=== PATIENT | female | born 1940 | race Caucasian/White ===

== ENCOUNTER → 2016-08-17 | Outpatient (CLI) | payer MEDICARE ==
--- NOTE | 2016-08-18 12:06 | MM ---
Reason for exam: screening (asymptomatic). Last mammogram was performed 1 year ago. History: Patient is postmenopausal and has history of colon cancer at age 64. Family history of breast cancer in maternal aunt. Physical Findings: A clinical breast exam by your physician is recommended on an annual basis and results should be correlated with mammographic findings. MG Screening Mammo w CAD Bilateral CC and MLO view(s) were taken. Prior study comparison: August 15, 2015, bilateral MG screening mammo w CAD. August 02, 2014, bilateral MG screening mammo w CAD. July 31, 2013, bilateral digital screening mammo w/CAD. The breast tissue is almost entirely fat. No significant changes when compared with prior studies. ASSESSMENT: Negative, BI-RAD 1 RECOMMENDATION: Routine screening mammogram of both breasts in 1 year.
== END | disposition home or self-care (01) ==
LOC: RADMAMWWP 11:24
PROVIDERS: ATTEND Family Medicine
DX: Z12.31 Encounter for screening mammogram for malignant neoplasm of breast (principal)

== ENCOUNTER → 2016-11-16 | Outpatient (CLI) | payer MEDICARE ==
--- NOTE | 2016-11-16 09:49 | CT ---
EXAMINATION TYPE: CT sinus wo con DATE OF EXAM: 11/16/2016 9:06 AM COMPARISON: NONE HISTORY: Lt facial pain and burning CT DLP: 590.1 mGycm Automated exposure control for dose reduction was used. FINDINGS: Visualized intracranial structures are unremarkable. The soft tissues are unremarkable. There is minimal mucoperiosteal thickening involving the anterior ethmoid air cells. The remainder th e paranasal sinuses and mastoids are clear. Both infundibula are patent. IMPRESSION: MINIMAL MUCOPERIOSTEAL THICKENING INVOLVING THE ANTERIOR ETHMOID AIR CELLS.
== END | disposition home or self-care (01) ==
LOC: RADCTMAIN 08:38
PROVIDERS: ATTEND Otolaryngology
DX: J34.89 Other specified disorders of nose and nasal sinuses (principal); R22.0 Localized swelling, mass and lump, head
CPT/HCPCS: 70486

== ENCOUNTER 2017-04-06 15:52 | Emergency (ER) | payer MEDICARE ==
[2017-04-06 16:02] VITALS: BP 192/74; PULSE 84; RESP 18; TEMP 97.6
[2017-04-06] MEDS ORDERED: ACETAMINOPHEN TAB 500 MG TAB PO STA (16:22)
--- NOTE | 2017-04-06 16:50 | XR ---
EXAMINATION TYPE: XR ribs LT w pa chest xray DATE OF EXAM: 04/06/2017 COMPARISON: NONE HISTORY: Rib pain TECHNIQUE: 5 views FINDINGS: There is slight coarsening of interstitial markings. Heart size is normal. There is no sign of pleural effusion or pneumothorax. I see no displaced rib fracture. IMPRESSION: Minimal pulmonary fibrotic changes. No active cardiopulmonary disease. No fracture. Chest x-ray is stable compared to 07/16/2015.
--- NOTE | 2017-04-06 17:02 | ED ---
Fall HPI - General Chief Complaint: Fall Stated Complaint: Fall Time Seen by Provider: 04/06/17 16:06 Source: patient Mode of arrival: ambulatory - History of Present Illness Initial Comments: 76-year-old female patient presents to emergency department today for evaluation after experiencing a fall just prior to arrival. Patient states that she was coming down the sidewalk where there was a small ledge. States that she fell forward striking her chin and face on the ground. Patient states that she did have some epistaxis after this. Patient states she does have a mild headache. Patient states she does have some tenderness in the anterior neck where she has abrasions. Patient states she is also having some left anterior rib pain. Patient states she is tender over the left anterior ribs #7 and 8 near the mid axillary line. She states that it does hurt when she takes a deep breath however denies any shortness of breath. Denies any cough or congestion. Denies any painful swallowing or throat swelling. Patient states she wears dentures, denies any abdominal injury. She states she has some mild knee tenderness however reports no difficulty ambulating, or difficulty with range of motion. She denies any lower extremity numbness or tingling. Patient denies any neck pain, back pain, chest pain, dizziness, weakness, abdominal pain , nausea, vomiting, or difficulties with bowel movements or urination. She reports taking 81mg Aspirin daily. Denies any other anticoagulant use. - Related Data Home Medications Medication Instructions Recorded Confirmed ALPRAZolam [Xanax] 0.25 mg PO BID 07/16/15 10/07/15 Candesartan Cilexetil 32 mg PO QAM 07/16/15 10/07/15 Citalopram Hydrobromide [CeleXA] 20 mg PO HS 07/16/15 10/07/15 Omeprazole [PriLOSEC] 20 mg PO AC-BRKFST 07/16/15 10/07/15 Simvastatin [Zocor] 40 mg PO HS 07/16/15 10/07/15 Aspirin [Adult Low Dose Aspirin EC] 81 mg PO DAILY 10/02/15 10/07/15 Cholecalciferol [Vitamin D3] 1,000 unit PO DAILY 10/02/15 10/07/15 Multivitamins, Thera [Multivitamin] 1 tab PO DAILY 10/02/15 10/07/15 Previous Rx's Medication Instructions Recorded Acetaminophen-Codeine 300-30mg 1 tab PO Q6H PRN #15 tablet 04/06/17 [Tylenol #3] Allergies Allergy/AdvReac Type Severity Reaction Status Date / Time adhesive Allergy Itching. Verified 04/06/17 16:02 RASH/REDNESS Review of Systems ROS Statement: Those systems with pertinent positive or pertinent negative responses have been documented in the HPI. ROS Other: All systems not noted in ROS Statement are negative. Past Medical History Past Medical History: Coronary Artery Disease (CAD), Cancer, Hypertension Additional Past Medical History / Comment(s): colon cancer History of Any Multi-Drug Resistant Organisms: None Reported Past Surgical History: Appendectomy, Bowel Resection, Hysterectomy, Orthopedic Surgery Additional Past Surgical History / Comment(s): RIGHT HAND TRIGGER FINGER Past Anesthesia/Blood Transfusion Reactions: Motion Sickness Past Psychological History: Depression Smoking Status: Former smoker Past Alcohol Use History: Rare Past Drug Use History: None Reported - Past Family History Mother Family Medical History: No Reported History General Exam Limitations: no limitations General appearance: alert, in no apparent distress, other (This is a well- developed, well-nourished, acutely responsive adult female patient in no acute distress. Vital signs upon presentation were temperature 97.6F, pulse 84, respirations 18, blood pressure 192/74, pulse ox 97% on room air.) Head exam: Present: normocephalic, other (Patient has a chin abrasion, minor soft tissue swelling, mild ecchymosis.) Eye exam: Present: normal appearance, PERRL, EOMI. Absent: scleral icterus, conjunctival injection, periorbital swelling, periorbital tenderness ENT exam: Present: normal exam, normal oropharynx, mucous membranes moist, TM's normal bilaterally, other (Patient did have some dried blood to the right naris. No septal deviation or hematoma noted. Bleeding is controlled. Patient denies any nasal bridge tenderness. No evidence of cobb sign. Patient does have lower lip swelling, there is ecchymosis noted to the oral mucosal surface of the lower lip. No evidence of laceration or bleeding.) Neck exam: Present: tenderness (Left anterior neck tenderness), full ROM, other (Nontender, no step-off, no deformity to firm midline palpation of the posterior cervical spine. Full range of motion without pain or limitation.). Absent: normal inspection, meningismus, lymphadenopathy Respiratory exam: Present: normal lung sounds bilaterally, chest wall tenderness (Left anterior rib tenderness, near the midaxillary line.), other ( No evidence of superficial trauma, ecchymosis, or abrasion.). Absent: respiratory distress, wheezes, rales, rhonchi, stridor Cardiovascular Exam: Present: regular rate, normal rhythm, normal heart sounds. Absent: systolic murmur, diastolic murmur, rubs, gallop, clicks GI/Abdominal exam: Present: soft, normal bowel sounds. Absent: distended, tenderness, guarding, rebound, rigid Extremities exam: Present: full ROM, normal capillary refill, other (Ecchymosis noted to the right anterior knee above the patella. Full range of motion without pain or limitation. No laxity with valgus or varus maneuvers. Patient ambulatory without difficulty. Bilateral upper construction secretary pink, warm, and dry. Strength is 5/5 in bilateral arms. Radial pulses are intact and 2+. Patient denies any numbness or tingling.). Absent: tenderness, pedal edema, joint swelling, calf tenderness Back exam: Present: normal inspection, other (Nontender, no step-off, no deformity to firm midline palpation of the thoracic and lumbar vertebrae. Full range of motion without pain or limitation.). Absent: tenderness, CVA tenderness (R), CVA tenderness (L), vertebral tenderness Neurological exam: Present: alert, oriented X3, CN II-XII intact Psychiatric exam: Present: normal affect, normal mood Skin exam: Present: warm, dry, intact, normal color. Absent: rash Course Vital Signs 04/06/17 15:58 Temperature 97.6 F Pulse Rate 84 Respiratory 18 Rate Blood Pressure 192/74 O2 Sat by Pulse 97 Oximetry Medical Decision Making - Medical Decision Making 76-year-old female patient presented for evaluation after sustaining a fall today. CT of the brain, C-spine, and facial bones is negative for any acute process. X-ray of the chest with left rib exam is negative for any acute fracture, or intra-thoracic process. Patient has good neurovascular status all extremities. She is neurologically intact. She was given acetaminophen here in the department, patient is controlled. She will be discharged home to follow up with her primary care physician for recheck in 1-2 days. Did give her a prescription of Tylenol with codeine to take in case her pain worsens. She was instructed regarding good pulmonary hygiene in relation to having the rib pain. She is instructed to do coughing and deep breathing exercises. She is instructed to return immediately for any new, worsening, or concerning symptoms. She verbalizes understanding and agrees with this plan. - Radiology Data Radiology results: report reviewed, image reviewed 5 views of the chest show slight coarsening of the interstitial markings. Heart size is normal. There is no sign of pleural effusion or pneumothorax. I see no displaced rib fracture. Impression by Dr. Peterson shows minimal pulmonary fibrotic changes. No active cardiopulmonary disease. No fracture. Chest x-ray stable compared to 07/16/2015. Computed tomography scan of the head and cervical spine are performed without contrast, ventricles have fairly normal size. There is no mass effect or midline shift. There is no sign of intracranial hemorrhage. The calvarium is intact. Cervical vertebra have normal alignment. There is narrowing and spurring at C5 to 6 and C6 to 7. The posterior elements are intact. There is mild facet arthropathy. Skull base is intact. There is no sign of a fracture. Impression by Dr. Peterson shows negative computed tomography scan the brain. Mild spondylitic changes in the cervical spine. Otherwise negative computed tomography scan of the cervical spine. No fracture. No change compared to old exam. Computed tomography scan of the sinuses is performed without contrast, elza images are obtained, coronal reformatted images are also reviewed. Findings show the mandibular ring is intact. Zygomatic arches appear normal. There is fairly normal aeration of the paranasal sinuses. Orbital margins are intact. There is no evidence of a blowout fracture. There is bilateral patency of the ostiomeatal complex. The maxilla is intact. Nasal bone appears intact. Impression by Dr. Peterson shows negative computed tomography scan of the facial bones. No fracture seen. Disposition Clinical Impression: Fall with injury, Facial abrasion, Facial contusion, Knee contusion Disposition: HOME SELF-CARE Condition: Good Instructions: Fall Prevention for Older Adults (ED), Contusion in Adults (ED), Abrasion (ED), Rib Contusion (ED) Additional Instructions: Perform coughing and deep breathing exercises 10 times normal awake. Apply ice to the painful areas 20 minutes at a time at least 4 times daily. Keep wounds clean and dry. Monitor for signs or symptoms of infection including but not limited to redness, swelling, drainage, increased pain, fever, or chills. Follow-up with your primary care physician for recheck in 1-2 days. Return here immediately for any new, worsening, or concerning symptoms. Prescriptions: Acetaminophen-Codeine 300-30mg [Tylenol #3] 1 tab PO Q6H PRN #15 tablet PRN Reason: Pain Referrals: Sunny Sun DO [Primary Care Provider] - 1-2 days Time of Disposition: 17:57
[2017-04-06] MEDS ORDERED: DIPH,PERTUS(ACELL)TETVAC-LF 0.5 ML VIAL IM ONE (17:24)
--- NOTE | 2017-04-06 17:31 | CT ---
EXAMINATION TYPE: CT brain mario wo con DATE OF EXAM: 04/06/2017 COMPARISON: 07/16/2015 HISTORY: Fall, abrasion to nose and chin. CT DLP: 1560.60 mGycm Automated exposure control for dose reduction was used. TECHNIQUE: CT scan of the head and cervical spine are performed without contrast. FINDINGS: Ventricles have fairly normal size. There is no mass effect nor midline shift. There is n o sign of intracranial hemorrhage. The calvarium is intact. Cervical vertebra have normal alignment. There is narrowing and spurring at C5-6 C6-7. The posterior elements are intact. There is mild facet arthropathy. Skull base is intact. There is no sign of a fra cture. IMPRESSION: Negative CT scan of the brain. Mild spondylotic changes in the cervical spine. Otherwise negative CT scan of cervical spine. No fracture. No change compared to old exam.
--- NOTE | 2017-04-06 17:34 | CT ---
EXAMINATION TYPE: CT facial bones wo con DATE OF EXAM: 04/06/2017 COMPARISON: NONE HISTORY: Fall, abrasion to nose and chin. CT DLP: 587.50 mGycm Automated exposure control for dose reduction was used. TECHNIQUE: CT scan of the sinuses is performed without contrast, axial images are obtained, coronal r eformatted images are also reviewed. FINDINGS: The mandibular ring is intact. Zygomatic arches appear normal. There is fairly normal aerat ion of the paranasal sinuses. Orbital margins are intact. There is no evidence of a blowout fracture. There is bilateral patency of the ostiomeatal complex. The maxilla is intact. Nasal bone appears int act. IMPRESSION: Negative CT scan of the facial bones. No fracture seen.
== END 2017-04-06 18:07 | disposition home or self-care (01) ==
LOC: EC 15:52
DX: S00.83XA Contusion of other part of head, initial encounter (principal); S00.531A Contusion of lip, initial encounter; S80.01XA Contusion of right knee, initial encounter; J84.10 Pulmonary fibrosis, unspecified; M47.812 Spondylosis without myelopathy or radiculopathy, cervical region; M46.92 Unspecified inflammatory spondylopathy, cervical region; R07.81 Pleurodynia; I10 Essential (primary) hypertension; I25.10 Atherosclerotic heart disease of native coronary artery without angina pectoris; F32.9 Major depressive disorder, single episode, unspecified; Z87.891 Personal history of nicotine dependence; Z79.82 Long term (current) use of aspirin; Z79.899 Other long term (current) drug therapy; Z91.09 Other allergy status, other than to drugs and biological substances; Z23 Encounter for immunization; W18.09XA Striking against other object with subsequent fall, initial encounter; Y93.01 Activity, walking, marching and hiking; Y92.480 Sidewalk as the place of occurrence of the external cause
CPT/HCPCS: 70450; 70486; 72125; 90471; 90715; 99284

== ENCOUNTER → 2017-07-02 | Outpatient (CLI) | payer MEDICARE ==
--- NOTE | 2017-07-02 13:53 | XR ---
EXAMINATION TYPE: XR lumbar spine 2 or 3V DATE OF EXAM: 07/02/2017 CLINICAL HISTORY: pain TECHNIQUE: Three views of the lumbar spine are submitted. COMPARISON: None. FINDINGS: Other scoliotic curvature convex to the left. Severe degenerative disc space narrowing is identified at L2-3 through L5-S1. There is endplate sclerosis noted as well as ventral and dorsal spondylosis. S evere facet joint arthropathy noted. No acute compression fracture identified. No evidence for sublux ation. Nonaneurysmal atheromatous change of the abdominal aorta. IMPRESSION: Degenerative changes as discussed. ICD 10 NO FRACTURE, INITIAL EVALUATION
== END | disposition home or self-care (01) ==
LOC: RADXRMAIN 13:31
PROVIDERS: ATTEND Family Medicine
DX: M47.816 Spondylosis without myelopathy or radiculopathy, lumbar region (principal)
CPT/HCPCS: 72100

== ENCOUNTER → 2017-07-20 | Outpatient (CLI) | payer MEDICARE ==
--- NOTE | 2017-07-20 11:54 | XR ---
EXAMINATION TYPE: XR chest 2V DATE OF EXAM: 07/20/2017 COMPARISON: 04/06/2017 TECHNIQUE: PA and lateral views submitted. HISTORY: Cough FINDINGS: The lungs are clear and there is no pneumothorax, pleural effusion, or focal pneumonia. Atheroscler otic change aorta. Arthropathy of the shoulders. Diffuse osteopenia noted. Degenerative and hypertrop hic change of the spine. No overt failure. IMPRESSION: 1. No acute process.
== END | disposition home or self-care (01) ==
LOC: RADXRMAIN 11:22
PROVIDERS: ATTEND Family Medicine
DX: J20.9 Acute bronchitis, unspecified (principal)
CPT/HCPCS: 71046

== ENCOUNTER → 2017-08-05 | Outpatient (CLI) | payer MEDICARE ==
[2017-08-05 12:05] LABS: HCT 35.9 % (34.0-46.0); HGB 11.6 gm/dL (11.4-16.0); MCH 30.3 pg (25.0-35.0); MCHC 32.4 g/dL (31.0-37.0); MCV 93.6 fL (80.0-100.0); Mean Platelet Volume 7.6; Platelet Count 332 k/uL (150-450); RBC 3.83 m/uL (3.80-5.40); RDW 12.8 % (11.5-15.5); WBC 9.7 k/uL (3.8-10.6)
[2017-08-05 12:24] LABS: Anion Gap 9 mmol/L; Blood Urea Nitrogen 14 mg/dL (7-17); Carbon Dioxide 27 mmol/L (22-30); Chloride 105 mmol/L (98-107); Potassium 4.2 mmol/L (3.5-5.1); Sodium 141 mmol/L (137-145)
== END | disposition home or self-care (01) ==
LOC: LABPAT 11:24
PROVIDERS: ATTEND Internal Medicine Cardiovascular Disease
DX: Z01.812 Encounter for preprocedural laboratory examination (principal); R07.9 Chest pain, unspecified
CPT/HCPCS: 36415; 80051; 82565; 84520; 85027

== ENCOUNTER 2017-08-10 10:32 | Day surgery (SDC) | payer MEDICARE ==
[~2017-08-10 10:32] MED LIST: ALPRAZolam 0.25 MG TAB PO PRN; ALPRAZolam 0.5 MG TAB PO PRN; ASPIRIN 325 MG TAB PO STA; ATORVASTATIN 80 MG TAB PO STA; NITROGLYCERIN SL TABS 0.4 MG TAB SUBLINGUAL PRN; SODIUM CHLORIDE 0.9% 1,000 ML in EMPTY BAG 1 BAG IV ONE
[2017-08-10] MEDS ORDERED: IV FLUID CONTINUATION 950 ML IV ONE (13:20)
[2017-08-10] MEDS ORDERED: fentaNYL (PF) 50 MCG/ML 2 ML AMP IV ONE (13:35)
[2017-08-10] MEDS ORDERED: MIDAZOLAM 2 MG/2 ML VIAL IV ONE (13:36)
[2017-08-10] MEDS ORDERED: LIDOCAINE 2% INJ 20 MG/ML SQ ONE (13:39)
[2017-08-10] MEDS ORDERED: BIVALIRUDIN BOLUS 250 MG/50 ML IV ONE (14:36)
[2017-08-10] MEDS ORDERED: BIVALIRUDIN 250 MG in SODIUM CHLORIDE 0.9% 40 ML IV ONE (14:37)
[2017-08-10] MEDS ORDERED: CLOPIDOGREL 75 MG TAB PO ONE (14:51)
[2017-08-10] MEDS ORDERED: RX INFO: IV CONTRAST WAS GIVEN 1 EACH MISC MISCELLANE PRN (15:00)
[2017-08-10] MEDS ORDERED: MAG HYDROX/AL HYDROX/SIMETH 30 ML CUP PO PRN (15:00)
[2017-08-10] MEDS ORDERED: IOHEXOL 350 MG/ML 125ML BOTTLE INJ ONE (15:00)
[2017-08-10] MEDS ORDERED: ATROPINE SULFATE 0.1 MG/ML 10ML SYRINGE IV PRN (15:00)
--- NOTE | 2017-08-10 15:52 | CC ---
CARDIAC CATHETERIZATION REPORT Mrs. Cowart is a 77-year-old female who has been having intermittent chest discomfort. She underwent a stress test. Stress test showed evidence of ST-segment changes suggestive of ischemia. The nuclear test did not show any significant abnormality. In view of the continued chest pain and abnormal EKG, patient was recommended to have a cardiac catheterization for definitive diagnosis. PROCEDURE: The right groin was prepped and draped in the usual manner and the skin was infiltrated with 2% Xylocaine. The right femoral artery was entered using Seldinger technique. A #6 Cuban sheath was placed in. Selective coronary angiography was then performed in multiple projections and the left ventricular pressures were obtained. Patient tolerated the procedure well. Subsequently, Dr. Alva Ramirez proceeded with a stent to the obtuse marginal branch. Moderate sedation was used. The total sedation time was 19 minutes. HEMODYNAMICS: Left ventricular end-diastolic pressure was 16 to 18 mmHg prior to angiography. No significant gradient is noted across the aortic valve. SELECTIVE CORONARY ANGIOGRAPHY: Left main coronary artery is normal and patent. LAD is a good-caliber blood vessel and gives rise to a good-sized diagonal branch. LAD and its branches are normal. The circumflex coronary artery is codominant in distribution and it gives rise to a good- sized high obtuse marginal branch. Subsequently the circumflex coronary artery continues as a good-sized PLV branch which has got a focal stenosis of about 90%. The right coronary artery gives rise to a small-sized PDA branch and it is normal. 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 Left anterior descending and the right coronary arteries are normal. RECOMMENDATIONS: We will review the films with Dr. Alva Ramirez and consider stent to the obtuse marginal branch. MMODL / IJN: [id number] /
[2017-08-10 15:57] VITALS: RESP 18
[2017-08-10] MEDS ORDERED: ACETAMINOPHEN TAB 325 MG TAB PO PRN (18:08)
[2017-08-10] MEDS: SODIUM CHLORIDE 0.9% 1,000 ML IV SCH (18:14)
[2017-08-10] MEDS: METOPROLOL TARTRATE 12.5 MG TAB PO SCH (20:37)
[2017-08-10] MEDS ORDERED: ATORVASTATIN 80 MG TAB PO SCH (21:00)
[2017-08-10] MEDS ORDERED: FLUoxetine HCL 20 MG CAP PO SCH (21:00)
[2017-08-11] MEDS: SODIUM CHLORIDE 0.9% 1,000 ML IV SCH (05:41)
[2017-08-11 06:22] LABS: Anion Gap 8 mmol/L; Blood Urea Nitrogen 17 mg/dL (7-17); Carbon Dioxide 30 mmol/L (22-30); Chloride 102 mmol/L (98-107); Glucose 95 mg/dL (74-99); Sodium 140 mmol/L (137-145)
[2017-08-11 06:41] LABS: Basophils % (A) 0 %; Eosinophils # (A) 0.2 k/uL (0-0.7); Eosinophils % (A) 2 %; HCT 38.4 % (34.0-46.0); HGB 12.5 gm/dL (11.4-16.0); Lymphocytes % (A) 20 %; MCH 30.2 pg (25.0-35.0); MCHC 32.6 g/dL (31.0-37.0); MCV 92.8 fL (80.0-100.0); Mean Platelet Volume 7.5; Monocytes # (A) 0.5 k/uL (0-1.0); Monocytes % (A) 4 %; Neutrophils # (A) 7.3 k/uL (1.3-7.7); Neutrophils % (A) 71 %; Platelet Count 290 k/uL (150-450); RBC 4.14 m/uL (3.80-5.40); RDW 12.8 % (11.5-15.5); WBC 10.3 k/uL (3.8-10.6)
[2017-08-11 06:48] LABS: Potassium 4.5 mmol/L (3.5-5.1)
[2017-08-11] MEDS: METOPROLOL TARTRATE 12.5 MG TAB PO SCH (08:02)
--- NOTE | 2017-08-11 08:02 | PTCA ---
PERCUTANEOUSTRANS CORORONARY ANGIOGRAPHY DATE OF SERVICE: 08/10/2017. PROCEDURE: PTCA and stenting of mid circumflex coronary artery. PERFORMED BY: Dr. Alva Ramirez. ANESTHESIA: Moderate conscious sedation time 19 minutes. CLINICAL INFORMATION: Mrs. Ramila Cowart is a 77-year-old lady with a history of hypertension who had an abnormal stress test and underwent a cardiac cath by Dr. Chase Vela. Study revealed a 90% hazy mid circumflex lesion and was advised intervention that was performed in the same setting. PROCEDURE NOTE: The existing 6-Czech introducer in the right femoral artery was used to perform the procedure. A standard left Lizandro type guide catheter was used to cannulate the left coronary artery. A BMW wire was used to cross the lesion. A 12 mm long 2.5 caliber Trek balloon was used to pre-dilate the lesion. A 3.25 caliber 12 mm long Xience drug- eluting stent was deployed at 11 atmospheres. Patient had mild chest discomfort, but no significant EKG changes. The patient received Angiomax bolus and infusion. She also received 600 mg of Plavix. Excellent angiographic result without complication was achieved and I expect the patient to be discharged tomorrow. Results were discussed with the patient's neighbor and a niece who was in the waiting room. Results were also reviewed with the patient. Excellent angiographic result without complication was achieved. MMODL / ANGELAN: [id number] /
--- NOTE | 2017-08-11 08:08 | LTR ---
Dear Dr. Sun: Thank you for the opportunity to participate in the care of Mrs. Cowart. I am pleased to report you that this lady had an excellent angiographic result. The mid circumflex 90% hazy lesion was addressed with a drug-eluting stent of 3.25 caliber at 12 mm length. I expect the patient to be discharged tomorrow if she remains stable. Thank you for a referral and please call for questions. With kindest regards. Sincerely yours, MD DEEPAK Jack / ANGELAN: [id number] /
[2017-08-11] MEDS ORDERED: ASPIRIN 325 MG TAB PO SCH (09:00)
[2017-08-11] MEDS ORDERED: LOSARTAN 50 MG TAB PO SCH (09:00)
[2017-08-11] MEDS ORDERED: CHOLECALCIFEROL 1,000 UNIT TAB PO SCH (09:00)
[2017-08-11] MEDS ORDERED: ISOSORBIDE MONONITRATE ER 30 MG TAB.ER.24H PO SCH (09:00)
[2017-08-11 11:31] VITALS: BMI 33.4
[2017-08-11 12:00] VITALS: BP 133/63; PULSE 60; TEMP 97.6
[2017-08-11] MEDS ORDERED: MULTIVITAMINS, THERA 1 EACH TAB PO SCH (12:00)
[2017-08-11] MEDS ORDERED: CLOPIDOGREL 75 MG TAB PO SCH (12:00)
--- NOTE | 2017-08-11 12:53 | PN ---
PROGRESS NOTE HISTORY: This patient underwent cardiac catheterization yesterday. Patient was found to have a 90% stenosis of the obtuse marginal branch and underwent a stent placement. He is doing well. The patient's was explained about the findings of catheterization as well as a stent placement. She has been having intermittent nausea. The patient is advised to take Prilosec 20 mg daily. Patient's physical examination and vital signs are normal. The right groin is normal. There is no evidence of any hematoma. The patient will be discharged home today. Medications are reviewed. She will follow up with Dr. Arias. MMODL / IJN: [id number] /
== END 2017-08-11 15:10 | disposition home or self-care (01) ==
LOC: CATHCVL 10:32 → 6SEL 15:38 → CATHCVL 08-11 15:10
PROVIDERS: ATTEND Internal Medicine Cardiovascular Disease
DX: I25.10 Atherosclerotic heart disease of native coronary artery without angina pectoris (principal); R11.0 Nausea; R00.1 Bradycardia, unspecified; R94.39 Abnormal result of other cardiovascular function study; E78.5 Hyperlipidemia, unspecified; I10 Essential (primary) hypertension; Z82.49 Family history of ischemic heart disease and other diseases of the circulatory system; Z87.891 Personal history of nicotine dependence; Z79.82 Long term (current) use of aspirin; Z79.899 Other long term (current) drug therapy
CPT/HCPCS: 93458; 80048; 85025; C9600; C1769 ×3; C1760; C1887; C1725; C1894; C1874; J2001; J2250; J3010; J0583; Q9967

== ENCOUNTER → 2017-08-31 | Outpatient (CLI) | payer MEDICARE ==
--- NOTE | 2017-08-31 11:19 | US ---
EXAMINATION TYPE: US gallbladder DATE OF EXAM: 08/31/2017 COMPARISON: None CLINICAL HISTORY: 77 year-old female with nausea, R10.11 Right Upper Quad Pain. Technique: Multiple sonographic images of the right upper quadrant are obtained. FINDINGS: Liver Length: 15.0 cm Gallbladder Wall: 3.7 mm CBD: 0.4 cm Right Kidney: 11.8 x 5.4 x 5.5 cm Pancreas: not well visualized due to midline bowel gas Liver: wnl Gallbladder: Borderline to mild wall thickening may relate to incomplete distention. No abnormal dist ention, pericholecystic fluid, or shadowing calculi seen. Evidence for sonographic Elizabeth's sign: Yes CBD: wnl Right Kidney: No hydronephrosis. IMPRESSION: Borderline to mild gallbladder wall thickening without ancillary imaging findings of acute cholecysti tis. The positive sonographic Elizabeth's sign could reflect referred pain. If further imaging evaluatio n of the gallbladder is indicated, consider HIDA scan with ejection fraction.
== END | disposition home or self-care (01) ==
LOC: RADUSWWP 08:42
PROVIDERS: ATTEND Family Medicine
DX: K82.8 Other specified diseases of gallbladder (principal)
CPT/HCPCS: 76705

== ENCOUNTER → 2017-09-01 | Outpatient (CLI) | payer MEDICARE ==
--- NOTE | 2017-09-02 09:59 | MM ---
Reason for exam: screening (asymptomatic). Last mammogram was performed 1 year ago. History: Patient is postmenopausal and has history of colon cancer at age 64. Family history of breast cancer in maternal aunt. Physical Findings: A clinical breast exam by your physician is recommended on an annual basis and results should be correlated with mammographic findings. MG 3D Screening Mammo W/Cad Bilateral CC and MLO view(s) were taken. Prior study comparison: August 17, 2016, bilateral MG screening mammo w CAD. August 15, 2015, bilateral MG screening mammo w CAD. The breast tissue is almost entirely fat. No significant changes when compared with prior studies. ASSESSMENT: Negative, BI-RAD 1 RECOMMENDATION: Routine screening mammogram of both breasts in 1 year.
== END | disposition home or self-care (01) ==
LOC: RADMAMWWP 13:36
PROVIDERS: ATTEND Family Medicine
DX: Z12.31 Encounter for screening mammogram for malignant neoplasm of breast (principal)
CPT/HCPCS: 77063; 77067

== ENCOUNTER 2018-01-15 12:24 | Observation (INO) | payer MEDICARE ==
[2018-01-15] MEDS ORDERED: ASPIRIN 81 MG PO STA (13:00)
[2018-01-15] MEDS ORDERED: SODIUM CHLORIDE 0.9% 500 ML IV STA (13:00)
[2018-01-15 13:17] LABS: Basophils % (A) 1 %; Eosinophils # (A) 0.2 k/uL (0-0.7); Eosinophils % (A) 3 %; HCT 34.1 % (34.0-46.0); HGB 11.3 gm/dL (11.4-16.0); Lymphocytes # (A) 1.8 k/uL (1.0-4.8); Lymphocytes % (A) 22 %; MCHC 33.1 g/dL (31.0-37.0); MCV 87.5 fL (80.0-100.0); Mean Platelet Volume 7.6; Monocytes # (A) 0.5 k/uL (0-1.0); Monocytes % (A) 7 %; Neutrophils # (A) 5.1 k/uL (1.3-7.7); Neutrophils % (A) 65 %; Platelet Count 226 k/uL (150-450); RDW 13.8 % (11.5-15.5); WBC 7.8 k/uL (3.8-10.6)
[2018-01-15 13:25] LABS: Partial Thromboplastin Time 23.9 sec (22.0-30.0); Prothrombin Time 10.1 sec (9.0-12.0)
[2018-01-15 13:27] LABS: Albumin 3.7 g/dL (3.5-5.0); Calcium 8.7 mg/dL (8.4-10.2); Potassium 3.8 mmol/L (3.5-5.1); Total Bilirubin 0.4 mg/dL (0.2-1.3); Total Protein 6.4 g/dL (6.3-8.2)
[2018-01-15 13:43] LABS: Creatine Kinase 72 U/L (30-135)
[2018-01-15 13:55] LABS: Creatine Kinase MB 0.5 ng/mL (0.0-2.4); Troponin I <0.012 ng/mL (0.000-0.034)
--- NOTE | 2018-01-15 13:58 | XR ---
EXAMINATION TYPE: XR chest 2V DATE OF EXAM: 01/15/2018 HISTORY: Chest Pain. REFERENCE: Previous study dated 07/20/2017. FINDINGS: The heart is upper limits of normal in size. There are senescent changes throughout the [place] gs. There is no focal pneumonia or edema. Pleural spaces are clear. IMPRESSION: NO ACUTE CARDIOTHORACIC ABNORMALITY.
--- NOTE | 2018-01-15 14:50 | ED ---
General Adult HPI - General Chief complaint: Recheck/Abnormal Lab/Rx Stated complaint: Hypertension Time Seen by Provider: 01/15/18 12:51 Source: patient Mode of arrival: ambulatory Limitations: no limitations - History of Present Illness Initial comments: 77-year-old female patient presents the emergency department today for evaluation of elevated blood pressure and intermittent chest pain. Patient states that she has been having elevated blood pressures for the last couple of weeks. 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 Patient and family report that blood pressure this morning was 188/80. Patient states that she has been having morning headaches with this. States that today she has been having intermittent chest pain. She denies any shortness of breath , nausea, vomiting, sweats, neck, or jaw pain. Denies any dizziness or weakness. Denies any numbness or tingling to her extremities. Patient does have a history of coronary artery disease with 2 stents placed. Patient denies any recent rash, fever, chills, abdominal pain, diarrhea, constipation, back pain, hematuria, dysuria, urinary urgency, urinary frequency, visual changes, or any other complaints. - Related Data Home Medications Medication Instructions Recorded Confirmed ALPRAZolam [Xanax] 0.25 mg PO BID 07/16/15 01/15/18 Omeprazole [PriLOSEC] 20 mg PO BID 07/16/15 01/15/18 Aspirin [Adult Low Dose Aspirin EC] 81 mg PO HS 10/02/15 01/15/18 Cholecalciferol [Vitamin D3] 1,000 unit PO DAILY 10/02/15 01/15/18 Multivitamins, Thera [Multivitamin 1 tab PO DAILY 10/02/15 01/15/18 (formulary)] FLUoxetine HCL 20 mg PO HS 07/15/17 01/15/18 Isosorbide Mononitrate [Isosorbide 30 mg PO DAILY 07/15/17 01/15/18 Mononitrate ER] Triamterene-Hctz 37.5-25Mg 1 cap PO DAILY 01/15/18 01/15/18 [Dyazide 37.5-25 Capsule] Previous Rx's Medication Instructions Recorded Atorvastatin [Lipitor] 80 mg PO HS #30 tab 08/11/17 Clopidogrel [Plavix] 75 mg PO DAILY #30 tab 08/11/17 Losartan [Cozaar] 100 mg PO DAILY #30 tab 08/11/17 Nitroglycerin Sl Tabs [Nitrostat] 0.4 mg SUBLINGUAL Q5M PRN #25 tab 08/11/17 Allergies Allergy/AdvReac Type Severity Reaction Status Date / Time adhesive Allergy Itching. Verified 01/15/18 15:33 RASH/REDNESS Review of Systems ROS Statement: Those systems with pertinent positive or pertinent negative responses have been documented in the HPI. ROS Other: All systems not noted in ROS Statement are negative. Past Medical History Past Medical History: Coronary Artery Disease (CAD), Cancer, GERD/Reflux, Hyperlipidemia, Hypertension, Sleep Apnea/CPAP/BIPAP Additional Past Medical History / Comment(s): Hx colon cancer, Uses CPAP or BIPAP History of Any Multi-Drug Resistant Organisms: None Reported Past Surgical History: Appendectomy, Bowel Resection, Hysterectomy, Orthopedic Surgery Additional Past Surgical History / Comment(s): RIGHT HAND TRIGGER FINGER, spur removed from right foot. Past Anesthesia/Blood Transfusion Reactions: Motion Sickness Past Psychological History: Depression Smoking Status: Never smoker Past Alcohol Use History: None Reported Past Drug Use History: None Reported - Past Family History Mother Family Medical History: No Reported History Sister(s) Family Medical History: Cancer General Exam Limitations: no limitations General appearance: alert, in no apparent distress, other (This is a well- developed, well-nourished elderly female patient in no acute distress. Vital signs upon presentation are temperature 98.3F, pulse 64, respirations 18, blood pressure 152/62, pulse ox 97% on room air.) Eye exam: Present: normal appearance, PERRL, EOMI. Absent: scleral icterus, conjunctival injection, periorbital swelling ENT exam: Present: normal exam, normal oropharynx, mucous membranes moist Respiratory exam: Present: normal lung sounds bilaterally. Absent: respiratory distress, wheezes, rales, rhonchi, stridor Cardiovascular Exam: Present: regular rate, normal rhythm, normal heart sounds. Absent: systolic murmur, diastolic murmur, rubs, gallop, clicks GI/Abdominal exam: Present: soft, normal bowel sounds. Absent: distended, tenderness, guarding, rebound, rigid Neurological exam: Present: alert, oriented X3, CN II-XII intact Psychiatric exam: Present: normal affect, normal mood Skin exam: Present: warm, dry, intact, normal color. Absent: rash Course Vital Signs 01/15/18 01/15/18 01/15/18 12:41 14:50 15:04 Temperature 98.3 F Pulse Rate 64 61 66 Respiratory 18 18 16 Rate Blood Pressure 152/62 195/81 170/79 O2 Sat by Pulse 97 97 97 Oximetry 01/15/18 16:12 Temperature 98.1 F Pulse Rate 55 L Respiratory 16 Rate Blood Pressure 175/75 O2 Sat by Pulse 98 Oximetry EKG Findings - EKG Comments: EKG Findings:: EKG obtained at 1251 shows sinus bradycardia with ventricular to 59, PA interval 142, QRS duration 86, QT 424, QTC 419. No evidence of ST elevation or depression. Medical Decision Making - Medical Decision Making 77-year-old female patient presented to the emergency department today for evaluation of elevated blood pressure and intermittent chest pain. Physical examination was unremarkable. Lungs are clear to auscultation with good air movement. Labs reviewed and showed no acute abnormalities. Troponin was negative. Chest x-ray showed no acute cardiopulmonary process. EKG showed normal sinus rhythm. Did discuss results and findings with the patient. Given her history of coronary artery disease with stent placement we will admit to observation for repeat troponins and cardiology evaluation. She'll be admitted to Dr. Corrales. Heparin will be started. - Lab Data Result diagrams: 01/15/18 13:05 01/15/18 13:05 Lab Results 01/15/18 01/15/18 01/15/18 Range/Units 13:05 13:05 13:05 WBC 7.8 (3.8-10.6) k/uL RBC 3.90 (3.80-5.40) m/uL Hgb 11.3 L (11.4-16.0) gm/dL Hct 34.1 (34.0-46.0) % MCV 87.5 (80.0-100.0) fL MCH 29.0 (25.0-35.0) pg MCHC 33.1 (31.0-37.0) g/dL RDW 13.8 (11.5-15.5) % Plt Count 226 (150-450) k/uL Neutrophils % 65 % Lymphocytes % 22 % Monocytes % 7 % Eosinophils % 3 % Basophils % 1 % Neutrophils # 5.1 (1.3-7.7) k/uL Lymphocytes # 1.8 (1.0-4.8) k/uL Monocytes # 0.5 (0-1.0) k/uL Eosinophils # 0.2 (0-0.7) k/uL Basophils # 0.0 (0-0.2) k/uL PT (9.0-12.0) sec INR (<1.2) APTT (22.0-30.0) sec Sodium 139 (137-145) mmol/L Potassium 3.8 (3.5-5.1) mmol/L Chloride 106 (98-107) mmol/L Carbon Dioxide 29 (22-30) mmol/L Anion Gap 4 mmol/L BUN 17 (7-17) mg/dL Creatinine 0.81 (0.52-1.04) mg/dL Est GFR (CKD-EPI)AfAm 82 (>60 ml/min/1.73 sqM) Est GFR (CKD-EPI)NonAf 71 (>60 ml/min/1.73 sqM) Glucose 97 (74-99) mg/dL Calcium 8.7 (8.4-10.2) mg/dL Magnesium 2.0 (1.6-2.3) mg/dL Total Bilirubin 0.4 (0.2-1.3) mg/dL AST 28 (14-36) U/L ALT 32 (9-52) U/L Alkaline Phosphatase 63 (38-126) U/L Total Creatine Kinase 72 (30-135) U/L CK-MB (CK-2) 0.5 (0.0-2.4) ng/mL CK-MB (CK-2) Rel Index 0.7 Troponin I <0.012 (0.000-0.034) ng/mL Total Protein 6.4 (6.3-8.2) g/dL Albumin 3.7 (3.5-5.0) g/dL 01/15/18 Range/Units 13:05 WBC (3.8-10.6) k/uL RBC (3.80-5.40) m/uL Hgb (11.4-16.0) gm/dL Hct (34.0-46.0) % MCV (80.0-100.0) fL MCH (25.0-35.0) pg MCHC (31.0-37.0) g/dL RDW (11.5-15.5) % Plt Count (150-450) k/uL Neutrophils % % Lymphocytes % % Monocytes % % Eosinophils % % Basophils % % Neutrophils # (1.3-7.7) k/uL Lymphocytes # (1.0-4.8) k/uL Monocytes # (0-1.0) k/uL Eosinophils # (0-0.7) k/uL Basophils # (0-0.2) k/uL PT 10.1 (9.0-12.0) sec INR 1.0 (<1.2) APTT 23.9 (22.0-30.0) sec Sodium (137-145) mmol/L Potassium (3.5-5.1) mmol/L Chloride (98-107) mmol/L Carbon Dioxide (22-30) mmol/L Anion Gap mmol/L BUN (7-17) mg/dL Creatinine (0.52-1.04) mg/dL Est GFR (CKD-EPI)AfAm (>60 ml/min/1.73 sqM) Est GFR (CKD-EPI)NonAf (>60 ml/min/1.73 sqM) Glucose (74-99) mg/dL Calcium (8.4-10.2) mg/dL Magnesium (1.6-2.3) mg/dL Total Bilirubin (0.2-1.3) mg/dL AST (14-36) U/L ALT (9-52) U/L Alkaline Phosphatase (38-126) U/L Total Creatine Kinase (30-135) U/L CK-MB (CK-2) (0.0-2.4) ng/mL CK-MB (CK-2) Rel Index Troponin I (0.000-0.034) ng/mL Total Protein (6.3-8.2) g/dL Albumin (3.5-5.0) g/dL - Radiology Data Radiology results: report reviewed, image reviewed Two-view x-ray of the chest is obtained. Heart is upper limits of normal in size. There are senescent changes throughout the lungs. There is no focal pneumonia or edema. Pleural spaces are clear. Impression by Dr. Merritt shows no acute cardiothoracic of normality. Disposition Clinical Impression: Chest pain, Hypertension Disposition: ADMITTED IP TO THIS HOSP Condition: Serious Decision to Admit Reason: Admit from EC Decision Date: 01/15/18 Decision Time: 15:10
[2018-01-15] MEDS ORDERED: HEPARIN SODIUM,PORCINE 5,000 UNIT/ML 1 ML VIAL IV ONE (15:08)
[2018-01-15] MEDS ORDERED: NITROGLYCERIN SL TABS 0.4 MG TAB SUBLINGUAL PRN ×2 (15:08→18:33)
[2018-01-15] MEDS ORDERED: HEPARIN SOD,PORK IN 0.45% NACL 25,000 UNIT in 0.45% NACL 1 500ML.BAG IV SCH (15:15)
[2018-01-15] MEDS: SODIUM CHLORIDE 0.9% 1,000 ML IV SCH (15:43)
[2018-01-15 16:58] VITALS: BMI 31.8
[2018-01-15] MEDS ORDERED: amLODIPine 5 MG TAB PO SCH (18:45)
[2018-01-15] MEDS: FLUoxetine HCL 20 MG CAP PO SCH (19:54)
[2018-01-15] MEDS: ATORVASTATIN 80 MG TAB PO SCH (19:54)
[2018-01-15] MEDS: ALPRAZolam 0.25 MG TAB PO SCH (19:55)
[2018-01-15 20:36] LABS: Creatine Kinase 65 U/L (30-135)
[2018-01-15 21:05] LABS: Creatine Kinase MB 0.5 ng/mL (0.0-2.4); Troponin I <0.012 ng/mL (0.000-0.034)
[2018-01-16 02:37] LABS: Cholesterol 116 mg/dL (<200); Creatine Kinase 58 U/L (30-135); HDL Cholesterol 58 mg/dL (40-60); LDL Cholesterol,Calculated 42 mg/dL (0-99); Triglycerides 79 mg/dL (<150)
[2018-01-16 02:49] LABS: Creatine Kinase MB 0.5 ng/mL (0.0-2.4); Troponin I <0.012 ng/mL (0.000-0.034)
[2018-01-16] MEDS: ACETAMINOPHEN TAB 325 MG TAB PO PRN ×2 (07:58→21:30)
[2018-01-16] MEDS ORDERED: amLODIPine 5 MG TAB PO SCH (09:00)
[2018-01-16] MEDS ORDERED: ASPIRIN 325 MG TAB PO SCH (09:00)
[2018-01-16] MEDS: PANTOPRAZOLE 40 MG TABLET PO SCH (09:03)
[2018-01-16] MEDS: ISOSORBIDE MONONITRATE ER 30 MG TAB.ER.24H PO SCH (09:03)
[2018-01-16] MEDS: CHOLECALCIFEROL 1,000 UNIT TAB PO SCH (09:03)
[2018-01-16] MEDS: CLOPIDOGREL 75 MG TAB PO SCH (09:03)
[2018-01-16] MEDS: LOSARTAN 50 MG TAB PO SCH (09:04)
[2018-01-16] MEDS: TRIAMTERENE-HCTZ 37.5-25MG 1 EACH CAP PO SCH (09:04)
[2018-01-16] MEDS: ALPRAZolam 0.25 MG TAB PO SCH ×2 (09:05→21:26)
[2018-01-16] MEDS: ASPIRIN 81 MG PO SCH (09:05)
--- NOTE | 2018-01-16 09:43 | CONS ---
CONSULTATION ATTENDING PHYSICIAN: Dr. Sun Mrs. Cowart is a 77-year-old female with known history of hypertension, hyperlipidemia, history of coronary artery disease, followed by Dr. Arias on a regular basis, who in July of 2017, underwent a coronary angiography because of persistent symptoms of chest discomfort. At that time, she was found to have obstructive disease involving the obtuse marginal branch and underwent stenting of that vessel by Dr. Alva Ramirez. She has noted that her blood pressure was elevated and had some adjustment of her medical regimen, but had persisted in having high blood pressure and has some discomfort in the left side of the chest. Because of that, she came into the emergency room and was subsequently admitted. She is average in her exercise tolerance. She has occasional dyspnea on exertion, but no exertional chest pain. According to her, the discomfort did not resolve completely after her percutaneous revascularization. She feels tired at times. She has knee discomfort that at times limits her. She has no PND, orthopnea, or peripheral edema. No dizziness, palpitation, or syncope. Her blood pressure recently was up in the 200 range. Her coronary risk factors are remarkable for hypertension and hyperlipidemia. She is nonsmoker and nondiabetic. MEDICATION: Include aspirin, fluoxetine, Lipitor 80 mg daily, Dyazide once a day, losartan 100 mg daily, isosorbide mononitrate 30 mg daily, Plavix 75 mg daily, Xanax and vitamin D. REVIEW OF SYSTEMS: Respiratory system: She has mild dyspnea on exertion. No recent wheezing or cough. GI system: No recent GI bleed. No peptic ulcer disease. system: No dysuria or hematuria. Nervous system: No stroke or seizure. PHYSICAL EXAMINATION: She is a 77-year-old female, alert, oriented, in no apparent distress. Blood pressure 150/60 with a heart rate in the 60s. HEAD: Normocephalic. Eyes: Sclerae anicteric. Neck good upstroke with transmitted murmur. LUNGS: Clear to auscultation. HEART: Regular rate and rhythm S1, S2. No S3 with systolic ejection murmur 2/6 radiating to the neck. No diastolic murmur and no rub. ABDOMEN: Soft, nontender. Positive bowel sounds. No organomegaly. EXTREMITIES: No edema. Intact distal pulses. LAB DATA: Lab data revealed troponin less than 0.012. BUN and creatinine of 17 and 0.81, potassium 3.8. Cholesterol 116, LDL of 42, hemoglobin of 11.3. EKG revealed sinus mechanism, rate 59, normal axis and intervals. Early transition. Chest x-ray shows no acute infiltrate. IMPRESSION: 1. Hypertension under better control. Patient was started on amlodipine. 2. History of coronary artery disease with symptoms of chest discomfort of unclear etiology. 3. History of hyperlipidemia. RECOMMENDATION: I will stop the heparin. I would recommend to proceed with stress echocardiogram. I will increase the dose of her amlodipine, increase her level activity and depending on her progress, further recommendations will be made. Thank you for this consult. We will follow with you. DEEPAK / IJN: [id number] /
[2018-01-16] MEDS: MULTIVITAMINS, THERA 1 EACH TAB PO SCH (13:32)
[2018-01-16] MEDS: SODIUM CHLORIDE 0.9% 1,000 ML IV SCH (16:43)
--- NOTE | 2018-01-16 17:43 | P.HPIM ---
History of Present Illness This is a pleasant 77 years old female with past medical history of coronary artery disease, GERD, hyperlipidemia, hypertension, sleep apnea, colon cancer, hysterectomy, who presents because of chest pain, on the left side nonradiating , of one-day duration, 3/10 in severity when it comes. That comes in short, spasms her attacks several months that is resolved now. No associated dyspnea, nausea vomiting or sweating. Patient on admission has high blood pressure 175/ 74, associated with some headache. By the time I saw the patient she is chest pain-free and headache is resolved. Her blood pressure currently is 158/64 EKG shows sinus bradycardia with QTC 419, chest x-ray shows no acute cardiopulmonary process. in The emergency room Vitals look stable BMP was unremarkable. 3 sets of troponins were negative. CBC was unremarkable except for hemoglobin of 11.3 Review of Systems CONSTITUTIONAL: No fever, no malaise, no fatigue. HEENT: No recent visual problems or hearing problems. Denied any sore throat. CARDIOVASCULAR: No orthopnea, PND, no palpitations, no syncope. PULMONARY: No shortness of breath, no cough, no hemoptysis. GASTROINTESTINAL: No diarrhea, no nausea, no vomiting, no abdominal pain. Normoactive bowel sounds. NEUROLOGICAL: No headaches, no weakness, no numbness. HEMATOLOGICAL: Denies any bleeding or petechiae. GENITOURINARY: Denies any burning micturition, frequency, or urgency. MUSCULOSKELETAL/RHEUMATOLOGICAL: Denies any joint pain, swelling, or any muscle pain. ENDOCRINE: Denies any polyuria or polydipsia. Past Medical History Past Medical History: Coronary Artery Disease (CAD), Cancer, GERD/Reflux, Hyperlipidemia, Hypertension, Sleep Apnea/CPAP/BIPAP Additional Past Medical History / Comment(s): Hx colon cancer, Uses CPAP or BIPAP History of Any Multi-Drug Resistant Organisms: None Reported Past Surgical History: Appendectomy, Bowel Resection, Hysterectomy, Orthopedic Surgery Additional Past Surgical History / Comment(s): RIGHT HAND TRIGGER FINGER, spur removed from right foot. Past Anesthesia/Blood Transfusion Reactions: Motion Sickness Date of Last Stent Placement:: Aug 10, 2017 Past Psychological History: Depression Smoking Status: Never smoker Past Alcohol Use History: None Reported Past Drug Use History: None Reported - Past Family History Mother Family Medical History: No Reported History Sister(s) Family Medical History: Cancer Additional Family Medical History / Comment(s): open heart surgery Medications and Allergies Home Medications Medication Instructions Recorded Confirmed Type ALPRAZolam [Xanax] 0.25 mg PO BID 07/16/15 01/15/18 History Omeprazole [PriLOSEC] 20 mg PO BID 07/16/15 01/15/18 History Aspirin [Adult Low Dose Aspirin EC] 81 mg PO HS 10/02/15 01/15/18 History Cholecalciferol [Vitamin D3] 1,000 unit PO DAILY 10/02/15 01/15/18 History Multivitamins, Thera [Multivitamin 1 tab PO DAILY 10/02/15 01/15/18 History (formulary)] FLUoxetine HCL 20 mg PO HS 07/15/17 01/15/18 History Isosorbide Mononitrate [Isosorbide 30 mg PO DAILY 07/15/17 01/15/18 History Mononitrate ER] Atorvastatin [Lipitor] 80 mg PO HS #30 tab 08/11/17 01/15/18 Rx Clopidogrel [Plavix] 75 mg PO DAILY #30 tab 08/11/17 01/15/18 Rx Losartan [Cozaar] 100 mg PO DAILY #30 tab 08/11/17 01/15/18 Rx Nitroglycerin Sl Tabs [Nitrostat] 0.4 mg SUBLINGUAL Q5M PRN #25 tab 08/11/17 Rx Triamterene-Hctz 37.5-25Mg 1 cap PO DAILY 01/15/18 01/15/18 History [Dyazide 37.5-25 Capsule] Allergies Allergy/AdvReac Type Severity Reaction Status Date / Time adhesive Allergy Itching. Verified 01/15/18 15:33 RASH/REDNESS Physical Exam Vitals: Vital Signs Temp Pulse Resp BP Pulse Ox 01/16/18 16:00 98.2 F 62 16 158/64 97 01/16/18 12:00 98.4 F 64 16 135/68 96 01/16/18 08:00 97.8 F 60 16 158/72 97 01/16/18 04:00 52 L 16 01/16/18 03:20 65 16 150/65 98 01/16/18 00:00 98.1 F 55 L 16 142/62 99 01/15/18 20:00 55 L 16 01/15/18 19:48 98.5 F 65 16 138/65 98 Intake and Output 01/16/18 01/16/18 01/16/18 06:59 14:59 22:59 Other: Voiding Method Toilet Toilet # Voids 2 GENERAL: The patient is alert and oriented x3, not in any acute distress. Well developed, well nourished. HEENT: Pupils are round and equally reacting to light. EOMI. No scleral icterus. No conjunctival pallor. Normocephalic, atraumatic. No pharyngeal erythema. No thyromegaly. CARDIOVASCULAR: S1 and S2 present. No murmurs, rubs, or gallops. PULMONARY: Chest is clear to auscultation, no wheezing or crackles. ABDOMEN: Soft, nontender, nondistended, normoactive bowel sounds. No palpable organomegaly. MUSCULOSKELETAL: No joint swelling or deformity. EXTREMITIES: No cyanosis, clubbing, or pedal edema. NEUROLOGICAL: Gross neurological examination did not reveal any focal deficits. SKIN: No rashes. Results CBC & Chem 7: 01/15/18 13:05 01/15/18 13:05 Labs: Abnormal Lab Results - Last 24 Hours (Table) 01/15/18 01/16/18 Range/Units 21:27 02:00 APTT 52.1 H 50.0 H (22.0-30.0) sec Thrombosis Risk Factor Assmnt - Choose All That Apply Any of the Below Risk Factors Present?: Yes Each Factor Represents 1 point: Obesity (BMI >25) Other Risk Factors: Yes Each Risk Factor Represents 3 Points: Age 75 years or older Thrombosis Risk Factor Assessment Total Risk Factor Score: 4 Thrombosis Risk Factor Assessment Level: Moderate Risk Assessment and Plan Assessment: Chest pain syndrome, rule out cardiac cause Hypertension, uncontrolled Hyperlipidemia GERD Sleep apnea on CPAP History of Colon cancer Plan: This is a pleasant 77 years old female who presents with chest pain area continue with same treatment. Continue with symptom of treatment. 2 troponins were negative. EKG was unremarkable. Cardiology consult. Patient is going for stress test tomorrow. Continue with a blood pressure medication, and increase Norvasc to 10 mg daily . DVT and GI prophylaxis. Further recommendation based on the clinical course of the patient
[2018-01-16] MEDS: HEPARIN SODIUM,PORCINE 5,000 UNIT/ML 1 ML VIAL SQ SCH (21:26)
[2018-01-16] MEDS: FLUoxetine HCL 20 MG CAP PO SCH (21:26)
[2018-01-16] MEDS: ATORVASTATIN 80 MG TAB PO SCH (21:26)
[2018-01-17] MEDS ORDERED: amLODIPine 10 MG TAB PO SCH (09:00)
[2018-01-17] MEDS: ASPIRIN 81 MG PO SCH (09:18)
[2018-01-17] MEDS: ALPRAZolam 0.25 MG TAB PO SCH ×2 (09:19→21:53)
[2018-01-17] MEDS: ACETAMINOPHEN TAB 325 MG TAB PO PRN (09:19)
--- NOTE | 2018-01-17 10:44 | PN ---
PROGRESS NOTE The patient is admitted to hospital with chest pain and ruled out for myocardial infarction. She is to undergo a stress test this morning. Her blood pressures are poorly controlled and she is not happy with the medication changes that have been made on her. I am going to put her back on amlodipine 5 mg b.i.d. and add hydralazine 50 mg q.8 to the other medications that she is currently receiving. On exam, she is comfortable at rest. Blood pressure is elevated. Chest exam reveals good air entry bilaterally. Heart exam reveals first and second heart sounds. No gallop. Examination of the extremities did not reveal any edema. LABS: Labs show potassium 4.8. Three sets of cardiac enzymes are negative. LDL cholesterol is 42. ASSESSMENT: Chest pain, rule out coronary artery disease. PLAN: The patient will have a stress test this morning. If that is negative, will be discharged home and outpatient followup arranged through Dr. Joseph. DEEPAK / TENZIN: [id number] /
--- NOTE | 2018-01-17 11:14 | ECHOS ---
STRESS ECHOCARDIOGRAM DATE OF SERVICE: 01/17/2018 INDICATIONS: Chest pain. MEDICATIONS: BASELINE HEART RATE: 74 BASELINE BLOOD PRESSURE: 137/45 MAXIMUM HEART RATE: 141 MAXIMUM BLOOD PRESSURE: 185/72 85% MPHR: 122 100% MPHR: 144 METS: 8 MAXIMUM STAGE REACHED: III TOTAL EXERCISE TIME: 6-1/2 minutes CLINICAL INFORMATION: Baseline EKG shows sinus rhythm, normal axis, normal intervals. Patient exercised on Shaquille protocol for a total of 6-1/2 minutes achieving 8 METS, 98% of predicted maximal heart rate without chest pain. At peak exercise there was [address]-segment depression noted in the inferolateral leads. Baseline echo shows normal left ventricular size, wall motion and systolic function. Postexercise, there is hypokinesis involving basal inferior wall. CONCLUSIONS: 1. Average exercise tolerance. 2. Abnormal stress test by EKG criteria. 3. Abnormal stress echo. MMODL / IJN: [id number] /
[2018-01-17] MEDS: PANTOPRAZOLE 40 MG TABLET PO SCH (11:36)
[2018-01-17] MEDS: HEPARIN SODIUM,PORCINE 5,000 UNIT/ML 1 ML VIAL SQ SCH ×2 (11:36→21:53)
[2018-01-17] MEDS: CHOLECALCIFEROL 1,000 UNIT TAB PO SCH (11:36)
[2018-01-17] MEDS: CLOPIDOGREL 75 MG TAB PO SCH (11:36)
[2018-01-17] MEDS: hydrALAZINE HCL 50 MG TAB PO SCH ×3 (11:37→22:04)
[2018-01-17] MEDS: LOSARTAN 50 MG TAB PO SCH (11:37)
[2018-01-17] MEDS: amLODIPine 5 MG TAB PO SCH ×2 (11:37→21:52)
[2018-01-17] MEDS: ISOSORBIDE MONONITRATE ER 30 MG TAB.ER.24H PO SCH (11:37)
[2018-01-17] MEDS: TRIAMTERENE-HCTZ 37.5-25MG 1 EACH CAP PO SCH (11:37)
[2018-01-17] MEDS: SODIUM CHLORIDE 0.9% 1,000 ML IV SCH (11:38)
[2018-01-17] MEDS: MULTIVITAMINS, THERA 1 EACH TAB PO SCH (11:38)
[2018-01-17] MEDS ORDERED: SODIUM CHLORIDE 0.9% 1,000 ML in EMPTY BAG 1 BAG IV ONE (13:29)
[2018-01-17] MEDS ORDERED: ALPRAZolam 0.5 MG TAB PO PRN (13:29)
[2018-01-17] MEDS ORDERED: ASPIRIN 325 MG TAB PO STA (13:29)
[2018-01-17] MEDS ORDERED: ALPRAZolam 0.25 MG TAB PO PRN (13:29)
--- NOTE | 2018-01-17 16:14 | P.PN ---
Subjective This is a pleasant 77 years old female with past medical history of coronary artery disease, GERD, hyperlipidemia, hypertension, sleep apnea, colon cancer, hysterectomy, who presents because of chest pain, on the left side nonradiating , of one-day duration, 3/10 in severity when it comes. That comes in short, spasms her attacks several months that is resolved now. No associated dyspnea, nausea vomiting or sweating. Patient on admission has high blood pressure 175/ 74, associated with some headache. By the time I saw the patient she is chest pain-free and headache is resolved. Her blood pressure currently is 158/64 EKG shows sinus bradycardia with QTC 419, chest x-ray shows no acute cardiopulmonary process. in The emergency room Vitals look stable BMP was unremarkable. 3 sets of troponins were negative. CBC was unremarkable except for hemoglobin of 11.3 Objective - Vital Signs Vital signs: Vital Signs Temp 98.1 F 01/17/18 15:34 Pulse 70 01/17/18 15:34 Resp 16 01/17/18 15:34 BP 123/67 01/17/18 15:34 Pulse Ox 98 01/17/18 15:34 Intake & Output 01/16/18 01/17/18 01/17/18 18:59 06:59 18:59 Intake Total 240 Balance 240 Weight 95.2 kg 94.801 kg Intake: Oral 240 Other: Voiding Method Toilet Toilet Toilet # Voids 2 - Exam GENERAL: The patient is alert and oriented x3, not in any acute distress. Well developed, well nourished. HEENT: Pupils are round and equally reacting to light. EOMI. No scleral icterus. No conjunctival pallor. Normocephalic, atraumatic. No pharyngeal erythema. No thyromegaly. CARDIOVASCULAR: S1 and S2 present. No murmurs, rubs, or gallops. PULMONARY: Chest is clear to auscultation, no wheezing or crackles. ABDOMEN: Soft, nontender, nondistended, normoactive bowel sounds. No palpable organomegaly. MUSCULOSKELETAL: No joint swelling or deformity. EXTREMITIES: No cyanosis, clubbing, or pedal edema. NEUROLOGICAL: Gross neurological examination did not reveal any focal deficits. SKIN: No rashes. - Labs CBC & Chem 7: 01/15/18 13:05 01/15/18 13:05 Assessment and Plan Assessment: Chest pain syndrome, rule out cardiac cause Hypertension, uncontrolled Hyperlipidemia GERD Sleep apnea on CPAP History of Colon cancer Plan: This is a pleasant 77 years old female who presents with chest pain area continue with same treatment. Continue with symptom of treatment. 2 troponins were negative. EKG was unremarkable. Cardiology consult. Patient is status post stress test today: Abnormal, going for cardiac cath tomorrow. Continue with a blood pressure medication, and increase Norvasc to 10 mg daily . DVT and GI prophylaxis. Further recommendation based on the clinical course of the patient
[2018-01-17] MEDS: FLUoxetine HCL 20 MG CAP PO SCH (21:52)
[2018-01-17] MEDS: ATORVASTATIN 80 MG TAB PO SCH (21:53)
[2018-01-18] MEDS: ASPIRIN 81 MG PO SCH (00:14)
[2018-01-18] MEDS: PANTOPRAZOLE 40 MG TABLET PO SCH (06:01)
[2018-01-18] MEDS: amLODIPine 5 MG TAB PO SCH ×2 (06:01→22:33)
[2018-01-18] MEDS: TRIAMTERENE-HCTZ 37.5-25MG 1 EACH CAP PO SCH (06:01)
[2018-01-18] MEDS: LOSARTAN 50 MG TAB PO SCH (06:01)
[2018-01-18] MEDS: CHOLECALCIFEROL 1,000 UNIT TAB PO SCH (06:01)
[2018-01-18] MEDS: CLOPIDOGREL 75 MG TAB PO SCH (06:01)
[2018-01-18] MEDS: hydrALAZINE HCL 50 MG TAB PO SCH ×3 (06:01→22:36)
[2018-01-18] MEDS: ISOSORBIDE MONONITRATE ER 30 MG TAB.ER.24H PO SCH (06:01)
[2018-01-18] MEDS: ALPRAZolam 0.25 MG TAB PO SCH ×2 (06:55→22:36)
[2018-01-18] MEDS ORDERED: MIDAZOLAM 2 MG/2 ML VIAL IVP ONE ×2 (07:29)
[2018-01-18] MEDS ORDERED: diphenhydrAMINE 50 MG/ML 1 ML VIAL IVP ONE (07:29)
[2018-01-18] MEDS ORDERED: IV FLUID CONTINUATION 200 ML IV ONE (07:30)
[2018-01-18] MEDS ORDERED: NITROGLYCERIN SL TABS 0.4 MG TAB SUBLINGUAL ONE (07:35)
[2018-01-18] MEDS ORDERED: LIDOCAINE 1% INJ 10MG/ML (20 ML MDV) SQ ONE (07:35)
[2018-01-18] MEDS ORDERED: IOPAMIDOL-370 100ML BTL INJ ONE ×2 (07:49→07:50)
[2018-01-18] MEDS ORDERED: SODIUM CHLORIDE 0.9% 1,000 ML IV ONE (07:52)
[2018-01-18] MEDS ORDERED: RX INFO: IV CONTRAST WAS GIVEN 1 EACH MISC MISCELLANE PRN (08:03)
[2018-01-18] MEDS: SODIUM CHLORIDE 0.9% 1,000 ML IV SCH (08:35)
[2018-01-18] MEDS: HEPARIN SODIUM,PORCINE 5,000 UNIT/ML 1 ML VIAL SQ SCH ×2 (08:35→22:36)
--- NOTE | 2018-01-18 09:42 | CC ---
CARDIAC CATHETERIZATION REPORT DATE OF SERVICE: 01/18/2018. PROCEDURE: Left heart catheterization, coronary angiography and left ventriculography. PERFORMED BY: Dr. Kimmy Ramirez. CLINICAL INFORMATION: Mrs. Ramila Cowart is a 77-year-old lady with a history of hypertension and CAD. In July of this year, she underwent stenting of a mid circumflex with a drug-eluting stent. She presented to the hospital with chest pain and elevated blood pressure, had abnormal stress echo, was advised cardiac catheterization. I evaluated the patient and reviewed with her the risks, benefits, and options. She understood all details and wished to proceed with the procedure. PROCEDURE NOTE: Under local anesthesia and strict aseptic precautions, a 6-Malay introducer was placed in the right femoral artery. Using standard Lizandro catheters, I performed coronary angiography and a pigtail catheter was used to perform LV gram. The sheath was taken out and manual compression used to secure hemostasis and a FemoStop would be applied. Patient tolerated procedure well without complications. CARDIAC CATHETERIZATION FINDINGS: Left ventricular end-diastolic pressure was 12 mmHg without any gradient across aortic valve. CORONARY ANGIOGRAPHY FINDINGS: RIGHT CORONARY ARTERY: Technically a dominant vessel with minor irregularities, some ostial calcification but no significant disease. Distally bifurcates into a larger PDA and small PLV. No significant disease other than minor irregularities. LEFT MAIN CORONARY ARTERY: Short patent disease-free vessel that bifurcates into LAD and circumflex. LEFT ANTERIOR DESCENDING CORONARY ARTERY: Good caliber vessel, extends along the anterior wall, supplies a sizable amount of myocardium. Has about a 30% narrowing. Mild calcification noted in the entire LAD. Gives off two fair-sized diagonal branches then runs towards the apex. The distal 1/4 is small in caliber and has mild diffuse disease. However, no significant disease in the LAD system. LEFT POSTERIOR CIRCUMFLEX CORONARY ARTERY: Technically a nondominant vessel that was stented in July. This vessel is widely patent, has no significant disease. At the site of stenting there is no disease whatsoever. Distally the caliber of the vessel decreases and supplies a fair amount of myocardium. Circumflex is therefore nondominant, widely patent, without any disease in the stented area. LEFT VENTRICULOGRAM: This was performed in 30 degree CHAVEZ projection, revealed left ventricle is of normal size with good systolic function ejection fraction of 60% without mitral regurgitation. FINAL IMPRESSION: This patient has a right dominant system. No significant coronary artery disease. The previously stented circumflex is widely patent. Ejection fraction 60% without mitral regurgitation. RECOMMENDATIONS: Findings were discussed with the patient and family and I expect that she will be discharged in the next 24 hours after optimizing the BP control. Moderate conscious sedation time for this procedure was about 19 to 20 minutes. The patient was administered Versed and Benadryl and oxygen saturation, hemodynamics and EKG were monitored closely. DEEPAK / ANGELAN: [id number] /
[2018-01-18] MEDS ORDERED: ONDANSETRON 4 MG/2 ML VIAL IVP STA (10:10)
[2018-01-18] MEDS: ACETAMINOPHEN TAB 325 MG TAB PO PRN (11:07)
--- NOTE | 2018-01-18 12:54 | P.PN ---
Subjective This is a pleasant 77 years old female with past medical history of coronary artery disease, GERD, hyperlipidemia, hypertension, sleep apnea, colon cancer, hysterectomy, who presents because of chest pain, on the left side nonradiating , of one-day duration, 3/10 in severity when it comes. That comes in short, spasms her attacks several months that is resolved now. No associated dyspnea, nausea vomiting or sweating. Patient on admission has high blood pressure 175/ 74, associated with some headache. By the time I saw the patient she is chest pain-free and headache is resolved. Her blood pressure currently is 158/64 EKG shows sinus bradycardia with QTC 419, chest x-ray shows no acute cardiopulmonary process. in The emergency room Vitals look stable BMP was unremarkable. 3 sets of troponins were negative. CBC was unremarkable except for hemoglobin of 11.3 01/18/2018 Patient In bed, she is chest pain-free. Her cardiac cath was negative and her stent is patent the circumflex artery. Franchise Sales Manager input is noted. Patient will be kept overnight for blood pressure optimizing. Patient has low blood pressure this morning, and patient was started on IV fluids with holding her blood pressure medication. By the time I saw the patient, her blood pressure is already corrected. Her blood pressure currently is 142/53 Objective - Vital Signs Vital signs: Vital Signs Temp 98.1 F 01/18/18 08:25 Pulse 72 01/18/18 12:00 Resp 18 01/18/18 08:25 BP 142/53 01/18/18 12:00 Pulse Ox 94 L 01/18/18 12:00 Intake & Output 01/17/18 01/18/18 01/18/18 18:59 06:59 18:59 Intake Total 240 150 Balance 240 150 Weight 94.801 kg Intake: IV 150 Oral 240 Other: Voiding Method Toilet Toilet Toilet - Exam GENERAL: The patient is alert and oriented x3, not in any acute distress. Well developed, well nourished. HEENT: Pupils are round and equally reacting to light. EOMI. No scleral icterus. No conjunctival pallor. Normocephalic, atraumatic. No pharyngeal erythema. No thyromegaly. CARDIOVASCULAR: S1 and S2 present. No murmurs, rubs, or gallops. PULMONARY: Chest is clear to auscultation, no wheezing or crackles. ABDOMEN: Soft, nontender, nondistended, normoactive bowel sounds. No palpable organomegaly. MUSCULOSKELETAL: No joint swelling or deformity. EXTREMITIES: No cyanosis, clubbing, or pedal edema. NEUROLOGICAL: Gross neurological examination did not reveal any focal deficits. SKIN: No rashes. - Labs CBC & Chem 7: 01/15/18 13:05 01/15/18 13:05 Assessment and Plan Assessment: Chest pain syndrome, rule out cardiac cause Hypertension, uncontrolled Hyperlipidemia GERD Sleep apnea on CPAP History of Colon cancer Plan: This is a pleasant 77 years old female who presents with chest pain area continue with same treatment. Continue with symptom of treatment. 2 troponins were negative. EKG was unremarkable. Cardiology consult is appreciated. Patient is status post stress test , and had an cardiac cath today morning which was negative as above. Continue with a blood pressure medication, and continue with Norvasc to 10 mg daily (her blood pressure were held for low blood pressure). DVT and GI prophylaxis. Further recommendation based on the clinical course of the patient
[2018-01-18] MEDS: MULTIVITAMINS, THERA 1 EACH TAB PO SCH (18:03)
[2018-01-18] MEDS: ATORVASTATIN 80 MG TAB PO SCH (22:36)
[2018-01-18] MEDS: FLUoxetine HCL 20 MG CAP PO SCH (22:36)
[2018-01-19 07:50] VITALS: RESP 18
[2018-01-19] MEDS: SODIUM CHLORIDE 0.9% 1,000 ML IV SCH (08:16)
[2018-01-19] MEDS: amLODIPine 5 MG TAB PO SCH (08:22)
[2018-01-19] MEDS: hydrALAZINE HCL 50 MG TAB PO SCH (08:22)
[2018-01-19] MEDS: LOSARTAN 50 MG TAB PO SCH (08:22)
[2018-01-19] MEDS: PANTOPRAZOLE 40 MG TABLET PO SCH (08:22)
[2018-01-19] MEDS: ISOSORBIDE MONONITRATE ER 30 MG TAB.ER.24H PO SCH (08:22)
[2018-01-19] MEDS: CHOLECALCIFEROL 1,000 UNIT TAB PO SCH (08:22)
[2018-01-19] MEDS: ASPIRIN 81 MG PO SCH (08:23)
[2018-01-19] MEDS: HEPARIN SODIUM,PORCINE 5,000 UNIT/ML 1 ML VIAL SQ SCH (08:23)
[2018-01-19] MEDS: CLOPIDOGREL 75 MG TAB PO SCH (08:23)
[2018-01-19] MEDS: TRIAMTERENE-HCTZ 37.5-25MG 1 EACH CAP PO SCH (08:23)
[2018-01-19] MEDS: ALPRAZolam 0.25 MG TAB PO SCH (08:23)
[2018-01-19 11:57] VITALS: BP 132/68; PULSE 66; TEMP 98.5
--- NOTE | 2018-01-19 12:16 | P.PN ---
Subjective Mrs. Cowart is seen and examined resting comfortably in bed. She denies chest pain, shortness of breath, palpitations or dizziness. Right groin is clean, dry and intact with no evidence of hematoma and small quarter sized area of ecchymosis. Blood pressure post procedure yesterday was low and fluid bolus was given. Blood pressure this morning 121/67 heart rate 79 afebrile maintaining oxygen saturation on room air. Objective - Vital Signs Vital signs: Vital Signs Temp 98.4 F 01/19/18 07:25 Pulse 79 01/19/18 07:25 Resp 18 01/19/18 07:25 BP 121/67 01/19/18 07:25 Pulse Ox 95 01/19/18 07:25 Intake & Output 01/18/18 01/19/18 01/19/18 18:59 06:59 18:59 Intake Total 150 Balance 150 Intake: IV 150 Other: Voiding Method Toilet Toilet - Exam GENERAL: Well-appearing, well-nourished and in no acute distress. NECK: Supple without JVD or thyromegaly. LUNGS: Breath sounds clear to auscultation bilaterally. Respiration equal and unlabored. No wheezes, rales or rhonchi. HEART: Regular rate and rhythm with murmur at the base, no rubs or gallops. S1 and S2 heard. EXTREMITIES: Normal range of motion, no edema. No clubbing or cyanosis. Peripheral pulses intact. Right groin clean, dry and intact with no evidence of hematoma small quarter-sized area of ecchymosis noted at the - Labs CBC & Chem 7: 01/15/18 13:05 01/15/18 13:05 Assessment and Plan Assessment: ASSESSMENT Chest pain, rule out coronary artery disease. Cardiac catheterization performed yesterday and was negative for obstructive coronary artery disease. Patent stent in the circumflex artery. Hypertension Dyslipidemia PLAN Stable from a cardiac perspective for discharge home. New prescriptions have been sent to her pharmacy. Advised to keep a record of her blood pressures daily and bring to follow up visit with Dr. Arias in 1-week. The above impression and plan of care have been discussed and directed by the signing physician. Brittani Dumas, nurse practitioner, acting as scribe for signing physician.
[2018-01-19] MEDS: MULTIVITAMINS, THERA 1 EACH TAB PO SCH (12:22)
--- NOTE | 2018-01-19 14:35 | P.DS ---
Providers Date of admission: 01/19/18 09:10 Attending physician: Horacio Corrales Consults: 01/15/18 15:08 Consult Physician Urgent Consulting Provider: [facility] Consult Reason/Comments: Chest Pain; Hypertension Do you want consulting provider notified?: Yes Primary care physician: Sunny Dino [facility] Course: This is a pleasant 77 years old female with past medical history of coronary artery disease, GERD, hyperlipidemia, hypertension, sleep apnea, colon cancer, hysterectomy, who presents because of chest pain, on the left side nonradiating , of one-day duration, 3/10 in severity when it comes. No associated dyspnea, nausea vomiting or sweating. Patient on admission has high blood pressure 175/ 74, associated with some headache. By the time I saw the patient she is chest pain-free and headache is resolved. Her blood pressure was 158/64 EKG shows sinus bradycardia with QTC 419, chest x-ray shows no acute cardiopulmonary process. in The emergency room Vitals look stable BMP was unremarkable. 3 sets of troponins were negative. CBC was unremarkable except for hemoglobin of 11.3. Patient has been evaluated by nutrition services manager. She had abnormal stress test followed by cardiac catheterization on 01/18/2018: No significant coronary artery disease the previously stented circumflex artery is widely patent. EF 60% without mitral regurgitation. After the procedure patient has low blood pressure for short time, patient remained stable over the next 24 hours. Her last blood pressure reading was 132/68, heart rate is 66. Rest of the vitals look stable. On discharge day patient's chest pain-free, no other new complaints. Patient was cleared by cardiology team for discharge. Patient was found stable and can be discharged home however she needs follow-up as an outpatient, patient was instructed to follow up with her PCP and cardiology within one week and patient agrees GENERAL: The patient is alert and oriented x3, not in any acute distress. Well developed, well nourished. HEENT: Pupils are round and equally reacting to light. EOMI. No scleral icterus. No conjunctival pallor. Normocephalic, atraumatic. No pharyngeal erythema. No thyromegaly. CARDIOVASCULAR: S1 and S2 present. No murmurs, rubs, or gallops. PULMONARY: Chest is clear to auscultation, no wheezing or crackles. ABDOMEN: Soft, nontender, nondistended, normoactive bowel sounds. No palpable organomegaly. MUSCULOSKELETAL: No joint swelling or deformity. EXTREMITIES: No cyanosis, clubbing, or pedal edema. NEUROLOGICAL: Gross neurological examination did not reveal any focal deficits. SKIN: No rashes. Time spent more than 35 minutes Patient Condition at Discharge: Serious Plan - Discharge Summary New Discharge Prescriptions: New amLODIPine [Norvasc] 5 mg PO BID #60 tab hydrALAZINE HCL [Apresoline] 50 mg PO TID #90 tab Continue Losartan [Cozaar] 100 mg PO DAILY #30 tab No Action ALPRAZolam [Xanax] 0.25 mg PO BID Omeprazole [PriLOSEC] 20 mg PO BID Multivitamins, Thera [Multivitamin (formulary)] 1 tab PO DAILY Cholecalciferol [Vitamin D3] 1,000 unit PO DAILY Aspirin [Adult Low Dose Aspirin EC] 81 mg PO HS Isosorbide Mononitrate [Isosorbide Mononitrate ER] 30 mg PO DAILY FLUoxetine HCL 20 mg PO HS Atorvastatin [Lipitor] 80 mg PO HS #30 tab Clopidogrel [Plavix] 75 mg PO DAILY #30 tab Nitroglycerin Sl Tabs [Nitrostat] 0.4 mg SUBLINGUAL Q5M PRN #25 tab PRN Reason: Chest Pain Triamterene-Hctz 37.5-25Mg [Dyazide 37.5-25 Capsule] 1 cap PO DAILY Discharge Medication List ALPRAZolam [Xanax] 0.25 mg PO BID 07/16/15 [History] Omeprazole [PriLOSEC] 20 mg PO BID 07/16/15 [History] Aspirin [Adult Low Dose Aspirin EC] 81 mg PO HS 10/02/15 [History] Cholecalciferol [Vitamin D3] 1,000 unit PO DAILY 10/02/15 [History] Multivitamins, Thera [Multivitamin (formulary)] 1 tab PO DAILY 10/02/15 [History ] FLUoxetine HCL 20 mg PO HS 07/15/17 [History] Isosorbide Mononitrate [Isosorbide Mononitrate ER] 30 mg PO DAILY 07/15/17 [ History] Atorvastatin [Lipitor] 80 mg PO HS #30 tab 08/11/17 [Rx] Clopidogrel [Plavix] 75 mg PO DAILY #30 tab 08/11/17 [Rx] Losartan [Cozaar] 100 mg PO DAILY #30 tab 08/11/17 [Rx] Nitroglycerin Sl Tabs [Nitrostat] 0.4 mg SUBLINGUAL Q5M PRN #25 tab 08/11/17 [Rx ] Triamterene-Hctz 37.5-25Mg [Dyazide 37.5-25 Capsule] 1 cap PO DAILY 01/15/18 [ History] amLODIPine [Norvasc] 5 mg PO BID #60 tab 01/19/18 [Rx] hydrALAZINE HCL [Apresoline] 50 mg PO TID #90 tab 01/19/18 [Rx] Follow up Appointment(s)/Referral(s): Mack Arias MD [STAFF PHYSICIAN] - 1 Week (office to call pt with follow up appt) Sunny Sun DO [Primary Care Provider] - 1-2 days
--- NOTE | 2018-01-20 16:52 | CDI ---
Last Revision, May 2017 Documentation Clarification Form Date: 01/20/2018 4:47:37 PM From: Nora Dubose Phone: If you have a question regarding this query, please contact Alyssa Washington at [phone] between 8am and 5pm. Admit Date: 01/19/2018 9:10:00 AM Patient Name: Ramila Cowart Visit Number: [id number] Discharge Date: 01/19/18 ATTENTION: The Clinical Documentation Specialists (CDI) and [facility] Coding Staff appreciate your assistance in clarifying documentation. Please respond to the clarification below the line at the bottom and electronically sign. The CDI & [facility] Coding staff will review the response and follow-up if needed. Please note: Queries are made part of the Legal Health Record. If you have any questions, please contact the author of this message via ITS. Dr. Giron E Sheet Hypertension uncontrolled is document in the H&P. BP: Systolic 58 195, Diastolic 32 - 81 Please specify the type of uncontrolled hypertension such as: Crisis Emergency Urgency Other (please specify in the medical record) Clinically unable to further specify Unknown unable to determine MTDD
== END 2018-01-19 16:16 | disposition home or self-care (01) ==
LOC: EC 12:24 → 3OBS 16:00 → OBSVTOIN 01-17 16:00 → INTOOBSV 01-17 16:00 → OBSVTOIN 01-19 09:10 → UNDODISIN 01-19 16:16
PROVIDERS: ADMIT Internal Medicine; ATTEND Internal Medicine
PROC: B2111ZZ Fluoroscopy of Multiple Coronary Arteries using Low Osmolar Contrast (ICD-10-PCS; 2018-01-18)
PROC: B2151ZZ Fluoroscopy of Left Heart using Low Osmolar Contrast (ICD-10-PCS; 2018-01-18)
PROC: 4A023N7 Measurement of Cardiac Sampling and Pressure, Left Heart, Percutaneous Approach (ICD-10-PCS; principal; 2018-01-18 07:15)
DX: R07.9 Chest pain, unspecified (principal); I10 Essential (primary) hypertension; E78.5 Hyperlipidemia, unspecified; I25.10 Atherosclerotic heart disease of native coronary artery without angina pectoris; R94.39 Abnormal result of other cardiovascular function study; R00.1 Bradycardia, unspecified; F32.9 Major depressive disorder, single episode, unspecified; G47.30 Sleep apnea, unspecified; Z99.89 Dependence on other enabling machines and devices; K21.9 Gastro-esophageal reflux disease without esophagitis; E66.9 Obesity, unspecified; Z68.31 Body mass index [BMI] 31.0-31.9, adult; Z79.82 Long term (current) use of aspirin; Z79.02 Long term (current) use of antithrombotics/antiplatelets; Z79.899 Other long term (current) drug therapy; Z91.048 Other nonmedicinal substance allergy status; Z90.89 Acquired absence of other organs; Z90.710 Acquired absence of both cervix and uterus; Z95.5 Presence of coronary angioplasty implant and graft; Z85.038 Personal history of other malignant neoplasm of large intestine; Z82.49 Family history of ischemic heart disease and other diseases of the circulatory system; Z80.9 Family history of malignant neoplasm, unspecified
CPT/HCPCS: 96361 ×3; 96366 ×2; 96372 ×2; 96376; 96365; 99284; 36415; 93005; 93351; 97161; 93458; 80061; 80053; 82550 ×2; 82553 ×2; 83735; 84484 ×2; 85025; 85610; 85730 ×2; 71046; G0378 ×6; C1894; C1769 ×2; J2250; J1200; J1644 ×6; J2405; J2001; Q9967

== ENCOUNTER → 2018-04-04 | Outpatient (CLI) | payer MEDICARE ==
--- NOTE | 2018-04-04 09:09 | NM ---
EXAMINATION TYPE: NM hepatobiliary w CCK DATE OF EXAM: 04/04/2018 COMPARISON: Ultrasound gallbladder 08/31/2017 HISTORY: Right upper quadrant pain TECHNIQUE: After the intravenous administration of 5.13 mCi Tc 99m Mebrofenin hepatobiliary scintigra phy is performed. Immediate images post injection. FINDINGS: There is satisfactory initial accumulation of tracer by the liver. The gallbladder is visualized wit hin 14 minutes. The small bowel activity is noted within 22 minutes. At one hour CCK was administer ed, patient was injected with 1.8 mcg of Kinevac, and gallbladder ejection fraction is calculated at 92 %, above the higher limits of normal. Therefore there is no scintigraphic evidence of cystic or c ommon bile duct obstruction to suggest acute cholecystitis. IMPRESSION: Gallbladder ejection fraction is 92%, possibly hyperdynamic
== END ==
LOC: RADNMMAIN 06:36
PROVIDERS: ATTEND Surgery
DX: R10.11 Right upper quadrant pain (principal)
CPT/HCPCS: 78227; A9537; J2805

== ENCOUNTER 2018-06-26 19:40 | Inpatient (IN) | payer MEDICARE ==
[2018-06-26 22:39] LABS: HCT 22.6 % (34.0-46.0); HGB 7.1 gm/dL (11.4-16.0); Hypochromasia Moderate; MCH 25.4 pg (25.0-35.0); MCHC 31.4 g/dL (31.0-37.0); MCV 80.9 fL (80.0-100.0); Mean Platelet Volume 7.7; Platelet Count 309 k/uL (150-450); RDW 14.1 % (11.5-15.5); WBC 7.6 k/uL (3.8-10.6)
[2018-06-26 22:58] LABS: ALT 34 U/L (9-52); AST 27 U/L (14-36); Albumin 3.2 g/dL (3.5-5.0); Alkaline Phosphatase 57 U/L (38-126); Anion Gap 8 mmol/L; Blood Urea Nitrogen 26 mg/dL (7-17); Calcium 8.6 mg/dL (8.4-10.2); Carbon Dioxide 25 mmol/L (22-30); Chloride 107 mmol/L (98-107); Glucose 105 mg/dL (74-99); Sodium 140 mmol/L (137-145); Total Bilirubin 0.2 mg/dL (0.2-1.3); Total Protein 6.2 g/dL (6.3-8.2)
[2018-06-26 23:12] LABS: Eosinophils # (M) 0.46 k/uL (0-0.7); Lymphocytes # (M) 1.82 k/uL (1.0-4.8); Monocytes # (M) 0.91 k/uL (0-1.0); Neutrophils # (M) 4.41 k/uL (1.3-7.7); Neutrophils % (M) 58 %; Nucleated Red Blood Cells 0 /100 WBC (0-0); Total Cells Counted 100
[2018-06-26 23:13] LABS: Creatine Kinase 48 U/L (30-135); Ovalocytes Present
[2018-06-26 23:20] LABS: C Reactive Protein <5.0 mg/L (<10.0)
[2018-06-26 23:27] LABS: Creatine Kinase MB <0.2 ng/mL (0.0-2.4); Troponin I <0.012 ng/mL (0.000-0.034)
[2018-06-26] MEDS ORDERED: NALOXONE 0.4 MG/ML 1 ML VIAL IV PRN (23:27)
[2018-06-27] LABS: INR 0.9 (<1.2); Partial Thromboplastin Time 22.2 sec (22.0-30.0)
[2018-06-27] MEDS ORDERED: PANTOPRAZOLE 40 MG/10 ML VIAL IVP STA (00:05)
--- NOTE | 2018-06-27 00:05 | CT ---
EXAMINATION TYPE: CT angio head neck DATE OF EXAM: 06/26/2018 HISTORY: swishing sound in right ear COMPARISON: CT DLP: 1617.4 mGycm. Automated Exposure Control for Dose Reduction was Utilized. TECHNIQUE: CTA scan of the neck is performed with IV Contrast, patient injected with 65 mL of Isovue 370, axial images are obtained, coronal and sagittal reformatted images are reviewed. Three-D recons tructed images are created on an independent workstation and reviewed. FINDINGS: There is normal branching pattern of the great vessels on the aortic arch. There is mild atheromatous change at the aortic arch. There is bilateral arterial flow in the subclavian arteries. There is art erial flow in the common internal and external carotid arteries bilaterally. There is arterial flow i n both vertebral arteries. There is arterial flow in the vertebrobasilar artery system. The basilar a rtery fills mostly from the right side. There is wide patency of the carotid artery bifurcations. The re is minimal calcification. There is no evidence of stenosis. There is no evidence of carotid or carroll tebral artery aneurysm or dissection. There is arterial flow in the anterior middle and posterior cerebral arteries. The noncontrast images show mild cerebral atrophy. There is no mass effect nor midline shift. There i s no sign of intracranial hemorrhage. There is normal contrast opacification of the venous sinuses. There is no evidence of a posterior fos sa mass. There is normal aeration of the temporal bones. Internal auditory canals appear normal. Ther e is a large left jugular vein compared to the right. I see no evidence of intracranial arterial sten osis. There is no evidence of intracranial aneurysm or neovascularity. There is patency of the right posterior communicating artery. IMPRESSION: No evidence of hemodynamic stenosis. No evidence of aneurysm. No abnormality identified of the right temporal bone. Mild cerebral atrophy.
--- NOTE | 2018-06-27 00:06 | ED ---
General Adult HPI - General Source: patient Mode of arrival: ambulatory Limitations: no limitations <Raegan Moore - Last Filed: 06/27/18 01:42> <Maria Luisa Garcia - Last Filed: 07/01/18 02:16> - General Chief complaint: ENT Stated complaint: Ear pain Time Seen by Provider: 06/26/18 20:47 - History of Present Illness Initial comments: This is a 77yo female past medical history of coronary artery disease status post stent on Plavix, GERD, hypertension, hyperlipidemia, history of colon cancer in remission presented today for chief complaint of rushing sound in the ear, ear pain. Patient states that she woke up this morning noticing rushing sound in her ear, as well as mild pain just inferior to the ear. Patient states that she has felt dizzy on and off today. Especially when rising from a seated position. Patient denies any chest pain. Patient does note some mild shortness of breath. Patient denies any upper extremity paresthesias or jaw pain. Patient denies any visual changes, diplopia. Patient denies any hematochezia or melema upon initial ROS. Patient states it sounds as though the patient has wind blowing in her ear. Remainder of ROS negative, patient denies any recent hearing loss, tinnitus, facial pain, back pain, abdominal pain , numbness or tingling, dysuria or hematuria, constipation or diarrhea, headaches or visual changes, or any other complaints. Pt appears well, no signs of acute distress. VS within normal limits. (Raegan Moore) - Related Data Home Medications Medication Instructions Recorded Confirmed ALPRAZolam [Xanax] 0.25 mg PO BID 07/16/15 06/27/18 Omeprazole [PriLOSEC] 20 mg PO BID 07/16/15 06/27/18 Cholecalciferol [Vitamin D3] 1,000 unit PO DAILY 10/02/15 06/27/18 Multivitamins, Thera [Multivitamin 1 tab PO DAILY 10/02/15 06/27/18 (formulary)] Isosorbide Mononitrate [Isosorbide 30 mg PO DAILY 07/15/17 06/27/18 Mononitrate ER] Triamterene-Hctz 37.5-25Mg 1 cap PO DAILY 01/15/18 06/27/18 [Dyazide 37.5-25 Capsule] FLUoxetine HCL [PROzac] 40 mg PO HS 06/27/18 06/27/18 Metoprolol Succinate [Kapspargo 25 mg PO DAILY 06/27/18 06/27/18 Sprinkle] Previous Rx's Medication Instructions Recorded Atorvastatin [Lipitor] 80 mg PO HS #30 tab 08/11/17 Losartan [Cozaar] 100 mg PO DAILY #30 tab 08/11/17 Nitroglycerin Sl Tabs [Nitrostat] 0.4 mg SUBLINGUAL Q5M PRN #25 tab 08/11/17 hydrALAZINE HCL [Apresoline] 50 mg PO TID #90 tab 01/19/18 Clopidogrel [Plavix] 75 mg PO DAILY tab 06/30/18 Allergies Allergy/AdvReac Type Severity Reaction Status Date / Time adhesive Allergy Itching. Verified 06/27/18 10:21 RASH/REDNESS Review of Systems ROS Other: All systems not noted in ROS Statement are negative. <Raegan Moore - Last Filed: 06/27/18 01:42> ROS Other: All systems not noted in ROS Statement are negative. <Maria Luisa Garcia - Last Filed: 07/01/18 02:16> ROS Statement: Those systems with pertinent positive or pertinent negative responses have been documented in the HPI. Past Medical History Past Medical History: Coronary Artery Disease (CAD), Cancer, GERD/Reflux, Hyperlipidemia, Hypertension, Sleep Apnea/CPAP/BIPAP Additional Past Medical History / Comment(s): Hx colon cancer, Uses CPAP or BIPAP History of Any Multi-Drug Resistant Organisms: None Reported Past Surgical History: Appendectomy, Bowel Resection, Hysterectomy, Orthopedic Surgery Additional Past Surgical History / Comment(s): RIGHT HAND TRIGGER FINGER, spur removed from right foot. Past Anesthesia/Blood Transfusion Reactions: Motion Sickness Date of Last Stent Placement:: Aug 10, 2017 Past Psychological History: Depression Smoking Status: Never smoker Past Alcohol Use History: None Reported Past Drug Use History: None Reported - Past Family History Mother Family Medical History: No Reported History Sister(s) Family Medical History: Cancer Additional Family Medical History / Comment(s): open heart surgery <Raegan Moore - Last Filed: 06/27/18 01:42> - Past Family History Mother Family Medical History: No Reported History Sister(s) Family Medical History: Cancer Additional Family Medical History / Comment(s): open heart surgery SIsiter is still living. Another sister from lung cancer. Another from pancreatic surgery Father Family Medical History: No Reported History <Maria Luisa Garcia P - Last Filed: 07/01/18 02:16> General Exam Limitations: no limitations <Raegan Moore L - Last Filed: 06/27/18 01:42> <Maria Luisa Garcia P - Last Filed: 07/01/18 02:16> - General Exam Comments Initial Comments: General: The patient is awake and alert, in no distress, and does not appear acutely ill. Eye: Pupils are equal, round and reactive to light, extra-ocular movements are intact. No nystagmus. There is normal conjunctiva bilaterally. No signs of icterus. Ears, nose, mouth and throat: There are moist mucous membranes and no oral lesions. Upon inspection of the tympanic membranes there is no evidence of erythema, retractions bulging or tympanic number perforation. No evidence of cholesteatoma. Cor of light and malleus are present. Patient's hearing intact to finger rub bilaterally. There is a lesion in the external auditory canal, however is not vesicular or painful to palpation with the otoscope. External auditory canal is nonerythematous or edematous. Oropharynx nonerythematous. No carotid artery bruits audible. Pallor of the lids noted as well as the mucosa. Neck: The neck is supple, there is no tenderness or JVD. Cardiovascular: There is a regular rate and rhythm. rub or gallop is appreciated. Murmur appreciated on examination Respiratory: Lungs are clear to auscultation, respirations are non-labored, breath sounds are equal. No wheezes, stridor, rales, or rhonchi. Gastrointestinal: Soft, non-distended, non-tender abdomen without masses or organomegaly noted. There is no rebound or guarding present. No CVA tenderness. Bowel sounds are unremarkable. Musculoskeletal: Normal ROM, no tenderness. Strength 5/5. Sensation intact. Pulses equal bilaterally 2+. Neurological: A&O x 3. CN II-XII intact, There are no obvious motor or sensory deficits. Coordination appears grossly intact. Speech is normal. Skin: Skin is warm and dry and no rashes or lesions are noted. Capillary refill sluggish. Psychiatric: Cooperative, appropriate mood & affect, normal judgment. (Raegan Moore) Vital Signs 06/26/18 06/26/18 06/27/18 19:48 23:23 00:48 Temperature 97.7 F 97.9 F Pulse Rate 68 71 68 Respiratory 16 18 18 Rate Blood Pressure 121/45 137/57 139/62 O2 Sat by Pulse 97 97 95 Oximetry 06/27/18 06/27/18 06/27/18 01:14 01:53 02:03 Temperature 98.5 F 98.5 F Pulse Rate 76 68 73 Respiratory 18 16 16 Rate Blood Pressure 131/47 118/48 154/70 O2 Sat by Pulse 95 95 92 L Oximetry EKG Findings - EKG Comments: EKG Findings:: A 12-lead EKG was performed and shows the following: Rate is 72bpm, and rhythm is normal sinus. There are normal QRS complexes and normal R- wave progression. ST segments have no elevation or depression, and [place] segments appear normal. <Raegan Moore - Last Filed: 06/27/18 01:42> Medical Decision Making - Lab Data Result diagrams: 06/26/18 22:14 06/26/18 22:14 <Raegan Moore - Last Filed: 06/27/18 01:42> - Lab Data Result diagrams: 06/30/18 08:00 06/30/18 08:00 <Maria Luisa Garcia - Last Filed: 07/01/18 02:16> - Medical Decision Making Upon initially history taking patient mostly complaining of whooshing sound in ear and stated her pain. Patient initially denied most symptoms of review systems. Patient did state she had a bout of dizziness I was concerned for carotid artery dissection at this time given bag symptoms with pain just inferior to the right ear. No significant findings on external auditory exam, concerning of neuropathic or infectious cause. Following CMP, CTA was obtained revealing no evidence of carotid artery dissection or other abnormalities. Upon reevaluation patient did admit to shortness of breath as well as chocolate-like stools. Patient hemoglobin 7.1. I feel this time patient's symptoms related to symptomatic anemia. Patient will be transfused. Patient is agreeable with transfusion. Troponins negative, EKG no acute findings. Patient was admitted to Dr. Rodriguez who evaluated patient. He agrees the impression and plan. No further orders at this time. Stool occult is negative however patient does admit to dark stools. Patient is not on iron supplements. Case discussed with Dr. Garcia who agreed to admission as well as plan. No further instructions at this time. Pt transferred to floor in stable condition. Hemodyamically stable appearing well. (Raegan Moore) I personally saw and examined the patient. I reviewed and agree with the mid- level provider findings including all diagnostic interpretations and treatment plans as written unless otherwise stated. I suspect that the patient's symptoms are secondary to her anemia, considering the patient's cardiac history I do feel that she warrants a transfusion for low hemoglobin of 9. At this time I will plan to admit the patient. Patient care was discussed with admitting physician who agrees with plan. (Maria Luisa Garcia) - Lab Data Lab Results 06/26/18 06/26/18 06/26/18 Range/Units 22:14 22:14 22:14 WBC 7.6 (3.8-10.6) k/uL RBC 2.80 L (3.80-5.40) m/uL Hgb 7.1 L (11.4-16.0) gm/dL Hct 22.6 L (34.0-46.0) % MCV 80.9 (80.0-100.0) fL MCH 25.4 (25.0-35.0) pg MCHC 31.4 (31.0-37.0) g/dL RDW 14.1 (11.5-15.5) % Plt Count 309 (150-450) k/uL Neutrophils % (Manual) 58 % Lymphocytes % (Manual) 24 % Monocytes % (Manual) 12 % Eosinophils % (Manual) 6 % Neutrophils # (Manual) 4.41 (1.3-7.7) k/uL Lymphocytes # (Manual) 1.82 (1.0-4.8) k/uL Monocytes # (Manual) 0.91 (0-1.0) k/uL Eosinophils # (Manual) 0.46 (0-0.7) k/uL Nucleated RBCs 0 (0-0) /100 WBC Manual Slide Review Performed Hypochromasia Moderate Ovalocytes Present PT (9.0-12.0) sec INR (<1.2) APTT (22.0-30.0) sec Sodium 140 (137-145) mmol/L Potassium 4.0 (3.5-5.1) mmol/L Chloride 107 (98-107) mmol/L Carbon Dioxide 25 (22-30) mmol/L Anion Gap 8 mmol/L BUN 26 H (7-17) mg/dL Creatinine 1.00 (0.52-1.04) mg/dL Est GFR (CKD-EPI)AfAm 64 (>60 ml/min/1.73 sqM) Est GFR (CKD-EPI)NonAf 55 (>60 ml/min/1.73 sqM) Glucose 105 H (74-99) mg/dL Calcium 8.6 (8.4-10.2) mg/dL Total Bilirubin 0.2 (0.2-1.3) mg/dL AST 27 (14-36) U/L ALT 34 (9-52) U/L Alkaline Phosphatase 57 (38-126) U/L Total Creatine Kinase 48 (30-135) U/L CK-MB (CK-2) <0.2 (0.0-2.4) ng/mL CK-MB (CK-2) Rel Index Troponin I <0.012 (0.000-0.034) ng/mL C-Reactive Protein <5.0 (<10.0) mg/L Total Protein 6.2 L (6.3-8.2) g/dL Albumin 3.2 L (3.5-5.0) g/dL Stool Occult Blood (Negative) Blood Type Blood Type Confirm Blood Type Recheck Antibody Screen Crossmatch Spec Expiration Date 06/26/18 06/26/18 06/26/18 Range/Units 23:18 23:18 23:18 WBC (3.8-10.6) k/uL RBC (3.80-5.40) m/uL Hgb (11.4-16.0) gm/dL Hct (34.0-46.0) % MCV (80.0-100.0) fL MCH (25.0-35.0) pg MCHC (31.0-37.0) g/dL RDW (11.5-15.5) % Plt Count (150-450) k/uL Neutrophils % (Manual) % Lymphocytes % (Manual) % Monocytes % (Manual) % Eosinophils % (Manual) % Neutrophils # (Manual) (1.3-7.7) k/uL Lymphocytes # (Manual) (1.0-4.8) k/uL Monocytes # (Manual) (0-1.0) k/uL Eosinophils # (Manual) (0-0.7) k/uL Nucleated RBCs (0-0) /100 WBC Manual Slide Review Hypochromasia Ovalocytes PT 10.0 (9.0-12.0) sec INR 0.9 (<1.2) APTT 22.2 (22.0-30.0) sec Sodium (137-145) mmol/L Potassium (3.5-5.1) mmol/L Chloride (98-107) mmol/L Carbon Dioxide (22-30) mmol/L Anion Gap mmol/L BUN (7-17) mg/dL Creatinine (0.52-1.04) mg/dL Est GFR (CKD-EPI)AfAm (>60 ml/min/1.73 sqM) Est GFR (CKD-EPI)NonAf (>60 ml/min/1.73 sqM) Glucose (74-99) mg/dL Calcium (8.4-10.2) mg/dL Total Bilirubin (0.2-1.3) mg/dL AST (14-36) U/L ALT (9-52) U/L Alkaline Phosphatase (38-126) U/L Total Creatine Kinase (30-135) U/L CK-MB (CK-2) (0.0-2.4) ng/mL CK-MB (CK-2) Rel Index Troponin I (0.000-0.034) ng/mL C-Reactive Protein (<10.0) mg/L Total Protein (6.3-8.2) g/dL Albumin (3.5-5.0) g/dL Stool Occult Blood (Negative) Blood Type O Positive Blood Type Confirm O Positive Blood Type Recheck CABO Indicated Antibody Screen NEGATIVE Crossmatch See Detail Spec Expiration Date 06/29/2018 - 231706/26/18 Range/Units 23:51 WBC (3.8-10.6) k/uL RBC (3.80-5.40) m/uL Hgb (11.4-16.0) gm/dL Hct (34.0-46.0) % MCV (80.0-100.0) fL MCH (25.0-35.0) pg MCHC (31.0-37.0) g/dL RDW (11.5-15.5) % Plt Count (150-450) k/uL Neutrophils % (Manual) % Lymphocytes % (Manual) % Monocytes % (Manual) % Eosinophils % (Manual) % Neutrophils # (Manual) (1.3-7.7) k/uL Lymphocytes # (Manual) (1.0-4.8) k/uL Monocytes # (Manual) (0-1.0) k/uL Eosinophils # (Manual) (0-0.7) k/uL Nucleated RBCs (0-0) /100 WBC Manual Slide Review Hypochromasia Ovalocytes PT (9.0-12.0) sec INR (<1.2) APTT (22.0-30.0) sec Sodium (137-145) mmol/L Potassium (3.5-5.1) mmol/L Chloride (98-107) mmol/L Carbon Dioxide (22-30) mmol/L Anion Gap mmol/L BUN (7-17) mg/dL Creatinine (0.52-1.04) mg/dL Est GFR (CKD-EPI)AfAm (>60 ml/min/1.73 sqM) Est GFR (CKD-EPI)NonAf (>60 ml/min/1.73 sqM) Glucose (74-99) mg/dL Calcium (8.4-10.2) mg/dL Total Bilirubin (0.2-1.3) mg/dL AST (14-36) U/L ALT (9-52) U/L Alkaline Phosphatase (38-126) U/L Total Creatine Kinase (30-135) U/L CK-MB (CK-2) (0.0-2.4) ng/mL CK-MB (CK-2) Rel Index Troponin I (0.000-0.034) ng/mL C-Reactive Protein (<10.0) mg/L Total Protein (6.3-8.2) g/dL Albumin (3.5-5.0) g/dL Stool Occult Blood Negative (Negative) Blood Type Blood Type Confirm Blood Type Recheck Antibody Screen Crossmatch Spec Expiration Date Disposition Is patient prescribed a controlled substance at d/c from ED?: No Time of Disposition: 01:52 Decision to Admit Reason: Admit from EC Decision Date: 06/27/18 Decision Time: :52 <Raegan Moore - Last Filed: 06/27/18 01:42> <Maria Luisa Garcia - Last Filed: 07/01/18 02:16> Clinical Impression: Symptomatic anemia Disposition: ADMITTED IP TO THIS HOSP Condition: Stable
[2018-06-27] MEDS ORDERED: SODIUM CHLORIDE 0.9% 500 ML 500 ML IV ONE (00:21)
[2018-06-27] MEDS ORDERED: HYDROcodone/APAP 5-325MG 1 EACH TAB PO PRN (01:09)
[2018-06-27] MEDS ORDERED: TEMAZEPAM 15 MG CAP PO PRN (01:09)
[2018-06-27] MEDS ORDERED: ALPRAZolam 0.25 MG TAB PO PRN (01:09)
[2018-06-27] MEDS ORDERED: ACETAMINOPHEN TAB 500 MG TAB PO PRN (01:09)
[2018-06-27] MEDS: SODIUM CHLORIDE 0.9% 1,000 ML IV SCH ×2 (03:46→14:07)
--- NOTE | 2018-06-27 06:49 | HP ---
HISTORY AND PHYSICAL DATE OF SERVICE: 06/27/2018. CHIEF COMPLAINTS: Whooshing around the ears. HISTORY OF PRESENT ILLNESS: This 77-year-old woman with a past medical history of CAD, stent, hypertension, hyperlipidemia, sleep apnea, appendectomy, bowel resection, being followed by Dr. Sera Sun in the outpatient setting and Cardiology in the outpatient setting was complaining of whooshing around the ears and patient came to [facility] and admitted for further evaluation and treatment. Hemoglobin is found to be 7.1. A CT angio was also done because of concerns of vascular pathology. The CT angio showed no evidence of any hemodynamically stenosis or any abnormality. There is no history of fever, rigors or chills. No history of headache, loss consciousness, seizures at this time. PAST MEDICAL HISTORY: History of CAD stent, history of GERD, hypertension, hyperlipidemia, sleep apnea , appendectomy, bowel resection. MEDICATIONS: Prior to admission include home medications are: 1. Apresoline 50 mg p.o. daily. 2. Norvasc 5 mg p.o. b.i.d. 3. Triamterene hydrochlorothiazide. 4. Dyazide 1 p.o. daily. 5. Prilosec 20 mg p.o. b.i.d. 6. Nitrostat 0.4 mg sublingual. 7. Multivitamins 1 p.o. daily. 8. Cozaar 100 mg p.o. daily. 9. Imdur ER 30 mg p.o. daily. 10.Fluoxetine 20 mg q.h.s. 11.Plavix 75 mg p.o. daily. 12.Vitamin D3 1000 daily. 13.Lipitor 80 mg q.h.s. 14.Ecotrin 81 mg q.h.s. 15.Xanax 0.5 mg daily. ALLERGIES: ADHESIVES. FAMILY HISTORY: noted in the family. SOCIAL HISTORY: No history of smoking. No history of alcohol intake. REVIEW OF SYSTEMS: ENT: As mentioned earlier. CARDIOVASCULAR SYSTEM: As mentioned earlier. RESPIRATORY: No cough. GI: As mentioned earlier. no dysuria. CENTRAL NERVOUS SYSTEM: No numbness /weakness. ALLERGY/IMMUNOLOGY: No asthma or hayfever. MUSCULOSKELETAL: As mentioned earlier. HEMATOLOGY/ONCOLOGY: No history of anemia. ENDOCRINE: No history of diabetes or hypothyroidism. CONSTITUTIONAL: As mentioned earlier. Dermatology: Negative. Rheumatology: Negative. Psychiatry: As mentioned earlier. PHYSICAL EXAM: GENERAL: The patient is alert and oriented times three. VITAL SIGNS: Pulse is 71. Blood pressure 137/56, respiration 18, temperature 97.2, pulse ox 97% on room air. HEENT: Conjunctivae pale. Oral mucosa moist. NECK: No jugular venous distention. No carotid bruit. No lymph node enlargement. CARDIOVASCULAR: S1, S2. No S3, no S4. RESPIRATORY: Breath sounds diminished in the bases. No rhonchi. No crackles. ABDOMEN: Soft, nontender. No mass palpable. LEGS: No edema. No swelling. NERVOUS SYSTEM: Higher functions as mentioned earlier. Moves all 4 limbs. No focal deficits. Lymphatics: No lymph nodes palpable in the neck, axillae or groin. SKIN: No ulcer, rash or bleeding. LABS: WBC 7.2, hemoglobin 7.1, glucose 105, albumin 3.2. ASSESSMENT: 1. Anemia, possibly acute gastrointestinal blood loss. Rule out peptic ulcer disease. 2. History of coronary artery disease, stent. 3. History of gastroesophageal reflux disease. 4. Hypertension. 5. Hyperlipidemia. 6. History of colon cancer. 7. History of sleep apnea on CPAP. 8. History of appendectomy. 9. History of bowel resection. 10.History of depression. 11.Remote history of nicotine dependence. RECOMMENDATIONS AND DISCUSSION: In this 77-year-old woman who presented with multiple complex medical issues, we will monitor the patient closely, continue the current medications, management and symptomatic treatment. Otherwise, at this time, I recommend a unit of transfusion. Cardiology and Gastroenterology consultations. Prognosis guarded because of multiple complex medical issues. Further recommendations to follow. A copy of dictation being forwarded to Dr. Sera Sun who is the primary physician. MMODL / IJN: [id number] / MTDD
[2018-06-27] MEDS: PANTOPRAZOLE 40 MG/10 ML VIAL IVP SCH ×2 (10:13→21:11)
[2018-06-27 13:36] LABS: Basophils % (A) 1 %; Eosinophils # (A) 0.2 k/uL (0-0.7); Eosinophils % (A) 3 %; HCT 26.2 % (34.0-46.0); HGB 8.1 gm/dL (11.4-16.0); Hypochromasia Marked; Lymphocytes # (A) 1.4 k/uL (1.0-4.8); Lymphocytes % (A) 18 %; MCH 25.6 pg (25.0-35.0); MCHC 30.7 g/dL (31.0-37.0); MCV 83.3 fL (80.0-100.0); Mean Platelet Volume 6.9; Monocytes # (A) 0.4 k/uL (0-1.0); Monocytes % (A) 5 %; Neutrophils # (A) 5.5 k/uL (1.3-7.7); Neutrophils % (A) 70 %; Platelet Count 311 k/uL (150-450); RBC 3.15 m/uL (3.80-5.40); RDW 14.2 % (11.5-15.5); WBC 7.8 k/uL (3.8-10.6)
[2018-06-27 13:42] LABS: Albumin 3.1 g/dL (3.5-5.0); Calcium 8.4 mg/dL (8.4-10.2); Potassium 4.4 mmol/L (3.5-5.1); Total Bilirubin 0.4 mg/dL (0.2-1.3); Total Protein 5.9 g/dL (6.3-8.2)
[2018-06-27] MEDS ORDERED: NITROGLYCERIN SL TABS 0.4 MG TAB SUBLINGUAL PRN (19:19)
--- NOTE | 2018-06-27 19:28 | PN ---
PROGRESS NOTE DATE OF SERVICE: 06/27/2018 This 77-year-old woman who was admitted with significant anemia, also had 1 unit of transfusion. The patient also has CAD, stent. Patient also had melenic episodes, Gastroenterology and Cardiology following the patient closely. No chest pain. No palpitations. PAST MEDICAL HISTORY: Reviewed. REVIEW OF SYSTEMS: CARDIOVASCULAR: As mentioned earlier. RESPIRATORY: As mentioned earlier. GI: As mentioned earlier. : No dysuria. CENTRAL NERVOUS SYSTEM: As mentioned earlier. CURRENT MEDICATIONS ARE: Reviewed and include: 1. Tylenol 500 mg. 2. Clifton 5 mg daily. 3. Xanax 0.25 t.i.d. 4. Narcan. 5. Protonix. 6. Restoril. PHYSICAL EXAMINATION: GENERAL: The patient is alert and oriented times three. The pulse is 74. Blood pressure 120/62, respirations 12, temperature 97.6, pulse ox 97% on room air. HEENT: Conjunctivae normal. NECK: No jugular venous distention. CARDIOVASCULAR: S1, S2 muffled. RESPIRATORY: Breath sounds diminished in the bases. No rhonchi. No crackles. ABDOMEN: Soft, nontender. Legs are no edema, no swelling. CENTRAL NERVOUS SYSTEM: No focal deficits. LAB STUDIES: WBC 11.7, hemoglobin is 8.1, sodium 140, potassium 4.4. The bilirubin is normal and albumin is 3.1. CRP is negative. Stool OB is 9. ASSESSMENT: 1. Anemia, possibly acute gastrointestinal bleed, rule out peptic ulcer disease. 2. History of coronary artery disease/stent. 3. History of gastroesophageal reflux disease. 4. Hypertension. 5. Hyperlipidemia. 6. History of colon cancer. 7. Sleep apnea on CPAP. 8. History of appendectomy. 9. History of bowel resection. 10.History of depression. 11.Remote history of nicotine dependence. RECOMMENDATIONS AND DISCUSSION: Recommend to continue current medications, management and symptomatic treatment. Hemoglobin is improved after transfusion, but patient had continued diarrhea and melenic stools also. We will obtain gastroenterology consultation for possible endoscopies. Follow closely with Cardiology. Hold off antiplatelet agents at this time. Otherwise, prognosis guarded because of multiple complex medical issues. See the rest of the orders. Continue the medications. Prognosis guarded. Discussed with the patient and family. Understands and agrees. Further recommendations to follow. MMODL / IJN: [id number] /
--- NOTE | 2018-06-27 19:31 | P.CONS ---
History of Present Illness - Reason for Consult Consult date: 06/27/18 Anemia Requesting physician: Mar Rodriguez - Chief Complaint Rushing sound in ears - History of Present Illness Pleasant 77-year-old female with a medical history significant for GERD, colon cancer status post right hemicolectomy, hypertension, and obstructive sleep apnea who presented to the hospital with a constellation of complaints. Per the patient she had numerous complaints including rushing sound over her years, dizziness and shortness of breath. Presentation to the hospital the patient was found to be anemic with a hemoglobin of 7.1 which was down from 11.3 in 2017. The patient she denied any signs or symptoms of GI bleeding currently. No nausea, vomiting, hematemesis, or hematochezia. She does report that approximately one week ago she noticed melanotic stool once 2 days. Currently this has resolved. The patient did have stool testing that was negative for occult blood. She does take omeprazole 1-2 times daily for reflux at home. Her last colonoscopy was 10/07/2015 at which time there were findings of prior right hemicolectomy, and anastomotic site ulcer and diverticulosis noted. Review of Systems REVIEW OF SYSTEMS: CARDIO: Denies any chest pain or palpitations. PULMONARY: The patient did report shortness of breath on exertion on presentation but denies any wheezing. GENITOURINARY: No dysuria or hematuria. MUSCULOSKELETAL: No weakness reported. SKIN: Denies any new rashes or lesions, jaundice or pallor. PSYCHIATRIC: Denies any depression or anxiety. NEUROLOGY: Denies headache, denies any new focal deficits. EARS: No tinnitus, discharge or new hearing loss. NOSE: No discharge or congestion. EYES: No pain in eyes or change in vision. CONSTITUTIONAL: No recent weight loss. No fever, chills, night sweats. Past Medical History Past Medical History: Coronary Artery Disease (CAD), Cancer, GERD/Reflux, Hyperlipidemia, Hypertension, Sleep Apnea/CPAP/BIPAP Additional Past Medical History / Comment(s): Hx colon cancer, Uses CPAP or BIPAP History of Any Multi-Drug Resistant Organisms: None Reported Past Surgical History: Appendectomy, Bowel Resection, Hysterectomy, Orthopedic Surgery Additional Past Surgical History / Comment(s): RIGHT HAND TRIGGER FINGER, spur removed from right foot. CArpal tunnel surgery Past Anesthesia/Blood Transfusion Reactions: Motion Sickness Date of Last Stent Placement:: Aug 10, 2017 Past Psychological History: Depression Smoking Status: Never smoker Past Alcohol Use History: None Reported Additional Past Alcohol Use History / Comment(s): QUIT: APROX IN 1997. SMOKED FOR: 30 YRS. PPD: 1 Past Drug Use History: None Reported - Past Family History Mother Family Medical History: No Reported History Sister(s) Family Medical History: Cancer Additional Family Medical History / Comment(s): open heart surgery SIsiter is still living. Another sister from lung cancer. Another from pancreatic surgery Father Family Medical History: No Reported History Medications and Allergies Home Medications Medication Instructions Recorded Confirmed Type ALPRAZolam [Xanax] 0.25 mg PO BID 07/16/15 06/27/18 History Omeprazole [PriLOSEC] 20 mg PO BID 07/16/15 06/27/18 History Aspirin [Adult Low Dose Aspirin EC] 81 mg PO HS 10/02/15 06/27/18 History Cholecalciferol [Vitamin D3] 1,000 unit PO DAILY 10/02/15 06/27/18 History Multivitamins, Thera [Multivitamin 1 tab PO DAILY 10/02/15 06/27/18 History (formulary)] Isosorbide Mononitrate [Isosorbide 30 mg PO DAILY 07/15/17 06/27/18 History Mononitrate ER] Atorvastatin [Lipitor] 80 mg PO HS #30 tab 08/11/17 06/27/18 Rx Clopidogrel [Plavix] 75 mg PO DAILY #30 tab 08/11/17 06/27/18 Rx Losartan [Cozaar] 100 mg PO DAILY #30 tab 08/11/17 06/27/18 Rx Nitroglycerin Sl Tabs [Nitrostat] 0.4 mg SUBLINGUAL Q5M PRN #25 tab 08/11/17 Rx Triamterene-Hctz 37.5-25Mg 1 cap PO DAILY 01/15/18 06/27/18 History [Dyazide 37.5-25 Capsule] hydrALAZINE HCL [Apresoline] 50 mg PO TID #90 tab 01/19/18 06/27/18 Rx FLUoxetine HCL [PROzac] 40 mg PO HS 06/27/18 06/27/18 History Metoprolol Succinate [Kapspargo 25 mg PO DAILY 06/27/18 06/27/18 History Sprinkle] Allergies Allergy/AdvReac Type Severity Reaction Status Date / Time adhesive Allergy Itching. Verified 06/27/18 10:21 RASH/REDNESS Physical Exam Vitals: Vital Signs Temp Pulse Pulse Resp BP BP Pulse Ox 06/27/18 15:00 97.6 F 74 12 123/66 97 06/27/18 09:50 98.3 F 66 16 145/69 95 06/27/18 03:40 97.8 F 69 16 145/65 94 L 06/27/18 02:33 73 16 150/68 94 L 06/27/18 02:20 98.5 F 73 16 150/70 93 L 06/27/18 02:03 98.5 F 73 16 154/70 92 L 06/27/18 01:53 98.5 F 68 16 118/48 95 06/27/18 01:14 76 18 131/47 95 06/27/18 00:48 68 18 139/62 95 06/26/18 23:23 97.9 F 71 18 137/57 97 06/26/18 19:48 97.7 F 68 16 121/45 97 Intake and Output 06/27/18 06/27/18 06/27/18 06:59 14:59 22:59 Intake Total 1250 Balance 1250 Intake: Intake, IV Titration 150 Amount Sodium Chloride 0.9% 1, 150 000 ml @ 75 mls/hr IV . [id number] [facility] Rx#:[id number] Oral 480 Blood Product 620 Rc Pheresis 2 As3 Unit 310 [id number] Other: # Voids 1 2 On physical examination, patient appears comfortable in no apparent distress. HEAD: Normocephalic, atraumatic. EYES: No scleral icterus. No conjunctival injection. MOUTH: No lesions, tongue midline. NECK: Trachea midline, no gross abnormalities. CHEST: Clear to auscultation with no wheezing or rhonchi appreciated. HEART: Regular rate and rhythm. ABDOMEN: Soft, obese. Bowel sounds are positive. No organomegaly. No guarding or rigidity. EXTREMITIES: No pedal edema. SKIN: No rashes, no jaundice. NEUROLOGIC: Alert and oriented x3. No focal deficits. Results CBC & Chem 7: 06/27/18 13:14 06/27/18 13:14 Labs: Abnormal Lab Results - Last 24 Hours (Table) 06/26/18 06/26/18 06/26/18 Range/Units 22:14 22:14 23:18 RBC 2.80 L (3.80-5.40) m/uL Hgb 7.1 L (11.4-16.0) gm/dL Hct 22.6 L (34.0-46.0) % MCHC (31.0-37.0) g/dL Chloride (98-107) mmol/L BUN 26 H (7-17) mg/dL Glucose 105 H (74-99) mg/dL Total Protein 6.2 L (6.3-8.2) g/dL Albumin 3.2 L (3.5-5.0) g/dL Crossmatch See Detail 06/27/18 06/27/18 Range/Units 13:14 13:14 RBC 3.15 L (3.80-5.40) m/uL Hgb 8.1 L (11.4-16.0) gm/dL Hct 26.2 L (34.0-46.0) % MCHC 30.7 L (31.0-37.0) g/dL Chloride 111 H (98-107) mmol/L BUN (7-17) mg/dL Glucose (74-99) mg/dL Total Protein 5.9 L (6.3-8.2) g/dL Albumin 3.1 L (3.5-5.0) g/dL Crossmatch Assessment and Plan (1) Symptomatic anemia Narrative/Plan: The patient presents with multiple symptoms including dizziness, shortness of breath on exertion and lightheadedness suggestive of symptomatic anemia with hemoglobin found to be 7.1 on presentation down from 11.8 in December. The patient had stool testing which was negative for occult blood and does deny any signs or symptoms of GI bleeding currently. However she did report some dark stools approximately 1 week ago. No NSAID use reported. Current Visit: Yes Status: Acute Code(s): D64.9 - ANEMIA, UNSPECIFIED SNOMED Code(s): 018547187 Plan: Supportive care Monitor hemoglobin and transfuse as needed Continue PPI therapy Monitor stool output Plan for endoscopic evaluation prior to discharge, timing to be determined Avoid NSAID therapy Thank you for allowing us to participate in the care of this patient
[2018-06-27] MEDS ORDERED: NON-FORMULARY DRUG (Omeprazole [Prilosec] 20 MG) PO SCH (21:00)
[2018-06-27] MEDS: ALPRAZolam 0.25 MG TAB PO SCH (21:10)
[2018-06-27] MEDS: FLUoxetine HCL 20 MG CAP PO SCH (21:10)
[2018-06-27] MEDS: ASPIRIN 81 MG PO SCH (21:10)
[2018-06-27] MEDS: hydrALAZINE HCL 50 MG TAB PO SCH (21:10)
[2018-06-27] MEDS: CLOPIDOGREL 75 MG TAB PO SCH (21:10)
[2018-06-27] MEDS: ATORVASTATIN 80 MG TAB PO SCH (21:10)
[2018-06-27] MEDS: ISOSORBIDE MONONITRATE ER 30 MG TAB.ER.24H PO SCH (21:11)
[2018-06-27] MEDS: LOSARTAN 50 MG TAB PO SCH (21:11)
[2018-06-27] MEDS: TRIAMTERENE-HCTZ 37.5-25MG 1 EACH CAP PO SCH (21:11)
[2018-06-27] MEDS: METOPROLOL SUCCINATE (ER) 25 MG TAB.ER.24H PO SCH (22:53)
[2018-06-28] MEDS: SODIUM CHLORIDE 0.9% 1,000 ML IV SCH ×2 (04:06→19:36)
[2018-06-28 08:08] LABS: Basophils % (A) 1 %; Eosinophils # (A) 0.2 k/uL (0-0.7); Eosinophils % (A) 3 %; HCT 25.4 % (34.0-46.0); HGB 7.9 gm/dL (11.4-16.0); Hypochromasia Moderate; Lymphocytes # (A) 1.2 k/uL (1.0-4.8); Lymphocytes % (A) 20 %; MCH 25.5 pg (25.0-35.0); MCV 82.4 fL (80.0-100.0); Monocytes # (A) 0.4 k/uL (0-1.0); Monocytes % (A) 6 %; Neutrophils # (A) 4.2 k/uL (1.3-7.7); Neutrophils % (A) 67 %; Platelet Count 301 k/uL (150-450); Poikilocytosis Slight; RBC 3.08 m/uL (3.80-5.40); RDW 14.2 % (11.5-15.5); WBC 6.2 k/uL (3.8-10.6)
[2018-06-28 08:34] LABS: Calcium 8.4 mg/dL (8.4-10.2); Potassium 3.9 mmol/L (3.5-5.1)
[2018-06-28] MEDS: PANTOPRAZOLE 40 MG/10 ML VIAL IVP SCH ×2 (09:16→21:25)
[2018-06-28] MEDS: CHOLECALCIFEROL 1,000 UNIT TAB PO SCH (09:16)
[2018-06-28] MEDS: ALPRAZolam 0.25 MG TAB PO SCH ×2 (09:16→21:24)
[2018-06-28] MEDS: ISOSORBIDE MONONITRATE ER 30 MG TAB.ER.24H PO SCH (09:17)
[2018-06-28] MEDS: LOSARTAN 50 MG TAB PO SCH (09:17)
[2018-06-28] MEDS: METOPROLOL SUCCINATE (ER) 25 MG TAB.ER.24H PO SCH (09:17)
[2018-06-28] MEDS: hydrALAZINE HCL 50 MG TAB PO SCH ×3 (09:17→21:25)
[2018-06-28] MEDS: MULTIVITAMINS, THERA 1 EACH TAB PO SCH (09:17)
[2018-06-28] MEDS: TRIAMTERENE-HCTZ 37.5-25MG 1 EACH CAP PO SCH (09:17)
[2018-06-28] MEDS ORDERED: ONDANSETRON 4 MG/2 ML VIAL IVP PRN (12:21)
[2018-06-28] MEDS: CLOPIDOGREL 75 MG TAB PO SCH (13:52)
[2018-06-28] MEDS ORDERED: PEG 3350-NA SULF,BICARB,CL/KCL 4,000 ML BOTTLE PO ONE (16:22)
[2018-06-28] MEDS ORDERED: BISACODYL 5 MG TABLET.DR PO ONE (18:00)
--- NOTE | 2018-06-28 18:40 | P.PN ---
Subjective Progress Note Date: 06/28/18 Principal diagnosis: Anemia, melena Patient tolerated her diet. No abdominal pain. No dark stool reported Objective - Vital Signs Vital signs: Vital Signs Temp 98.6 F 06/28/18 15:00 Pulse 68 06/28/18 15:00 Resp 16 06/28/18 15:00 BP 152/71 06/28/18 15:00 Pulse Ox 96 06/28/18 15:00 Intake & Output 06/27/18 06/28/18 06/28/18 18:59 06:59 18:59 Other: Voiding Method Toilet # Voids 2 - Exam On physical examination, patient appears comfortable in no apparent distress. HEAD: Normocephalic, atraumatic. EYES: No scleral icterus. No conjunctival injection. MOUTH: No lesions, tongue midline. NECK: Trachea midline, no gross abnormalities. CHEST: Clear to auscultation with no wheezing or rhonchi appreciated. HEART: Regular rate and rhythm. ABDOMEN: Soft, obese. Bowel sounds are positive. No organomegaly. No guarding or rigidity. EXTREMITIES: No pedal edema. SKIN: No rashes, no jaundice. NEUROLOGIC: Alert and oriented x3. No focal deficits. - Labs CBC & Chem 7: 06/28/18 07:27 06/28/18 07:27 Labs: Abnormal Lab Results - Last 24 Hours (Table) 06/28/18 06/28/18 Range/Units 07:27 07:27 RBC 3.08 L (3.80-5.40) m/uL Hgb 7.9 L (11.4-16.0) gm/dL Hct 25.4 L (34.0-46.0) % Chloride 108 H (98-107) mmol/L Assessment and Plan (1) Symptomatic anemia Narrative/Plan: The patient presents with multiple symptoms including dizziness, shortness of breath on exertion and lightheadedness suggestive of symptomatic anemia with hemoglobin found to be 7.1 on presentation down from 11.8 in December. The patient had stool testing which was negative for occult blood and does deny any signs or symptoms of GI bleeding currently. However she did report some dark stools approximately 1 week ago. No NSAID use reported. Current Visit: Yes Status: Acute Code(s): D64.9 - ANEMIA, UNSPECIFIED SNOMED Code(s): 953596199 Plan: Supportive care Monitor hemoglobin and transfuse as needed Continue PPI therapy Monitor stool output Clear liquid diet Nothing by mouth after midnight Bowel prep tonight Plan for EGD and colonoscopy in the morning Avoid NSAID therapy Thank you for allowing us to participate in the care of this patient
[2018-06-28] MEDS: ASPIRIN 81 MG PO SCH (21:24)
[2018-06-28] MEDS: ATORVASTATIN 80 MG TAB PO SCH (21:25)
[2018-06-28] MEDS: FLUoxetine HCL 20 MG CAP PO SCH (21:25)
[2018-06-29] MEDS: SODIUM CHLORIDE 0.9% 1,000 ML IV SCH ×2 (05:05→20:21)
--- NOTE | 2018-06-29 07:54 | PN ---
PROGRESS NOTE DATE OF SERVICE: 06/28/2018 This 77-year-old woman was admitted with significant anemia, had a recent history of stent. The hemoglobin is 7.[address] Hernandez from Gastroenterology planning endoscopies tomorrow. No chest pain. No palpitations. No fever. EXAM: Alert and oriented times three. Pulse 70, blood pressure 160/64, respirations 16, temperature 97.8, pulse ox 97% on room air. HEENT: Conjunctivae normal. NECK: No jugular venous distention. CARDIOVASCULAR: S1, S2 muffled. RESPIRATORY: Breath sounds diminished in the bases. No rhonchi. No crackles. Abdomen is soft, nontender. Legs are no edema. No swelling. Central nervous system: No focal deficits. LAB STUDIES: WBC 6.2, hemoglobin 7.9, sodium 140, potassium 3.9. ASSESSMENT: 1. Anemia, possibly acute gastrointestinal bleeding, rule out peptic ulcer disease with acute blood loss anemia. 2. History of coronary artery disease, stent. 3. History of gastrointestinal bleed. 4. Hypertension. 5. Hyperlipidemia. 6. History of colon cancer. 7. History of sleep apnea on CPAP. 8. History of appendectomy. 9. History of bowel resection. 10.History of depression. 11.Remote history of nicotine dependence. RECOMMENDATIONS AND DISCUSSION: Recommend to continue current medications, continue with monitoring and symptomatic treatment. Otherwise, endoscopies per Dr. Hernandez and repeat labs in the morning. Prognosis guarded because of multiple complex medical issues. Further recommendations to follow. MMODL / IJN: [id number] /
[2018-06-29 08:20] LABS: Basophils % (A) 1 %; Eosinophils # (A) 0.3 k/uL (0-0.7); Eosinophils % (A) 4 %; HCT 25.8 % (34.0-46.0); HGB 7.9 gm/dL (11.4-16.0); Hypochromasia Moderate; Lymphocytes # (A) 1.2 k/uL (1.0-4.8); Lymphocytes % (A) 16 %; MCH 24.8 pg (25.0-35.0); MCHC 30.5 g/dL (31.0-37.0); MCV 81.4 fL (80.0-100.0); Monocytes # (A) 0.4 k/uL (0-1.0); Monocytes % (A) 5 %; Neutrophils # (A) 5.1 k/uL (1.3-7.7); Neutrophils % (A) 70 %; Platelet Count 326 k/uL (150-450); Poikilocytosis Slight; RBC 3.17 m/uL (3.80-5.40); RDW 13.9 % (11.5-15.5); WBC 7.3 k/uL (3.8-10.6)
[2018-06-29 08:33] LABS: Calcium 8.6 mg/dL (8.4-10.2); Potassium 3.9 mmol/L (3.5-5.1)
[2018-06-29] MEDS: PANTOPRAZOLE 40 MG/10 ML VIAL IVP SCH ×2 (10:21→21:26)
[2018-06-29] MEDS: hydrALAZINE HCL 50 MG TAB PO SCH ×3 (10:21→21:26)
[2018-06-29] MEDS: LOSARTAN 50 MG TAB PO SCH (10:21)
[2018-06-29] MEDS: ISOSORBIDE MONONITRATE ER 30 MG TAB.ER.24H PO SCH (10:21)
[2018-06-29] MEDS: CHOLECALCIFEROL 1,000 UNIT TAB PO SCH (10:21)
[2018-06-29] MEDS: CLOPIDOGREL 75 MG TAB PO SCH (10:21)
[2018-06-29] MEDS: METOPROLOL SUCCINATE (ER) 25 MG TAB.ER.24H PO SCH (10:21)
[2018-06-29] MEDS: ALPRAZolam 0.25 MG TAB PO SCH ×2 (10:21→21:26)
[2018-06-29] MEDS: TRIAMTERENE-HCTZ 37.5-25MG 1 EACH CAP PO SCH (10:22)
[2018-06-29] MEDS ORDERED: PROPOFOL 10 MG/ML 20 ML VIAL IV ONE (13:39)
[2018-06-29] MEDS ORDERED: LACTATED RINGERS 1,000 ML IV ONE (13:46)
--- NOTE | 2018-06-29 14:31 | P.PCN ---
Date of Procedure: 06/29/18 Description of Procedure: Brief history: Pleasant 77-year-old female with a medical history significant for GERD, colon cancer status post right hemicolectomy, hypertension, and obstructive sleep apnea who presented to the hospital with a constellation of complaints. Per the patient she had numerous complaints including rushing sound over her years, dizziness and shortness of breath. Presentation to the hospital the patient was found to be anemic with a hemoglobin of 7.1 which was down from 11.3 in 2017. The patient she denied any signs or symptoms of GI bleeding currently. No nausea, vomiting, hematemesis, or hematochezia. She does report that approximately one week ago she noticed melanotic stool once 2 days. Currently this has resolved. The patient did have stool testing that was negative for occult blood. She does take omeprazole 1-2 times daily for reflux at home. Her last colonoscopy was 10/07/2015 at which time there were findings of prior right hemicolectomy, and anastomotic site ulcer and diverticulosis noted. Procedure performed: Esophagogastroduodenoscopy with gastric antrum/body biopsy Colonoscopy with descending colon biopsy Estimated blood loss: Minimal. Preoperative diagnosis: Anemia, history of colon cancer Anesthesia: MAC Procedure: After informed consent was obtained from the patient was brought into the endoscopy unit and IV sedation was administered by anesthesia under continuous monitoring. Initially upper endoscopy was done. The Olympus GF 190 video endoscope was inserted into the mouth and esophagus intubated without any difficulty and was gradually advanced into the stomach and duodenum and carefully examined. The bulb and second part of the duodenum appeared normal. The scope was then withdrawn into the stomach adequately insufflated with air and upon careful examination the antrum and body, cardia and fundus appeared grossly normal with mild scattered erythema of the antrum and body which was biopsied. The scope was then withdrawn into the esophagus. The GE junction was located at 36 cm to the incisors. A large hiatal hernia was noted. The esophagus appeared regular with no erythema erosions or ulcerations. Patient tolerated the procedure well. At this time the patient continued to remain sedation. Initial digital rectal examination was normal. Olympus CF 190 video colonoscope was then inserted into the rectum and gradually advanced to the cecum without any difficulty. Careful examination was performed as the scope was gradually being withdrawn. The prep was excellent. The transverse colon, descending colon, sigmoid colon and rectum appeared normal. The patients anatomy was consistent with prior right hemicolectomy, with the anastomotic site appearing health. Mild erythema of a descending colon fold which was biopsied. Scattered diverticulosis in the sigmoid and descending colons. Retroflexion was performed in the rectum and no lesions were noted, mild internal hemorrhoids were seen. Patient tolerated the procedure well. Impression: 1. Hiatal hernia. Mild gastritis of the antrum and body, biopsied. 2. Anatomy consistent with prior right hemicolectomy. Mild sigmoid and descending diverticulosis. Erythematous descending colonic fold, biopsied. Mild internal hemorrhoids. 3. No evidence of active GI bleed, or pathology to explain anemia. Recommendations: Findings of this examination were discussed with the patient. Continue to monitor hemoglobin and hematocrit and transfuse as needed. Will order a capsule endoscopy to be performed tonight. Further recommendations to follow.
[2018-06-29 14:32] LABS: Iron Saturation 7.08 (12.00-45.00)
--- NOTE | 2018-06-29 14:37 | P.CRDCN ---
History of Present Illness History of present illness: This is a pleasant 77-year-old female status post angioplasty to the circumflex artery in July 2017. Other past medical history significant for hypertension, dyslipidemia, sleep apnea and gastroesophageal reflux disease. She quit smoking in 1997. She is currently maintained on dual antiplatelet therapy in the form of aspirin 81 mg daily and Plavix 75 mg daily. She presented to the hospital secondary to a rushing sound as well as a pain in her right ear. This was causing her to feel quite dizzy. Upon initial evaluation in the emergency department a CBC was obtained and revealed hemoglobin was 7.1. She denies any overt hany bleeding although she does state remotely that she has noticed some black stools in the previous month. She complains of feeling short of breath with exertion, increasingly fatigued and very cold. She denies symptoms of chest pain, palpitations, nausea, vomiting or diaphoresis. She has been seen in consultation by GI services her Plavix has been placed on hold and she is scheduled for an EGD colonoscopy this afternoon. She has received one unit of packed red blood cells, repeat hemoglobin today 7.9. EKG reveals sinus mechanism with no acute ST or T wave abnormalities noted. CT angio of the head and neck revealed no evidence of stenosis, no evidence of aneurysm and no abnormality identified in the right temporal bone. Laboratory data reviewed, WBC 7.3, hemoglobin 7.9, platelets 326, sodium 141, potassium 3.9, creatinine 0.96, cardiac enzymes negative 1. Current cardiac medications include aspirin 81 mg daily, Plavix 75 mg daily, atorvastatin 80 mg daily, Imdur 30 mg daily, losartan 100 mg daily, metoprolol succinate 25 mg daily, Dyazide 37.5/25 mg daily and hydralazine 50 mg 3 times a day. Most recent echocardiogram obtained in the office June 2017 reveals preserved left ventricular systolic function with ejection fraction 60%, mild concentric left ventricular hypertrophy, mildly dilated left atrium, mild to moderate aortic regurgitation, mild mitral regurgitation. At the time of my exam: CONSTITUTIONAL: Denies fever. Denies chills. EYES: Denies blurred vision. Denies vision changes. Denies eye pain. EARS, NOSE, MOUTH & THROAT: Denies headache. Denies sore throat. Denies ear pain. CARDIOVASCULAR: Denies chest pain. Complains of exertional shortness of breath. Denies orthopnea. Denies PND. Denies palpitations. RESPIRATORY: Denies cough. GASTROINTESTINAL: Denies abdominal pain. Denies diarrhea. Denies constipation. Denies nausea. Denies vomiting. MUSCULOSKELETAL: Denies myalgias. INTEGUMENTARY: Denies pruitis. Denies rash. NEUROLOGIC: Denies numbness. Denies tingling. Denies weakness. PSYCHIATRIC: Denies anxiety. Denies depression. ENDOCRINE: Complains of increased fatigue. Denies weight change. Denies polydipsia. Denies polyurina. GENITOURINARY: Denies burning, hematuria or urgency with micturation. HEMATOLOGIC: Denies history of anemia. Denies bleeding. Blood pressure 136/62 heart rate 69 afebrile maintaining oxygen saturation on room air GENERAL: This is a 77-year-old female in no apparent distress at the time of my examination. HEENT: Head is atraumatic, normocephalic. Pupils are equal, round. Sclerae anicteric. Conjunctivae are clear. Mucous membranes of the mouth are moist. Neck is supple. There is no jugular venous distention. No carotid bruit is heard. LUNGS: Clear to auscultation no wheezes, rales or rhonchi. No chest wall tenderness is noted on palpation or with deep breathing. HEART: Regular rate and rhythm without murmurs, rubs or gallops. S1 and S2 heard. ABDOMEN: Soft, nontender. Bowel sounds are heard. No organomegaly noted. EXTREMITIES: No evidence of peripheral edema and no calf tenderness noted. VASCULAR: Radial and dorsalis pedis pulses palpated, no evidence of clubbing. NEUROLOGIC: Patient is awake, alert and oriented x3. ASSESSMENT Acute GI bleeding requiring blood transfusion on dual antiplatelet therapy History of coronary artery disease status post angioplasty of the circumflex artery July 2017 Hypertension Dyslipidemia Obstructive sleep apnea Obesity PLAN Plavix can be discontinued indefinitely however aspirin 81 mg daily should be resumed as soon as appropriate per GI services. Follow-up with Dr. Lou upon discharge. Thank you kindly for this consultation. Nurse Practitioner note has been reviewed, I agree with a documented findings and plan of care. Patient was seen and examined. Past Medical History Past Medical History: Coronary Artery Disease (CAD), Cancer, GERD/Reflux, Hyperlipidemia, Hypertension, Sleep Apnea/CPAP/BIPAP Additional Past Medical History / Comment(s): Hx colon cancer, Uses CPAP or BIPAP History of Any Multi-Drug Resistant Organisms: None Reported Past Surgical History: Appendectomy, Bowel Resection, Hysterectomy, Orthopedic Surgery Additional Past Surgical History / Comment(s): RIGHT HAND TRIGGER FINGER, spur removed from right foot. CArpal tunnel surgery Past Anesthesia/Blood Transfusion Reactions: Motion Sickness Date of Last Stent Placement:: Aug 10, 2017 Past Psychological History: Depression Smoking Status: Never smoker Past Alcohol Use History: None Reported Additional Past Alcohol Use History / Comment(s): QUIT: APROX IN 1997. SMOKED FOR: 30 YRS. PPD: 1 Past Drug Use History: None Reported - Past Family History Mother Family Medical History: No Reported History Sister(s) Family Medical History: Cancer Additional Family Medical History / Comment(s): open heart surgery SIsiter is still living. Another sister from lung cancer. Another from pancreatic surgery Father Family Medical History: No Reported History Medications and Allergies Home Medications Medication Instructions Recorded Confirmed Type ALPRAZolam [Xanax] 0.25 mg PO BID 07/16/15 06/27/18 History Omeprazole [PriLOSEC] 20 mg PO BID 07/16/15 06/27/18 History Aspirin [Adult Low Dose Aspirin EC] 81 mg PO HS 10/02/15 06/27/18 History Cholecalciferol [Vitamin D3] 1,000 unit PO DAILY 10/02/15 06/27/18 History Multivitamins, Thera [Multivitamin 1 tab PO DAILY 10/02/15 06/27/18 History (formulary)] Isosorbide Mononitrate [Isosorbide 30 mg PO DAILY 07/15/17 06/27/18 History Mononitrate ER] Atorvastatin [Lipitor] 80 mg PO HS #30 tab 08/11/17 06/27/18 Rx Clopidogrel [Plavix] 75 mg PO DAILY #30 tab 08/11/17 06/27/18 Rx Losartan [Cozaar] 100 mg PO DAILY #30 tab 08/11/17 06/27/18 Rx Nitroglycerin Sl Tabs [Nitrostat] 0.4 mg SUBLINGUAL Q5M PRN #25 tab 08/11/17 Rx Triamterene-Hctz 37.5-25Mg 1 cap PO DAILY 01/15/18 06/27/18 History [Dyazide 37.5-25 Capsule] hydrALAZINE HCL [Apresoline] 50 mg PO TID #90 tab 01/19/18 06/27/18 Rx FLUoxetine HCL [PROzac] 40 mg PO HS 06/27/18 06/27/18 History Metoprolol Succinate [Kapspargo 25 mg PO DAILY 06/27/18 06/27/18 History Sprinkle] Allergies Allergy/AdvReac Type Severity Reaction Status Date / Time adhesive Allergy Itching. Verified 06/27/18 10:21 RASH/REDNESS Physical Exam Vitals: Vital Signs Temp Pulse Resp BP Pulse Ox 06/29/18 07:38 99.1 F 69 16 136/62 95 06/29/18 01:00 97.8 F 68 16 94/56 92 L 06/28/18 20:00 97.8 F 70 16 164/64 97 06/28/18 15:00 98.6 F 68 16 152/71 96 Intake and Output 06/28/18 06/29/18 06/29/18 22:59 06:59 14:59 Intake Total 400 300 200 Output Total 3 Balance 400 297 200 Intake: IV 200 Oral 400 300 Output: Urine/Stool Mix 3 Other: Voiding Method Toilet # Voids 2 Results 06/29/18 07:29 06/29/18 07:29 CBC 06/29/18 Range/Units 07:29 WBC 7.3 (3.8-10.6) k/uL RBC 3.17 L (3.80-5.40) m/uL Hgb 7.9 L (11.4-16.0) gm/dL Hct 25.8 L (34.0-46.0) % Plt Count 326 (150-450) k/uL Comprehensive Metabolic Panel 06/29/18 Range/Units 07:29 Sodium 141 (137-145) mmol/L Potassium 3.9 (3.5-5.1) mmol/L Chloride 106 (98-107) mmol/L Carbon Dioxide 29 (22-30) mmol/L BUN 9 (7-17) mg/dL Creatinine 0.96 (0.52-1.04) mg/dL Glucose 87 (74-99) mg/dL Calcium 8.6 (8.4-10.2) mg/dL Current Medications Generic Name Dose Route Start Last Admin Trade Name Freq PRN Reason Stop Dose Admin Acetaminophen 500 mg 06/27/18 01:09 Tylenol Tab PO Q6HR PRN Fever and/ or Pain Hydrocodone Bitart/Acetaminophen 1 each 06/27/18 01:09 [place] 5-325 PO Q6HR PRN Pain Alprazolam 0.25 mg 06/27/18 01:09 06/27/18 02:37 Xanax PO 0.25 mg TID PRN Administration Anxiety Alprazolam 0.25 mg 06/27/18 21:00 06/29/18 10:21 Xanax PO Not Given BID BALTA Aspirin 81 mg 06/27/18 21:00 06/28/18 21:24 Aspirin PO 81 mg HS [facility] Administration Atorvastatin Calcium 80 mg 06/27/18 21:00 06/28/18 21:25 Lipitor PO 80 mg HS [facility] Administration Cholecalciferol 1,000 unit 06/28/18 09:00 06/29/18 10:21 Vitamin D3 PO Not Given DAILY [facility] Clopidogrel Bisulfate 75 mg 06/27/18 19:30 06/29/18 10:21 Plavix PO Not Given DAILY [facility] Fluoxetine HCl 40 mg 06/27/18 21:00 06/28/18 21:25 Prozac PO 40 mg HS [facility] Administration Hydralazine HCl 50 mg 06/27/18 22:00 06/29/18 10:21 Apresoline PO Not Given TID [facility] Sodium Chloride 1,000 mls @ 75 mls/hr 06/26/18 23:30 06/29/18 05:05 Saline 0.9% IV Not Given .[id number] [facility] Isosorbide Mononitrate 30 mg 06/27/18 19:30 06/29/18 10:21 Imdur PO Not Given DAILY [facility] Losartan Potassium 100 mg 06/27/18 19:30 06/29/18 10:21 Cozaar PO Not Given DAILY [facility] Metoprolol Succinate 25 mg 06/27/18 19:30 06/29/18 10:21 Toprol Xl PO Not Given DAILY [facility] Multivitamins 1 each 06/28/18 12:00 06/28/18 09:17 Theragran PO 1 each DAILY@1200 [place]TA Administration Naloxone HCl 0.2 mg 06/26/18 23:27 Narcan IV Q2M PRN Opioid Reversal Nitroglycerin 0.4 mg 06/27/18 19:19 Nitrostat SUBLINGUAL Q5M PRN Chest Pain Ondansetron HCl 4 mg 06/28/18 12:21 06/28/18 18:03 Zofran IVP 4 mg Q6HR PRN Administration Nausea And Vomiting Pantoprazole Sodium 40 mg 06/27/18 09:00 06/29/18 10:21 Protonix IVP Not Given BID BALTA Temazepam 15 mg 06/27/18 01:09 Restoril PO HS PRN Insomnia Triamterene/HCTZ 1 each 06/27/18 19:30 06/29/18 10:22 Dyazide PO Not Given DAILY [place]TA Intake and Output 06/28/18 06/29/18 06/29/18 22:59 06:59 14:59 Intake Total 400 300 200 Output Total 3 Balance 400 297 200 Intake: IV 200 Oral 400 300 Output: Urine/Stool Mix 3 Other: Voiding Method Toilet # Voids 2 06/29/18 07:29 06/29/18 07:29
[2018-06-29] MEDS ORDERED: ACETAMINOPHEN IV (For NPO) 1,000 MG in EMPTY BAG 1 BAG IVPB STA (14:54)
[2018-06-29] MEDS ORDERED: SIMETHICONE 40 MG/0.6 ML DROPS 2,000 MG/30 ML BOTTLE PO ONE (15:50)
[2018-06-29] MEDS: MULTIVITAMINS, THERA 1 EACH TAB PO SCH (16:34)
--- NOTE | 2018-06-29 20:48 | PN ---
PROGRESS NOTE DATE OF SERVICE: 06/29/2018 This 77-year-old woman who was admitted with anemia had recent CAD and stent. The patient underwent EGD, colonoscopy by Gastroenterology. The EGD showed a hiatal hernia, mild gastritis. The colonoscopy showed erythematous descending chronic fold, biopsied, and no evidence of active GI bleed was noted. Small vessel studies have been arranged by Gastroenterology. Cardiology also saw the patient. No chest pain. No palpitations. No fever. PHYSICAL EXAMINATION: Alert and oriented x3. Pulse is 68, blood pressure 94/56, respiration 16, temperature 97.8, pulse ox 92% on room air. HEENT: Conjunctivae normal. NECK: No jugular venous distention. CARDIOVASCULAR SYSTEM: S1, S2 muffled. RESPIRATORY SYSTEM: Breath sounds diminished at the bases. A few scattered rhonchi. No crackles. ABDOMEN: Soft, non-tender. LEGS: No edema. No swelling. NERVOUS SYSTEM: No focal deficit. LABS: WBC 7.3, hemoglobin 7.9, sodium 141, potassium 3.9. ASSESSMENT: 1. Anemia, possibly acute gastrointestinal bleeding, status post esophagogastroduodenoscopy and colonoscopy showing mild gastritis and erythematous descending colonic fold. 2. History of coronary artery disease, stent. 3. History of gastrointestinal bleed. 4. Hypertension. 5. Hyperlipidemia. 6. History of colon cancer. 7. History of sleep apnea. On CPAP. 8. History of appendectomy. 9. History of bowel resection. 10.History of depression. 11.Remote history of nicotine dependence. RECOMMENDATIONS AND DISCUSSION: I recommend to continue current medication, continue with the monitoring, symptomatic treatment. Otherwise at this time I recommend repeat hemoglobin, small-bowel studies. Otherwise, cardiology input appreciated. The Plavix could be stopped, according to Cardiology, but as mentioned, it will be continued indefinitely as soon as possible. Guarded prognosis. Further recommendations to follow. MMODL / IJN: [id number] /
[2018-06-29] MEDS: FLUoxetine HCL 20 MG CAP PO SCH (21:26)
[2018-06-29] MEDS: ATORVASTATIN 80 MG TAB PO SCH (21:26)
[2018-06-29] MEDS: ASPIRIN 81 MG PO SCH (21:26)
[2018-06-30] MEDS: METOPROLOL SUCCINATE (ER) 25 MG TAB.ER.24H PO SCH (08:09)
[2018-06-30] MEDS: PANTOPRAZOLE 40 MG/10 ML VIAL IVP SCH (08:09)
[2018-06-30] MEDS: ISOSORBIDE MONONITRATE ER 30 MG TAB.ER.24H PO SCH (08:09)
[2018-06-30] MEDS: ALPRAZolam 0.25 MG TAB PO SCH (08:10)
[2018-06-30] MEDS: LOSARTAN 50 MG TAB PO SCH (08:10)
[2018-06-30] MEDS: TRIAMTERENE-HCTZ 37.5-25MG 1 EACH CAP PO SCH (08:10)
[2018-06-30] MEDS: hydrALAZINE HCL 50 MG TAB PO SCH ×2 (08:10→16:02)
[2018-06-30] MEDS: CLOPIDOGREL 75 MG TAB PO SCH (08:10)
[2018-06-30] MEDS: CHOLECALCIFEROL 1,000 UNIT TAB PO SCH (08:10)
[2018-06-30 09:00] VITALS: PULSE 78; RESP 16; TEMP 98.8
[2018-06-30 09:06] LABS: Basophils % (A) 1 %; Eosinophils # (A) 0.2 k/uL (0-0.7); Eosinophils % (A) 3 %; HCT 26.3 % (34.0-46.0); HGB 8.2 gm/dL (11.4-16.0); Hypochromasia Marked; Lymphocytes # (A) 1.1 k/uL (1.0-4.8); Lymphocytes % (A) 17 %; MCH 25.5 pg (25.0-35.0); MCHC 31.1 g/dL (31.0-37.0); MCV 82.3 fL (80.0-100.0); Mean Platelet Volume 6.9; Monocytes # (A) 0.4 k/uL (0-1.0); Monocytes % (A) 5 %; Neutrophils # (A) 4.8 k/uL (1.3-7.7); Neutrophils % (A) 71 %; Platelet Count 304 k/uL (150-450); RDW 13.9 % (11.5-15.5); WBC 6.8 k/uL (3.8-10.6)
[2018-06-30 09:30] LABS: Calcium 8.4 mg/dL (8.4-10.2); Potassium 3.8 mmol/L (3.5-5.1)
[2018-06-30] MEDS: SODIUM CHLORIDE 0.9% 1,000 ML IV SCH (10:01)
[2018-06-30] MEDS: MULTIVITAMINS, THERA 1 EACH TAB PO SCH (12:53)
--- NOTE | 2018-06-30 13:43 | P.PN ---
Subjective Progress Note Date: 06/30/18 Principal diagnosis: Anemia Status post EGD colonoscopy yesterday for evaluation of anemia findings of hiatal hernia mild gastritis colonic diverticulosis no evidence of active GI bleed. Patient underwent capsule endoscopy last night results pending. Denies hematemesis hematochezia melena. Negative abdominal pain. Afebrile. Reports right ear discomfort. Hemoglobin 8.2. White count 6.8. Platelets 304. BUN 10. Objective - Vital Signs Vital signs: Vital Signs Temp 98.8 F 06/30/18 07:00 Pulse 78 06/30/18 07:00 Resp 16 06/30/18 07:00 BP 151/64 06/30/18 07:00 Pulse Ox 96 06/30/18 07:00 Intake & Output 06/29/18 06/30/18 06/30/18 18:59 06:59 18:59 Intake Total 200 350 695 Balance 200 350 695 Intake: IV 200 Oral 350 695 Other: Voiding Method Toilet # Voids 2 2 - Exam General appearance: The patient is alert, oriented, in no acute distress. HET: Head is normocephalic and atraumatic. Pupils are equal and reactive. Oropharynx is clear without lesions. Neck: Supple without lymphadenopathy. Trachea midline. Heart: S1 S2. Regular rate and rhythm. Lungs: No crackles or wheezes are heard. Abdomen: Soft, nontender, nondistended with bowel sounds. No peritoneal signs. No palpable organomegaly or masses. Extremities: Normal skin color and turgor. No cyanosis, rash, ulceration, clubbing, or edema. Radial and pedal pulses are 2/4 bilaterally. Neurological: No focal deficits. Strength and sensation are grossly intact. - Labs CBC & Chem 7: 06/30/18 08:00 06/30/18 08:00 Labs: Abnormal Lab Results - Last 24 Hours (Table) 06/28/18 06/30/18 Range/Units 07:27 08:00 RBC 3.20 L (3.80-5.40) m/uL Hgb 8.2 L (11.4-16.0) gm/dL Hct 26.3 L (34.0-46.0) % Iron 26 L (50-170) ug/dL Iron Saturation 7.08 L (12.00-45.00) Assessment and Plan (1) Symptomatic anemia Narrative/Plan: Status post EGD colonoscopy no evidence of active GI bleed colonic diverticulosis history of colon carcinoma with previous colectomy. Status post capsule endoscopy results are pending. Presently no evidence of active GI bleeding. Hemoglobin stable at 8.2. Current Visit: Yes Status: Acute Code(s): D64.9 - ANEMIA, UNSPECIFIED SNOMED Code(s): 502624447 Plan: 1. From a GI standpoint patient can be discharged. We'll review capsule endoscopy and follow up in the office in 2-3 weeks. Continue GI prophylaxis omeprazole 20 mg twice daily. May resume aspirin. Recommend iron supplementation twice daily on discharge. CBC monitoring outpatient setting. Assessment and plan a care discussed with Dr. Hernandez
--- NOTE | 2018-06-30 13:54 | P.PN ---
Subjective This is a pleasant 77-year-old female status post angioplasty to the circumflex artery in July 2017. Other past medical history significant for hypertension, dyslipidemia, sleep apnea and gastroesophageal reflux disease. She quit smoking in 1997. She is currently maintained on dual antiplatelet therapy in the form of aspirin 81 mg daily and Plavix 75 mg daily. She presented to the hospital secondary to a rushing sound as well as a pain in her right ear. This was causing her to feel quite dizzy. Upon initial evaluation in the emergency department a CBC was obtained and revealed hemoglobin was 7.1. She underwent EGD colonoscopy yesterday which revealed hiatal hernia, mild gastritis and no active bleeding was noted. A capsule study was initiated last evening. She is seen and examined resting comfortably in bed in no acute distress. She states overall she is starting to feel while better but she still feels fatigued from her baseline. She denies chest pain, shortness of breath, dizziness or palpitations. Laboratory data reviewed, hemoglobin 8.2, platelets 304, sodium 141, potassium 3.8, creatinine 0.93. HEENT: Head is atraumatic, normocephalic. Pupils are equal, round. Sclerae anicteric. Conjunctivae are clear. Mucous membranes of the mouth are moist. Neck is supple. There is no jugular venous distention. No carotid bruit is heard. LUNGS: Clear to auscultation no wheezes, rales or rhonchi. No chest wall tenderness is noted on palpation or with deep breathing. HEART: Regular rate and rhythm without murmurs, rubs or gallops. S1 and S2 heard. EXTREMITIES: No evidence of peripheral edema and no calf tenderness noted. ASSESSMENT Acute GI bleeding requiring blood transfusion on dual antiplatelet therapy History of coronary artery disease status post angioplasty of the circumflex artery July 2017 Hypertension Dyslipidemia Obstructive sleep apnea Obesity PLAN In light of the findings on the scope of gastritis we recommend discontinuing aspirin and resuming Plavix. This has been discussed with the patient and explained the rationale. Stable from a cardiac perspective, follow-up with Dr. Lou in 2-3 weeks. We will continue to see as needed for the remainder of her hospital admission, please feel free to call with further questions or concerns. Nurse Practitioner note has been reviewed, I agree with a documented findings and plan of care. Patient was seen and examined. Objective - Vital Signs Vital signs: Vital Signs Temp 98.8 F 06/30/18 07:00 Pulse 78 06/30/18 07:00 Resp 16 06/30/18 07:00 BP 151/64 06/30/18 07:00 Pulse Ox 96 06/30/18 07:00 Intake & Output 06/29/18 06/30/18 06/30/18 18:59 06:59 18:59 Intake Total 200 350 695 Balance 200 350 695 Intake: IV 200 Oral 350 695 Other: Voiding Method Toilet # Voids 2 2 - Labs CBC & Chem 7: 06/30/18 08:00 06/30/18 08:00 Labs: Abnormal Lab Results - Last 24 Hours (Table) 06/28/18 06/30/18 Range/Units 07:27 08:00 RBC 3.20 L (3.80-5.40) m/uL Hgb 8.2 L (11.4-16.0) gm/dL Hct 26.3 L (34.0-46.0) % Iron 26 L (50-170) ug/dL Iron Saturation 7.08 L (12.00-45.00)
[2018-06-30 16:31] VITALS: BP 109/60
--- NOTE | 2018-06-30 20:51 | DS ---
DISCHARGE SUMMARY DATE OF SERVICE: 06/30/2018 FINAL DIAGNOSES: 1. Anemia; possibly acute gastrointestinal bleed, status post esophagogastroduodenoscopy and colonoscopy as well as capsule enteroscopy. 2. History of coronary artery disease, stent. 3. History of gastrointestinal bleed. 4. Hypertension. 5. Hyperlipidemia. 6. History of colon cancer. 7. History of sleep apnea. On CPAP. 8. Appendectomy. 9. Bowel resection. 10.History of depression. 11.Remote history of nicotine dependence. DISCHARGE DISPOSITION: The patient will be discharged in stable condition with guarded prognosis. HISTORY OF PRESENT ILLNESS: This 77-year-old woman with a past medical history of multiple medical problems was admitted with anemia and possible acute GI bleed. EGD and colonoscopy did not show any acute abnormality. Capsule enteroscopy study is underway at this time. Currently hemoglobin stable around 8.2. Cardiology and multiple consultants saw the patient and recommended that the patient be discharged to follow up in the outpatient setting. On exam, vitals are stable. CARDIOVASCULAR SYSTEM: S1, S2 muffled. ABDOMEN: Soft. NERVOUS SYSTEM: No focal deficit. DISCHARGE ADVICE AND MEDICATIONS: 1. Diet is cardiac. 2. Activity limited until followup. 3. Follow up with Dr. Sunny Sun in 2 to 3 days. 4. Follow up with Cardiology in 2 weeks. 5. Follow up with Gastroenterology as advised. 6. Xanax 0.25 p.o. b.i.d. 7. Vitamin D3 1000 daily. 8. Prozac 40 mg at bedtime. 9. Imdur ER 30 mg p.o. daily. 10.Metoprolol 25 mg p.o. daily. 11.Multivitamins 1 p.o. daily. 12.Prilosec 20 mg p.o. b.i.d. 13.Dyazide 1 p.o. daily. 14.Lipitor 80 mg p.o. daily. 15.Plavix 75 mg p.o. daily. 16.Apresoline 50 mg p.o. t.i.d. 17.Cozaar 100 mg p.o. daily. 18.Nitro 0.4 sublingually p.r.n. Once again, the patient will be discharged in stable condition with guarded prognosis. MMODL / IJN: [id number] /
== END 2018-06-30 16:30 | disposition home or self-care (01) | DRG 378 ==
LOC: EC 19:40 → 4SSUR 06-27 00:23
PROVIDERS: ADMIT Hospitalist; ATTEND Hospitalist
PROC: 0DBM8ZX Excision of Descending Colon, Via Natural or Artificial Opening Endoscopic, Diagnostic (ICD-10-PCS; principal; 2018-06-29 09:05)
PROC: 0DB78ZX Excision of Stomach, Pylorus, Via Natural or Artificial Opening Endoscopic, Diagnostic (ICD-10-PCS; 2018-06-29 09:05)
DX: K57.31 Diverticulosis of large intestine without perforation or abscess with bleeding (principal); D62 Acute posthemorrhagic anemia; E66.9 Obesity, unspecified; Z68.32 Body mass index [BMI] 32.0-32.9, adult; E78.5 Hyperlipidemia, unspecified; G47.33 Obstructive sleep apnea (adult) (pediatric); I08.0 Rheumatic disorders of both mitral and aortic valves; I10 Essential (primary) hypertension; I25.10 Atherosclerotic heart disease of native coronary artery without angina pectoris; K21.9 Gastro-esophageal reflux disease without esophagitis; K29.70 Gastritis, unspecified, without bleeding; K44.9 Diaphragmatic hernia without obstruction or gangrene; K64.8 Other hemorrhoids; Z79.02 Long term (current) use of antithrombotics/antiplatelets; Z79.82 Long term (current) use of aspirin; Z79.899 Other long term (current) drug therapy; Z80.1 Family history of malignant neoplasm of trachea, bronchus and lung; Z85.038 Personal history of other malignant neoplasm of large intestine; Z87.891 Personal history of nicotine dependence; Z90.710 Acquired absence of both cervix and uterus; Z95.5 Presence of coronary angioplasty implant and graft; Z90.49 Acquired absence of other specified parts of digestive tract
CPT/HCPCS: 36415; 43239; 45380; 70496; 70498; 80048; 80053; 82272; 82550; 82553; 82728; 83540; 83550; 84484; 85025; 85610; 85730; 86140; 86850; 86900; 86901; 86920; 88305; 91110; 93005; 96361; 96374; 99284

== ENCOUNTER → 2018-08-01 | Outpatient (CLI) | payer MEDICARE ==
[2018-08-01 12:00] LABS: Anisocytosis Slight; HCT 30.8 % (34.0-46.0); Hypochromasia Slight; MCH 26.6 pg (25.0-35.0); MCHC 32.3 g/dL (31.0-37.0); MCV 82.4 fL (80.0-100.0); Mean Platelet Volume 6.4; Platelet Count 336 k/uL (150-450); RBC 3.73 m/uL (3.80-5.40); RDW 17.7 % (11.5-15.5); WBC 7.7 k/uL (3.8-10.6)
[2018-08-01 12:26] LABS: HGB 9.9 gm/dL (11.4-16.0)
== END | disposition home or self-care (01) ==
LOC: LABWHC1 10:19
PROVIDERS: ATTEND Internal Medicine
DX: D50.9 Iron deficiency anemia, unspecified (principal)
CPT/HCPCS: 36415; 85027

== ENCOUNTER → 2018-08-02 | Day surgery (SDC) | payer MEDICARE ==
[2018-07-29 15:34] VITALS: BMI 31.9
[~2018-08-02] MED LIST changes: -ALPRAZolam 0.25 MG TAB PO PRN; -ALPRAZolam 0.5 MG TAB PO PRN; -ASPIRIN 325 MG TAB PO STA; -ATORVASTATIN 80 MG TAB PO STA; +IV FLUID CONTINUATION 450 ML IV ONE; -NITROGLYCERIN SL TABS 0.4 MG TAB SUBLINGUAL PRN; +SODIUM CHLORIDE 0.9% 1,000 ML IV SCH; -SODIUM CHLORIDE 0.9% 1,000 ML in EMPTY BAG 1 BAG IV ONE
[2018-08-02 09:11] VITALS: BP 135/66; PULSE 76; RESP 20; TEMP 97.9
--- NOTE | 2018-08-02 19:20 | P.PCN ---
Preoperative Diagnosis: Diagnosis Recurrent dizzy spells and presyncope Twelve-lead ECG shows sinus rhythm normal RI narrow QRS normal ST segments LVH Tilt table test per protocol Baseline blood pressure elevated at 152/68 mmHg Baseline heart rate 76 beats a minute Patient was tilted upright at an angle of 70 per protocol there was a gradual progressive drop in her blood pressure without any commencement increase in heart rate finally when her blood pressure dropped below 80 mmHg she became extremely lightheaded nauseous and presyncopal. When she was laid supine she felt a lot better Impression dysautonomic response, orthostatic hypotension syndrome Baseline hypertension Left ventricular hypertrophy on twelve-lead ECG normal heart rates Suggest Hold amlodipine 5 mg for about a month and reassess Increase fluid intake Low salt diet Continue irbesartan and Dyazide The other option is a combination of irbesartan and amlodipine and discontinuation of Dyazide if this strategy does not work Reevaluation Dr. Lou in about 6 weeks Condition: stable
== END | disposition home or self-care (01) ==
LOC: CATHEP 08:47
PROVIDERS: ATTEND Internal Medicine Clinical Cardiac Electrophysiology
DX: I95.1 Orthostatic hypotension (principal); I25.10 Atherosclerotic heart disease of native coronary artery without angina pectoris; I11.9 Hypertensive heart disease without heart failure; E78.5 Hyperlipidemia, unspecified; R94.39 Abnormal result of other cardiovascular function study; D64.9 Anemia, unspecified; Z79.82 Long term (current) use of aspirin; Z79.02 Long term (current) use of antithrombotics/antiplatelets; Z95.5 Presence of coronary angioplasty implant and graft; Z82.49 Family history of ischemic heart disease and other diseases of the circulatory system; Z72.0 Tobacco use; Z79.899 Other long term (current) drug therapy
CPT/HCPCS: 93660

== ENCOUNTER → 2018-09-19 | Outpatient (CLI) | payer MEDICARE ==
--- NOTE | 2018-09-19 15:47 | US ---
EXAMINATION TYPE: US venous doppler duplex LE LT DATE OF EXAM: 09/19/2018 3:39 PM COMPARISON: NONE CLINICAL HISTORY: EDEMA R60.0 left lower ext. LEFT LEG PAIN SIDE PERFORMED: LEFT TECHNIQUE: The lower extremity deep venous system is examined utilizing real time linear array sonog ling with graded compression, doppler sonography and color-flow sonography. VESSELS IMAGED: External Iliac Vein (EIV) Common Femoral Vein Deep Femoral Vein Greater Saphenous Vein * Femoral Vein Popliteal Vein Small Saphenous Vein * Proximal Calf Veins (* superficial vessels) Grayscale, color doppler, spectral doppler imaging performed of the deep veins of the left lower extr emity. There is normal flow, compressibility, vascular waveforms. Left Leg: No evidence of DVT as visualized IMPRESSION: No sonographic evidence of deep venous thrombosis within the left lower extremity.
== END | disposition home or self-care (01) ==
LOC: RADUSWWP 14:56
PROVIDERS: ATTEND Family Medicine
DX: R60.0 Localized edema (principal)

== ENCOUNTER → 2018-09-20 | Outpatient (CLI) | payer MEDICARE ==
--- NOTE | 2018-09-20 12:38 | MM ---
Reason for exam: screening (asymptomatic). Last mammogram was performed 1 year and 1 month ago. History: Patient is postmenopausal and has history of colon cancer at age 64. Family history of breast cancer in maternal aunt. Physical Findings: A clinical breast exam by your physician is recommended on an annual basis and results should be correlated with mammographic findings. MG 3D Screening Mammo W/Cad Bilateral CC and MLO view(s) were taken. Prior study comparison: September 01, 2017, bilateral MG 3d screening mammo w/cad. August 17, 2016, bilateral MG screening mammo w CAD. There are scattered fibroglandular densities. No suspicious abnormality. No significant changes when compared with prior studies. ASSESSMENT: Negative, BI-RAD 1 RECOMMENDATION: Routine screening mammogram of both breasts in 1 year.
== END ==
LOC: RADMAMWWP 11:07
PROVIDERS: ATTEND Family Medicine
DX: Z12.31 Encounter for screening mammogram for malignant neoplasm of breast (principal)
CPT/HCPCS: 77063; 77067

== ENCOUNTER 2019-12-19 09:20 | Day surgery (SDC) | payer MEDICARE ==
[2019-12-15 11:26] VITALS: BMI 30.8
[~2019-12-19 09:20] MED LIST changes: -IV FLUID CONTINUATION 450 ML IV ONE; +LACTATED RINGERS 1,000 ML IV SCH; -SODIUM CHLORIDE 0.9% 1,000 ML IV SCH
[2019-12-19 09:42] VITALS: RESP 16; TEMP 97.6
[2019-12-19] MEDS ORDERED: LIDOCAINE 1% INJ 10MG/ML (20 ML MDV) ONE (10:34)
[2019-12-19] MEDS ORDERED: PROPOFOL 10 MG/ML 20 ML VIAL IV ONE (10:34)
--- NOTE | 2019-12-19 10:54 | P.PCN ---
Date of Procedure: 12/19/19 Description of Procedure: BRIEF HISTORY: Patient is a 79-year-old female presented for outpatient esophagogastroduodenoscopy for evaluation of symptoms of GERD. The patient reports uncontrolled reflux disease. PROCEDURE PERFORMED: Esophagogastroduodenoscopy with biopsy. PREOPERATIVE DIAGNOSIS: GERD. ESTIMATED BLOOD LOSS: Minimal. IV sedation per anesthesia. PROCEDURE: After informed consent was obtained, the patient was brought into the endoscopy unit. IV sedation was administered by Anesthesia under continuous monitoring. Initially the Olympus GIF-190 video endoscope was inserted into the mouth. Esophagus intubated without any difficulty. It was gradually advanced into the stomach and duodenum and carefully examined. The bulb and the second part of the duodenum appeared normal, with biopsies taken. The scope at this time was withdrawn to the stomach, adequately insufflated with air, and upon careful examination, mucosa of the antrum, body, cardia and the fundus appeared normal, except for some mild scattered erythema in the antrum and body suggestive of mi ld gastritis with biopsies taken. The scope was then withdrawn into the esophagus. The GE junction was located at 36 cm from the incisors with biopsies taken. A 4 cm hiatal hernia was noted. The esophagus appeared normal. There were no erosions or ulcerations seen and the patient tolerated the procedure well. IMPRESSION: 1. Mild gastritis antrum and body, biopsied.. 2. Moderate hiatal hernia. 3. Biopsies of the duodenum and GE junction. RECOMMENDATIONS: The findings of this examination were discussed with the patient. Okay to resume diet. Okay to resume medications. Await pathology from biopsies. Follow up in GI clinic as previously scheduled.
[2019-12-19 11:07] VITALS: BP 134/72; PULSE 67
== END 2019-12-19 11:47 ==
LOC: ORWHC2ENDO 09:20
PROVIDERS: ATTEND Internal Medicine
DX: K29.50 Unspecified chronic gastritis without bleeding (principal); K21.0 Gastro-esophageal reflux disease with esophagitis; K44.9 Diaphragmatic hernia without obstruction or gangrene; I10 Essential (primary) hypertension; E78.5 Hyperlipidemia, unspecified; M06.9 Rheumatoid arthritis, unspecified; Z87.891 Personal history of nicotine dependence; Z95.5 Presence of coronary angioplasty implant and graft; G47.33 Obstructive sleep apnea (adult) (pediatric); Z99.89 Dependence on other enabling machines and devices; Z97.2 Presence of dental prosthetic device (complete) (partial); Z79.899 Other long term (current) drug therapy; Z80.1 Family history of malignant neoplasm of trachea, bronchus and lung; Z90.49 Acquired absence of other specified parts of digestive tract; Z90.710 Acquired absence of both cervix and uterus; Z98.890 Other specified postprocedural states; Z79.02 Long term (current) use of antithrombotics/antiplatelets; Z91.09 Other allergy status, other than to drugs and biological substances
CPT/HCPCS: 88305; 43239; J2001; J2704

== ENCOUNTER 2020-06-02 15:58 | Emergency (ER) | payer MEDICARE ==
[2020-06-02] MEDS ORDERED: ACETAMINOPHEN TAB 500 MG TAB PO STA (16:13)
--- NOTE | 2020-06-02 16:29 | ED ---
Head Injury HPI - General Chief complaint: Head Injury Stated complaint: Fall,Head injury Time Seen by Provider: 06/02/20 16:09 Source: patient Mode of arrival: wheelchair Limitations: no limitations - History of Present Illness Initial comments: 79-year-old female patient presents to the emergency department today for evaluation of head injury. Patient states that she tripped over the rug and fell approximately 45 minutes ago. She denies any loss of consciousness. States she is having some mild headache and pain surrounding her left eye. Denies any blurred or double vision. Denies nausea or vomiting. Denies numbness, tingling, weakness or extremities. Denies any neck or back injury. States she did hit her right knee but denies any difficulty with range of motion or bearing weight. Patient denies any chest pain, shortness of breath, dizziness, weakness, abdominal pain, nausea, vomiting, or difficulties with bowel movements or urination. She does take a blood thinner, she believes it may be Plavix. - Related Data Home Medications Medication Instructions Recorded Confirmed ALPRAZolam [Xanax] 0.25 mg PO HS 07/16/15 06/02/20 Multivitamins, Thera [Multivitamin 1 tab PO DAILY 10/02/15 06/02/20 (formulary)] Triamterene-Hctz 37.5-25Mg 1 cap PO Q48H 01/15/18 06/02/20 [Dyazide 37.5-25 Capsule] FLUoxetine HCL [PROzac] 40 mg PO HS 06/27/18 06/02/20 Irbesartan [Avapro] 300 mg PO HS 07/29/18 06/02/20 Ferrous Sulfate [Feosol] 325 mg PO BID 12/15/19 06/02/20 Folic Acid 1 mg PO DAILY 12/15/19 06/02/20 Pantoprazole Sodium [Protonix] 40 mg PO DAILY 06/02/20 06/02/20 amLODIPine [Norvasc] 2.5 mg PO DAILY 06/02/20 06/02/20 metHOTREXate sodium [Methotrexate] 25 mg PO FR 06/02/20 06/02/20 Previous Rx's Medication Instructions Recorded Atorvastatin [Lipitor] 80 mg PO HS #30 tab 08/11/17 Clopidogrel [Plavix] 75 mg PO DAILY tab 06/30/18 Allergies/Adverse reactions: Allergies Allergy/AdvReac Type Severity Reaction Status Date / Time adhesive tape AdvReac Itching Verified 06/02/20 17:29 Review of Systems ROS Statement: Those systems with pertinent positive or pertinent negative responses have been documented in the HPI. ROS Other: All systems not noted in ROS Statement are negative. Past Medical History Past Medical History: Cancer, GERD/Reflux, Hyperlipidemia, Rheumatoid Arthritis (RA), Sleep Apnea/CPAP/BIPAP Additional Past Medical History / Comment(s): See Dr Wynn H&P. Hx colon cancer, Uses CPAP History of Any Multi-Drug Resistant Organisms: None Reported Past Surgical History: Appendectomy, Bowel Resection, Heart Catheterization With Stent, Hysterectomy, Orthopedic Surgery Additional Past Surgical History / Comment(s): RIGHT HAND TRIGGER FINGER, spur removed from right foot. Carpal tunnel surgery Past Anesthesia/Blood Transfusion Reactions: Motion Sickness Date of Last Stent Placement:: approx 2014 ? Past Psychological History: Depression Smoking Status: Former smoker Past Alcohol Use History: None Reported Past Drug Use History: None Reported - Past Family History Mother Family Medical History: No Reported History Sister(s) Family Medical History: Cancer Additional Family Medical History / Comment(s): kidney cancer. Another sister from lung cancer Father Family Medical History: No Reported History General Exam Limitations: no limitations General appearance: alert, in no apparent distress, other (This is a well- developed, well-nourished adult female patient in no acute distress. Vital signs upon presentation are temperature 97.9F, pulse 69, respirations 18, blood pressure 188/65, pulse ox 99% on room air.) Eye exam: Present: normal appearance, PERRL, EOMI, periorbital swelling (There is swelling and ecchymosis noted to the left superior orbital region), periorbital tenderness (Left superior orbit). Absent: scleral icterus, conjunctival injection ENT exam: Present: normal exam, normal oropharynx, mucous membranes moist, TM's normal bilaterally (No hemotympanum) Neck exam: Present: normal inspection, full ROM, other (Nontender, no step-off, no deformity to firm midline palpation of the posterior cervical spine. Full range of motion without pain or limitation.). Absent: tenderness, meningismus, lymphadenopathy Respiratory exam: Present: normal lung sounds bilaterally. Absent: respiratory distress, wheezes, rales, rhonchi, stridor Cardiovascular Exam: Present: regular rate, normal rhythm, normal heart sounds. Absent: systolic murmur, diastolic murmur, rubs, gallop, clicks GI/Abdominal exam: Present: soft, normal bowel sounds. Absent: distended, tenderness, guarding, rebound, rigid Extremities exam: Present: full ROM, normal capillary refill, other (There is superficial abrasion and some erythema noted to the right anterior knee. There is full range of motion. No bony tenderness. Skin is otherwise pink, warm, dry. Cap refills less than 3 seconds. Pedal and posttibial pulses 2+ and equal bilaterally). Absent: normal inspection, tenderness, pedal edema, joint swelling, calf tenderness Back exam: Present: normal inspection, other (Nontender, no step-off, no deformity to firm midline palpation of the thoracic and lumbar vertebrae. Full range of motion without pain or limitation.). Absent: vertebral tenderness Neurological exam: Present: alert, oriented X3, CN II-XII intact Psychiatric exam: Present: normal affect, normal mood Skin exam: Present: warm, dry, intact, normal color. Absent: rash Course Vital Signs 06/02/20 06/02/20 16:00 17:49 Temperature 97.9 F 98 F Pulse Rate 69 78 Respiratory 18 16 Rate Blood Pressure 188/65 128/78 O2 Sat by Pulse 99 98 Oximetry Medical Decision Making - Medical Decision Making 79-year-old female patient presents to the emergency department today for evaluation after sustaining a fall. She reports facial injury. Physical examination did reveal ecchymosis and soft tissue swelling over the superior orbital region. There is tenderness over this area as well. She is neurologically intact with no focal deficits. No spinal tenderness. CT brain C-spine was obtained and was negative. CT facial bones is obtained and showed no acute fractures. I did discuss findings and results with the patient. We did discuss signs or symptoms of worsening head injury. She is instructed to follow-up with her primary care physician for recheck in 1-2 days. Return parameters were discussed in detail. She verbalizes understanding and agrees with this plan. - Radiology Data Radiology results: report reviewed, image reviewed CT brain and C-spine without contrast was obtained. Report reviewed in its entirety. Impression by Dr. Peterson reveals mild cerebral atrophy. No acute intracranial abdomen abnormality. Spondylotic changes in lower cervical spine. No fracture. No change compared to old exam. CT facial bones without contrast was obtained. Report was reviewed in its entirety. Impression by Dr. Peterson shows left frontal scalp soft tissue swelling. No fracture seen. Minimal ethmoid and sphenoid sinusitis is new compared to old exam. Disposition Clinical Impression: Facial contusion, Head injury Disposition: HOME SELF-CARE Condition: Good Instructions (If sedation given, give patient instructions): Head Injury (ED), Contusion in Adults (ED) Additional Instructions: Follow-up with her primary care physician for recheck in 1-2 days. Return to the emergency department for any signs of worsening head injury including but not limited to severe headache, visual changes, vomiting, confusion, or weakness. Return for any other new, worsening, or concerning symptoms. Is patient prescribed a controlled substance at d/c from ED?: No Referrals: Sunny Sun DO [Primary Care Provider] - 1-2 days Time of Disposition: 17:38
--- NOTE | 2020-06-02 16:58 | CT ---
EXAMINATION TYPE: CT brain jenine wo con DATE OF EXAM: 06/02/2020 COMPARISON: 04/06/2017 HISTORY: Fall, forehead swelling and contusion. CT DLP: 1064.2 mGycm Automated exposure control for dose reduction was used. There is cerebral atrophy. There is no mass effect nor midline shift. There is no sign of intracrania l hemorrhage. Calvarium is intact The vertebra have normal alignment. There is narrowing of C5-6 disc space with spurring of the endpla fr[place]. There is similar change at C6-7. Facet joints are intact. There is hypertrophic facet arthropath y in multiple levels of the cervical spine. The skull base is intact. There is normal aeration of the mastoid sinuses. IMPRESSION: Mild cerebral atrophy. No acute intracranial abnormality. Spondylotic changes in the lower cervical spine. No fracture. No change compared to old exam.
--- NOTE | 2020-06-02 17:07 | CT ---
EXAMINATION TYPE: CT facial bones wo con DATE OF EXAM: 06/02/2020 COMPARISON: 04/06/2017 HISTORY: Fall, forehead swelling and contusion. CT DLP: 1064.2 mGycm Automated exposure control for dose reduction was used. Images were obtained from the top of the frontal sinuses to the bottom of the mandible without contra st. The mandibular ring is intact. Temporomandibular joints are intact. Zygomatic arches appear normal. M axilla is intact. There is no evidence of a blowout fracture. The orbital margins are intact. There i s no evidence of retro-orbital mass. There is some mucosal thickening in the ethmoid and sphenoid sin us. There is left frontal scalp soft tissue swelling. Frontal bone appears intact. IMPRESSION: Left frontal scalp soft tissue swelling. No fracture seen. Minimal ethmoid and sphenoid sinusitis is new compared to old exam.
[2020-06-02 17:50] VITALS: BP 128/78; PULSE 78; RESP 16; TEMP 98
== END 2020-06-02 17:49 | disposition home or self-care (01) ==
LOC: EC 15:58
DX: S00.83XA Contusion of other part of head, initial encounter (principal); S80.211A Abrasion, right knee, initial encounter; E78.5 Hyperlipidemia, unspecified; G47.30 Sleep apnea, unspecified; F32.9 Major depressive disorder, single episode, unspecified; M06.9 Rheumatoid arthritis, unspecified; Z79.899 Other long term (current) drug therapy; Z91.048 Other nonmedicinal substance allergy status; Z99.89 Dependence on other enabling machines and devices; Z87.891 Personal history of nicotine dependence; Z95.5 Presence of coronary angioplasty implant and graft; W01.0XXA Fall on same level from slipping, tripping and stumbling without subsequent striking against object, initial encounter
CPT/HCPCS: 70450; 70486; 72125; 99284

== ENCOUNTER → 2020-07-18 | Outpatient (CLI) | payer MEDICARE ==
[2020-07-18 19:21] LABS: Gliadin AB IgA, Deaminated NEGATIVE (NEGATIVE); Gliadin AB IgA, Unit <0.2 U/mL; Gliadin AB IgG, Deaminated NEGATIVE (NEGATIVE)
== END | disposition home or self-care (01) ==
LOC: LABWHC1 11:49
PROVIDERS: ATTEND Nurse Practitioner
DX: K52.9 Noninfective gastroenteritis and colitis, unspecified (principal)
CPT/HCPCS: 36415; 83516

== ENCOUNTER → 2020-11-29 | Outpatient (CLI) | payer MEDICARE ==
--- NOTE | 2020-12-03 09:17 | MM ---
Reason for exam: screening (asymptomatic). Last mammogram was performed 2 years and 2 months ago. History: Patient is postmenopausal and has history of colon cancer at age 64. Family history of breast cancer in maternal aunt. Physical Findings: A clinical breast exam by your physician is recommended on an annual basis and results should be correlated with mammographic findings. MG 3D Screening Mammo W/Cad Bilateral CC and MLO view(s) were taken. Prior study comparison: September 20, 2018, bilateral MG 3d screening mammo w/cad. September 01, 2017, bilateral MG 3d screening mammo w/cad. There are scattered fibroglandular densities. Vague density central left CC view becomes less defined on 3D. While is new from prior, no MLO correlate is identified. Benign oil cyst calcifications on the right anteriorly. ASSESSMENT: Probably benign, BI-RAD 3 RECOMMENDATION: Follow-up diagnostic mammogram of the left breast in 6 months.
== END | disposition home or self-care (01) ==
LOC: RADMAMWWP 14:28
PROVIDERS: ATTEND Family Medicine
DX: Z12.31 Encounter for screening mammogram for malignant neoplasm of breast (principal); Z78.0 Asymptomatic menopausal state; Z80.3 Family history of malignant neoplasm of breast
CPT/HCPCS: 77063; 77067

== ENCOUNTER 2020-12-30 10:20 | Emergency (ER) | payer MEDICARE ==
[2020-12-30 10:49] VITALS: TEMP 98.5
--- NOTE | 2020-12-30 11:21 | ED ---
Fall HPI - General Chief Complaint: Fall Stated Complaint: Fall/Head injury/Blood Thinners Time Seen by Provider: 12/30/20 10:56 Source: patient Mode of arrival: ambulatory - History of Present Illness Initial Comments: 80-year-old year-old female presents to emergency Department with a chief complaint of a fall. States the incident occurred this morning when she suffered a mechanical fall, tripped and fall accident and fell mostly on the right side of her body. Patient reports a head injury with a small hematoma of the right supraorbital region. Patient states there was no loss of consciousness at that she also reports pain in her right wrist along with the right side of her ribs. Patient reports she has pain whenever she is taking a deep breath but it is not significant. States the pain is also worse in the right-sided ribs with palpation. She denies other complaints. States she is on blood thinners but cannot recall exactly which one. Based on her medical records, she appears to be on antiplatelet therapy with Plavix. - Related Data Home Medications Medication Instructions Recorded Confirmed ALPRAZolam [Xanax] 0.25 mg PO HS 07/16/15 06/02/20 Multivitamins, Thera [Multivitamin 1 tab PO DAILY 10/02/15 06/02/20 (formulary)] Triamterene-Hctz 37.5-25Mg 1 cap PO Q48H 01/15/18 06/02/20 [Dyazide 37.5-25 Capsule] FLUoxetine HCL [PROzac] 40 mg PO HS 06/27/18 06/02/20 Irbesartan [Avapro] 300 mg PO HS 07/29/18 06/02/20 Ferrous Sulfate [Feosol] 325 mg PO BID 12/15/19 06/02/20 Folic Acid 1 mg PO DAILY 12/15/19 06/02/20 Pantoprazole Sodium [Protonix] 40 mg PO DAILY 06/02/20 06/02/20 amLODIPine [Norvasc] 2.5 mg PO DAILY 06/02/20 06/02/20 metHOTREXate sodium [Methotrexate] 25 mg PO FR 06/02/20 06/02/20 Previous Rx's Medication Instructions Recorded Atorvastatin [Lipitor] 80 mg PO HS #30 tab 08/11/17 Clopidogrel [Plavix] 75 mg PO DAILY tab 06/30/18 Allergies Allergy/AdvReac Type Severity Reaction Status Date / Time adhesive tape AdvReac Itching Verified 12/30/20 10:49 Review of Systems ROS Statement: Those systems with pertinent positive or pertinent negative responses have been documented in the HPI. ROS Other: All systems not noted in ROS Statement are negative. Past Medical History Past Medical History: Cancer, GERD/Reflux, Hyperlipidemia, Rheumatoid Arthritis (RA), Sleep Apnea/CPAP/BIPAP Additional Past Medical History / Comment(s): See Dr Wynn H&P. Hx colon cancer, Uses CPAP History of Any Multi-Drug Resistant Organisms: None Reported Past Surgical History: Appendectomy, Bowel Resection, Heart Catheterization With Stent, Hysterectomy, Orthopedic Surgery Additional Past Surgical History / Comment(s): RIGHT HAND TRIGGER FINGER, spur removed from right foot. Carpal tunnel surgery Past Anesthesia/Blood Transfusion Reactions: Motion Sickness Date of Last Stent Placement:: approx 2014 ? Past Psychological History: Depression Smoking Status: Former smoker Past Alcohol Use History: None Reported Past Drug Use History: None Reported - Past Family History Mother Family Medical History: No Reported History Sister(s) Family Medical History: Cancer Additional Family Medical History / Comment(s): kidney cancer. Another sister from lung cancer Father Family Medical History: No Reported History General Exam Limitations: no limitations General appearance: alert, in no apparent distress, obese Head exam: Present: atraumatic, normocephalic, normal inspection. Absent: other (Negative Girard sign, raccoon eyes, tendon.) Eye exam: Present: normal appearance, PERRL, EOMI, periorbital tenderness (Right supraorbital tenderness and hematoma) Pupils: Present: normal accommodation ENT exam: Present: normal exam, normal oropharynx, mucous membranes moist, TM's normal bilaterally, normal external ear exam Neck exam: Present: normal inspection, full ROM. Absent: tenderness, lymphadenopathy Respiratory exam: Present: normal lung sounds bilaterally. Absent: respiratory distress, wheezes, rales, rhonchi, stridor, chest wall tenderness Cardiovascular Exam: Present: regular rate, normal rhythm, normal heart sounds. Absent: systolic murmur, diastolic murmur Extremities exam: Present: normal inspection, full ROM, normal capillary refill. Absent: tenderness, pedal edema, joint swelling Back exam: Present: normal inspection, full ROM. Absent: tenderness, CVA tenderness (R), CVA tenderness (L), muscle spasm, paraspinal tenderness, vertebral tenderness Neurological exam: Present: alert, oriented X3, CN II-XII intact, normal gait Psychiatric exam: Present: normal affect, normal mood Skin exam: Present: warm, dry, intact, normal color Course Vital Signs 12/30/20 10:47 Temperature 98.5 F Pulse Rate 74 Respiratory 20 Rate Blood Pressure 145/57 O2 Sat by Pulse 99 Oximetry Medical Decision Making - Medical Decision Making 80-year-old year-old female presents to emergency Department with a chief co mplaint of a fall. On physical examination, right supraorbital swelling and ecchymosis. Also scaphoid tenderness of the right hand. Tenderness to the right-sided ribs. Chest x-ray right-sided ribs shows no acute fractures or disc complications of the ribs. X-rays also unremarkable the hand. CT of the brain and C-spine shows no acute findings. Facial CT shows contusion to the right supraorbital region. I did apply a thumb spica advised the patient to obtain repeat x-rays in 7-10 days. Strict return parameters were thoroughly discussed the patient is an attending agreeable. Case discussed with Disposition Clinical Impression: Fall, Periorbital contusion of right eye, Wrist sprain Disposition: HOME SELF-CARE Condition: Stable Instructions (If sedation given, give patient instructions): Fall Prevention (ED) Additional Instructions: Obtain repeat x-rays in 7-10 days. Return to emergency department if symptoms worsen. Is patient prescribed a controlled substance at d/c from ED?: No Referrals: Sunny Sun DO [Primary Care Provider] - 1-2 days Time of Disposition: 12:51
--- NOTE | 2020-12-30 12:27 | CT ---
EXAMINATION TYPE: CT brain mario wo con DATE OF EXAM: 12/30/2020 COMPARISON: 08/03/2019 HISTORY: 80-year-old female pain, Bruising to chin, lip and right eye CT DLP: 1113.3 mGycm Automated exposure control for dose reduction was used. Technique: Examination of the head was done in axial plane without intravenous contrast. Coronal and sagittal reconstructions performed. CT of the cervical spine was obtained in axial plane without intravenous injection of contrast mater ial. Coronal and sagittal reformatted images were obtained from the axial views for evaluation of f ractures, spinal alignment and canal. FINDINGS: Head: There is no evidence of acute intracranial hemorrhage, acute ischemic changes, mass, mass-effect, or extra-axial fluid collection. There is no effacement of cerebral sulci or basal subarachnoid cister ns. There is no hydrocephalus. There is no midline shift. Ferrara-white matter distinction is preserv ed. Mild periventricular white matter hypodensities suggest mild burden of chronic small vessel ischemic disease. Bilateral sclerotic calcifications in the carotid siphons. Incidental partially empty sella. Paranasal sinuses and mastoid air cells well pneumatized. Slight leftward nasal septal deviation. Right periorbital soft tissue contusion. No calvarial fracture. Facial bones reported separately. Cervical spine: Some adherent debris/secretions in the trachea just below the thoracic inlet. Mild biapical pleural-p arenchymal scarring. No craniocervical junction abnormally, predental space widening, or prevertebral soft tissue swelling . Hypertrophic facet and uncovertebral joint arthropathy throughout with moderate disc/endplate degener ative change C5-C7 levels. Grade 1 anterolisthesis C7-T1. Mild narrowing of the spinal canal at both C5-C6 and C6/C7 secondary to disc ossify complexes. No acute fracture of the cervical spine. Mild to moderate neural foraminal stenoses at C5-C6 and C6/C7. Sagittal and coronal reformatted images confirm above findings. COMBINED IMPRESSION: 1. No acute intracranial abnormality seen. 2. No acute fracture of the cervical spine. Degenerative grade 1 anterolisthesis C7-T1 is unchanged. 3. Facial bones reported separately.
--- NOTE | 2020-12-30 12:30 | CT ---
EXAMINATION TYPE: CT facial bones wo con DATE OF EXAM: 12/30/2020 COMPARISON: 06/02/2020 HISTORY: 80-year-old female pain after Bruising to chin, lip and right eye TECHNIQUE: Contiguous axial scanning of the facial bones without IV contrast. Coronal reconstructions performed. CT DLP: Included in brain, c-spine mGycm Automated exposure control for dose reduction was used. FINDINGS: Mild mucosal thickening anterior ethmoid air cells. No air-fluid level. Slight leftward nasal septal deviation is unchanged. Patient is edentulous. The mandible and TMJs appear intact. The pterygoid plates and zygomatic arches are intact. Nasal bones are intact. No facial bone fracture seen. There is right periorbital soft tissue contusion. Globes appear symmetric and the orbits are intact IMPRESSION: RIGHT PERIORBITAL SOFT TISSUE CONTUSION. NO UNDERLYING FACIAL BONE FRACTURE SEEN.
--- NOTE | 2020-12-30 12:34 | XR ---
Right wrist HISTORY: Trauma and pain 4 views of the right wrist No comparisons There are arthropathy changes present. Bone mineralization is reduced. Alignment is maintained. There is soft tissue swelling present. IMPRESSION: No acute fracture or dislocation.
--- NOTE | 2020-12-30 12:38 | XR ---
Chest x-ray with right RIBS HISTORY: Trauma and pain Frontal view of the chest, 4 views of the right ribs submitted, correlation to prior chest x-ray 01/15 Chest x-ray is stable. Prominent lung volumes may be indicative of underlying COPD. The aorta is dens e. There is eventration of the right hemidiaphragm. No evident pneumothorax or pleural effusion. Card iac mediastinal silhouette is stable. Spondylosis noted within the visualized spine. No evident displ aced rib fracture. Bone mineralization is reduced. IMPRESSION: No displaced fracture is evident. Bone scan could be performed for increased sensitivity as indicated to assess for occult fracture.
[2020-12-30 13:10] VITALS: BP 139/70; PULSE 80; RESP 18
== END 2020-12-30 13:10 | disposition home or self-care (01) ==
LOC: EC 10:20
DX: S63.501A Unspecified sprain of right wrist, initial encounter (principal); S00.11XA Contusion of right eyelid and periocular area, initial encounter; K21.9 Gastro-esophageal reflux disease without esophagitis; F32.9 Major depressive disorder, single episode, unspecified; E78.5 Hyperlipidemia, unspecified; M06.9 Rheumatoid arthritis, unspecified; W01.0XXA Fall on same level from slipping, tripping and stumbling without subsequent striking against object, initial encounter; Z85.038 Personal history of other malignant neoplasm of large intestine; Z87.891 Personal history of nicotine dependence
CPT/HCPCS: 70450; 70486; 72125; 99284

== ENCOUNTER → 2021-01-06 | Outpatient (CLI) | payer MEDICARE ==
--- NOTE | 2021-01-06 13:19 | XR ---
EXAMINATION TYPE: XR wrist complete RT DATE OF EXAM: 01/06/2021 COMPARISON: 12/30/2020 HISTORY: Pain and swelling after fall one week ago. M25.531 PAIN IN RIGHT WRIST. TECHNIQUE: AP, oblique, lateral, and scaphoid views of the right wrist obtained. FINDINGS: No acute fracture. No dislocation. Alignment is maintained. Normal mineralization. No signi ficant soft tissue swelling. IMPRESSION: No acute fracture or dislocation.
== END | disposition home or self-care (01) ==
LOC: RADXRMAIN 10:01
PROVIDERS: ATTEND Nurse Practitioner Family
DX: M25.531 Pain in right wrist (principal); R22.31 Localized swelling, mass and lump, right upper limb; W19.XXXA Unspecified fall, initial encounter

== ENCOUNTER 2021-02-21 09:14 | Emergency (ER) | payer MEDICARE ==
[2021-02-21 09:19] VITALS: TEMP 98.1
[2021-02-21] MEDS ORDERED: ACETAMINOPHEN TAB 500 MG TAB PO STA (09:29)
--- NOTE | 2021-02-21 10:01 | CT ---
EXAMINATION TYPE: CT brain wo con DATE OF EXAM: 02/21/2021 COMPARISON: 12/30/2020 HISTORY: new onset headache and right side vision changes post fall [address] DLP: 1092.4 mGycm Automated exposure control for dose reduction was used. FINDINGS: There is no evidence of acute intracranial hemorrhage, acute ischemic changes, mass, mass-effect, or extra-axial fluid collection. There is no effacement of cerebral sulci or basal subarachnoid cisterns . Mild residual soft tissue edema overlying the right periorbital region. Mild periventricular white matter hypodensities suggest mild burden of chronic small vessel ischemic disease. Bilateral sclerotic calcifications in the carotid siphons. Incidental partially empty sella. Paranasal sinuses and mastoid air cells well pneumatized. Slight leftward nasal septal deviation. IMPRESSION: DEGENERATIVE CHANGE WITH NO EVIDENCE OF ACUTE HEMORRHAGE OR MASS EFFECT.
--- NOTE | 2021-02-21 10:42 | ED ---
Headache HPI - General Chief Complaint: Headache Stated Complaint: Vision changes, fall 1 month ago Time Seen by Provider: 02/21/21 09:23 Mode of arrival: ambulatory Limitations: no limitations - History of Present Illness Initial Comments: This 80-year-old female presented with a complaint of a headache. She states that this is on the right side of her head. He came to days ago. She rates it at approximately 4/10. It is been gradual in onset. She denies any neck pain. She does complain of some slight blurry vision in her right eye. Ears no nausea or vomiting. She does have a history of migraines but states that this does not feel like her normal migraines. She states that she fell and hit her head approximately a month or more ago. She was seen in the ER at that time and had a negative computed tomography scan of the head and neck and facial bones. She does relate that she is on a blood thinner. She denies any recent injuries otherwise. No other complaints or modifying factors. She denies any problems with coordination, localized weakness, numbness or tingling, or speech. - Related Data Home Medications Medication Instructions Recorded Confirmed ALPRAZolam [Xanax] 0.25 mg PO HS 07/16/15 06/02/20 Multivitamins, Thera [Multivitamin 1 tab PO DAILY 10/02/15 06/02/20 (formulary)] Triamterene-Hctz 37.5-25Mg 1 cap PO Q48H 01/15/18 06/02/20 [Dyazide 37.5-25 Capsule] FLUoxetine HCL [PROzac] 40 mg PO HS 06/27/18 06/02/20 Irbesartan [Avapro] 300 mg PO HS 07/29/18 06/02/20 Ferrous Sulfate [Feosol] 325 mg PO BID 12/15/19 06/02/20 Folic Acid 1 mg PO DAILY 12/15/19 06/02/20 Pantoprazole Sodium [Protonix] 40 mg PO DAILY 06/02/20 06/02/20 amLODIPine [Norvasc] 2.5 mg PO DAILY 06/02/20 06/02/20 metHOTREXate sodium [Methotrexate] 25 mg PO FR 06/02/20 06/02/20 Previous Rx's Medication Instructions Recorded Atorvastatin [Lipitor] 80 mg PO HS #30 tab 08/11/17 Clopidogrel [Plavix] 75 mg PO DAILY tab 06/30/18 Allergies Allergy/AdvReac Type Severity Reaction Status Date / Time adhesive tape AdvReac Itching Verified 02/21/21 09:19 Review of Systems ROS Statement: Those systems with pertinent positive or pertinent negative responses have been documented in the HPI. ROS Other: All systems not noted in ROS Statement are negative. Past Medical History Past Medical History: Cancer, GERD/Reflux, Hyperlipidemia, Hypertension, Rheumatoid Arthritis (RA), Sleep Apnea/CPAP/BIPAP Additional Past Medical History / Comment(s): See Dr Wynn H&P. Hx colon cancer, Uses CPAP History of Any Multi-Drug Resistant Organisms: None Reported Past Surgical History: Appendectomy, Bowel Resection, Heart Catheterization With Stent, Hysterectomy, Orthopedic Surgery Additional Past Surgical History / Comment(s): RIGHT HAND TRIGGER FINGER, spur removed from right foot. Carpal tunnel surgery Past Anesthesia/Blood Transfusion Reactions: Motion Sickness Date of Last Stent Placement:: approx 2014 ? Past Psychological History: Depression Smoking Status: Former smoker Past Alcohol Use History: None Reported Past Drug Use History: None Reported - Past Family History Mother Family Medical History: No Reported History Sister(s) Family Medical History: Cancer Additional Family Medical History / Comment(s): kidney cancer. Another sister from lung cancer Father Family Medical History: No Reported History General Exam - General Exam Comments Initial Comments: GENERAL: The patient is well nourished and well hydrated. VITAL SIGNS: Heart rate, blood pressure, respiratory rate reviewed as recorded in nurse's notes. EYES: Pupils are round and reactive. Extraocular movements are intact. No conjunctival / lid redness or swelling. ENT: No external evidence of injury, swelling, or ecchymosis. Airway is patent. Throat is clear. No tenderness over the temporal region or anywhere on the head. No swelling identified. NECK: Nontender. No swelling or evidence of injury. No subcutaneous emphysema. Trachea is midline. No thyroid mass. HEART: Regular rate and rhythm. Good peripheral pulses. LUNGS/CHEST: Breath sounds clear and equal bilaterally. No rales, rhonchi, or wheezes. No ecchymosis, subcutaneous emphysema, or tenderness. ABDOMEN: Abdomen soft without tenderness. No palpable masses or organomegaly. No peritoneal signs. No abdominal wall swelling or ecchymosis. EXTREMITIES: No extremity tenderness. Normal muscle tone and function. No thoracolumbar tenderness. NEUROLOGIC: Sensation is grossly intact. Cranial nerve exam reveals face is sym metrical, tongue is midline, speech is clear. SKIN: No abrasions or ecchymosis is noted. No induration or masses noted. PSYCHIATRIC: Alert and oriented. Appropriate behavior and judgment. Limitations: no limitations Course Vital Signs 02/21/21 09:16 Temperature 98.1 F Pulse Rate 81 Respiratory 20 Rate Blood Pressure 149/64 O2 Sat by Pulse 94 L Oximetry Medical Decision Making - Medical Decision Making The patient was seen and examined. All diagnostics were reviewed. The computed tomography scan of the brain does not show any acute abnormalities. Old records are also reviewed in regards to her recent negative CT scans and ER visi t. She is offered an IV as well as IV treatment for her headache. She refuses stating that her headache is only fairly mild and is agreeable to receiving Tylenol. She is given some Tylenol. She is in no distress initially and on recheck. It is felt as though she stable for discharge but it also is felt as though she should follow-up with her overlock collar setter for further evaluation of her blurry vision. Return parameters are discussed. Close follow-up recommended. Disposition Clinical Impression: Cephalgia, Blurry vision, right eye Disposition: HOME SELF-CARE Condition: Good Instructions (If sedation given, give patient instructions): Acute Headache (ED) Additional Instructions: Please use Tylenol if needed for headache. Is patient prescribed a controlled substance at d/c from ED?: No Referrals: Sunny Sun DO [Primary Care Provider] - 1-2 days Time of Disposition: 10:42
[2021-02-21 10:53] VITALS: RESP 16
[2021-02-21 10:54] VITALS: BP 132/58; PULSE 71
== END 2021-02-21 10:54 | disposition home or self-care (01) ==
LOC: EC 09:14
DX: R51.9 Headache, unspecified (principal); H53.8 Other visual disturbances; E78.5 Hyperlipidemia, unspecified; F32.9 Major depressive disorder, single episode, unspecified; I10 Essential (primary) hypertension; K21.9 Gastro-esophageal reflux disease without esophagitis; M06.9 Rheumatoid arthritis, unspecified; Z79.02 Long term (current) use of antithrombotics/antiplatelets; Z79.899 Other long term (current) drug therapy; Z87.891 Personal history of nicotine dependence
CPT/HCPCS: 70450; 99284

== ENCOUNTER → 2021-02-24 | Outpatient (CLI) | payer MEDICARE ==
[2021-02-24 23:02] LABS: Basophils # (A) 0.06 X 10*3/uL (0.00-0.10); Basophils % (A) 0.7 %; Eosinophils # (A) 0.13 X 10*3/uL (0.04-0.35); Eosinophils % (A) 1.5 %; HGB 10.7 g/dL (12.0-15.0); Lymphocytes # (A) 1.63 X 10*3/uL (0.90-5.00); Lymphocytes % (A) 18.8 %; MCH 31.7 pg (27.0-32.0); MCHC 32.4 g/dL (32.0-37.0); MCV 97.6 fL (80.0-97.0); Mean Platelet Volume 9.9 fL (9.5-12.2); Monocytes # (A) 0.94 X 10*3/uL (0.20-1.00); Monocytes % (A) 10.8 %; Platelet Count 332 X 10*3/uL (140-440); RBC 3.38 X 10*6/uL (4.10-5.20); RDW 14.5 % (11.5-14.5); WBC 8.68 X 10*3/uL (4.50-10.00)
[2021-02-25 01:33] LABS: Erythrocyte Sedimentation Rate 36 mm/Hr (0-30)
== END | disposition home or self-care (01) ==
LOC: LABWHC1 15:45
PROVIDERS: ATTEND Ophthalmology
DX: M31.6 Other giant cell arteritis (principal)
CPT/HCPCS: 36415; 85025; 85652; 86140

== ENCOUNTER → 2021-04-24 | Outpatient (CLI) | payer MEDICARE | END | disposition home or self-care (01) | LOC: LABWHC1 12:09 | PROVIDERS: ATTEND Family Medicine | DX: Z20.822 Contact with and (suspected) exposure to COVID-19 (principal); J06.9 Acute upper respiratory infection, unspecified | CPT/HCPCS: U0003; C9803 ==

== ENCOUNTER → 2021-06-30 | Outpatient (CLI) | payer MEDICARE ==
--- NOTE | 2021-07-01 08:45 | MM ---
Reason for exam: follow-up at short interval from prior study. Last mammogram was performed 7 months ago. History: Patient is postmenopausal and has history of colon cancer at age 64. Family history of breast cancer in maternal aunt. Physical Findings: Nurse did not find any significant physical abnormalities on exam. MG 3D Diag Mammo W/Cad LT CC and MLO view(s) were taken of the left breast. Prior study comparison: November 29, 2020, bilateral MG 3d screening mammo w/cad. September 20, 2018, bilateral MG 3d screening mammo w/cad. There are scattered fibroglandular densities. There are benign appearing round calcifications in the left breast. There is chronic nodularity in the left breast. There is no discrete abnormality. These results were verbally communicated with the patient and result sheet given to the patient on 06/30/21. ASSESSMENT: Benign, BI-RAD 2 RECOMMENDATION: Return to routine screening mammogram schedule for both breasts. Back on schedule.
== END | disposition home or self-care (01) ==
LOC: RADMAMWWP 14:32
PROVIDERS: ATTEND Family Medicine
DX: R92.8 Other abnormal and inconclusive findings on diagnostic imaging of breast (principal); R92.1 Mammographic calcification found on diagnostic imaging of breast; Z80.3 Family history of malignant neoplasm of breast; Z78.0 Asymptomatic menopausal state; Z85.038 Personal history of other malignant neoplasm of large intestine
CPT/HCPCS: 77065; G0279; 77061

== ENCOUNTER → 2021-12-22 | Outpatient (CLI) | payer MEDICARE ==
--- NOTE | 2021-12-23 15:05 | MM ---
Reason for Exam: Screening (asymptomatic). Last screening mammogram was performed 12 month(s) ago. Patient History: Menarche at age 13. First Full-Term at age 30. Left ovary removed at age 44. Right ovary removed at age 44. Hysterectomy at age 44. Postmenopausal. Maternal aunt had breast cancer at or over age 50. Risk Values: Neela 5 year model risk: 1.8%. NCI Lifetime model risk: 2.8%. Prior Study Comparison: 09/20/2018 Bilateral Screening Mammogram, [facility]. 11/29/2020 Bilateral Screening Mammogram, [facility]. 06/30/2021 Left Diagnostic Mammogram, [facility]. Tissue Density: There are scattered fibroglandular densities. Findings: Analyzed By CAD. Benign scattered punctate calcifications present bilaterally. Benign-appearing stable chronic nodularity is within the left breast. No suspicious groups of microcalcifications, spiculated or lobular masses, architectural distortion or other secondary signs of malignancy are mammographically apparent. Overall Assessment: Benign, BI-RAD 2 Management: Screening Mammogram of both breasts in 1 year. A negative mammogram report should not preclude additional follow up of suspicious palpable abnormalities. Patient should continue monthly self breast exam. A clinical breast exam by your physician is recommended on an annual basis and results should be correlated with mammographic findings. Electronically signed and approved by: Stephen Del Real D.O. Radiologis
== END | disposition home or self-care (01) ==
LOC: RADMAMWWP 16:01
PROVIDERS: ATTEND Family Medicine
DX: Z12.31 Encounter for screening mammogram for malignant neoplasm of breast (principal)
CPT/HCPCS: 77063; 77067

== ENCOUNTER → 2022-05-15 | Outpatient (CLI) | payer MEDICARE ==
--- NOTE | 2022-05-15 14:41 | BD ---
EXAMINATION TYPE: Axial Bone Density DATE OF EXAM: 05/15/2022 COMPARISON: NONE CLINICAL HISTORY: 81 years year old Female. 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 Menopause before 45: TOTAL HYST AGE 41 Rheumatoid Arthritis: YES RISK FACTORS HISTORY OF: Family History of Osteoporosis: YES MOTHER, SISTERS X2 Active: YES Diet low in dairy products/other sources of calcium: YES Postmenopausal woman: TOTAL HYST AGE 41 Lost more than 2 inches in height since high school: YES MEDICATIONS: Additional Medications: CALCIUM , VIT D,FOLIC ACID, CLOPIDOGRIL, PANTOPRAZOLE, AMLODIPINE, METHOTREXA TE, FLUOXETINE, ATORVASTATIN, IRON, VIT C, MAGNESIUM, Additional History: COLON CANCER EXAM MEASUREMENTS: Bone mineral densitometry was performed using the [employer] System. Bone mineral density as measured about the Lumbar spine is: ----- L1-L4(G/cm2): 1.311 T Score Values are as follows: ----- L1: 0.4 ----- L2: 0.9 ----- L3: 0.9 ----- L4: 1.8 ----- L1-L4: 1.1 Bone mineral density BASELINE Bone mineral density about the R hip (g/cm2): 0.905 Bone mineral density about the L hip (g/cm2): 0.884 T Score values are as follows: -----R Neck: -1.0 -----L Neck: -1.1 -----R Total: -0.4 -----L Total: -0.7 Bone mineral density BASELINE FRAX%s: The graph provided illustrates a 8.7 chance for a major osteoporotic fx and a 5.1 chance for the hips probability for fx in 10 years time. IMPRESSION: Osteopenia (T Score between -2.5 and -1). There is slightly increased risk of fracture and the patient may be considered for treatment. Re-Screen 2-5 years. NOTE: T-SCORE=SD OF THE YOUNG ADULT MEAN.
== END | disposition home or self-care (01) ==
LOC: RADBDWWP 13:11
PROVIDERS: ATTEND Internal Medicine Rheumatology
DX: M85.89 Other specified disorders of bone density and structure, multiple sites (principal); Z78.0 Asymptomatic menopausal state
CPT/HCPCS: 77080

== ENCOUNTER 2022-06-26 10:10 | Emergency (ER) | payer MEDICARE ==
[2022-06-26 10:27] VITALS: RESP 18
--- NOTE | 2022-06-26 10:49 | ED ---
Upper Extremity HPI - General Chief Complaint: Extremity Injury, Upper Stated Complaint: Arm swelling and bruising Time Seen by Provider: 06/26/22 10:29 Source: patient, RN notes reviewed Mode of arrival: ambulatory Limitations: no limitations - History of Present Illness Initial Comments: Patient is an 81-year-old female presenting to the emergency room via private vehicle from urgent care for further evaluation of right upper arm bruising and swelling. She reports that the bruise appeared on Wednesday, 4 days ago without any known trauma or aggravating factors. She reports that the bruise located in her bicep region seems to be growing and getting darker. She does complain of some pain with bicep movement but denies any range of motion i mpairment. She denies any numbness or tingling in her extremity her previous issues with bruising or bleeding. She is on Plavix along with methotrexate. She has a past history significant rheumatoid arthritis, colon cancer, hypertension, hyperlipidemia, GERD and sleep apnea on BiPAP. - Related Data Home Medications Medication Instructions Recorded Confirmed Multivitamins, Thera [Multivitamin 1 tab PO DAILY 10/02/15 02/21/21 (formulary)] Triamterene-Hctz 37.5-25Mg 1 cap PO DAILY 01/15/18 02/21/21 [Dyazide 37.5-25 Capsule] FLUoxetine HCL [PROzac] 40 mg PO HS 06/27/18 02/21/21 Irbesartan [Avapro] 300 mg PO DAILY 07/29/18 02/21/21 Ferrous Sulfate [Feosol] 325 mg PO DAILY 12/15/19 02/21/21 Folic Acid 1 mg PO DAILY 12/15/19 02/21/21 Pantoprazole Sodium [Protonix] 40 mg PO DAILY 06/02/20 02/21/21 metHOTREXate sodium [Methotrexate] 25 mg PO FR 06/02/20 02/21/21 Clopidogrel [Plavix] 75 mg PO HS 02/21/21 02/21/21 Meclizine [Antivert] 25 mg PO BID PRN 02/21/21 02/21/21 amLODIPine [Norvasc] 10 mg PO DAILY 02/21/21 02/21/21 Previous Rx's Medication Instructions Recorded Atorvastatin [Lipitor] 80 mg PO HS #30 tab 08/11/17 Allergies Allergy/AdvReac Type Severity Reaction Status Date / Time adhesive tape Allergy Rash/Hives Verified 06/26/22 10:27 Review of Systems ROS Statement: Those systems with pertinent positive or pertinent negative responses have been documented in the HPI. ROS Other: All systems not noted in ROS Statement are negative. Past Medical History Past Medical History: Cancer, GERD/Reflux, Hyperlipidemia, Hypertension, Rheumatoid Arthritis (RA), Sleep Apnea/CPAP/BIPAP Additional Past Medical History / Comment(s): See Dr Wynn H&P. Hx colon cancer, Uses CPAP History of Any Multi-Drug Resistant Organisms: None Reported Past Surgical History: Appendectomy, Bowel Resection, Heart Catheterization With Stent, Hysterectomy, Orthopedic Surgery Additional Past Surgical History / Comment(s): RIGHT HAND TRIGGER FINGER, spur removed from right foot. Carpal tunnel surgery Past Anesthesia/Blood Transfusion Reactions: Motion Sickness Date of Last Stent Placement:: approx 2014 ? Past Psychological History: Depression Smoking Status: Former smoker Past Alcohol Use History: None Reported Past Drug Use History: None Reported - Past Family History Mother Family Medical History: No Reported History Sister(s) Family Medical History: Cancer Additional Family Medical History / Comment(s): kidney cancer. Another sister from lung cancer Father Family Medical History: No Reported History General Exam - General Exam Comments Initial Comments: GENERAL: No acute distress, well developed, well nourished. HEENT: Normocephalic, atraumatic. Pupils equal, round, reactive to light. Moist mucous membranes. LUNGS: No respiratory distress. Clear to auscultation, no adventitious sounds, no use of accessory muscles. HEART: Regular rate and rhythm without murmur, rub, or gallop. ABDOMEN: Normal bowel sounds. Soft, non-tender, non-distended. BACK: Normal inspection. EXTREMITIES: Large area of ecchymosis dorsal aspect of right upper extremity proximal to the antecubital area ecchymotic region approximately 5 x 7 cm. Trace swelling. Full range of motion to right upper extremity with tenderness noted to bicep. NEUROLOGIC: Alert & oriented x 3. CN II-XII grossly intact. PSYCHIATRIC: Normal affect and behavior. DERMATOLOGIC: Skin intact, without rashes or lesions noted. Limitations: no limitations Course Vital Signs 06/26/22 10:24 Temperature 97.8 F Pulse Rate 73 Respiratory 18 Rate Blood Pressure 138/74 O2 Sat by Pulse 97 Oximetry Medical Decision Making - Medical Decision Making Was pt. sent in by a medical professional or institution? @ -Urgent care Did you speak to anyone other than the patient for history? @ -No Did you review nursing and triage notes? @ -Yes and agree with nursing and triage notes Were old charts reviewed? @ -No Differential Diagnosis? @ -Differential Back Pain: Biceps strain, torn bicep, fractured humerus, upper extremity DVT, this is not meant to be an all-inclusive list. EKG interpreted by me (3pts min.)? @ -None X-rays interpreted by me (1pt min.)? @ -X-ray right humerus no fracture, dislocation or soft tissue swelling. Arthritic changes noted. CT interpreted by me (1pt min.)? @ -None U/S interpreted by me (1pt. min.)? @ -Venous Doppler of the right upper extremity completed and 8 interpreted by radiologist report reviewed and negative for DVT What testing was considered but not performed? (CT, X-rays, U/S, labs)? Why? @None What meds were considered but not given? Why? @ -Analgesics offered and declined Did you discuss the management of the patient with other professionals? @ -No Did you reconcile home meds? @ -Medications reviewed but not reconciled Was smoking cessation discussed for >3mins.? @ -Not applicable Was critical care preformed (if so, how long)? @ -None Were there social determinants of health that impacted care today? How? (Homelessness, low income, unemployed, alcoholism, drug addiction, transportation, low edu. Level, literacy, decrease access to med. care, retirement, rehab)? @ -No Was there de-escalation of care discussed even if they declined? (Discuss DNR or withdrawal of care, Hospice)? @ -No What co-morbidities impacted this encounter? (DM, HTN, Smoking, COPD, CAD, Cancer, CVA, Hep., AIDS, mental health diagnosis, sleep apnea, morbid obesity)? @ -None Was patient admitted / discharged? @ -CBC CMP and coags drawn due to excessive bruising and methotrexate regiment. CMP revealed mild anemia normal platelets no leukocytosis. CMP demonstrates slightly low sodium level at 132 otherwise no significant abnormalities. Coags normal. X-ray of the right humerus and Doppler of the right upper extremity as indicated above without acute findings. No indication for further diagnostic testing or laboratory studies. Education with return parameters reviewed at length. Will discharge home in stable condition with education regarding biceps strain and right upper extremity contusion with ecchymosis. Undiagnosed new problem with uncertain prognosis? @ -None Drug Therapy requiring intensive monitoring for toxicity (Heparin, Nitro, Insulin, Cardizem)? @ -None Were any procedures done? @ -None Diagnosis/symptom? @ -Right biceps strain with contusion Acute, or Chronic, or Acute on Chronic? @ -Acute Uncomplicated (without systemic symptoms) or Complicated (systemic symptoms)? @ -Uncomplicated Side effects of treatment? @ -None Exacerbation, Progression, or Severe Exacerbation] @ -No Poses a threat to life or bodily function? @ -No Case discussed with Dr. Valenzuela. - Lab Data Result diagrams: 06/26/22 11:19 06/26/22 11:19 Lab Results 06/26/22 06/26/22 06/26/22 Range/Units 11:19 11:19 11:19 WBC 6.6 (3.8-10.6) k/uL RBC 3.18 L (3.80-5.40) m/uL Hgb 10.5 L (11.4-16.0) gm/dL Hct 30.1 L (34.0-46.0) % MCV 94.6 (80.0-100.0) fL MCH 32.9 (25.0-35.0) pg MCHC 34.8 (31.0-37.0) g/dL RDW 14.3 (11.5-15.5) % Plt Count 271 (150-450) k/uL MPV 7.7 PT 10.5 (9.0-12.0) sec INR 1.0 (<1.2) Sodium 132 L (137-145) mmol/L Potassium 3.6 (3.5-5.1) mmol/L Chloride 101 (98-107) mmol/L Carbon Dioxide 28 (22-30) mmol/L Anion Gap 3 mmol/L BUN 17 (7-17) mg/dL Creatinine 0.69 (0.52-1.04) mg/dL Est GFR (CKD-EPI)AfAm >90 (>60 ml/min/1.73 sqM) Est GFR (CKD-EPI)NonAf 83 (>60 ml/min/1.73 sqM) Glucose 85 (74-99) mg/dL Calcium 8.5 (8.4-10.2) mg/dL Total Bilirubin 0.5 (0.2-1.3) mg/dL AST 30 (14-36) U/L ALT 29 (4-34) U/L Alkaline Phosphatase 45 (38-126) U/L Total Protein 5.7 L (6.3-8.2) g/dL Albumin 3.2 L (3.5-5.0) g/dL - Radiology Data Radiology results: report reviewed, image reviewed Disposition Clinical Impression: Strain of right biceps, Contusion of right upper arm, initial encounter Disposition: HOME SELF-CARE Condition: Stable Instructions (If sedation given, give patient instructions): Arm Pain (ED) Additional Instructions: Please utilize Tylenol as needed for pain. Gentle range of motion of right upper extremity encouraged. Please follow-up with your primary care provider. Please return to the Emergency Department if symptoms worsen or any other concerns. Is patient prescribed a controlled substance at d/c from ED?: No Referrals: Sunny Sun DO [Primary Care Provider] - 1-2 days Time of Disposition: 12:26
--- NOTE | 2022-06-26 11:25 | US ---
EXAMINATION TYPE: US venous doppler duplex UE RT DATE OF EXAM: 06/26/2022 COMPARISON: NONE CLINICAL HISTORY: swelling bruising. Right arm bruising and pain. Right IV infusion antecubital fossa 2 weeks ago SIDE PERFORMED: right Grayscale, color doppler, spectral doppler imaging performed of the deep veins of the right upper ext remity. There is normal flow, compressibility and vascular waveforms. Right Arm: No evidence of DVT IMPRESSION: No ultrasound evidence for deep venous thrombosis of the right upper extremity.
[2022-06-26 11:43] LABS: Prothrombin Time 10.5 sec (9.0-12.0)
[2022-06-26 11:51] LABS: ALT 29 U/L (4-34); AST 30 U/L (14-36); African American GFR (CKD) >90 (>60 ml/min/1.73 sqM); Albumin 3.2 g/dL (3.5-5.0); Alkaline Phosphatase 45 U/L (38-126); Anion Gap 3 mmol/L; Blood Urea Nitrogen 17 mg/dL (7-17); Calcium 8.5 mg/dL (8.4-10.2); Carbon Dioxide 28 mmol/L (22-30); Chloride 101 mmol/L (98-107); Glucose 85 mg/dL (74-99); Non-African American GFR(CKD) 83 (>60 ml/min/1.73 sqM); Potassium 3.6 mmol/L (3.5-5.1); Sodium 132 mmol/L (137-145); Total Bilirubin 0.5 mg/dL (0.2-1.3); Total Protein 5.7 g/dL (6.3-8.2)
--- NOTE | 2022-06-26 12:08 | XR ---
EXAMINATION TYPE: XR humerus RT DATE OF EXAM: 06/26/2022 12:01 PM INDICATION: Patient age:Female; 81 years old; Reason for study: pain swelling bruising; PHH. COMPARISON: None TECHNIQUE: The right humerus was examined in frontal and lateral projections. FINDINGS: No evidence of acute osseous pathology, joint dislocation, or soft tissue swelling. No lyti c or blastic osseous lesion identified. Moderate right AC joint arthropathy. The remaining portions o f the visualized chest are unremarkable. IMPRESSION: No acute osseous pathology.
[2022-06-26 12:12] LABS: HCT 30.1 % (34.0-46.0); HGB 10.5 gm/dL (11.4-16.0); MCH 32.9 pg (25.0-35.0); MCHC 34.8 g/dL (31.0-37.0); MCV 94.6 fL (80.0-100.0); Mean Platelet Volume 7.7; Platelet Count 271 k/uL (150-450); RBC 3.18 m/uL (3.80-5.40); RDW 14.3 % (11.5-15.5); WBC 6.6 k/uL (3.8-10.6)
[2022-06-26 12:40] VITALS: BP 186/78; PULSE 74; TEMP 98.4
[2022-06-26 12:57] LABS: Eosinophils # (M) 0.07 k/uL (0-0.7); Lymphocytes # (M) 1.32 k/uL (1.0-4.8); Monocytes # (M) 0.73 k/uL (0-1.0); Neutrophils # (M) 4.49 k/uL (1.3-7.7); Neutrophils % (M) 68 %; Nucleated Red Blood Cells 0 /100 WBC (0-0); Total Cells Counted 100
[2022-06-26 12:59] LABS: RBC Morphology Normal
== END 2022-06-26 12:40 | disposition home or self-care (01) ==
LOC: EC 10:10
DX: S50.11XA Contusion of right forearm, initial encounter (principal); S46.211A Strain of muscle, fascia and tendon of other parts of biceps, right arm, initial encounter; K21.9 Gastro-esophageal reflux disease without esophagitis; E78.5 Hyperlipidemia, unspecified; I10 Essential (primary) hypertension; M06.9 Rheumatoid arthritis, unspecified; F32.A Depression, unspecified; Z87.891 Personal history of nicotine dependence; Z88.8 Allergy status to other drugs, medicaments and biological substances; Z79.899 Other long term (current) drug therapy; X58.XXXA Exposure to other specified factors, initial encounter
CPT/HCPCS: 36415; 80053; 85025; 85610; 99284

== ENCOUNTER 2023-01-06 10:23 | Emergency (ER) | payer MEDICARE ==
--- NOTE | 2023-01-06 10:43 | ED ---
General Adult HPI - General Chief complaint: Fall Stated complaint: L wrist injury-fall Time Seen by Provider: 01/06/23 10:36 Source: patient, RN notes reviewed Mode of arrival: ambulatory Limitations: no limitations - History of Present Illness Initial comments: Patient is a pleasant 82-year-old female presenting to the emergency Department with left wrist injury. Patient states she was backing up on changing the sheets. Patient states she misstepped and fell on an outstretched left wrist. Patient has chest discomfort of her left wrist. No other area of injury or concern. No head injury or loss of consciousness. No neck or back pain. Discomfort increases with movement. Patient just took 3 Tylenol prior to arrival and does not want further pain medication at this time - Related Data Home Medications Medication Instructions Recorded Confirmed Multivitamins, Thera [Multivitamin 1 tab PO DAILY 10/02/15 02/21/21 (formulary)] Triamterene-Hctz 37.5-25Mg 1 cap PO DAILY 01/15/18 02/21/21 [Dyazide 37.5-25 Capsule] FLUoxetine HCL [PROzac] 40 mg PO HS 06/27/18 02/21/21 Irbesartan [Avapro] 300 mg PO DAILY 07/29/18 02/21/21 Ferrous Sulfate [Feosol] 325 mg PO DAILY 12/15/19 02/21/21 Folic Acid 1 mg PO DAILY 12/15/19 02/21/21 Pantoprazole Sodium [Protonix] 40 mg PO DAILY 06/02/20 02/21/21 metHOTREXate sodium [Methotrexate] 25 mg PO FR 06/02/20 02/21/21 Clopidogrel [Plavix] 75 mg PO HS 02/21/21 02/21/21 Meclizine [Antivert] 25 mg PO BID PRN 02/21/21 02/21/21 amLODIPine [Norvasc] 10 mg PO DAILY 02/21/21 02/21/21 Previous Rx's Medication Instructions Recorded Atorvastatin [Lipitor] 80 mg PO HS #30 tab 08/11/17 Allergies Allergy/AdvReac Type Severity Reaction Status Date / Time adhesive tape Allergy Rash/Hives Verified 01/06/23 10:35 Review of Systems ROS Statement: Those systems with pertinent positive or pertinent negative responses have been documented in the HPI. ROS Other: All systems not noted in ROS Statement are negative. Constitutional: Denies: fever Eyes: Denies: eye pain ENT: Denies: ear pain Respiratory: Denies: cough Cardiovascular: Denies: chest pain Musculoskeletal: Reports: as per HPI Neurological: Denies: headache Past Medical History Past Medical History: Cancer, GERD/Reflux, Hyperlipidemia, Hypertension, Rheumatoid Arthritis (RA), Sleep Apnea/CPAP/BIPAP Additional Past Medical History / Comment(s): See Dr Wynn H&P. Hx colon cancer, Uses CPAP History of Any Multi-Drug Resistant Organisms: None Reported Past Surgical History: Appendectomy, Bowel Resection, Heart Catheterization With Stent, Hysterectomy, Orthopedic Surgery Additional Past Surgical History / Comment(s): RIGHT HAND TRIGGER FINGER, spur removed from right foot. Carpal tunnel surgery Past Anesthesia/Blood Transfusion Reactions: Motion Sickness Date of Last Stent Placement:: approx 2014 ? Past Psychological History: Depression Smoking Status: Former smoker Past Alcohol Use History: None Reported Past Drug Use History: None Reported - Past Family History Mother Family Medical History: No Reported History Sister(s) Family Medical History: Cancer Additional Family Medical History / Comment(s): kidney cancer. Another sister from lung cancer Father Family Medical History: No Reported History General Exam Limitations: no limitations General appearance: alert, in no apparent distress Head exam: Present: atraumatic Eye exam: Present: normal appearance ENT exam: Present: normal exam Neck exam: Present: normal inspection. Absent: tenderness Respiratory exam: Present: normal lung sounds bilaterally Cardiovascular Exam: Present: regular rate, normal rhythm Expanded Peripheral pulses: 2+: Radial (L) GI/Abdominal exam: Present: soft. Absent: distended, tenderness Extremities exam: Present: tenderness (Patient does have mild swelling and tenderness diffusely left wrist. Pain with range of motion. Distally the extremity is neurovascular intact.) Neurological exam: Present: alert. Absent: motor sensory deficit Psychiatric exam: Present: normal affect, normal mood Skin exam: Present: normal color Course Vital Signs 01/06/23 10:32 Temperature 98.6 F Pulse Rate 70 Respiratory 18 Rate Blood Pressure 137/64 O2 Sat by Pulse 96 Oximetry Procedures - Orthopedic Splinting/Casting Injury #1 Side: left Upper Extremity Injury Location: short arm Upper Extremity Immobilizer: volar splint Medical Decision Making - Medical Decision Making Was pt. sent in by a medical professional or institution (Dr., PA, [employer], urgent care, hospital, or alf...) When possible be specific @ -No Did you speak to anyone other than the patient for history (EMS, parent, family, police, friend...)? What history was obtained from this source @ -No Did you review nursing and triage notes (agree or disagree)? Why? @ -I reviewed and agree with nursing and triage notes Were old charts reviewed (outside hosp., previous admission, EMS record, old EKG, old radiological studies, urgent care reports/EKG's, alf records)? Report findings @ -No old charts were reviewed Differential Diagnosis (chest pain, altered mental status, abdominal pain women, abdominal pain men, vaginal bleeding, weakness, fever, dyspnea, syncope, headache, dizziness, GI bleed, back pain, seizure, CVA, palpatations, mental health, musculoskeletal)? @ -Differential Musculoskeletal Muscular strain, contusion, ligament sprain, fracture, arthritis, septic arthritis, bursitis, cellulitis, muscle spasm, nerve compression, DVT, arterial occlusion, herpes zoster, electrolyte abnormality, tumor.... This is not meant to be in all inclusive list EKG interpreted by me (3pts min.). @ -As above X-rays interpreted by me (1pt min.). @ -Left wrist x-ray shows comminuted distal radius and ulnar fracture CT interpreted by me (1pt min.). @ -None done U/S interpreted by me (1pt. min.). @ -None done What testing was considered but not performed or refused? (CT, X-rays, U/S, labs)? Why? @ -None What meds were considered but not given or refused? Why? @ -None Did you discuss the management of the patient with other professionals (professionals i.e. KENY Garcia, [employer], lab, RT, psych nurse, social service director, census taker, teacher, staff mine warfare officer, major case detective)? Give summary @ -No Was smoking cessation discussed for >3mins.? @ -No Was critical care preformed (if so, how long)? @ -No Were there social determinants of health that impacted care today? How? (Homelessness, low income, unemployed, alcoholism, drug addiction, transportation, low edu. Level, literacy, decrease access to med. care, senior living, rehab)? @ -No Was there de-escalation of care discussed even if they declined (Discuss DNR or withdrawal of care, Hospice)? DNR status @ -No What co-morbidities impacted this encounter? (DM, HTN, Smoking, COPD, CAD, Cancer, CVA, ARF, Chemo, Hep., AIDS, mental health diagnosis, sleep apnea, morbid obesity)? @ -None Was patient admitted / discharged? Hospital course, mention meds given and route, prescriptions, significant lab abnormalities, going to OR and other pertinent info. @ -Patient presents with wrist injury following a fall. X-rays with fracture. Wrist splinted. Patient will be discharged with orthopedic follow-up Undiagnosed new problem with uncertain prognosis? @ -No Drug Therapy requiring intensive monitoring for toxicity (Heparin, Nitro, Insulin, Cardizem)? @ -No Were any procedures done? @ -See above, wrist splint Diagnosis/symptom? @ -Left wrist fracture Acute, or Chronic, or Acute on Chronic? @ -Acute Uncomplicated (without systemic symptoms) or Complicated (systemic symptoms)? @ -default Side effects of treatment? @ -No Exacerbation, Progression, or Severe Exacerbation? @ -No Poses a threat to life or bodily function? How? (Chest pain, USA, NV, pneumonia, PE, COPD, DKA, ARF, appy, cholecystitis, CVA, Diverticulitis, Homicidal, Suicidal, threat to staff... and all critical care pts) @ -No Disposition Clinical Impression: Fall, Left wrist fracture Disposition: HOME SELF-CARE Condition: Stable Instructions (If sedation given, give patient instructions): Fall Prevention (ED), Wrist Fracture in Adults (ED) Additional Instructions: Please follow-up with orthopedics tomorrow as planned. Return for increased easton n, swelling, worsening or changing symptoms or any other concerns. Ice to affected area. Is patient prescribed a controlled substance at d/c from ED?: No Referrals: Sunny Sun DO [Primary Care Provider] - 1-2 days Randall Gallegos DO [Doctor of Osteopathic Medicine] - 1-2 days Time of Disposition: 11:42
--- NOTE | 2023-01-06 11:35 | XR ---
EXAMINATION TYPE: XR wrist complete LT DATE OF EXAM: 01/06/2023 11:02 AM INDICATION: Patient age:Female; 82 years old; Reason for study: injury; COMPARISON: None TECHNIQUE: Left wrist was examined in the. Frontal, navicular, lateral, and oblique. FINDINGS: Comminuted left distal radius fracture with no definitive intra-articular extension to the wrist. There is extension to the distal radioulnar joint. Additional fracture through the distal ulna also suspected. Soft tissue swelling. IMPRESSION: Acute distal radius and ulna fractures. There is minimal displacement. Extension to the wrist is not definitively visualized regarding the radius however there is extension into the distal radioulnar cherie int.
[2023-01-06] MEDS ORDERED: ACET/COD 300 MG/30 MG STARTER PACK 6 TAB BTL PO STA (11:40)
[2023-01-06] MEDS ORDERED: IBUPROFEN 600 MG TAB PO STA (11:41)
[2023-01-06 12:06] VITALS: BP 129/81; PULSE 71; RESP 16; TEMP 98.1
== END 2023-01-06 12:07 | disposition home or self-care (01) ==
LOC: EC 10:23
DX: S52.692A Other fracture of lower end of left ulna, initial encounter for closed fracture (principal); S52.592A Other fractures of lower end of left radius, initial encounter for closed fracture; K21.9 Gastro-esophageal reflux disease without esophagitis; I10 Essential (primary) hypertension; E78.5 Hyperlipidemia, unspecified; M06.9 Rheumatoid arthritis, unspecified; F32.A Depression, unspecified; Z87.891 Personal history of nicotine dependence; Z91.048 Other nonmedicinal substance allergy status; Z79.899 Other long term (current) drug therapy; W18.30XA Fall on same level, unspecified, initial encounter
CPT/HCPCS: 29125; 99284

== ENCOUNTER → 2023-05-25 | Outpatient (CLI) | payer MEDICARE ==
[~2023-05-25] MED LIST changes: -LACTATED RINGERS 1,000 ML IV SCH; +SODIUM CHLORIDE 0.9% 500 ML 500 ML in EMPTY BAG 1 BAG IV PRN; +ZOLEDRONIC ACID 5 MG in SODIUM CHLORIDE 0.9% 100 ML IV NR
[2023-05-25 12:04] VITALS: BP 103/64; PULSE 80; RESP 16; TEMP 97.8
== END ==
LOC: PROCWHC3 11:24
PROVIDERS: ATTEND Family Medicine
DX: M85.811 Other specified disorders of bone density and structure, right shoulder (principal)
CPT/HCPCS: 96365; J3489

== ENCOUNTER 2023-08-12 14:48 | Observation (INO) | payer MEDICARE ==
--- NOTE | 2023-08-12 16:10 | ED ---
SOB HPI - General Chief Complaint: Shortness of Breath Stated Complaint: CHEST PAIN,SOB Time Seen by Provider: 08/12/23 15:00 Source: patient, EMS Mode of arrival: EMS Limitations: no limitations - History of Present Illness Initial Comments: 83-year-old female with past medical history of colon cancer, A-fib who presents emergency department with chest pain. States that the pain is described as a pressure sensation and it started this afternoon while she was cleaning. Patient also has a history of coronary artery disease with stent placement. Kavitha alegria states that her pain was only experienced during exertion. Now that she is resting her pain has gone away. She did not take anything for the discomfort. She denies any abdominal pain. Denies black or bloody stools. No fevers, chills or cough. No other alleviating, precipitating or modifying factors - Related Data Home Medications Medication Instructions Recorded Confirmed Triamterene-Hctz 37.5-25Mg 1 cap PO DAILY 01/15/18 08/12/23 [Dyazide 37.5-25 Capsule] FLUoxetine HCL [PROzac] 40 mg PO HS 06/27/18 08/12/23 Irbesartan [Avapro] 300 mg PO DAILY 07/29/18 08/12/23 Folic Acid 1 mg PO DAILY 12/15/19 08/12/23 Pantoprazole Sodium [Protonix] 40 mg PO DAILY 06/02/20 08/12/23 metHOTREXate sodium 25 mg PO FR 06/02/20 08/12/23 amLODIPine [Norvasc] 10 mg PO DAILY 02/21/21 08/12/23 Infliximab-Dyyb [Inflectra] 1 dose IV Q365D 08/12/23 08/12/23 methylPREDNISolone [Medrol Dose See Taper PO DIRECTED 08/12/23 08/12/23 Pack] Previous Rx's Medication Instructions Recorded Atorvastatin [Lipitor] 80 mg PO HS #30 tab 08/11/17 Metoprolol Tartrate [Lopressor] 25 mg PO BID 30 Days #60 tab 08/13/23 Allergies Allergy/AdvReac Type Severity Reaction Status Date / Time adhesive tape Allergy Rash/Hives Verified 08/12/23 18:18 Review of Systems ROS Statement: Those systems with pertinent positive or pertinent negative responses have been documented in the HPI. ROS Other: All systems not noted in ROS Statement are negative. Past Medical History Past Medical History: Atrial Fibrillation, Cancer, GERD/Reflux, Hyperlipidemia, Hypertension, Rheumatoid Arthritis (RA), Sleep Apnea/CPAP/BIPAP Additional Past Medical History / Comment(s): COLON CANCER. OSTEOPOROSIS. History of Any Multi-Drug Resistant Organisms: None Reported Past Surgical History: Appendectomy, Bowel Resection, Heart Catheterization With Stent, Hysterectomy, Orthopedic Surgery Additional Past Surgical History / Comment(s): RIGHT HAND TRIGGER FINGER, spur removed from right foot. Carpal tunnel surgery Past Anesthesia/Blood Transfusion Reactions: Motion Sickness Date of Last Stent Placement:: approx 2014 ? Past Psychological History: Depression Smoking Status: Former smoker - Past Family History Mother Family Medical History: No Reported History Sister(s) Family Medical History: Cancer Additional Family Medical History / Comment(s): kidney cancer. Another sister from lung cancer Father Family Medical History: No Reported History General Exam Limitations: no limitations General appearance: alert, in no apparent distress Head exam: Present: atraumatic, normocephalic, normal inspection Eye exam: Present: normal appearance, PERRL, EOMI. Absent: scleral icterus, conjunctival injection, periorbital swelling ENT exam: Present: normal exam, mucous membranes moist Neck exam: Present: normal inspection. Absent: tenderness, meningismus, lymphadenopathy Respiratory exam: Present: normal lung sounds bilaterally. Absent: respiratory distress, wheezes, rales, rhonchi, stridor Cardiovascular Exam: Present: regular rate, normal rhythm, systolic murmur. Absent: diastolic murmur, rubs, gallop, clicks GI/Abdominal exam: Present: soft, normal bowel sounds. Absent: distended, tenderness, guarding, rebound, rigid Extremities exam: Present: normal inspection, full ROM, normal capillary refill. Absent: tenderness, pedal edema, joint swelling, calf tenderness Back exam: Present: normal inspection Neurological exam: Present: alert, oriented X3, CN II-XII intact Psychiatric exam: Present: normal affect, normal mood Skin exam: Present: warm, dry, intact, normal color. Absent: rash Course Vital Signs 08/12/23 08/12/23 08/12/23 14:57 18:19 20:14 Temperature 97.3 F L Pulse Rate 88 83 81 Pulse Rate [ Right Sitting Brachial] Respiratory 20 18 18 Rate Blood Pressure 121/43 147/73 131/53 Blood Pressure [Right Arm Sitting] O2 Sat by Pulse 98 97 98 Oximetry 08/12/23 08/13/23 08/13/23 22:22 01:05 04:35 Temperature Pulse Rate 73 76 81 Pulse Rate [ Right Sitting Brachial] Respiratory 18 18 18 Rate Blood Pressure 127/48 135/59 Blood Pressure [Right Arm Sitting] O2 Sat by Pulse 97 98 98 Oximetry 08/13/23 08/13/23 08:00 14:00 Temperature 98.4 F Pulse Rate Pulse Rate [ 77 77 Right Sitting Brachial] Respiratory 16 16 Rate Blood Pressure Blood Pressure 141/61 [Right Arm Sitting] O2 Sat by Pulse 99 Oximetry Medical Decision Making - Medical Decision Making Was pt. sent in by a medical professional or institution (, PA, [employer], urgent care, hospital, or care home...) When possible be specific @ -No Did you speak to anyone other than the patient for history (EMS, parent, family, police, friend...)? What history was obtained from this source @ -No Did you review nursing and triage notes (agree or disagree)? Why? @ -I reviewed and agree with nursing and triage notes Were old charts reviewed (outside hosp., previous admission, EMS record, old EKG, old radiological studies, urgent care reports/EKG's, care home records)? Report findings @ -No old charts were reviewed Differential Diagnosis (chest pain, altered mental status, abdominal pain women, abdominal pain men, vaginal bleeding, weakness, fever, dyspnea, syncope, headache, dizziness, GI bleed, back pain, seizure, CVA, palpatations, mental health, musculoskeletal)? @ -Differential Chest Pain: Stable Angina, Unstable Angina, STEMI, NSTEMI Aortic Dissection, Pneumothorax, Musculoskeletal, Esophageal Spasm GERD, Cholecystitis, Pancreatitis, Zoster, this is not meant to be an all-inclusive list. EKG interpreted by me (3pts min.). @ -Yes and demonstrates sinus rhythm with a rate of 85. TX interval 186. QRS 99. QTc of 420. ST depression 2, 3, aVF V3 through V6 X-rays interpreted by me (1pt min.). @ -None done CT interpreted by me (1pt min.). @ -Yes which demonstrates COPD changes and a moderate hiatal hernia U/S interpreted by me (1pt. min.). @ -None done What testing was considered but not performed or refused? (CT, X-rays, U/S, labs)? Why? @ -None What meds were considered but not given or refused? Why? @ -None Did you discuss the management of the patient with other professionals (professionals i.e. , PA, [employer], lab, RT, psych nurse, social media sr strategy manager, ampoule examiner, teacher, chairman and chief executive officer, case investigator)? Give summary @ -Spoke with Maria Luisa from [facility] who agreed to admit the patient Was smoking cessation discussed for >3mins.? @ -No Was critical care preformed (if so, how long)? @ -No Were there social determinants of health that impacted care today? How? (Homelessness, low income, unemployed, alcoholism, drug addiction, transportation, low edu. Level, literacy, decrease access to med. care, [facility], rehab)? @ -No Was there de-escalation of care discussed even if they declined (Discuss DNR or withdrawal of care, Hospice)? DNR status @ -No What co-morbidities impacted this encounter? (DM, HTN, Smoking, COPD, CAD, Cancer, CVA, ARF, Chemo, Hep., AIDS, mental health diagnosis, sleep apnea, morbid obesity)? @ -Colon cancer, A-fib, coronary artery disease, valvular disease Was patient admitted / discharged? Hospital course, mention meds given and route, prescriptions, significant lab abnormalities, going to OR and other pertinent info. @ -Upon arrival patient was placed in the hallway 18. Thorough history and physical exam was performed. Twelve-lead EKG was obtained. Laboratory studies are conducted. D-dimer is elevated and therefore the patient does go for CT. It demonstrates COPD changes with coronary artery calcifications. No PE. Due to patient's cardiac history with chest pain I recommended admission in order to trend her troponins. She does have anemia. Patient will be admitted to [facility] with Dr. Damon and cardiology placed on consult Undiagnosed new problem with uncertain prognosis? @ -Yes Drug Therapy requiring intensive monitoring for toxicity (Heparin, Nitro, Insulin, Cardizem)? @ -No Were any procedures done? @ -No Diagnosis/symptom? @ -Acute chest pain, possible unstable angina, chronic anemia, systolic murmur Acute, or Chronic, or Acute on Chronic? @ -Acute Uncomplicated (without systemic symptoms) or Complicated (systemic symptoms)? @ -Complicated Side effects of treatment? @ -No Exacerbation, Progression, or Severe Exacerbation? @ -No Poses a threat to life or bodily function? How? (Chest pain, USA, MD, pneumonia, PE, COPD, DKA, ARF, appy, cholecystitis, CVA, Diverticulitis, Homicidal, Suicidal, threat to staff... and all critical care pts) @ -No - Lab Data Result diagrams: 08/13/23 07:14 08/13/23 07:14 Lab Results 08/12/23 08/12/23 08/12/23 Range/Units 16:00 16:00 16:00 WBC 12.3 H (3.8-10.6) k/uL RBC 2.46 L (3.80-5.40) m/uL Hgb 7.7 L (11.4-16.0) gm/dL Hct 23.7 L (34.0-46.0) % MCV 96.5 (80.0-100.0) fL MCH 31.3 (25.0-35.0) pg MCHC 32.5 (31.0-37.0) g/dL RDW 15.4 (11.5-15.5) % Plt Count 350 (150-450) k/uL MPV 8.3 Neutrophils % 89 % Lymphocytes % 5 % Monocytes % 5 % Eosinophils % 0 % Basophils % 0 % Neutrophils # 10.9 H (1.3-7.7) k/uL Lymphocytes # 0.6 L (1.0-4.8) k/uL Monocytes # 0.6 (0-1.0) k/uL Eosinophils # 0.0 (0-0.7) k/uL Basophils # 0.0 (0-0.2) k/uL Hypochromasia Slight PT 10.4 (10.0-12.5) sec INR 0.9 (<1.2) APTT 23.0 (22.0-30.0) sec D-Dimer 1.35 H (<0.60) mg/L FEU Sodium 131 L (137-145) mmol/L Potassium 3.6 (3.5-5.1) mmol/L Chloride 104 (98-107) mmol/L Carbon Dioxide 22 (22-30) mmol/L Anion Gap 5 mmol/L BUN 32 H (7-17) mg/dL Creatinine 1.05 H (0.52-1.04) mg/dL Est GFR (CKD-EPI)AfAm 57 (>60 ml/min/1.73 sqM) Est GFR (CKD-EPI)NonAf 50 (>60 ml/min/1.73 sqM) Glucose 106 H (74-99) mg/dL Plasma Lactic Acid Gerry (0.7-2.0) mmol/L Calcium 8.5 (8.4-10.2) mg/dL Total Bilirubin 0.3 (0.2-1.3) mg/dL AST 28 (14-36) U/L ALT 16 (4-34) U/L Alkaline Phosphatase 57 (38-126) U/L Troponin I (0.000-0.034) ng/mL NT-Pro-B Natriuret Pep 509 pg/mL Total Protein 6.0 L (6.3-8.2) g/dL Albumin 3.3 L (3.5-5.0) g/dL 08/12/23 08/12/23 Range/Units 16:00 16:00 WBC (3.8-10.6) k/uL RBC (3.80-5.40) m/uL Hgb (11.4-16.0) gm/dL Hct (34.0-46.0) % MCV (80.0-100.0) fL MCH (25.0-35.0) pg MCHC (31.0-37.0) g/dL RDW (11.5-15.5) % Plt Count (150-450) k/uL MPV Neutrophils % % Lymphocytes % % Monocytes % % Eosinophils % % Basophils % % Neutrophils # (1.3-7.7) k/uL Lymphocytes # (1.0-4.8) k/uL Monocytes # (0-1.0) k/uL Eosinophils # (0-0.7) k/uL Basophils # (0-0.2) k/uL Hypochromasia PT (10.0-12.5) sec INR (<1.2) APTT (22.0-30.0) sec D-Dimer (<0.60) mg/L FEU Sodium (137-145) mmol/L Potassium (3.5-5.1) mmol/L Chloride (98-107) mmol/L Carbon Dioxide (22-30) mmol/L Anion Gap mmol/L BUN (7-17) mg/dL Creatinine (0.52-1.04) mg/dL Est GFR (CKD-EPI)AfAm (>60 ml/min/1.73 sqM) Est GFR (CKD-EPI)NonAf (>60 ml/min/1.73 sqM) Glucose (74-99) mg/dL Plasma Lactic Acid Gerry 0.8 (0.7-2.0) mmol/L Calcium (8.4-10.2) mg/dL Total Bilirubin (0.2-1.3) mg/dL AST (14-36) U/L ALT (4-34) U/L Alkaline Phosphatase (38-126) U/L Troponin I <0.012 (0.000-0.034) ng/mL NT-Pro-B Natriuret Pep pg/mL Total Protein (6.3-8.2) g/dL Albumin (3.5-5.0) g/dL Disposition Clinical Impression: Symptomatic anemia, Chest pain, Exertional dyspnea Disposition: ADMITTED IP TO THIS [facility] Condition: Stable Is patient prescribed a controlled substance at d/c from ED?: No Time of Disposition: 18:17 Decision to Admit Reason: Admit from EC Decision Date: 08/12/23 Decision Time: 18:17
[2023-08-12 16:22] LABS: Basophils % (A) 0 %; Eosinophils % (A) 0 %; HCT 23.7 % (34.0-46.0); HGB 7.7 gm/dL (11.4-16.0); Hypochromasia Slight; Lymphocytes # (A) 0.6 k/uL (1.0-4.8); Lymphocytes % (A) 5 %; MCH 31.3 pg (25.0-35.0); MCHC 32.5 g/dL (31.0-37.0); MCV 96.5 fL (80.0-100.0); Mean Platelet Volume 8.3; Monocytes # (A) 0.6 k/uL (0-1.0); Monocytes % (A) 5 %; Neutrophils # (A) 10.9 k/uL (1.3-7.7); Neutrophils % (A) 89 %; Platelet Count 350 k/uL (150-450); RBC 2.46 m/uL (3.80-5.40); RDW 15.4 % (11.5-15.5); WBC 12.3 k/uL (3.8-10.6)
[2023-08-12 16:31] LABS: INR 0.9 (<1.2); Prothrombin Time 10.4 sec (10.0-12.5)
[2023-08-12 17:08] LABS: ALT 16 U/L (4-34); AST 28 U/L (14-36); African American GFR (CKD) 57 (>60 ml/min/1.73 sqM); Albumin 3.3 g/dL (3.5-5.0); Alkaline Phosphatase 57 U/L (38-126); Anion Gap 5 mmol/L; Blood Urea Nitrogen 32 mg/dL (7-17); Calcium 8.5 mg/dL (8.4-10.2); Carbon Dioxide 22 mmol/L (22-30); Chloride 104 mmol/L (98-107); Glucose 106 mg/dL (74-99); Non-African American GFR(CKD) 50 (>60 ml/min/1.73 sqM); Potassium 3.6 mmol/L (3.5-5.1); Sodium 131 mmol/L (137-145); Total Bilirubin 0.3 mg/dL (0.2-1.3)
[2023-08-12 17:13] LABS: NT-Pro-B-Type Natriuretic Pept 509 pg/mL
[2023-08-12] MEDS ORDERED: NALOXONE 0.4 MG/ML 1 ML VIAL IV PRN (18:17)
--- NOTE | 2023-08-12 18:34 | CT ---
EXAMINATION TYPE: CT chest angio for PE DATE OF EXAM: 08/12/2023 COMPARISON: None HISTORY: 83-year-old female with exertional dyspnea, SOB TECHNIQUE: Contiguous axial scanning of the chest performed with IV Contrast, patient injected with 8 0 mL of Isovue 370. Coronal and sagittal MIP reconstructions performed. CT DLP: 360.1 mGycm Automated exposure control for dose reduction was used. FINDINGS: The heart is borderline in size. No flattening of the interventricular septum reflux of contrast into the hepatic veins. Three-vessel coronary artery calcifications are present and there are marker for coronary artery disease. Mild atherosclerotic arch calcifications. Aberrant direct takeoff of the left vertebral artery direct ly from the aortic arch. Borderline caliber main right and left pulmonary arteries measuring up to 2.6 cm. Satisfactory opacif ication of the pulmonary arterial system. There are no pulmonary embolus is seen. No thoracic lymphadenopathy by CT size criteria. * There is a 1.0 cm subpleural pulmonary nodule right infrahilar region within the middle lobe, axia l image 87. * Suspect a partially calcified granuloma posterior right upper lobe measuring 5 mm. * Additional pulmonary nodule posterior right mid lung measuring 6 mm. Mild diffuse bronchial wall thickening. Strandy atelectasis or scarring inferior lingula and right mi ddle lobe. Mild emphysematous change. Minimal biapical pleural-parenchymal scarring. No consolidation or pleural effusion. There is a moderate size hiatal hernia involving a third of the stomach within the lower chest. Calci fied granuloma posterior right liver lobe. Moderate atherosclerotic calcifications throughout the vis ualized proximal abdominal aorta. Possible severe narrowing at the origin of the celiac axis and at l east moderate at the origin of the SMA. Bones: Moderate degenerative disc disease lower thoracic spine. Osteopenia. IMPRESSION: 1. COPD WITH MILD EMPHYSEMA. THERE MAY BE UNDERLYING PULMONARY HYPERTENSION. CAD WITH 3 VESSEL TREJO RY ARTERY CALCIFICATIONS. 2. NO EVIDENCE FOR PULMONARY EMBOLUS. 3. A 1 CM SUBPLEURAL PULMONARY NODULE RIGHT INFRAHILAR REGION, MIDDLE LOBE. AN ADDITIONAL 6 MM RIGHT MIDLUNG PULMONARY NODULE. RECOMMEND THREE-MONTH FOLLOW-UP CT TO EXCLUDE EARLY NEOPLASM. THE PATIENT S HOULD NOT BE LOST TO FOLLOW-UP. 4. MODERATE-SIZED HIATAL HERNIA WITH A THIRD OF THE STOMACH IN THE LOWER CHEST. 5. POSSIBLE SEVERE ATHEROSCLEROTIC STENOSIS ORIGIN OF THE CELIAC AXIS AND AT LEAST MODERATE NARROWING AT THE ORIGIN OF THE SMA.
[2023-08-13] MEDS: CLOPIDOGREL 75 MG TAB PO SCH (08:09)
[2023-08-13] MEDS: FOLIC ACID 1 MG TAB PO SCH (08:09)
[2023-08-13] MEDS: amLODIPine 10 MG TAB PO SCH (08:09)
[2023-08-13] MEDS: PANTOPRAZOLE 40 MG TABLET PO SCH (08:10)
[2023-08-13] MEDS: metHOTREXate sodium 2.5 MG TAB PO SCH (09:29)
--- NOTE | 2023-08-13 10:21 | P.CRDCN ---
History of Present Illness History of present illness: HISTORY OF PRESENT ILLNESS: This is a 83-year-old female with a past medical history significant for coronary artery disease with previous stenting, hypertension, hyperlipidemia, palpitations, and valvular heart disease. Patient follows in the office with Dr. Arias. We have been asked to see the patient in consultation for chest pain. Patient examined at the bedside in the emergency room. Patient states that she has been feeling short of breath with exertion over the past week. She states that she started walking the halls of her apartment recently and began to notice shortness of breath. She states that she walked 2 floors and had to return back to her apartment due to shortness of breath. She also reports yesterday she was cleaning her home when she began to have shortness of breath as well. She states she has been having chest discomfort when she has these episodes of shortness of breath. She currently denies any chest pain or pressure at the time of examination. She denies any shortness of breath at the time of examination. She reports that she has been having black stools intermittently for the past few months. She is prescribed Plavix on an outpatient basis for history of CAD. Hemoglobin on admission was 7.7 which is down from 10.5. She has been evaluated by GI and plan is for outpatient endoscopy on Wednesday. The patient also reports a history of palpitations and states that she is supposed to have a loop recorder insertion placed sometime in the near future although this has not been scheduled as of yet. DIAGNOSTICS: - EKG reveals sinus mechanism with ST depression inferiorly. - Chest CTA: COPD with mild emphysema. There may be underlying pulmonary hypertension. CAD with three-vessel coronary artery calcifications. No evidence for pulmonary embolism. 1 cm subpleural pulmonary nodule right infrahilar region, middle lobe. An additional 6 mm right midlung pulmonary nodule. Moderate sized hiatal hernia. Possible severe atherosclerotic stenosis origin of the celiac axis and at least moderate narrowing at the origin of the SMA. - Laboratory data: WBC 12.3. Hemoglobin 7.7. Platelet count 350. Sodium 131. Potassium 3.6. BUN 32. Creatinine 1.05. Lactic acid 0.8. Troponin negative x 3. proBNP 509. - Current home cardiac medications include amlodipine 10 mg daily, Plavix 75 mg daily, atorvastatin 80 mg at night, and Dyazide 37.5-25 mg daily. - Most recent echocardiogram obtained in March 2023 revealed ejection fraction 55 to 60%, grade 2 diastolic dysfunction, mild LVH, moderate aortic stenosis, mild to moderate mitral regurgitation, moderate tricuspid regurgitation, RVSP 39 mmHg - Patient underwent Lexiscan stress test in April 2023 revealing ejection fraction 60% with no evidence of reversible ischemia - Cardiac catheterization history: December 2017 revealing right dominant system. No significant coronary artery disease. The previously stented circumflex is widely patent. REVIEW OF SYSTEMS: At the time of my exam: CONSTITUTIONAL: Denies fever or chills. HEENT: Denies blurred vision, vision changes, or eye pain. Denies hemoptysis CARDIOVASCULAR: Denies chest pain. Denies orthopnea. Denies PND. Denies palpitations RESPIRATORY: Denies shortness of breath. GASTROINTESTINAL: Denies abdominal pain. Denies nausea or vomiting. HEMATOLOGIC: Denies bleeding disorders. GENITOURINARY: Denies any blood in urine. SKIN: Denies pruitis. Denies rash. PHYSICAL EXAM: VITAL SIGNS: Reviewed. GENERAL: Well-developed in no acute distress. HEENT: Head is normocephalic. Pupils are equal, round. Sclerae anicteric. Mucous membranes of the mouth are moist. Neck supple. No JVD or thyromegaly LUNGS: Respirations even and unlabored. Lungs essentially clear to auscultation bilaterally. HEART: Regular rate and rhythm. S1 and S2 heard. Systolic murmur noted at the base and apex. ABDOMEN: Soft. Nondistended. Nontender. EXTREMITIES: Normal range of motion. No clubbing or cyanosis. Peripheral pulses intact. No lower extremity edema NEUROLOGIC: Awake and alert. Oriented x 3. ASSESSMENT: Shortness of breath with exertion Acute anemia, hemoglobin 7.7 on admission Intermittent black stools x 2 months Exertional chest pain, may be secondary to acute anemia and worsened with valvular heart disease Coronary artery disease with previous stenting of the circumflex, 2018 Valvular heart disease including moderate , mild to moderate MR, moderate TR Hypertension Hyperlipidemia History of palpitations PLAN: An acute coronary event has been ruled out Obtain limited echo to assess LV function and valvular disease Add metoprolol 25mg BID Patient has been evaluated by GI service and is scheduled for outpatient endoscopy on Wednesday. Patient's Plavix has been discontinued for endoscopy. If no significant bleeding noted on endoscopy on Wednesday, recommend beginning aspirin 81 mg daily and not resuming Plavix as last PCI was 2018 Further recommendations pending patient course Nurse practitioner note has been reviewed by physician. Signing provider agrees with the documented findings, assessment, and plan of care documented by MAIL MACHINE OPERATOR as a scribe. Past Medical History Past Medical History: Atrial Fibrillation, Cancer, GERD/Reflux, Hyperlipidemia, Hypertension, Rheumatoid Arthritis (RA), Sleep Apnea/CPAP/BIPAP Additional Past Medical History / Comment(s): COLON CANCER. OSTEOPOROSIS. History of Any Multi-Drug Resistant Organisms: None Reported Past Surgical History: Appendectomy, Bowel Resection, Heart Catheterization With Stent, Hysterectomy, Orthopedic Surgery Additional Past Surgical History / Comment(s): RIGHT HAND TRIGGER FINGER, spur removed from right foot. Carpal tunnel surgery Past Anesthesia/Blood Transfusion Reactions: Motion Sickness Date of Last Stent Placement:: approx 2014 ? Past Psychological History: Depression Smoking Status: Former smoker - Past Family History Mother Family Medical History: No Reported History Sister(s) Family Medical History: Cancer Additional Family Medical History / Comment(s): kidney cancer. Another sister from lung cancer Father Family Medical History: No Reported History Medications and Allergies Home Medications Medication Instructions Recorded Confirmed Type Atorvastatin [Lipitor] 80 mg PO HS #30 tab 08/11/17 08/12/23 Rx Triamterene-Hctz 37.5-25Mg 1 cap PO DAILY 01/15/18 08/12/23 History [Dyazide 37.5-25 Capsule] FLUoxetine HCL [PROzac] 40 mg PO HS 06/27/18 08/12/23 History Irbesartan [Avapro] 300 mg PO DAILY 07/29/18 08/12/23 History Folic Acid 1 mg PO DAILY 12/15/19 08/12/23 History Pantoprazole Sodium [Protonix] 40 mg PO DAILY 06/02/20 08/12/23 History metHOTREXate sodium [Methotrexate] 25 mg PO FR 06/02/20 08/12/23 History Clopidogrel [Plavix] 75 mg PO DAILY 02/21/21 08/12/23 History amLODIPine [Norvasc] 10 mg PO DAILY 02/21/21 08/12/23 History Infliximab-Dyyb [Inflectra] 1 dose IV Q365D 08/12/23 08/12/23 History methylPREDNISolone [Medrol Dose See Taper PO DIRECTED 08/12/23 08/12/23 History Pack] Allergies Allergy/AdvReac Type Severity Reaction Status Date / Time adhesive tape Allergy Rash/Hives Verified 08/12/23 18:18 Physical Exam Vitals: Vital Signs Temp Pulse Resp BP Pulse Ox 08/13/23 04:35 81 18 135/59 98 08/13/23 01:05 76 18 127/48 98 08/12/23 22:22 73 18 97 08/12/23 20:14 81 18 131/53 98 08/12/23 18:19 83 18 147/73 97 08/12/23 14:57 97.3 F L 88 20 121/43 98 Results 08/13/23 07:14 08/13/23 07:14 Cardiac Enzymes 08/12/23 08/12/23 08/12/23 Range/Units 16:00 16:00 20:38 AST 28 (14-36) U/L Troponin I <0.012 0.017 (0.000-0.034) ng/mL 08/13/23 Range/Units 00:53 AST (14-36) U/L Troponin I 0.018 (0.000-0.034) ng/mL Coagulation 08/12/23 Range/Units 16:00 PT 10.4 (10.0-12.5) sec APTT 23.0 (22.0-30.0) sec CBC 08/12/23 Range/Units 16:00 WBC 12.3 H (3.8-10.6) k/uL RBC 2.46 L (3.80-5.40) m/uL Hgb 7.7 L (11.4-16.0) gm/dL Hct 23.7 L (34.0-46.0) % Plt Count 350 (150-450) k/uL Comprehensive Metabolic Panel 08/12/23 Range/Units 16:00 Sodium 131 L (137-145) mmol/L Potassium 3.6 (3.5-5.1) mmol/L Chloride 104 (98-107) mmol/L Carbon Dioxide 22 (22-30) mmol/L BUN 32 H (7-17) mg/dL Creatinine 1.05 H (0.52-1.04) mg/dL Glucose 106 H (74-99) mg/dL Calcium 8.5 (8.4-10.2) mg/dL AST 28 (14-36) U/L ALT 16 (4-34) U/L Alkaline Phosphatase 57 (38-126) U/L Total Protein 6.0 L (6.3-8.2) g/dL Albumin 3.3 L (3.5-5.0) g/dL Current Medications Generic Name Dose Route Start Last Admin Trade Name Freq PRN Reason Stop Dose Admin Amlodipine Besylate 10 mg 08/13/23 09:00 08/13/23 08:09 Amlodipine 10 Mg Tab PO 10 mg DAILY BALTA Administration Atorvastatin Calcium 80 mg 08/13/23 21:00 Atorvastatin 80 Mg Tab PO HS BALTA Clopidogrel Bisulfate 75 mg 08/13/23 09:00 08/13/23 08:09 Clopidogrel 75 Mg Tab PO 75 mg DAILY BALTA Administration Fluoxetine HCl 40 mg 08/13/23 21:00 Fluoxetine Hcl 20 Mg Cap PO HS BALTA Folic Acid 1 mg 08/13/23 09:00 08/13/23 08:09 Folic Acid 1 Mg Tab PO 1 mg DAILY BALTA Administration Methotrexate 25 mg 08/13/23 09:00 Methotrexate Sodium 2.5 Mg Tab PO FR BALTA Naloxone HCl 0.2 mg 08/12/23 18:17 Naloxone 0.4 Mg/Ml 1 Ml Vial IV Q2M PRN Opioid Reversal Pantoprazole Sodium 40 mg 08/13/23 07:30 08/13/23 08:10 Pantoprazole 40 Mg Tablet PO 40 mg DAILY@0730 BALTA Administration 08/12/23 16:00 08/12/23 16:00
[2023-08-13 10:25] VITALS: BP 141/61; PULSE 77; RESP 16; TEMP 98.4
--- NOTE | 2023-08-13 11:02 | P.CONS ---
History of Present Illness - Reason for Consult Consult date: 08/13/23 Anemia Requesting physician: Esther Lu - Chief Complaint Chest pain and shortness of breath - History of Present Illness This is a pleasant 83-year-old female who presented to the emergency department with acute chest pain and exertional dyspnea. She was noted to be anemic with a hemoglobin of 7.7. She has a history of colon cancer, coronary artery disease with previous stenting, hypertension, per lipidemia, palpitations and valvular heart disease. She states she has been having some occasional dark stool kind of black but kind of greenish. She denies any abdominal pain, nausea or vomiting. She also has a history of previous anemia back in 2019 and 2019. In 2019 she underwent EGD and colonoscopy with findings of hiatal hernia, mild gastritis. Colonoscopy with anatomy consistent with prior right hemicolectomy mild sigmoid and descending diverticulosis. Erythematous descending colonic fold biopsied. Mild internal hemorrhoids. No evidence of active GI bleed or pathology to explain anemia. She underwent an EGD in 2019 for GERD with findings of mild gastritis and moderate hiatal hernia. Admitting labs WBC 12.3 hemoglobin 7.7 hematocrit 23.7 INR 0.9 sodium 131 potassium 3.6 BUN 32 creatinine 1.05 total bilirubin 0.3 AST 28 ALT 16 alkaline phosphatase 57 BNP 509 Review of Systems REVIEW OF SYSTEMS: CARDIOPULMONARY: Patient presented with acute chest pain and shortness of breath especially with exertion. Gastrointestinal: No abdominal pain. No nausea or vomiting. No hematemesis, coffee-ground emesis. No rectal bleeding, or melena. GENITOURINARY: No dysuria or hematuria. MUSCULOSKELETAL: Reports normal range of motion., Joint pain. SKIN: No rashes. No jaundice. ENDOCRINE: No chills, fevers. No excessive weight gain or loss. No polydipsia or polyuria. PSYCHIATRIC: Unremarkable. NEUROLOGY: No change in mental status. Denies dizziness, headache. ENT: Vision unremarkable. CONSTITUTIONAL: No recent weight loss. No fever, chills, night sweats. Past Medical History Past Medical History: Atrial Fibrillation, Cancer, GERD/Reflux, Hyperlipidemia, Hypertension, Rheumatoid Arthritis (RA), Sleep Apnea/CPAP/BIPAP Additional Past Medical History / Comment(s): COLON CANCER. OSTEOPOROSIS. History of Any Multi-Drug Resistant Organisms: None Reported Past Surgical History: Appendectomy, Bowel Resection, Heart Catheterization With Stent, Hysterectomy, Orthopedic Surgery Additional Past Surgical History / Comment(s): RIGHT HAND TRIGGER FINGER, spur removed from right foot. Carpal tunnel surgery Past Anesthesia/Blood Transfusion Reactions: Motion Sickness Date of Last Stent Placement:: approx 2014 ? Past Psychological History: Depression Smoking Status: Former smoker - Past Family History Mother Family Medical History: No Reported History Sister(s) Family Medical History: Cancer Additional Family Medical History / Comment(s): kidney cancer. Another sister from lung cancer Father Family Medical History: No Reported History Medications and Allergies Home Medications Medication Instructions Recorded Confirmed Type Atorvastatin [Lipitor] 80 mg PO HS #30 tab 08/11/17 08/12/23 Rx Triamterene-Hctz 37.5-25Mg 1 cap PO DAILY 01/15/18 08/12/23 History [Dyazide 37.5-25 Capsule] FLUoxetine HCL [PROzac] 40 mg PO HS 06/27/18 08/12/23 History Irbesartan [Avapro] 300 mg PO DAILY 07/29/18 08/12/23 History Folic Acid 1 mg PO DAILY 12/15/19 08/12/23 History Pantoprazole Sodium [Protonix] 40 mg PO DAILY 06/02/20 08/12/23 History metHOTREXate sodium [Methotrexate] 25 mg PO FR 06/02/20 08/12/23 History Clopidogrel [Plavix] 75 mg PO DAILY 02/21/21 08/12/23 History amLODIPine [Norvasc] 10 mg PO DAILY 02/21/21 08/12/23 History Infliximab-Dyyb [Inflectra] 1 dose IV Q365D 08/12/23 08/12/23 History methylPREDNISolone [Medrol Dose See Taper PO DIRECTED 08/12/23 08/12/23 History Pack] Allergies Allergy/AdvReac Type Severity Reaction Status Date / Time adhesive tape Allergy Rash/Hives Verified 08/12/23 18:18 Physical Exam Vitals: Vital Signs Temp Pulse Resp BP Pulse Ox 08/13/23 04:35 81 18 135/59 98 08/13/23 01:05 76 18 127/48 98 08/12/23 22:22 73 18 97 08/12/23 20:14 81 18 131/53 98 08/12/23 18:19 83 18 147/73 97 08/12/23 14:57 97.3 F L 88 20 121/43 98 Intake and Output 08/12/23 08/12/23 08/13/23 14:59 22:59 06:59 Other: Weight 82.554 kg General appearance: The patient is alert, oriented, appears in no acute distress. HET: Head is normocephalic and atraumatic. Conjunctiva pink. Sclera anicteric. Neck: Supple without lymphadenopathy. Trachea midline. Heart: Regular. Lungs: Equal expansion, normal respiratory effort. Abdomen: Soft, nontender, nondistended with bowel sounds. No guarding or rigidity. Skin: No rashes. No jaundice. Extremities: Normal skin color and turgor. No pedal edema. Neurological: No focal deficits. Alert and oriented x3. Results CBC & Chem 7: 08/12/23 16:00 08/12/23 16:00 Labs: Abnormal Lab Results - Last 24 Hours (Table) 08/12/23 08/12/23 08/12/23 Range/Units 16:00 16:00 16:00 WBC 12.3 H (3.8-10.6) k/uL RBC 2.46 L (3.80-5.40) m/uL Hgb 7.7 L (11.4-16.0) gm/dL Hct 23.7 L (34.0-46.0) % Neutrophils # 10.9 H (1.3-7.7) k/uL Lymphocytes # 0.6 L (1.0-4.8) k/uL D-Dimer 1.35 H (<0.60) mg/L FEU Sodium 131 L (137-145) mmol/L BUN 32 H (7-17) mg/dL Creatinine 1.05 H (0.52-1.04) mg/dL Glucose 106 H (74-99) mg/dL Total Protein 6.0 L (6.3-8.2) g/dL Albumin 3.3 L (3.5-5.0) g/dL Comments: Chest CT angiogram COPD with mild emphysema. May be underlying pulmonary hypertension. Coronary artery disease with three-vessel coronary artery calcification. No evidence for pulmonary embolism. 1 cm subpleural pulmonary nodule right infrahilar region, middle lobe. And additional 6 mm right midlung pulmonary nodule recommend 3- month follow-up CT to exclude early neoplasm. Moderate size hiatal hernia with third of the stomach in the lower chest. Possible severe arthrosclerotic stenosis at origin of celiac axis and at least moderate narrowing at the origin of the SMA Assessment and Plan (1) Symptomatic anemia Narrative/Plan: 83-year-old female presenting with chest pain and shortness of breath. Mostly dyspnea on exertion was found to have a hemoglobin of 7.7. Patient with multiple comorbidities with possible symptomatic anemia presenting as a normochromic normocytic anemia. Unclear if patient is having melena states that she has had some dark stool but also green. However she does have a history of colon cancer with previous hemicolectomy. No complaints of bright red blood in the stool. No abdominal pain nausea or vomiting. Unclear etiology at this time. However patient's hemoglobin is stable and she is currently being worked up by cardiology. Patient also on Plavix for coronary artery disease with previous stenting. Recommend further cardiac workup holding Plavix and is scheduled for outpatient EGD and colonoscopy next week 08/17/2023. Current Visit: Yes Status: Acute Code(s): D64.9 - ANEMIA, UNSPECIFIED SNOMED Code(s): 442263488 (2) Coronary artery disease Current Visit: Yes Status: Acute Code(s): I25.10 - ATHSCL HEART DISEASE OF [place] CORONARY ARTERY W/O ANG PCTRS SNOMED Code(s): 19513152 (3) History of colon cancer Current Visit: Yes Status: Acute Code(s): Z85.038 - PERSONAL HISTORY OF MALIGNANT NEOPLASM OF LARGE INTESTINE SNOMED Code(s): 977158158 (4) Chest pain Current Visit: Yes Status: Acute Code(s): R07.9 - CHEST PAIN, UNSPECIFIED SNOMED Code(s): 44342290 (5) Exertional dyspnea Current Visit: Yes Status: Acute Code(s): R06.09 - OTHER FORMS OF DYSPNEA SNOMED Code(s): 97417288 (6) Hypertension Current Visit: No Status: Acute Code(s): I10 - ESSENTIAL (PRIMARY) HYPERTENSION SNOMED Code(s): 27345918 Plan: 1. Continue symptomatic and supportive care 2. Daily CBC, transfuse for hemoglobin less than 7 3. Continue cardiology workup and recommendations 4. Patient without any evidence of hany GI bleed, no plans on endoscopic evaluation at this time. Recommend holding Plavix for 5 days and will schedule patient for outpatient EGD and colonoscopy on 08/17/2023. Patient agreeable with plan. Thank you for this consultation, we will sign off at this time as therre will be no further GI coverage. Dr. Shahid Huston I agree with the dictator's note, documented as a scribe by Marycarmen Sheehan.
[2023-08-13 11:06] LABS: Basophils # (A) 0.05 X 10*3/uL (0.00-0.10); Basophils % (A) 0.6 %; Eosinophils # (A) 0.16 X 10*3/uL (0.04-0.35); Eosinophils % (A) 1.8 %; HCT 25.7 % (37.2-46.3); Lymphocytes # (A) 1.99 X 10*3/uL (0.90-5.00); Lymphocytes % (A) 22.2 %; MCH 30.4 pg (27.0-32.0); MCHC 31.1 g/dL (32.0-37.0); MCV 97.7 FL (80.0-97.0); Mean Platelet Volume 10.5 FL (9.5-12.2); Monocytes # (A) 1.11 X 10*3/uL (0.20-1.00); Monocytes % (A) 12.4 %; NRBC Per 100 WBC 0 X 10*3/uL (0.00-0.01); Neutrophils # (A) 5.62 X 10*3/uL (1.80-7.70); Neutrophils % (A) 62.7 %; Platelet Count 412 X 10*3/uL (140-440); RBC 2.63 X 10*6/uL (4.10-5.20); RDW 15.6 % (11.5-14.5); WBC 8.96 X 10*3/uL (4.50-10.00)
[2023-08-13 11:21] LABS: Blood Urea Nitrogen 22.4 mg/dL (9.0-27.0); Calcium 9.1 mg/dL (8.7-10.3); Carbon Dioxide 26.1 mmol/L (21.6-31.8); Chloride 102 mmol/L (96-109); Glucose 79 mg/dL (70-110); Potassium 4.1 mmol/L (3.5-5.5); Sodium 139 mmol/L (135-145)
--- NOTE | 2023-08-13 17:12 | CA ---
Transthoracic Echo Report Name: Ramila Cowart Age: 83 Gender: F : 1940 Exam Date: 08/13/2023 14:26 Exam Location: [facility] Ht (in): 67 Wt (lb): 182 Ordering Physician: Kristyn Pollack Attending/Referring Phys: [id number], Jaki Performance Specialist Maura Albrecht RDCS Procedure CPT: Indications: EF, evaluate valves and wall motion abnormality Cardiac Hx: Technical Quality: Fair Contrast 1: Total Dose (mL): Contrast 2: Total Dose (mL): MEASUREMENTS (Male / Female) Normal Values 2D ECHO LV Diastolic Diameter PLAX 3.6 cm 4.2 - 5.9 / 3.9 - 5.3 cm LV Systolic Diameter PLAX 2.7 cm IVS Diastolic Thickness 1.1 cm 0.6 - 1.0 / 0.6 - 0.9 cm LVPW Diastolic Thickness 1.0 cm 0.6 - 1.0 / 0.6 - 0.9 cm LV Relative Wall Thickness 0.6 LA Systolic Diameter LX 5.5 cm 3.0 - 4.0 / 2.7 - 3.8 cm DOPPLER AV Peak Velocity 330.6 cm/s AV Peak Gradient 46.5 mmHg AV Mean Velocity 243.8 cm/s AV Mean Gradient 27.1 mmHg AV Velocity Time Integral 85.4 cm LVOT Peak Velocity 118.0 cm/s LVOT Peak Gradient 5.6 mmHg LVOT Velocity Time Integral 29.1 cm Mitral E Point Velocity 128.4 cm/s Mitral A Point Velocity 131.7 cm/s Mitral E to A Ratio 1.0 MV Deceleration Time 220.7 ms MV E' Velocity 11.2 cm/s Mitral E to MV E' Ratio 11.4 TR Peak Velocity 211.6 cm/s TR Peak Gradient 17.9 mmHg PV Peak Velocity 39.8 cm/s PV Peak Gradient 0.6 mmHg FINDINGS Left Ventricle Mildly increased septal wall thickness. Mildly increased posterior wall thickness. Left ventricular ejection fraction is estimated at 55-60 %. Right Ventricle Normal right ventricular size and function. Right Atrium Normal right atrial size. Left Atrium Severely increased left atrial diameter. Mitral Valve Trace mitral regurgitation. Aortic Valve Moderate aortic stenosis with a peak gradient of 46 mmHg and a mean gradient of 27 mmHg. Tricuspid Valve Mild tricuspid regurgitation. Pulmonic Valve Pulmonic valve not well visualized. Pericardium Normal pericardium. Aorta Aortic root and proximal ascending aorta not well visualized. CONCLUSIONS Mild increased left ventricular wall thickness Left ventricular ejection fraction 55-60% Trace mitral regurgitation Moderate aortic stenosis Mild tricuspid regurgitation Previewed by: Dr. Flavio Rivera DO (Electronically Signed) Final Date: 13 August 2023 17:12
[2023-08-13] MEDS ORDERED: ATORVASTATIN 80 MG TAB PO SCH (21:00)
[2023-08-13] MEDS ORDERED: METOPROLOL TARTRATE 25 MG TAB PO SCH (21:00)
[2023-08-13] MEDS ORDERED: FLUoxetine HCL 20 MG CAP PO SCH (21:00)
== END 2023-08-13 17:06 | disposition home or self-care (01) ==
LOC: EC 14:48 → 6NMEDSUR 18:20
PROVIDERS: ADMIT Hospitalist; ATTEND Hospitalist
DX: R07.89 Other chest pain (principal); D64.9 Anemia, unspecified; J43.9 Emphysema, unspecified; I48.91 Unspecified atrial fibrillation; I25.10 Atherosclerotic heart disease of native coronary artery without angina pectoris; K44.9 Diaphragmatic hernia without obstruction or gangrene; I10 Essential (primary) hypertension; E78.5 Hyperlipidemia, unspecified; I08.3 Combined rheumatic disorders of mitral, aortic and tricuspid valves; R91.8 Other nonspecific abnormal finding of lung field; Z79.620 Long term (current) use of immunosuppressive biologic; Z79.02 Long term (current) use of antithrombotics/antiplatelets; Z79.631 Long term (current) use of antimetabolite agent; Z79.52 Long term (current) use of systemic steroids; Z79.899 Other long term (current) drug therapy; Z91.048 Other nonmedicinal substance allergy status; Z85.038 Personal history of other malignant neoplasm of large intestine; Z87.19 Personal history of other diseases of the digestive system; Z95.5 Presence of coronary angioplasty implant and graft; Z80.1 Family history of malignant neoplasm of trachea, bronchus and lung
CPT/HCPCS: 99285; 36415; 93005; 93308; 85379; 83880; 80053; 80048; 83605; 84484 ×2; 85025 ×2; 85610; 85730; 71275; G0378 ×2; J8610; Q9967

== ENCOUNTER 2023-08-17 07:38 | Day surgery (SDC) | payer MEDICARE ==
[2023-08-16 10:44] VITALS: BMI 29.3
[~2023-08-17 07:38] MED LIST changes: +LIDOCAINE 1% (10MG/ML) FOR IV START INTRADERMA PRN; -SODIUM CHLORIDE 0.9% 500 ML 500 ML in EMPTY BAG 1 BAG IV PRN; -ZOLEDRONIC ACID 5 MG in SODIUM CHLORIDE 0.9% 100 ML IV NR
[2023-08-17] MEDS: LACTATED RINGERS 1,000 ML IV SCH (08:27)
[2023-08-17 08:29] LABS: Glucose,Whole Blood 95 mg/dL (70-110)
[2023-08-17 08:33] VITALS: TEMP 97.1
[2023-08-17] MEDS ORDERED: PROPOFOL 10 MG/ML 20 ML VIAL IV ONE (08:48)
--- NOTE | 2023-08-17 08:52 | P.PCN ---
Date of Procedure: 08/17/23 Procedure(s) Performed: Brief history: Patient is a pleasant 83-year-old white female scheduled for an elective upper endoscopy as well as colonoscopy as a part of evaluation of severe symptomatic anemia with a hemoglobin of 7 g/dL. She was just hospitalized 5 years ago with anemia. No active bleeding. She was on aspirin and Plavix which is currently on hold. Last EGD and colonoscopy was 7 years ago. Procedure performed: Esophagogastroduodenoscopy with biopsy Colonoscopy Preoperative diagnosis: Severe symptomatic anemia. Anesthesia: MAC Procedure: After informed consent was obtained from the patient was brought into the endoscopy unit and IV sedation was administered by anesthesia under continuous monitoring. Initially upper endoscopy was done. The Olympus GF 160 video endoscope was inserted inserted into the mouth and esophagus intubated without any difficulty and was gradually advanced into the stomach and duodenum and carefully examined. The bulb and second part of the duodenum appeared normal. Abscesses were done from the duodenum to evaluate for celiac disease. The scope was then withdrawn into the stomach adequately insufflated with air and upon careful examination the antrum had mild diffuse gastritis and biopsies were done from this area. Mucosa of the body, cardia and fundus appeared normal. The scope was then withdrawn into the esophagus. Under size hiatal hernia noted. There a few Gal erosions identified at the diaphragmatic hiatus. The GE junction was located at 33 cm to the incisors. It appeared regular with a 3 mm tongue of Mcmanus's-appearing mucosa which was biopsied. Rest of the esophagus appeared normal. Patient tolerated the procedure well. At this time the patient continued to remain sedation. Initial digital rectal examination was normal. Olympus CF 160 video colonoscope was then inserted into the rectum and gradually advanced to the right colon with a liquid anastomosis was visualized and appeared normal. Mucosa of the, transverse colon, descending colon, sigmoid colon and rectum appeared normal. Scattered sigmoid diverticulosis. Retroflexion was performed in the rectum and no lesions were noted. Patient tolerated the procedure well. Impression: 1. Upper endoscopy revealed moderate size hiatal hernia with Gal erosions, antral gastritis and short segment Mcmanus's esophagus 2. colonoscopy revealed scattered sigmoid diverticulosis but no evidence of colonic neoplasia Recommendations: Findings of this examination were discussed with the patient as well as her family. She was advised to follow with the biopsy results. Start iron supplements daily. Resume Plavix today. Follow up in office in one month. If she continues to have persistent iron deficiency anemia she may be a candidate for a small bowel capsule endoscopy.
[2023-08-17 09:15] VITALS: BP 138/60; PULSE 58; RESP 17
== END 2023-08-17 09:35 | disposition home or self-care (01) ==
LOC: ORWHC2ENDO 07:38
PROVIDERS: ATTEND Internal Medicine Gastroenterology
DX: D72.820 Lymphocytosis (symptomatic) (principal); K31.9 Disease of stomach and duodenum, unspecified; D50.0 Iron deficiency anemia secondary to blood loss (chronic); K44.9 Diaphragmatic hernia without obstruction or gangrene; K22.70 Barrett's esophagus without dysplasia; K21.9 Gastro-esophageal reflux disease without esophagitis; K57.30 Diverticulosis of large intestine without perforation or abscess without bleeding; I10 Essential (primary) hypertension; E78.5 Hyperlipidemia, unspecified; I48.91 Unspecified atrial fibrillation; G47.33 Obstructive sleep apnea (adult) (pediatric); Z79.899 Other long term (current) drug therapy; Z98.890 Other specified postprocedural states
CPT/HCPCS: 45378; 88305; 43239; J2704

== ENCOUNTER → 2023-09-07 | Outpatient (CLI) | payer MEDICARE ==
[2023-09-07 15:33] LABS: Anisocytosis Slight; Basophils # (A) 0.1 k/uL (0-0.2); Basophils % (A) 1 %; Eosinophils # (A) 0.3 k/uL (0-0.7); Eosinophils % (A) 4 %; Hypochromasia Moderate; Lymphocytes # (A) 1.3 k/uL (1.0-4.8); Lymphocytes % (A) 15 %; MCH 32.1 pg (25.0-35.0); MCHC 32.7 g/dL (31.0-37.0); Macrocytosis Slight; Mean Platelet Volume 7.9; Monocytes # (A) 0.4 k/uL (0-1.0); Monocytes % (A) 4 %; Neutrophils # (A) 6.6 k/uL (1.3-7.7); Neutrophils % (A) 74 %; Platelet Count 379 k/uL (150-450); RBC 2.02 m/uL (3.80-5.40); RDW 17.7 % (11.5-15.5); WBC 8.9 k/uL (3.8-10.6)
[2023-09-07 16:22] LABS: HGB 6.5 gm/dL (11.4-16.0)
[2023-09-07 16:23] LABS: HCT 19.8 % (34.0-46.0)
[2023-09-07 16:38] LABS: Anisocytosis (M) Present; Hypochromasia (M) Present
[2023-09-07 22:39] LABS: African American GFR (CKD) 48 (>60 ml/min/1.73 sqM); Anion Gap 5 mmol/L; Blood Urea Nitrogen 26 mg/dL (7-17); Calcium 8.4 mg/dL (8.4-10.2); Carbon Dioxide 23 mmol/L (22-30); Chloride 106 mmol/L (98-107); Glucose 97 mg/dL (74-99); Non-African American GFR(CKD) 41 (>60 ml/min/1.73 sqM); Potassium 3.9 mmol/L (3.5-5.1); Sodium 134 mmol/L (137-145)
[2023-09-08 03:50] LABS: Iron 129 UG/DL (50-170)
== END | disposition home or self-care (01) ==
LOC: LABWHC1 14:26
PROVIDERS: ATTEND Family Medicine
DX: D50.9 Iron deficiency anemia, unspecified (principal)
CPT/HCPCS: 36415; 80048; 83540; 85025

== ENCOUNTER → 2023-11-03 | Outpatient (CLI) | payer MEDICARE ==
--- NOTE | 2023-11-03 09:58 | CT ---
EXAMINATION TYPE: CT chest wo con CT DLP: 480 mGycm, Automated exposure control for dose reduction was used. DATE OF EXAM: 11/03/2023 9:38 AM COMPARISON: CT chest 08/12/2023. CLINICAL INDICATION:Female, 83 years old with history of R91.8 OTHER NONSPECIFIC ABNORMAL FINDING OF LUNG F; PHH, f/u lung nodules TECHNIQUE: Multiple axial images were obtained through the chest without intravenous contrast . Coron al and sagittal reformats reviewed. FINDINGS: LUNGS/ PLEURA: Mild biapical pleural-parenchymal scarring redemonstrated. Mild emphysematous changes . No pleural effusion or focal consolidation. Stable right lower lung 5 mm subpleural nodule (series 4, image 48). Stable 1.0 cm subpleural right infrahilar middle lobe pulmonary nodule (series 4, image 35). Stable 5 mm right mid lung pulmonary nodule (series 4, image 30). Stable right upper lobe 5 mm pulmonary nodule (series 4, image 12). No new or enlarging pulmonary nodules. Posterior right upper l obe small calcified pleural plaque. AIRWAY: Patent. Mild diffuse bronchial wall thickening. HEART: Mildly enlarged. Three-vessel coronary artery calcifications are present. Aortic valvular calc ifications present. MEDIASTINUM: No gross evidence of adenopathy. VASCULATURE: No aortic aneurysm. 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 Ather osclerotic calcification of the aorta and its branches. MUSCULOSKELETAL: No acute osseous abnormalities. Multilevel degenerative disc disease SOFT TISSUES/LYMPH NODES: Unremarkable. LOWER NECK: No significant findings. UPPER ABDOMEN: Moderate size hiatal hernia redemonstrated. Redemonstration of calcified granuloma pos terior right hepatic lobe. IMPRESSION: 1. Stable few pulmonary nodules. No new or enlarging pulmonary nodules. According to Fleischner crite elaine, follow-up CT chest in 15 months is recommended to assess for stability. 2. Mild COPD changes. 3. Moderate-sized hiatal hernia.
== END | disposition home or self-care (01) ==
LOC: RADCTMAIN 09:11
PROVIDERS: ATTEND Family Medicine
DX: R91.8 Other nonspecific abnormal finding of lung field (principal); J44.9 Chronic obstructive pulmonary disease, unspecified; K44.9 Diaphragmatic hernia without obstruction or gangrene
CPT/HCPCS: 71250

== ENCOUNTER → 2023-11-11 | Day surgery (SDC) | payer MEDICARE ==
[2023-11-05 09:10] VITALS: BMI 27.9
[2023-11-11] MEDS: SIMETHICONE 40 MG/0.6 ML DROPS 2,000 MG/30 ML BOTTLE PO ONE (07:14)
[2023-11-11 07:28] VITALS: BP 144/64; PULSE 79; RESP 18; TEMP 97.3
== END ==
LOC: ORWHC2ENDO 06:17
PROVIDERS: ATTEND Internal Medicine Gastroenterology
DX: D50.9 Iron deficiency anemia, unspecified (principal)
CPT/HCPCS: 91110

== ENCOUNTER → 2023-12-06 | Outpatient (CLI) | payer MEDICARE ==
--- NOTE | 2023-12-06 11:07 | US ---
EXAMINATION TYPE: US kidneys/renal and bladder DATE OF EXAM: 12/06/2023 COMPARISON: CT 2011 CLINICAL INDICATION: Female, 83 years old with history of R94.4 ABNORMAL KIDNEY FUNCTION STUDIES; EMI EXAM MEASUREMENTS: Right Kidney: 10.2 x 5.5 x 5.5 cm Left Kidney: 11.9 x 4.5 x 4.8 cm Right Kidney: No hydronephrosis or masses seen Left Kidney: *Lobulated contour. *Hypoechoic area seen lower pole medially: 3.4 x 2.9 x 2.8 cm. Enrique ited due to gas. Appearance of double collecting system. Bladder: Appears anechoic. Bilateral Jets seen: Yes . Anechoic urinary bladder without filling defect identified. Bilateral ureteric jets are identified. N o hydronephrosis of either kidney. No nephrolithiasis. Cortical medullary differentiation is maintain ed. Duplex left kidney identified. Hypoechoic lesion along the medial lower pole of the left kidney w ithout internal color flow identified. IMPRESSION: 1. Duplex left kidney with an indeterminate hypoechoic lesion along the medial lower pole. Further ev aluation with CT abdomen renal mass protocol is recommended. 2. No hydronephrosis.
== END | disposition home or self-care (01) ==
LOC: RADUSWWP 08:58
PROVIDERS: ATTEND Internal Medicine Nephrology
DX: R94.4 Abnormal results of kidney function studies (principal); Q63.0 Accessory kidney
CPT/HCPCS: 76770

== ENCOUNTER → 2023-12-06 | Outpatient (CLI) | payer MEDICARE ==
[2023-12-06 15:24] LABS: Appearance,Urine Clear (Clear); Bilirubin,Urine Negative (Negative); Blood,Urine Negative (Negative); Color,Urine Yellow (Yellow); Ketones,Urine Negative (Negative); Nitrite,Urine Negative (Negative); Specific Gravity,Urine 1.009 (1.001-1.030); Urobilinogen,Urine 0.2 E.U./DL
[2023-12-06 15:34] LABS: Basophils # (A) 0.04 X 10*3/uL (0.00-0.10); Basophils % (A) 0.3 %; Eosinophils # (A) 0.07 X 10*3/uL (0.04-0.35); Eosinophils % (A) 0.6 %; HCT 29.2 % (37.2-46.3); HGB 9.2 g/dL (12.0-15.0); Lymphocytes # (A) 1.17 X 10*3/uL (0.90-5.00); Lymphocytes % (A) 10.1 %; MCH 28.9 pg (27.0-32.0); MCHC 31.5 g/dL (32.0-37.0); MCV 91.8 FL (80.0-97.0); Mean Platelet Volume 9.5 FL (9.5-12.2); Monocytes # (A) 1.09 X 10*3/uL (0.20-1.00); Monocytes % (A) 9.4 %; NRBC Per 100 WBC 0 X 10*3/uL (0.00-0.01); Neutrophils # (A) 9.13 X 10*3/uL (1.80-7.70); Neutrophils % (A) 79.3 %; Platelet Count 465 X 10*3/uL (140-440); RBC 3.18 X 10*6/uL (4.10-5.20); RDW 18.1 % (11.5-14.5); WBC 11.54 X 10*3/uL (4.50-10.00)
[2023-12-06 16:32] LABS: % Iron Saturation 39.58 (12.00-45.00); Albumin 3.7 g/dL (3.8-4.9); BUN/Creat Ratio 17.62 Ratio (12.00-20.00); Blood Urea Nitrogen 14.1 mg/dL (9.0-27.0); Carbon Dioxide 24.9 mmol/L (21.6-31.8); Chloride 92 mmol/L (96-109); Ferritin 51.6 ng/mL (10.0-291.0); Glucose 81 mg/dL (70-110); Iron 133 UG/DL (50-170); Magnesium 2.2 mg/dL (1.5-2.4); Phosphorus 3.5 mg/dL (2.4-5.1); Potassium 3.5 mmol/L (3.5-5.5); Sodium 129 mmol/L (135-145); Total Iron Binding Capacity 336 UG/DL (228-460); Uric Acid 2.4 mg/dL (2.9-7.7)
[2023-12-06 22:09] LABS: Microalbumin Creatinine Ratio <21 mg/g Cr (0-30)
== END | disposition home or self-care (01) ==
LOC: LABWHC1 10:04
PROVIDERS: ATTEND Internal Medicine Nephrology
DX: N25.81 Secondary hyperparathyroidism of renal origin (principal); N17.9 Acute kidney failure, unspecified; E55.9 Vitamin D deficiency, unspecified; M10.9 Gout, unspecified; N39.0 Urinary tract infection, site not specified; D64.9 Anemia, unspecified
CPT/HCPCS: 36415; 80048; 81003; 82040; 82043; 82306; 82570; 82728; 83540; 83550; 83735; 83970; 84100; 84550; 85025

== ENCOUNTER → 2023-12-21 | Day surgery (SDC) | payer MEDICARE ==
[~2023-12-21] MED LIST changes: -LIDOCAINE 1% (10MG/ML) FOR IV START INTRADERMA PRN; +SODIUM CHLORIDE 0.9% 1,000 ML IV SCH
[2023-12-21] MEDS: SODIUM CHLORIDE 0.9% 1,000 ML IV SCH (12:48)
[2023-12-21 13:03] VITALS: BP 167/72; PULSE 79; RESP 16; TEMP 98.5
[2023-12-21 13:27] LABS: Anisocytosis Slight; Basophils % (A) 0 %; Eosinophils # (A) 0.2 k/uL (0-0.7); Eosinophils % (A) 2 %; HCT 30.1 % (34.0-46.0); HGB 9.1 gm/dL (11.4-16.0); Hypochromasia Slight; Lymphocytes # (A) 1.8 k/uL (1.0-4.8); Lymphocytes % (A) 16 %; MCH 29.7 pg (25.0-35.0); MCHC 30.3 g/dL (31.0-37.0); Macrocytosis Slight; Mean Platelet Volume 7.1; Monocytes # (A) 0.6 k/uL (0-1.0); Monocytes % (A) 5 %; Neutrophils # (A) 8.2 k/uL (1.3-7.7); Neutrophils % (A) 74 %; Platelet Count 509 k/uL (150-450); RBC 3.07 m/uL (3.80-5.40)
[2023-12-21 13:32] LABS: ALT 27 U/L (4-34); AST 28 U/L (14-36); African American GFR (CKD) >90 (>60 ml/min/1.73 sqM); Albumin 3.6 g/dL (3.5-5.0); Alkaline Phosphatase 64 U/L (38-126); Anion Gap 5 mmol/L; Blood Urea Nitrogen 16 mg/dL (7-17); Calcium 8.5 mg/dL (8.4-10.2); Carbon Dioxide 27 mmol/L (22-30); Chloride 101 mmol/L (98-107); Glucose 81 mg/dL (74-99); Non-African American GFR(CKD) 82 (>60 ml/min/1.73 sqM); Potassium 3.2 mmol/L (3.5-5.1); Sodium 133 mmol/L (137-145); Total Bilirubin 0.4 mg/dL (0.2-1.3)
[2023-12-21] MEDS: LIDOCAINE 1% INJ 10MG/ML (20 ML MDV) SQ ONE (14:52)
--- NOTE | 2023-12-21 15:12 | P.PRLE ---
RE: Ramila Cowart Dear Sera Mcgrath underwent a loop monitor implantation for evaluation of palpitations and presyncopal spells I will keep you posted if we document any tacky or bradycardia arrhythmias Thank you for entrusting me with the care of the patient Warm regards Sincerely Mack Arias
--- NOTE | 2023-12-21 15:14 | P.EPPROC ---
- EP Procedure Note Electrophysiology Procedure Note: Loop monitor implant Primary physicians: Dr. Sun Goggles Assembler: Dr. Arias Indication: Palpitations and presyncope Patient was brought to the EP lab in a fasting state. Written informed consent was obtained prior to the procedure. The left pectoral area was prepped and draped per protocol. Intravenous antibiotic was administered preoperatively. A subcutaneous Loop monitor was implanted successfully and the wound was closed per protocol. The device was programmed to detect significant jayna- arrhythmic and tachy-arrhythmic events, per protocol. Device and programming details:
[2023-12-21] MEDS: POTASSIUM CHLORIDE ER 20 MEQ TAB.ER PO STA (15:38)
== END ==
LOC: CATHEP 12:30
PROVIDERS: ATTEND Internal Medicine Clinical Cardiac Electrophysiology
DX: R55 Syncope and collapse (principal); R00.2 Palpitations; I25.10 Atherosclerotic heart disease of native coronary artery without angina pectoris; I35.1 Nonrheumatic aortic (valve) insufficiency; I49.1 Atrial premature depolarization; Z95.5 Presence of coronary angioplasty implant and graft; I10 Essential (primary) hypertension; E78.00 Pure hypercholesterolemia, unspecified; D64.9 Anemia, unspecified; Z82.49 Family history of ischemic heart disease and other diseases of the circulatory system; Z91.09 Other allergy status, other than to drugs and biological substances; Z87.891 Personal history of nicotine dependence; Z79.02 Long term (current) use of antithrombotics/antiplatelets; Z79.899 Other long term (current) drug therapy
CPT/HCPCS: 33285; 80053; 84443; 85025; C1764; J0690; J2001

== ENCOUNTER → 2023-12-24 | Outpatient (CLI) | payer MEDICARE ==
--- NOTE | 2023-12-29 14:18 | CT ---
EXAMINATION TYPE: CT abdomen w con DATE OF EXAM: 12/24/2023 COMPARISON: HISTORY: cyst on kidney CT DLP: 735.2 mGycm CONTRAST: CT scan of the abdomen is performed with Oral Contrast and with IV Contrast, patient injected with 10 0 mL of Isovue 300. FINDINGS: LUNG BASES-: No visible nodule. No infiltrate. LIVER/GB: No calcified gallstones. No space occupying hepatic lesion. Biliary tree is of normal ca liber. PANCREAS: No inflammation. No distinct mass. SPLEEN: No splenic enlargement. No lesion seen. ADRENALS: No nodule. No thickening. KIDNEYS/BLADDER: No hydronephrosis. No nephrolithiasis. No distinct renal mass. Urinary bladder g rossly unremarkable. BOWEL: Normal appendix. Normal bowel caliber. No inflammation. GENITAL ORGANS: No gross abnormality. LYMPH NODES: No greater than 1cm abdominal or pelvic lymph nodes are appreciated. AORTA: No significant abnormality. OSSEOUS STRUCTURES: No significant abnormality is seen. OTHER: No significant additional abnormality is seen. IMPRESSION: 1. No solid or cystic renal mass
== END | disposition home or self-care (01) ==
LOC: RADCTMAIN 09:37
PROVIDERS: ATTEND Internal Medicine Nephrology
DX: N28.1 Cyst of kidney, acquired (principal); Q63.0 Accessory kidney; I70.0 Atherosclerosis of aorta
CPT/HCPCS: 74160; Q9967

== ENCOUNTER → 2024-01-07 | Outpatient (CLI) | payer MEDICARE ==
[2024-01-07 09:28] LABS: African American GFR (CKD) 73 (>60 ml/min/1.73 sqM); Blood Urea Nitrogen 22 mg/dL (7-17); Non-African American GFR(CKD) 64 (>60 ml/min/1.73 sqM)
--- NOTE | 2024-01-07 10:26 | CT ---
EXAMINATION TYPE: CT angio abdomen, without and with contrast DATE OF EXAM: 01/07/2024 COMPARISON: 12/16/2023 HISTORY: 83-year-old female I77.4 celiac artery compression TECHNIQUE: Contiguous axial scanning of the abdomen before and after administration of 100 ml Isovue- 370 IV contrast. Coronal/sagittal reconstructions performed. 3-D reconstructions generated on a [facility] independent workstation. CT DLP: 676 mGycm Automated exposure control for dose reduction was used. FINDINGS: The heart is upper limits of normal in size without pericardial effusion. There is a moderate size hi atal hernia involving a third to half of the stomach in the lower chest, increased from 12/24/2023. Li cata a component of a sliding hiatal hernia. Emphysematous changes in the visualized lower lungs. Stable calcification posterior right hepatic dome possibly related to prior granulomatous disease. Ot herwise, noncontrast and arterial phase imaging of the liver, gallbladder, adrenal glands, kidneys an d bilateral extrarenal pelves, spleen with small hilar splenule, and pancreas show no gross abnormali ty. No dilated small bowel, free fluid, or free air. No mesenteric or retroperitoneal lymphadenopathy. Previous right hemicolectomy with ileocolonic anastomosis at the mid transverse colon. Mild stool bur den. Partially visualized left-sided colonic diverticulosis. Pelvis not imaged. Moderate atherosclerotic calcifications throughout the abdominal aorta. There is a severe atherosclerosis stenosis at the origin of the celiac axis with mild poststenotic di latation up to 9 mm measured on sagittal series. Moderate, borderline severe stenosis at the origin of the SMA, sagittal series 16 image 82 and axial series 6 image 37. Suspect at least moderate stenoses at the origin of the renal arteries. There is an accessory renal a rtery on the right. Pelvis not imaged. Bones: Baastrup's disease. Advanced hypertrophic facet arthropathy throughout. Degenerative grade 1 r etrolisthesis L4-L5. Moderate degenerative disc disease throughout. IMPRESSION: 1. 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 THI S RELATES TO ATHEROSCLEROTIC NARROWING RATHER THAN CELIAC ARTERY COMPRESSION. 2. MODERATE, BORDERLINE SEVERE STENOSIS AT THE ORIGIN OF THE SMA. 3. MODERATE SIZED HIATAL HERNIA INVOLVING A THIRD TO HALF OF THE STOMACH IN THE LOWER CHEST. INCREASE D FROM 12/24/2023 SUGGESTING A SLIDING HIATAL HERNIA. 4. PREVIOUS RIGHT HEMICOLECTOMY. LEFT-SIDED COLONIC DIVERTICULOSIS.
== END | disposition home or self-care (01) ==
LOC: RADCTMAIN 08:45
PROVIDERS: ATTEND Family Medicine
DX: I77.4 Celiac artery compression syndrome (principal); K44.9 Diaphragmatic hernia without obstruction or gangrene; K57.30 Diverticulosis of large intestine without perforation or abscess without bleeding; Z90.49 Acquired absence of other specified parts of digestive tract
CPT/HCPCS: 82565; 84520; 74175; 36415; Q9967

== ENCOUNTER → 2024-02-01 | Outpatient (CLI) | payer MEDICARE | END | disposition home or self-care (01) | LOC: LABPRL 13:46 | PROVIDERS: ATTEND Family Medicine | DX: D64.9 Anemia, unspecified (principal) | CPT/HCPCS: 85025 ==

== ENCOUNTER → 2024-04-12 | Outpatient (CLI) | payer MEDICARE ==
--- NOTE | 2024-04-12 17:59 | XR ---
EXAMINATION TYPE: XR Hip Complete RT DATE OF EXAM: 04/12/2024 4:49 PM CLINICAL INDICATION: Female, 83 years old with history of CONTUSION OF HIP S70.01XA; [facility] COMPARISON: 07/16/2015. TECHNIQUE: XR Hip Complete RT; hip was examined in the frontal and lateral projections and a AP pelvi s. FINDINGS: No evidence for acute process, joint dislocation or significant soft tissue swelling. Osteo phyte formation of the superior acetabulum of the hip. There is mild joint space narrowing. IMPRESSION: 1. No evidence for acute process. 2. Mild hip osteoarthrosis. [facility], Workstation: [id number], 04/12/2024 5:57 PM
== END | disposition home or self-care (01) ==
LOC: RADXRMAIN 16:29
PROVIDERS: ATTEND Family Medicine
DX: M16.11 Unilateral primary osteoarthritis, right hip (principal)
CPT/HCPCS: 73502

== ENCOUNTER 2024-05-04 10:04 | Emergency (ER) | payer MEDICARE ==
--- NOTE | 2024-05-04 10:32 | ED ---
URI HPI - General Chief Complaint: Upper Respiratory Infection Stated Complaint: covid + Time Seen by Provider: 05/04/24 10:20 Source: patient, RN notes reviewed Mode of arrival: ambulatory Limitations: no limitations - History of Present Illness Initial Comments: This is an 83-year-old female with a history of fib on Plavix presented to the emergency department with referral from urgent care for diagnosis of COVID. Patient states that over the past 3 to 4 days she has been experiencing upper respiratory infection symptoms including sore throat, cough, rhinorrhea, and congestion. Patient tested positive for COVID urgent care today with a prompted her to report to the emergency department for further evaluation. Patient denies shortness of breath, difficulty breathing, lower extremity peripheral edema. Patient denies history of COPD or asthma. She has been feeling chilled with no reported fevers. - Related Data Home Medications Medication Instructions Recorded Confirmed Triamterene-Hctz 37.5-25Mg 1 cap PO DAILY 01/15/18 01/21/24 [Dyazide 37.5-25 Capsule] FLUoxetine HCL [PROzac] 40 mg PO DAILY 06/27/18 01/21/24 Folic Acid 1 mg PO DAILY 12/15/19 01/21/24 Pantoprazole Sodium [Protonix] 40 mg PO DAILY 06/02/20 01/21/24 metHOTREXate sodium [Methotrexate] 25 mg PO FR 06/02/20 01/21/24 amLODIPine [Norvasc] 10 mg PO DAILY 02/21/21 01/21/24 Clopidogrel [Plavix] 75 mg PO DAILY 09/02/23 01/21/24 Ferrous Sulfate [Feosol] 325 mg PO BID 09/02/23 01/21/24 Magnesium 250 - 400 mg PO DAILY 09/02/23 01/21/24 Irbesartan 300 mg PO DAILY 12/16/23 01/21/24 Rinzoq 15 mg PO DAILY 12/16/23 01/21/24 Furosemide [Lasix] 1 tab PO BID 01/14/24 01/21/24 Previous Rx's Medication Instructions Recorded Atorvastatin [Lipitor] 80 mg PO HS #30 tab 08/11/17 Potassium Chloride ER [K-Dur 20] 20 meq PO DAILY #90 tab 12/21/23 Nirmatrelvir/Ritonavir [Paxlovid 1 each PO DIRECTED #1 each 05/04/24 300-100 mg Dose Pack] Allergies Allergy/AdvReac Type Severity Reaction Status Date / Time adhesive tape Allergy Rash/Hives Verified 05/04/24 10:29 Review of Systems ROS Statement: Those systems with pertinent positive or pertinent negative responses have been documented in the HPI. ROS Other: All systems not noted in ROS Statement are negative. Past Medical History Past Medical History: Atrial Fibrillation, Coronary Artery Disease (CAD), Cancer, GERD/Reflux, Hyperlipidemia, Hypertension, Rheumatoid Arthritis (RA), Sleep Apnea/CPAP/BIPAP Additional Past Medical History / Comment(s): COLON CANCER. ,OSTEOPOROSIS., C- PAP MACHINE., LUNG NODULES ., SOB., ANEMIA History of Any Multi-Drug Resistant Organisms: None Reported Past Surgical History: Appendectomy, Bowel Resection, Heart Catheterization With Stent, Hysterectomy, Orthopedic Surgery Additional Past Surgical History / Comment(s): RIGHT HAND TRIGGER FINGER, spur removed from right foot. Carpal tunnel surgery, colonoscopy Past Anesthesia/Blood Transfusion Reactions: No Reported Reaction, Motion Sickness Additional Past Anesthesia/Blood Transfusion Reaction / Comment(s): no blood transfusion reaction Date of Last Stent Placement:: UNSURE OF DATE Past Psychological History: Depression Smoking Status: Former smoker Past Alcohol Use History: None Reported Past Drug Use History: None Reported - Past Family History Mother Family Medical History: No Reported History Sister(s) Family Medical History: Cancer Additional Family Medical History / Comment(s): Kidney cancer. Another sister from lung cancer. Father Family Medical History: No Reported History General Exam Limitations: no limitations General appearance: alert, in no apparent distress Eye exam: Present: normal appearance, PERRL, EOMI. Absent: scleral icterus, conjunctival injection, periorbital swelling ENT exam: Present: normal exam, mucous membranes moist Neck exam: Present: normal inspection. Absent: tenderness, meningismus, lymphadenopathy Respiratory exam: Present: normal lung sounds bilaterally. Absent: respiratory distress, wheezes, rales, rhonchi, stridor Cardiovascular Exam: Present: regular rate, normal rhythm, normal heart sounds. Absent: systolic murmur, diastolic murmur, rubs, gallop, clicks GI/Abdominal exam: Present: soft, normal bowel sounds. Absent: distended, tenderness, guarding, rebound, rigid Extremities exam: Present: normal inspection, full ROM, normal capillary refill. Absent: tenderness, pedal edema, joint swelling, calf tenderness Back exam: Present: normal inspection Neurological exam: Present: alert, oriented X3, CN II-XII intact Skin exam: Present: warm, dry, intact, normal color. Absent: rash Course Vital Signs 05/04/24 05/04/24 05/04/24 10:26 10:46 12:10 Temperature 98.9 F 99.6 F Pulse Rate 88 90 Respiratory 20 18 18 Rate Blood Pressure 149/60 166/68 O2 Sat by Pulse 96 99 Oximetry Medical Decision Making - Medical Decision Making Was pt. sent in by a medical professional or institution (KENY Garcia, MIXER DRIVER, urgent care, hospital, or [facility]...) When possible be specific @ -Patient was advised by urgent care to report to the emergency department for further evaluation Did you speak to anyone other than the patient for history (EMS, parent, family, police, friend...)? What history was obtained from this source @ -No Did you review nursing and triage notes (agree or disagree)? Why? @ -I reviewed and agree with nursing and triage notes Were old charts reviewed (outside hosp., previous admission, EMS record, old EKG, old radiological studies, urgent care reports/EKG's, [facility] records)? Report findings @ -No old charts were reviewed Differential Diagnosis (chest pain, altered mental status, abdominal pain women, abdominal pain men, vaginal bleeding, weakness, fever, dyspnea, syncope, headache, dizziness, GI bleed, back pain, seizure, CVA, palpatations, mental health, musculoskeletal)? @ -COVID 19, RSV, influenza, pneumonia, acute bronchitis, URI, this list is not all inclusive EKG interpreted by me (3pts min.). @ -none X-rays interpreted by me (1pt min.). @ -Chest x-ray no acute cardiopulmonary process or disease CT interpreted by me (1pt min.). @ -None done U/S interpreted by me (1pt. min.). @ -None done What testing was considered but not performed or refused? (CT, X-rays, U/S, labs)? Why? @ -None What meds were considered but not given or refused? Why? @ -None Did you discuss the management of the patient with other professionals (professionals i.e. KENY Garcia, MIXER DRIVER, lab, RT, psych nurse, geriatric social worker, creative strategist, teacher, motorized squad commanding officer, shelter case manager)? Give summary @ -No Was smoking cessation discussed for >3mins.? @ -No Was critical care preformed (if so, how long)? @ -No Were there social determinants of health that impacted care today? How? (Homelessness, low income, unemployed, alcoholism, drug addiction, transportation, low edu. Level, literacy, decrease access to med. care, detention, rehab)? @ -No Was there de-escalation of care discussed even if they declined (Discuss DNR or withdrawal of care, Hospice)? DNR status @ -No What co-morbidities impacted this encounter? (DM, HTN, Smoking, COPD, CAD, Cancer, CVA, ARF, Chemo, Hep., AIDS, mental health diagnosis, sleep apnea, morbid obesity)? @ -None Was patient admitted / discharged? Hospital course, mention meds given and route, prescriptions, significant lab abnormalities, going to OR and other pertinent info. @ -Discharge. 83-year-old female with positive COVID diagnosis. My evaluation the patient she is resting comfortably no signs acute distress. She is nonhypoxic and afebrile. Patient is not exhibiting signs of respiratory distress. Is noted to have boggy nasal mucosa and mild congestion. Lung sounds equal bilaterally. Chest x-ray unremarkable for acute process. Patient will be sent prescription for antiviral medication and instructed to continue supportive treatment at home. discussed with Dr. Valenzuela Undiagnosed new problem with uncertain prognosis? @ -No Drug Therapy requiring intensive monitoring for toxicity (Heparin, Nitro, Insulin, Cardizem)? @ -No Were any procedures done? @ -No Diagnosis/symptom? @ -COVID19, congestion, cough, sore throat Acute, or Chronic, or Acute on Chronic? @ -acute Uncomplicated (without systemic symptoms) or Complicated (systemic symptoms)? @ -uncomplicated Side effects of treatment? @ -No Exacerbation, Progression, or Severe Exacerbation? @ -No Poses a threat to life or bodily function? How? (Chest pain, [place], [place], pneumonia, PE, COPD, DKA, ARF, appy, cholecystitis, CVA, Diverticulitis, Homicidal, Suicidal, threat to staff... and all critical care pts) @ -No Disposition Clinical Impression: COVID-19 Disposition: HOME SELF-CARE Condition: Good Instructions (If sedation given, give patient instructions): COVID-19 (Coronavirus Disease 2019) (ED) Additional Instructions: Please return to the Emergency Department if symptoms worsen or any other concerns. Continue supportive treatment at home such as increasing hydration and using Tylenol Motrin as needed. Complete full course of antiviral as prescribed. Prescriptions: Nirmatrelvir/Ritonavir [Paxlovid 300-100 mg Dose Pack] 1 each PO DIRECTED #1 each Is patient prescribed a controlled substance at d/c from ED?: No Referrals: Sunny Sun DO [Primary Care Provider] - 1-2 days Time of Disposition: 11:50
[2024-05-04 10:48] VITALS: RESP 18
--- NOTE | 2024-05-04 11:41 | XR ---
EXAMINATION TYPE: XR chest 2V DATE OF EXAM: 05/04/2024 COMPARISON: 12/30/2020 CLINICAL INDICATION: Female, 83 years old with history of cough, fever, congestion; , TECHNIQUE: XR chest 2V views of the chest. FINDINGS: The lungs are clear and there is no pneumothorax, pleural effusion, or focal pneumonia. Heart size normal and no overt failure. Osseous structures demonstrate hypertrophic and degenerative changes of the spine. Loop recorder device noted. Small hiatal hernia. Diffuse osteopenia with AC joint arthropa thy. Underlying COPD. IMPRESSION: 1. No acute process. [facility], , 05/04/2024 11:39 AM
[2024-05-04 12:16] VITALS: BP 166/68; PULSE 90; TEMP 99.6
== END 2024-05-04 12:10 | disposition home or self-care (01) ==
LOC: EC 10:04
DX: U07.1 COVID-19 (principal); Z91.09 Other allergy status, other than to drugs and biological substances; Z87.891 Personal history of nicotine dependence
CPT/HCPCS: 71046; 99283

== ENCOUNTER → 2024-09-26 | Outpatient (CLI) | payer MEDICARE ==
[2024-09-26 15:05] LABS: % Iron Saturation 52.36 (12.00-45.00); BUN/Creat Ratio 24.11 Ratio (12.00-20.00); Blood Urea Nitrogen 21.7 mg/dL (9.0-27.0); Chloride 103 mmol/L (96-109); Glucose 98 mg/dL (70-110); Iron 211 UG/DL (50-170); Potassium 3.7 mmol/L (3.5-5.5); Sodium 137 mmol/L (135-145); Total Iron Binding Capacity 403 UG/DL (228-460)
[2024-09-26 15:06] LABS: Albumin 3.7 g/dL (3.8-4.9); Calcium 8.8 mg/dL (8.7-10.3); Carbon Dioxide 24.5 mmol/L (21.6-31.8); Ferritin 22.7 ng/mL (10.0-291.0)
[2024-09-26 15:55] LABS: Basophils # (A) 0.05 X 10*3/uL (0.00-0.10); Basophils % (A) 0.6 %; Eosinophils # (A) 0.08 X 10*3/uL (0.04-0.35); Eosinophils % (A) 0.9 %; HCT 27.9 % (37.2-46.3); HGB 8.4 g/dL (12.0-15.0); Lymphocytes % (A) 27.6 %; MCH 30.3 pg (27.0-32.0); MCHC 30.1 g/dL (32.0-37.0); MCV 100.7 FL (80.0-97.0); Mean Platelet Volume 10.3 FL (9.5-12.2); Monocytes # (A) 1.09 X 10*3/uL (0.20-1.00); NRBC Per 100 WBC 0 X 10*3/uL (0.00-0.01); Neutrophils # (A) 5.29 X 10*3/uL (1.80-7.70); Neutrophils % (A) 58.3 %; Platelet Count 409 X 10*3/uL (140-440); RBC 2.77 X 10*6/uL (4.10-5.20); WBC 9.06 X 10*3/uL (4.50-10.00)
== END | disposition home or self-care (01) ==
LOC: LABWHC1 10:44
PROVIDERS: ATTEND Nurse Practitioner Family
DX: D64.9 Anemia, unspecified (principal); N17.9 Acute kidney failure, unspecified; R80.9 Proteinuria, unspecified
CPT/HCPCS: 36415; 80048; 82040; 82728; 83540; 83550; 85025

== ENCOUNTER 2024-10-04 14:35 | Observation (INO) | payer MEDICARE ==
--- NOTE | 2024-10-04 15:43 | ED ---
Chest Pain HPI - General Source: patient, RN notes reviewed Mode of arrival: ambulatory Limitations: no limitations <Mervat Moreno - Last Filed: 10/04/24 15:41> <Terell Land - Last Filed: 10/04/24 18:06> - General Chief Complaint: Chest Pain Stated Complaint: chest pain, SOB Time Seen by Provider: 10/04/24 15:15 - History of Present Illness Initial Comments: Quick Note: This is an 84-year-old female who presents to the emergency department for chest pain and shortness of breath. States that it started a couple of days ago. She does have a cardiac stent. States that it was placed a long time ago and she cannot remember if the pain feels the same as it did then. She ran out of her nitroglycerin and was unable to try any. (Mervat Moreno) This is a an 84-year-old female who presents to the emergency department complaining of chest pain and shortness of breath. Patient states it lasted for about 2 hours. Patient states she has had a previous cardiac stent has high blood pressure and high cholesterol. Patient states she also has a history of anemia. Patient states the pain now is completely gone she feels at her baseline. Patient denies any recent fever chills or cough. Patient denies any back pain. Patient states earlier the pain did seem to radiate to her back. (Terell Land) - Related Data Home Medications Medication Instructions Recorded Confirmed Triamterene-Hctz 37.5-25Mg 1 cap PO DAILY 01/15/18 01/21/24 [Dyazide 37.5-25 Capsule] FLUoxetine HCL [PROzac] 40 mg PO DAILY 06/27/18 01/21/24 Folic Acid 1 mg PO DAILY 12/15/19 01/21/24 Pantoprazole Sodium [Protonix] 40 mg PO DAILY 06/02/20 01/21/24 metHOTREXate sodium [Methotrexate] 25 mg PO FR 06/02/20 01/21/24 amLODIPine [Norvasc] 10 mg PO DAILY 02/21/21 01/21/24 Clopidogrel [Plavix] 75 mg PO DAILY 09/02/23 01/21/24 Ferrous Sulfate [Feosol] 325 mg PO BID 09/02/23 01/21/24 Magnesium 250 - 400 mg PO DAILY 09/02/23 01/21/24 Irbesartan 300 mg PO DAILY 12/16/23 01/21/24 Rinzoq 15 mg PO DAILY 12/16/23 01/21/24 Furosemide [Lasix] 1 tab PO BID 01/14/24 01/21/24 Previous Rx's Medication Instructions Recorded Atorvastatin [Lipitor] 80 mg PO HS #30 tab 08/11/17 Potassium Chloride ER [K-Dur 20] 20 meq PO DAILY #90 tab 12/21/23 Nirmatrelvir/Ritonavir [Paxlovid 1 each PO DIRECTED #1 each 05/04/24 300-100 mg Dose Pack] Allergies Allergy/AdvReac Type Severity Reaction Status Date / Time adhesive tape Allergy Rash/Hives Verified 10/04/24 14:44 Review of Systems ROS Other: All systems not noted in ROS Statement are negative. <Mervat Moreno - Last Filed: 10/04/24 15:41> ROS Other: All systems not noted in ROS Statement are negative. <Terell Land - Last Filed: 10/04/24 18:06> ROS Statement: Those systems with pertinent positive or pertinent negative responses have been documented in the HPI. Past Medical History Past Medical History: Atrial Fibrillation, Coronary Artery Disease (CAD), Cancer, GERD/Reflux, Hyperlipidemia, Hypertension, Rheumatoid Arthritis (RA), Sleep Apnea/CPAP/BIPAP Additional Past Medical History / Comment(s): COLON CANCER. ,OSTEOPOROSIS., C- PAP MACHINE., LUNG NODULES ., SOB., ANEMIA History of Any Multi-Drug Resistant Organisms: None Reported Past Surgical History: Appendectomy, Bowel Resection, Heart Catheterization With Stent, Hysterectomy, Orthopedic Surgery Additional Past Surgical History / Comment(s): RIGHT HAND TRIGGER FINGER, spur removed from right foot. Carpal tunnel surgery, colonoscopy Past Anesthesia/Blood Transfusion Reactions: No Reported Reaction, Motion Sickness Additional Past Anesthesia/Blood Transfusion Reaction / Comment(s): no blood transfusion reaction Date of Last Stent Placement:: UNSURE OF DATE Past Psychological History: Depression Smoking Status: Former smoker Past Alcohol Use History: None Reported Past Drug Use History: None Reported - Past Family History Mother Family Medical History: No Reported History Sister(s) Family Medical History: Cancer Additional Family Medical History / Comment(s): Kidney cancer. Another sister from lung cancer. Father Family Medical History: No Reported History <Mervat Moreno - Last Filed: 10/04/24 15:41> General Exam Limitations: no limitations <Mervat Moreno - Last Filed: 10/04/24 15:41> <Terell Land - Last Filed: 10/04/24 18:06> - General Exam Comments Initial Comments: Visual Physical Exam Vital signs reviewed General: Well-appearing, nontoxic, no acute distress. Head: Normocephalic, atraumatic Eyes: PERRLA, EOMI ENT: Airway patent Chest: Nonlabored breathing Skin: No visual rash, normal skin tone Neuro: Alert and oriented 3 Musculoskeletal: No gross abnormalities (Mervat Moreno) GENERAL: Patient is well-developed and well-nourished. Patient is nontoxic and well- hydrated and is in mild distress. ENT: Neck is soft and supple. No significant lymphadenopathy is noted. Oropharynx is clear. Moist mucous membranes. Neck has full range of motion without eliciting any pain. EYES: The sclera were anicteric and conjunctiva were pink and moist. Extraocular movements were intact and pupils were equal round and reactive to light. Eyelids were unremarkable. PULMONARY: Unlabored respirations. Good breath sounds bilaterally. No audible rales rh onchi or wheezing was noted. CARDIOVASCULAR: There is a regular rate and rhythm without any murmurs gallops or rubs. ABDOMEN: Soft and nontender with normal bowel sounds. SKIN: Skin is clear with no lesions or rashes and otherwise unremarkable. NEUROLOGIC: Patient is alert and oriented x3. Cranial nerves II through XII are grossly intact. Motor and sensory are also intact. Normal speech, volume and content. Symmetrical smile. MUSCULOSKELETAL: Normal extremities with adequate strength and full range of motion. No lower extremity swelling or edema. No calf tenderness. LYMPHATICS: No significant lymphadenopathy is noted PSYCHIATRIC: Normal psychiatric evaluation. (Terell Land) Course Vital Signs 10/04/24 10/04/24 14:41 17:44 Temperature 97.7 F Pulse Rate 68 84 Respiratory 19 18 Rate Blood Pressure 159/67 114/80 O2 Sat by Pulse 98 97 Oximetry Chest Pain MDM <Mervat Moreno - Last Filed: 10/04/24 15:41> <Terell Land - Last Filed: 10/04/24 18:06> - [facility] I performed the QuickNote portion of this chart. Signed Mervat Moreno PA-C. (Mervat Moreno) EKG is interpreted by myself. EKG shows sinus rhythm at 68 bpm CA was under 53 QRS is 88 QT interval 401 QTc is 418. Patient EKG shows no ST segment elevation or depression. Was pt. sent in by a medical professional or institution (KENY Garcia, GEOLOGICAL DRAFTER, urgent care, hospital, or senior care...) When possible be specific @ -No Did you speak to anyone other than the patient for history (EMS, parent, family, police, friend...)? What history was obtained from this source @ -No Did you review nursing and triage notes (agree or disagree)? Why? @ -I reviewed and agree with nursing and triage notes Were old charts reviewed (outside hosp., previous admission, EMS record, old EKG, old radiological studies, urgent care reports/EKG's, senior care records)? Report findings @ -No old charts were reviewed Differential Diagnosis? @ -Differential Chest Pain: Stable Angina, Unstable Angina, STEMI, NSTEMI Aortic Dissection, Pneumothorax, Musculoskeletal, Esophageal Spasm GERD, Cholecystitis, Pancreatitis, Zoster, this is not meant to be an all-inclusive list. EKG interpreted by me (3pts min.). @ -As above X-rays interpreted by me (1pt min.). @ -Chest x-ray shows no acute CT interpreted by me (1pt min.). @ -None done U/S interpreted by me (1pt. min.). @ -None done What testing was considered but not performed or refused? (CT, X-rays, U/S, labs)? Why? @ -None What meds were considered but not given or refused? Why? @ -None Did you discuss the management of the patient with other professionals (professionals i.e. KENY Garcia, GEOLOGICAL DRAFTER, lab, RT, psych nurse, social welfare clerk, picking crew supervisor, teacher, admitting officer, case making machine operator)? Give summary @ -I spoke with [facility] they agreed to admit the patient Was smoking cessation discussed for >3mins.? @ -No Was critical care preformed (if so, how long)? @ -No Were there social determinants of health that impacted care today? How? (Homelessness, low income, unemployed, alcoholism, drug addiction, transportation, low edu. Level, literacy, decrease access to med. care, fdc, rehab)? @ -No Was there de-escalation of care discussed even if they declined (Discuss DNR or withdrawal of care, Hospice)? DNR status @ -No What co-morbidities impacted this encounter? (DM, HTN, Smoking, COPD, CAD, Cancer, CVA, ARF, Chemo, Hep., AIDS, mental health diagnosis, sleep apnea, morbid obesity)? @ -None Was patient admitted / discharged? Hospital course, mention meds given and route, prescriptions, significant lab abnormalities, going to OR and other pertinent info. @ -Patient was chest pain-free throughout her ED stay. Patient was placed on aspirin nitro patient will be admitted to [facility] with consult to cardiology Undiagnosed new problem with uncertain prognosis? @ -No Drug Therapy requiring intensive monitoring for toxicity (Heparin, Nitro, Insulin, Cardizem)? @ -No Were any procedures done? @ -No Diagnosis/symptom? @ -Chest Acute, or Chronic, or Acute on Chronic? @ -Acute Uncomplicated (without systemic symptoms) or Complicated (systemic symptoms)? @ -Comp Side effects of treatment? @ -No Exacerbation, Progression, or Severe Exacerbation? @ -No Poses a threat to life or bodily function? How? (Chest pain, USA, NE, pneumonia, PE, COPD, DKA, ARF, appy, cholecystitis, CVA, Diverticulitis, Homicidal, Suicidal, threat to staff... and all critical care pts) @ -Yes this could lead to an NE and endorgan dysfunction (Terell Land) Disposition <Mervat Moreno - Last Filed: 10/04/24 15:41> Time of Disposition: 18:06 <Terell Land - Last Filed: 10/04/24 18:06> Clinical Impression: Chest pain Disposition: ADMITTED IP TO THIS HOSP Referrals: Sunny Sun DO [Primary Care Provider] - 1-2 days
[2024-10-04 15:51] LABS: Basophils # (A) 0.04 10*3/uL (0.00-0.10); Basophils % (A) 0.6 %; Eosinophils # (A) 0.05 10*3/uL (0.04-0.35); Eosinophils % (A) 0.7 %; HCT 25.9 % (37.2-46.3); HGB 8.6 g/dL (12.0-15.0); Lymphocytes # (A) 1.82 10*3/uL (0.90-5.00); Lymphocytes % (A) 25.6 %; MCH 31.7 pg (27.0-32.0); MCHC 33.2 g/dL (32.0-37.0); MCV 95.6 fL (80.0-97.0); Mean Platelet Volume 9.8 fL (9.5-12.2); Monocytes # (A) 0.96 10*3/uL (0.20-1.00); Monocytes % (A) 13.5 %; Neutrophils # (A) 4.22 10*3/uL (1.80-7.70); Neutrophils % (A) 59.3 %; Platelet Count 343 10*3/uL (140-440); RBC 2.71 10*6/uL (4.10-5.20); RDW 16.1 % (11.5-14.5); WBC 7.11 10*3/uL (4.50-10.00)
[2024-10-04 16:07] LABS: ALT 20 U/L (4-34); AST 26 U/L (14-36); African American GFR (CKD) 67 (>60 ml/min/1.73 sqM); Albumin 3.7 g/dL (3.5-5.0); Alkaline Phosphatase 49 U/L (38-126); Anion Gap 7 mmol/L; Blood Urea Nitrogen 19 mg/dL (7-17); Calcium 8.6 mg/dL (8.4-10.2); Carbon Dioxide 25 mmol/L (22-30); Chloride 103 mmol/L (98-107); Glucose 85 mg/dL (74-99); Magnesium 2.3 mg/dL (1.6-2.3); Non-African American GFR(CKD) 58 (>60 ml/min/1.73 sqM); Partial Thromboplastin Time 22.1 sec (22.0-30.0); Potassium 3.6 mmol/L (3.5-5.1); Prothrombin Time 10.7 sec (10.0-12.5); Sodium 135 mmol/L (137-145); Total Bilirubin 0.4 mg/dL (0.2-1.3); Total Protein 6.5 g/dL (6.3-8.2)
[2024-10-04 16:14] LABS: NT-Pro-B-Type Natriuretic Pept 846 pg/mL
--- NOTE | 2024-10-04 16:25 | XR ---
EXAMINATION TYPE: XR chest 2V DATE OF EXAM: 10/04/2024 CLINICAL INDICATION: Female, 84 years old with history of Chest Pain, TECHNIQUE: Frontal and lateral views of the chest are obtained. COMPARISON: Chest x-ray May 04, 2024 FINDINGS: Background chronic emphysematous change redemonstrated. There is no focal air space opacit y, pleural effusion, or pneumothorax seen. Persistent cardiomegaly with overlying loop recorder. Th e osseous structures are intact. IMPRESSION: Chronic emphysematous change and cardiomegaly without acute pulmonary process. [facility], , 10/04/2024 4:22 PM
[2024-10-04] MEDS ORDERED: NITROGLYCERIN SL TABS 0.4 MG TAB SUBLINGUAL PRN (18:07)
[2024-10-04] MEDS: NITROGLYCERIN OINT 1 INCH/GM PACKET TOPICAL SCH (23:52)
[2024-10-04] MEDS: ATORVASTATIN 80 MG TAB PO SCH (23:52)
[2024-10-05 08:52] LABS: Chol/HDL Ratio 1.75 Ratio; LDL Cholesterol,Calculated 53.3 mg/dL (0.0-131.0); VLDL Calculation 12.88 mg/dL (5.00-40.00)
[2024-10-05] MEDS: FERROUS SULFATE 325 MG TAB PO SCH (09:38)
[2024-10-05] MEDS: amLODIPine 10 MG TAB PO SCH (09:38)
[2024-10-05] MEDS: LOSARTAN 50 MG TAB PO SCH (09:38)
[2024-10-05] MEDS: CLOPIDOGREL 75 MG TAB PO SCH (09:41)
[2024-10-05] MEDS: FLUoxetine HCL 20 MG CAP PO SCH (09:41)
[2024-10-05] MEDS: ASPIRIN 325 MG TAB PO SCH (09:41)
[2024-10-05] MEDS: FUROSEMIDE 20 MG TAB PO SCH (09:41)
[2024-10-05] MEDS: PANTOPRAZOLE 40 MG TABLET PO SCH (09:41)
--- NOTE | 2024-10-05 11:03 | P.CRDCN ---
History of Present Illness History of present illness: HISTORY OF PRESENT ILLNESS: This is a 84-year-old female with a past medical history significant for coronary artery disease with previous stenting, hypertension, hyperlipidemia, and aortic stenosis. Patient follows in the office with Dr. Arias. We have been asked to see the patient in consultation for chest pain. Patient examined at the bedside. Patient presented to the hospital for chief complaint of chest discomfort. Patient states that she had an episode of chest pain yesterday. She states the pain was not worse with exertion. She also reports she has been feeling short of breath with exertion recently. She does have a frequent cough at the time of examination. Vital signs are stable. The patient also gives additional history of chronic anemia for the past 1 to 2 years and states they are unsure of the etiology of her anemia. She denies any signs of GI bleeding. DIAGNOSTICS: - EKG reveals sinus mechanism with no signs of acute ischemia. - Chest xray chronic emphysematous changes and cardiomegaly without acute pulmonary process. - Laboratory data: WBC 7.11. Hemoglobin 8.6. Platelet count 343. Sodium 135. Potassium 3.6. BUN 19. Creatinine 0.92. Troponin negative x 3. proBNP 846. - Current home cardiac medications include amlodipine 10 mg daily, irbesartan 300 mg daily, Plavix 75 mg daily, atorvastatin 80 mg at night - Most recent echocardiogram obtained in July 2023 revealed ejection fraction 55 to 60%, moderate aortic stenosis with peak gradient 46 mmHg and mean gradient 27 mmHg - Cardiac catheterization history: December 2017 revealing right dominant system. No significant CAD. Previously stented circumflex is widely patent. REVIEW OF SYSTEMS: At the time of my exam: CONSTITUTIONAL: Denies fever or chills. HEENT: Denies blurred vision, vision changes, or eye pain. Denies hemoptysis CARDIOVASCULAR: Denies chest pain. Denies orthopnea. Denies PND. Denies palpitations RESPIRATORY: Denies shortness of breath. GASTROINTESTINAL: Denies abdominal pain. Denies nausea or vomiting. HEMATOLOGIC: Denies bleeding disorders. GENITOURINARY: Denies any blood in urine. SKIN: Denies pruitis. Denies rash. PHYSICAL EXAM: VITAL SIGNS: Reviewed. GENERAL: Well-developed in no acute distress. HEENT: Head is normocephalic. Pupils are equal, round. Sclerae anicteric. Mucous membranes of the mouth are moist. Neck supple. No JVD or thyromegaly LUNGS: Respirations even and unlabored. Lungs essentially clear to auscultation bilaterally. HEART: Regular rate and rhythm. S1 and S2 heard. ABDOMEN: Soft. Nondistended. Nontender. EXTREMITIES: Normal range of motion. No clubbing or cyanosis. Peripheral pulses intact. No lower extremity edema NEUROLOGIC: Awake and alert. Oriented x 3. ASSESSMENT: Pain, troponin negative x 3 Moderate aortic stenosis Coronary artery disease with previous stenting of the circumflex History of loop recorder insertion, November 2023 Hypertension Hyperlipidemia PLAN: Obtain 2D echo to assess cardiac structure and function and assess aortic stenosis Resume home cardiac medications Continue telemetry monitoring Check patient for COVID, influenza, RSV Further recommendations pending patient course Nurse practitioner note has been reviewed by physician. Signing provider agrees with the documented findings, assessment, and plan of care documented by DISPLAY TRIMMER as a scribe. Past Medical History Past Medical History: Atrial Fibrillation, Coronary Artery Disease (CAD), Cancer, GERD/Reflux, Hyperlipidemia, Hypertension, Rheumatoid Arthritis (RA), Sleep Apnea/CPAP/BIPAP Additional Past Medical History / Comment(s): COLON CANCER. ,OSTEOPOROSIS., C- PAP MACHINE., LUNG NODULES ., SOB., ANEMIA History of Any Multi-Drug Resistant Organisms: None Reported Past Surgical History: Appendectomy, Bowel Resection, Heart Catheterization With Stent, Hysterectomy, Orthopedic Surgery Additional Past Surgical History / Comment(s): RIGHT HAND TRIGGER FINGER, spur removed from right foot. Carpal tunnel surgery, colonoscopy Past Anesthesia/Blood Transfusion Reactions: No Reported Reaction, Motion Sickness Additional Past Anesthesia/Blood Transfusion Reaction / Comment(s): no blood transfusion reaction Date of Last Stent Placement:: UNSURE OF DATE Past Psychological History: Depression Smoking Status: Former smoker Past Alcohol Use History: None Reported Additional Past Alcohol Use History / Comment(s): QUIT SMOKING APROX 1997. SMOKed PPD: 1 started smoking at age 17 Past Drug Use History: None Reported - Past Family History Mother Family Medical History: No Reported History Sister(s) Family Medical History: Cancer Additional Family Medical History / Comment(s): Kidney cancer. Another sister from lung cancer. Father Family Medical History: No Reported History Medications and Allergies Home Medications Medication Instructions Recorded Confirmed Type Atorvastatin [Lipitor] 80 mg PO HS #30 tab 08/11/17 10/04/24 Rx Folic Acid 1 mg PO DAILY 12/15/19 10/04/24 History Pantoprazole Sodium [Protonix] 40 mg PO DAILY 06/02/20 10/04/24 History amLODIPine [Norvasc] 10 mg PO DAILY 02/21/21 10/04/24 History Clopidogrel [Plavix] 75 mg PO DAILY 09/02/23 10/04/24 History Ferrous Sulfate [Feosol] 325 mg PO DAILY 09/02/23 10/04/24 History Irbesartan 300 mg PO DAILY 12/16/23 10/04/24 History Potassium Chloride ER [K-Dur 20] 20 meq PO DAILY #90 tab 12/21/23 10/04/24 Rx Calcium(Unknown Dose) 1 tab PO DAILY 10/04/24 10/04/24 History FLUoxetine HCL [PROzac] 60 mg PO DAILY 10/04/24 10/04/24 History Furosemide [Lasix] 40 mg PO DAILY 10/04/24 10/04/24 History Magnesium(Unknown Dose) 1 tab PO DAILY 10/04/24 10/04/24 History Multivitamins, Thera [Multivitamin 1 tab PO DAILY 10/04/24 10/04/24 History (formulary)] Vitamin D3(Unknown Dose) 1 tab PO DAILY 10/04/24 10/04/24 History Allergies Allergy/AdvReac Type Severity Reaction Status Date / Time adhesive tape Allergy Rash/Hives Verified 10/04/24 19:05 Physical Exam Vitals: Vital Signs Temp Pulse Pulse Resp BP BP BP 10/05/24 07:25 98.3 F 89 16 137/68 10/05/24 02:00 16 10/05/24 01:31 97.9 F 81 16 109/58 10/04/24 21:46 98.1 F 79 17 153/61 10/04/24 20:51 98.2 F 68 17 141/55 10/04/24 19:19 72 18 148/56 10/04/24 18:00 74 17 119/54 10/04/24 17:44 84 18 114/80 10/04/24 14:41 97.7 F 68 19 159/67 Pulse Ox 10/05/24 07:25 97 10/05/24 02:00 10/05/24 01:31 96 10/04/24 21:46 98 10/04/24 20:51 98 10/04/24 19:19 100 10/04/24 18:00 97 10/04/24 17:44 97 10/04/24 14:41 98 Intake and Output 10/04/24 10/05/24 10/05/24 22:59 06:59 14:59 Other: # Voids 1 2 Weight 78.925 kg Results 10/04/24 15:36 10/04/24 15:36 Cardiac Enzymes 10/04/24 10/04/24 10/04/24 Range/Units 15:36 15:36 18:48 AST 26 (14-36) U/L Troponin I <0.012 <0.012 (0.000-0.034) ng/mL 10/04/24 Range/Units 21:52 AST (14-36) U/L Troponin I <0.012 (0.000-0.034) ng/mL Coagulation 10/04/24 Range/Units 15:36 PT 10.7 (10.0-12.5) sec APTT 22.1 (22.0-30.0) sec CBC 10/04/24 Range/Units 15:36 WBC 7.11 (4.50-10.00) 10*3/uL RBC 2.71 L (4.10-5.20) 10*6/uL Hgb 8.6 L (12.0-15.0) g/dL Hct 25.9 L (37.2-46.3) % Plt Count 343 (140-440) 10*3/uL Comprehensive Metabolic Panel 10/04/24 Range/Units 15:36 Sodium 135 L (137-145) mmol/L Potassium 3.6 (3.5-5.1) mmol/L Chloride 103 (98-107) mmol/L Carbon Dioxide 25 (22-30) mmol/L BUN 19 H (7-17) mg/dL Creatinine 0.92 (0.52-1.04) mg/dL Glucose 85 (74-99) mg/dL Calcium 8.6 (8.4-10.2) mg/dL AST 26 (14-36) U/L ALT 20 (4-34) U/L Alkaline Phosphatase 49 (38-126) U/L Total Protein 6.5 (6.3-8.2) g/dL Albumin 3.7 (3.5-5.0) g/dL Current Medications Generic Name Dose Route Start Last Admin Trade Name Charley PRN Reason Stop Dose Admin Amlodipine Besylate 10 mg 10/05/24 09:00 Amlodipine 10 Mg Tab PO DAILY [facility] Aspirin 325 mg 10/05/24 09:00 Aspirin 325 Mg Tab PO DAILY [facility] Atorvastatin Calcium 80 mg 10/04/24 22:30 10/04/24 23:52 Atorvastatin 80 Mg Tab PO 80 mg HS [facility] Administration Clopidogrel Bisulfate 75 mg 10/05/24 09:00 Clopidogrel 75 Mg Tab PO DAILY [facility] Ferrous Sulfate 325 mg 10/05/24 09:00 Ferrous Sulfate 325 Mg Tab PO DAILY [facility] Fluoxetine HCl 60 mg 10/05/24 09:00 Fluoxetine Hcl 20 Mg Cap PO DAILY [facility] Furosemide 40 mg 10/05/24 09:00 Furosemide 20 Mg Tab PO DAILY [facility] Losartan Potassium 100 mg 10/05/24 09:00 Losartan 50 Mg Tab PO DAILY [facility] Nitroglycerin 0.4 mg 10/04/24 18:07 Nitroglycerin Sl Tabs 0.4 Mg Tab SUBLINGUAL Q5M PRN Chest Pain Nitroglycerin 1 inch 10/05/24 00:00 10/05/24 06:29 Nitroglycerin Oint 1 Inch/Gm Packet TOPICAL Not Given Q6HR [facility] Pantoprazole Sodium 40 mg 10/05/24 09:00 Pantoprazole 40 Mg Tablet PO DAILY [facility] Intake and Output 10/04/24 10/05/24 10/05/24 22:59 06:59 14:59 Other: # Voids 1 2 Weight 78.925 kg 10/04/24 15:36 10/04/24 15:36
[2024-10-05 11:58] LABS: Influenza A Not Detected (Not Detectd); Influenza B Not Detected (Not Detectd); RSV Not Detected (Not Detectd)
--- NOTE | 2024-10-05 12:44 | CA ---
Transthoracic Echo Report Name: Ramila Cowart Age: 84 Gender: F : 1940 Exam Date: 10/05/2024 10:32 Exam Location: [place] [facility] Ht (in): 63 Wt (lb): 174 Ordering Physician: Kristyn Pollack Attending/Referring Phys: [id number], Jaki Software Development Specialist Carmina Dyer RDCS Procedure CPT: Indications: LV function, CP Cardiac Hx: Technical Quality: Fair Contrast 1: Total Dose (mL): Contrast 2: Total Dose (mL): MEASUREMENTS (Male / Female) Normal Values 2D ECHO LV Diastolic Diameter PLAX 5.5 cm 4.2 - 5.9 / 3.9 - 5.3 cm LV Systolic Diameter PLAX 3.1 cm IVS Diastolic Thickness 1.2 cm 0.6 - 1.0 / 0.6 - 0.9 cm LVPW Diastolic Thickness 1.5 cm 0.6 - 1.0 / 0.6 - 0.9 cm LV Relative Wall Thickness 0.5 RV Internal Dim ED PLAX 2.1 cm LVOT Diameter 2.1 cm LA Systolic Diameter LX 4.5 cm 3.0 - 4.0 / 2.7 - 3.8 cm LV Diastolic Volume MOD BP 77.0 cm??? 67 - 155 / 56 - 104 cm??? LV Systolic Volume MOD BP 34.9 cm??? - 58 / 19 - 49 cm??? LV Ejection Fraction MOD BP 54.7 % >= 55 % LV Cardiac Index MOD BP 1906.6 cm???/min???m??? LV Diastolic Volume MOD 4C 79.1 cm??? LV Systolic Volume MOD 4C 23.6 cm??? LV Ejection Fraction MOD 4C 70.2 % LV Cardiac Index MOD 4C 2513.0 cm???/min???m??? LV Diastolic Length 4C 7.5 cm LV Systolic Length 4C 5.6 cm LV Diastolic Volume MOD 2C 73.6 cm??? LV Systolic Volume MOD 2C 42.3 cm??? LV Ejection Fraction MOD 2C 42.4 % LV Cardiac Index MOD 2C 1411.8 cm???/min???m??? LV Diastolic Length 2C 7.8 cm LV Systolic Length 2C 7.2 cm LA Volume 81.8 cm??? 18 - 58 / 22 - 52 cm??? LA Volume Index 43.1 cm???/m??? 16 - 28 cm???/m??? M-MODE Aortic Root Diameter MM 2.6 cm LA Systolic Diameter MM 4.8 cm LA Ao Ratio MM 1.9 AV Cusp Separation MM 0.6 cm DOPPLER AV Peak Velocity 435.9 cm/s AV Peak Gradient 76.0 mmHg AV Mean Velocity 346.9 cm/s AV Mean Gradient 51.4 mmHg AV Velocity Time Integral 117.7 cm LVOT Peak Velocity 106.1 cm/s LVOT Peak Gradient 4.5 mmHg LVOT Velocity Time Integral 32.3 cm LVOT Stroke Volume 116.1 cm??? LVOT Stroke Volume Index 63.7 ml/m??? LVOT Cardiac Index 5252.0 cm???/min???m??? AV Area Cont Eq vti 1.0 cm??? AV Area Cont Eq pk 0.9 cm??? MV Area PHT 2.6 cm??? Mitral E Point Velocity 117.1 cm/s Mitral A Point Velocity 143.5 cm/s Mitral E to A Ratio 0.8 MV Deceleration Time 297.4 ms TR Peak Velocity 285.5 cm/s TR Peak Gradient 32.6 mmHg FINDINGS Left Ventricle Left ventricular ejection fraction is estimated at 55-60 %. Mildly increased septal wall thickness. Moderately increased posterior wall thickness. Mildly increased left ventricular diastolic diameter. Normal left ventricular systolic function with no obvious regional wall motion abnormalities. Right Ventricle Normal right ventricular size and function. Right ventricular systolic pressure within normal limits. Right Atrium Moderate right atrial dilatation. Left Atrium Moderately increased left atrial diameter. Severely increased left atrial volume. Mildly increased left atrial area. Mitral Valve Structurally normal mitral valve. [id number] mitral regurgitation. No mitral stenosis. Aortic Valve Severe aortic stenosis with a peak velocity of 4.35 m/s, peak gradient 76mmHg, mean gradient 51mmHg. Trace to mild aortic regurgitation. Tricuspid Valve Structurally normal tricuspid valve. [id number] tricuspid regurgitation. No tricuspid stenosis. Pulmonic Valve Structurally normal pulmonic valve. Trace pulmonic regurgitation. No pulmonic stenosis. Pericardium Moderate pericardial effusion, located anteriorly. Small pericardial effusion, located posteriorly. Aorta Normal size aortic root and proximal ascending aorta. CONCLUSIONS Normal LV systolic function Aortic sclerosis with severe aortic stenosis and mean gradient of 51 mmHg Mild to moderate MR Previewed by: Dr. Benigno Reid MD (Electronically Signed) Final Date: 05 October 2024 12:43
--- NOTE | 2024-10-05 13:23 | P.HPIM ---
History of Present Illness This is a pleasant 84 years old female with past medical history of multiple medical problems as below. Patient presents because of chest pain of 2 days duration about 10/10 severity, after they put a patch currently is completely resolved and rated as 0/10. Chest pain is central radiating to the left chest and to the back. [place] like sharp with no precipitating factors like coughing or shortness of breath. No relieving factors. Patient denies shortness of breath or coughing. Patient denies GI/ symptoms. No headache dizziness weakness numbness. She denies smoking alcohol illicit drugs. She is hemodynamically stable. She has afebrile. Labs look stable hemoglobin 8.6 close to baseline. Unremarkable rest of CBC, BMP, LFT, INR, troponin x 2 are negative. EKG showing sinus rhythm at [address]-T changes Chest x-ray showing chronic emphysematous changes and cardiomegaly with no pulmonary vascular congestion She was started on aspirin 325 mg Echocardiogram showed preserved ejection fraction of 55 to 60%. Aortic sclerosis with severe aortic stenosis. Review of Systems Review of systems CONSTITUTIONAL: No fever, no malaise, no fatigue. HEENT: No recent visual problems or hearing problems. Denied any sore throat. CARDIOVASCULAR: No orthopnea, PND, no palpitations, no syncope. PULMONARY: No shortness of breath, no cough, no hemoptysis. GASTROINTESTINAL: No diarrhea, no nausea, no vomiting, no abdominal pain. Normoactive bowel sounds. NEUROLOGICAL: No headaches, no weakness, no numbness. HEMATOLOGICAL: Denies any bleeding or petechiae. GENITOURINARY: Denies any burning micturition, frequency, or urgency. MUSCULOSKELETAL/RHEUMATOLOGICAL: Denies any joint pain, swelling, or any muscle pain. ENDOCRINE: Denies any polyuria or polydipsia. Past Medical History Past Medical History: Atrial Fibrillation, Coronary Artery Disease (CAD), Cancer, GERD/Reflux, Hyperlipidemia, Hypertension, Rheumatoid Arthritis (RA), S leep Apnea/CPAP/BIPAP Additional Past Medical History / Comment(s): COLON CANCER. ,OSTEOPOROSIS., C- PAP MACHINE., LUNG NODULES ., SOB., ANEMIA History of Any Multi-Drug Resistant Organisms: None Reported Past Surgical History: Appendectomy, Bowel Resection, Heart Catheterization With Stent, Hysterectomy, Orthopedic Surgery Additional Past Surgical History / Comment(s): RIGHT HAND TRIGGER FINGER, spur removed from right foot. Carpal tunnel surgery, colonoscopy Past Anesthesia/Blood Transfusion Reactions: No Reported Reaction, Motion Sickness Additional Past Anesthesia/Blood Transfusion Reaction / Comment(s): no blood transfusion reaction Date of Last Stent Placement:: UNSURE OF DATE Past Psychological History: Depression Smoking Status: Former smoker Past Alcohol Use History: None Reported Additional Past Alcohol Use History / Comment(s): QUIT SMOKING APROX 1997. SMOKed PPD: 1 started smoking at age 17 Past Drug Use History: None Reported - Past Family History Mother Family Medical History: No Reported History Sister(s) Family Medical History: Cancer Additional Family Medical History / Comment(s): Kidney cancer. Another sister from lung cancer. Father Family Medical History: No Reported History Medications and Allergies Home Medications Medication Instructions Recorded Confirmed Type Atorvastatin [Lipitor] 80 mg PO HS #30 tab 08/11/17 10/04/24 Rx Folic Acid 1 mg PO DAILY 12/15/19 10/04/24 History Pantoprazole Sodium [Protonix] 40 mg PO DAILY 06/02/20 10/04/24 History amLODIPine [Norvasc] 10 mg PO DAILY 02/21/21 10/04/24 History Clopidogrel [Plavix] 75 mg PO DAILY 09/02/23 10/04/24 History Ferrous Sulfate [Feosol] 325 mg PO DAILY 09/02/23 10/04/24 History Irbesartan 300 mg PO DAILY 12/16/23 10/04/24 History Potassium Chloride ER [K-Dur 20] 20 meq PO DAILY #90 tab 12/21/23 10/04/24 Rx Calcium(Unknown Dose) 1 tab PO DAILY 10/04/24 10/04/24 History FLUoxetine HCL [PROzac] 60 mg PO DAILY 10/04/24 10/04/24 History Furosemide [Lasix] 40 mg PO DAILY 10/04/24 10/04/24 History Magnesium(Unknown Dose) 1 tab PO DAILY 10/04/24 10/04/24 History Multivitamins, Thera [Multivitamin 1 tab PO DAILY 10/04/24 10/04/24 History (formulary)] Vitamin D3(Unknown Dose) 1 tab PO DAILY 10/04/24 10/04/24 History Allergies Allergy/AdvReac Type Severity Reaction Status Date / Time adhesive tape Allergy Rash/Hives Verified 10/04/24 19:05 Physical Exam Vitals: Vital Signs Temp Pulse Pulse Resp BP BP BP 10/05/24 07: 98.3 F 89 16 137/68 10/05/24 02:00 16 10/05/24 01:31 97.9 F 81 16 109/58 10/04/24 21:46 98.1 F 79 17 153/61 10/04/24 20:51 98.2 F 68 17 141/55 10/04/24 19:19 72 18 148/56 10/04/24 18:00 74 17 119/54 10/04/24 17:44 84 18 114/80 10/04/24 14:41 97.7 F 68 19 159/67 Pulse Ox 10/05/24 07:25 97 10/05/24 02:00 10/05/24 01:31 96 10/04/24 21:46 98 10/04/24 20:51 98 10/04/24 19:19 100 10/04/24 18:00 97 10/04/24 17:44 97 10/04/24 14:41 98 Intake and Output 10/04/24 10/05/24 10/05/24 22:59 06:59 14:59 Intake Total 240 Balance 240 Intake: Oral 240 Other: # Voids 1 2 Weight 78.925 kg GENERAL: The patient is alert and oriented x3, not in any acute distress. Well developed, well nourished. HEENT: Pupils are round and equally reacting to light. EOMI. No scleral icterus. No conjunctival pallor. Normocephalic, atraumatic. No pharyngeal erythema. No thyromegaly. CARDIOVASCULAR: S1 and S2 present. No murmurs, rubs, or gallops. PULMONARY: Chest is clear to auscultation, no wheezing , no crackles. ABDOMEN: Soft, nontender, nondistended, normoactive bowel sounds. No palpable organomegaly. MUSCULOSKELETAL: No joint swelling or deformity. EXTREMITIES: No cyanosis, clubbing, or pedal edema. NEUROLOGICAL: Gross neurological examination did not reveal any focal deficits. SKIN: No rashes. no petechiae. Results CBC & Chem 7: 10/04/24 15:36 10/04/24 15:36 Labs: Abnormal Lab Results - Last 24 Hours (Table) 10/04/24 10/04/24 10/04/24 Range/Units 15:36 15:36 15:36 RBC 2.71 L (4.10-5.20) 10*6/uL Hgb 8.6 L (12.0-15.0) g/dL Hct 25.9 L (37.2-46.3) % Sodium 135 L (137-145) mmol/L BUN 19 H (7-17) mg/dL HDL Cholesterol 87.80 H (40.00-60.00) mg/dL Thrombosis Risk Factor Assmnt - Choose All That Apply Each Risk Factor Represents 3 Points: Age 75 years or older Other congenital or acquired thrombophilia - If yes, enter type in comment: No Thrombosis Risk Factor Assessment Total Risk Factor Score: 3 Thrombosis Risk Factor Assessment Level: Moderate Risk Assessment and Plan Assessment: Chest pain Severe aortic stenosis with a gradient of 51 mmHg Systolic murmur secondary to above Chronic atrial fibrillation History of GERD Hypertension Hyperlipidemia History of rheumatoid arthritis Sleep apnea on BiPAP Plan: Continue with aspirin Echocardiogram reviewed showing aortic stenosis Cardiology on the case and recommend keep monitoring for now Continue pain management Labs and medication were reviewed.. Continue same treatment. Continue with symptomatic treatment. Resume home medication. Monitor labs and vitals. DVT and GI prophylaxis. Further recommendations as per clinical course of the patient DVT prophylaxis: Subcutaneous heparin GI Prophylaxis: Pepcid Prognosis is guarded
[2024-10-05] MEDS ORDERED: FAMOTIDINE 20 MG/2 ML VIAL IV SCH (21:00)
[2024-10-06] MEDS: HEPARIN SODIUM,PORCINE 5,000 UNIT/ML 1 ML VIAL SQ SCH (00:01)
[2024-10-06 07:59] VITALS: RESP 16
[2024-10-06] MEDS: ASPIRIN 81 MG PO SCH (09:32)
[2024-10-06] MEDS: FOLIC ACID 1 MG TAB PO SCH (09:35)
--- NOTE | 2024-10-06 11:40 | P.PN ---
Subjective HISTORY OF PRESENT ILLNESS: This is a 84-year-old female with a past medical history significant for coronary artery disease with previous stenting, hypertension, hyperlipidemia, and aortic stenosis. Patient follows in the office with Dr. Arias. We have been asked to see the patient in consultation for chest pain. Patient examined at the bedside. Patient presented to the hospital for chief complaint of chest discomfort. Patient states that she had an episode of chest pain yesterday. She states the pain was not worse with exertion. She also reports she has been feeling short of breath with exertion recently. She does have a frequent cough at the time of examination. Vital signs are stable. The patient also gives additional history of chronic anemia for the past 1 to 2 years and states they are unsure of the etiology of her anemia. She denies any signs of GI bleeding. DIAGNOSTICS: - EKG reveals sinus mechanism with no signs of acute ischemia. - Chest xray chronic emphysematous changes and cardiomegaly without acute pulmo nary process. - Laboratory data: WBC 7.11. Hemoglobin 8.6. Platelet count 343. Sodium 135. Potassium 3.6. BUN 19. Creatinine 0.92. Troponin negative x 3. proBNP 846. - Current home cardiac medications include amlodipine 10 mg daily, irbesartan 300 mg daily, Plavix 75 mg daily, atorvastatin 80 mg at night - Most recent echocardiogram obtained in July 2023 revealed ejection fraction 55 to 60%, moderate aortic stenosis with peak gradient 46 mmHg and mean gradient 27 mmHg - Cardiac catheterization history: December 2017 revealing right dominant system. No significant CAD. Previously stented circumflex is widely patent. 10/06/2024 Patient examined this morning at the bedside. Patient currently denies chest pain or pressure. She denies shortness of breath. Vital signs are stable. E chocardiogram performed yesterday revealed ejection fraction 55 to 60%, no obvious regional wall motion abnormalities, severe aortic stenosis with peak gradient 76 mmHg and mean gradient 51 mmHg, trace to mild aortic regurgitation, mild to moderate tricuspid regurgitation. Vital signs are stable. PHYSICAL EXAM: VITAL SIGNS: Reviewed. GENERAL: Well-developed in no acute distress. HEENT: Head is normocephalic. Pupils are equal, round. Sclerae anicteric. Mucous membranes of the mouth are moist. Neck supple. No JVD or thyromegaly LUNGS: Respirations even and unlabored. Lungs essentially clear to auscultation bilaterally. HEART: Regular rate and rhythm. S1 and S2 heard. Systolic murmur noted. ABDOMEN: Soft. Nondistended. Nontender. EXTREMITIES: Normal range of motion. No clubbing or cyanosis. Peripheral pulses intact. No lower extremity edema NEUROLOGIC: Awake and alert. Oriented x 3. ASSESSMENT: Chest pain, troponin negative x 3 Symptomatic severe aortic stenosis Coronary artery disease with previous stenting of the circumflex History of loop recorder insertion, November 2023 Hypertension Hyperlipidemia PLAN: Continue current cardiac medications Patient may be discharged home today from a cardiac standpoint Patient will undergo further outpatient testing with EZRA/cardiac catheterization as patient will need to undergo aortic valve replacement Patient to follow-up postdischarge in the office with Dr. Arias Nurse practitioner note has been reviewed by physician. Signing provider agrees with the documented findings, assessment, and plan of care documented by ENGRAVER WOOD as a scribe. Objective - Vital Signs Vital signs: Vital Signs Temp 98.0 F 10/06/24 07:00 Pulse 70 10/06/24 07:00 Resp 16 10/06/24 07:00 BP 136/63 10/06/24 07:00 Pulse Ox 97 10/06/24 07:00 FiO2 Intake & Output 10/05/24 10/06/24 10/06/24 18:59 06:59 18:59 Intake Total 240 240 Balance 240 240 Intake: Oral 240 240 Other: Voiding Method Toilet # Voids 2 2 - Labs CBC & Chem 7: 10/04/24 15:36 10/04/24 15:36
[2024-10-06 12:26] VITALS: BP 112/62; PULSE 77; TEMP 98.1
--- NOTE | 2024-10-09 22:39 | P.DS ---
Providers Date of admission: 10/04/24 18:08 Attending physician: Mar Rodriguez Consults: 10/04/24 18:07 Consult Physician Urgent Consulting Provider: [facility] Consult Reason/Comments: Chest pain Do you want consulting provider notified?: Yes Primary care physician: [facility] Hospital Course: Final Diagnosis Chest pain Severe aortic stenosis with a gradient of 51 mmHg Systolic murmur secondary to above Chronic atrial fibrillation History of GERD Hypertension Hyperlipidemia History of rheumatoid arthritis Sleep apnea on BiPAP Discharge Disposition Patient stable for discharge home with overall guarded prognosis secondary to her severe aortic stenosis. Patient will require close follow-up with cardiology and is recommended to undergo outpatient cardiac catheterization and EZRA which will be scheduled on follow-up. Hospital Course This is a pleasant 84 years old female presents because of chest pain of 2 days duration about 10/10 severity, after they put a patch currently is completely resolved and rated as 0/10. Chest pain is central radiating to the left chest and to the back. [place] like sharp with no precipitating factors like coughing or shortness of breath. No relieving factors. Patient denies shortness of breath or coughing. Labs look stable hemoglobin 8.6 close to baseline. Unremarkable rest of CBC, BMP, LFT, INR, troponin x 2 are negative. EKG showing sinus rhythm at [address]-T changes. Chest x-ray showing chronic emphysematous changes and cardiomegaly with no pulmonary vascular congestion. She was started on aspirin 325 mg. Echocardiogram showed preserved ejection fraction of 55 to 60%. Aortic sclerosis with severe aortic stenosis. Cardiology evaluated the patient. Echocardiogram reveals normal LV systolic function with aortic sclerosis with severe aortic stenosis and mean gradient of 51 mmHg. Mild to moderate mitral regurgitation. Her chest pain resolved at this time and is likely due to the aortic stenosis. Patient was recommended to continue on aspirin 81 mg daily on discharge and will need to follow-up with cardiology has an appointment scheduled with Dr. Santillan on October 13. Patient will have outpatient cardiac catheterization and EZRA. Please see medication reconciliation for a list of current medications. Thank you for allowing us to participate in the care of this patient. The impression and plan of care has been dictated by Marisel Silvestre Nurse Practitioner as directed. Dr. Savanna MD I have performed a history and physical examination and medical decision making of this patient, discussed the same with the dictator, and agree with the dictators assessment and plan as written, documented as a scribe. Based on total visit time, I have performed more than 50% of this visit. Patient Condition at Discharge: Stable Plan - Discharge Summary Discharge Rx Participant: No New Discharge Prescriptions: New Nitroglycerin Sl Tabs [Nitrostat] 0.4 mg SUBLINGUAL Q5M PRN #20 tab PRN Reason: Chest Pain Aspirin 81 mg PO DAILY #30 tab Continue Atorvastatin [Lipitor] 80 mg PO HS #30 tab Folic Acid 1 mg PO DAILY Pantoprazole Sodium [Protonix] 40 mg PO DAILY Ferrous Sulfate [Iron (65 MG Elemental)] 325 mg PO DAILY Calcium(Unknown Dose) 1 tab PO DAILY Vitamin D3(Unknown Dose) 1 tab PO DAILY FLUoxetine HCL [PROzac] 60 mg PO DAILY Furosemide [Lasix] 40 mg PO DAILY Multivitamins, Thera [Multivitamin (formulary)] 1 tab PO DAILY amLODIPine [Norvasc] 10 mg PO DAILY Clopidogrel [Plavix] 75 mg PO DAILY Irbesartan 300 mg PO DAILY Potassium Chloride ER [K-Dur 20] 20 meq PO DAILY #90 tab Magnesium(Unknown Dose) 1 tab PO DAILY Discharge Medication List Atorvastatin [Lipitor] 80 mg PO HS #30 tab 08/11/17 [Rx] Folic Acid 1 mg PO DAILY 12/15/19 [History] Pantoprazole Sodium [Protonix] 40 mg PO DAILY 06/02/20 [History] amLODIPine [Norvasc] 10 mg PO DAILY 02/21/21 [History] Clopidogrel [Plavix] 75 mg PO DAILY 09/02/23 [History] Ferrous Sulfate [Iron (65 MG Elemental)] 325 mg PO DAILY 09/02/23 [History] Irbesartan 300 mg PO DAILY 12/16/23 [History] Potassium Chloride ER [K-Dur 20] 20 meq PO DAILY #90 tab 12/21/23 [Rx] Calcium(Unknown Dose) 1 tab PO DAILY 10/04/24 [History] FLUoxetine HCL [PROzac] 60 mg PO DAILY 10/04/24 [History] Furosemide [Lasix] 40 mg PO DAILY 10/04/24 [History] Magnesium(Unknown Dose) 1 tab PO DAILY 10/04/24 [History] Multivitamins, Thera [Multivitamin (formulary)] 1 tab PO DAILY 10/04/24 [History] Vitamin D3(Unknown Dose) 1 tab PO DAILY 10/04/24 [History] Aspirin 81 mg PO DAILY #30 tab 10/06/24 [Rx] Nitroglycerin Sl Tabs [Nitrostat] 0.4 mg SUBLINGUAL Q5M PRN #20 tab 10/06/24 [Rx] Follow up Appointment(s)/Referral(s): Mack Arias MD [STAFF PHYSICIAN] - 10/13/24 10:30 am [facility] DO [Primary Care Provider] - 1-2 days Patient Instructions/Handouts: Nitroglycerin, Rapid Release (By mouth), Chest Pain (DC) Activity/Diet/Wound Care/Special Instructions: Follow up with cardiology in the office to schedule outpatient cardiac catheterization and EZRA. Discharge Disposition: HOME SELF-CARE
== END 2024-10-06 16:13 | disposition home or self-care (01) ==
LOC: EC 14:35 → 6NMEDSUR 18:08
PROVIDERS: ADMIT Hospitalist; ATTEND Hospitalist
DX: R07.89 Other chest pain (principal); I08.3 Combined rheumatic disorders of mitral, aortic and tricuspid valves; I48.20 Chronic atrial fibrillation, unspecified; I25.10 Atherosclerotic heart disease of native coronary artery without angina pectoris; I11.9 Hypertensive heart disease without heart failure; T46.3X6A Underdosing of coronary vasodilators, initial encounter; Z91.128 Patient's intentional underdosing of medication regimen for other reason; E78.00 Pure hypercholesterolemia, unspecified; D64.9 Anemia, unspecified; K21.9 Gastro-esophageal reflux disease without esophagitis; M06.9 Rheumatoid arthritis, unspecified; G47.30 Sleep apnea, unspecified; M54.9 Dorsalgia, unspecified; R05.9 Cough, unspecified; Z79.02 Long term (current) use of antithrombotics/antiplatelets; Z79.631 Long term (current) use of antimetabolite agent; Z79.899 Other long term (current) drug therapy; Z91.048 Other nonmedicinal substance allergy status; Z95.5 Presence of coronary angioplasty implant and graft; Z87.891 Personal history of nicotine dependence; Z95.818 Presence of other cardiac implants and grafts
CPT/HCPCS: 96372; 99285; 36415; 93005; 93306; 83880; 80061; 80053; 83735; 84484; 85025; 85610; 85730; 87636; 71046; G0378 ×3; J1644

== ENCOUNTER 2024-10-19 05:33 | Day surgery (SDC) | payer MEDICARE ==
[2024-10-17 08:45] VITALS: BMI 31.1
[2024-10-19] MEDS ORDERED: HEPARIN SODIUM,PORCINE 10,000 UNIT in SODIUM CHLORIDE 0.9% 1,000 ML IRRIGATION PRN (05:47)
[2024-10-19] MEDS ORDERED: ALPRAZolam 0.25 MG TAB PO PRN (05:47)
[2024-10-19] MEDS ORDERED: NITROGLYCERIN SL TABS 0.4 MG TAB SUBLINGUAL PRN (05:47)
[2024-10-19] MEDS ORDERED: HEPARIN SODIUM,PORCINE (1 ML) 2,500 UNIT in SODIUM CHLORIDE 0.9% 250 ML IRRIGATION PRN (05:47)
[2024-10-19] MEDS ORDERED: ALPRAZolam 0.5 MG TAB PO PRN (05:47)
[2024-10-19] MEDS: SODIUM CHLORIDE 0.9% 1,000 ML in EMPTY BAG 1 BAG IV ONE (06:01)
[2024-10-19] MEDS: IV FLUID CONTINUATION 1,000 ML IV ONE ×3 (06:07→09:00)
[2024-10-19 06:31] VITALS: RESP 16; TEMP 97.3
[2024-10-19] MEDS ORDERED: ASPIRIN 325 MG TAB PO ONE (07:00)
[2024-10-19] MEDS: BENZOCAINE SPRAY 1 EACH MM ONE (07:33)
[2024-10-19] MEDS: MIDAZOLAM 2 MG/2 ML VIAL IVP ONE ×2 (07:50→07:56)
[2024-10-19] MEDS: fentaNYL (PF) 50 MCG/1 ML VIAL IVP ONE (07:50)
--- NOTE | 2024-10-19 08:10 | P.PCN ---
Date of Procedure: 10/19/24 Operative Findings: TRANSESOPHAGEAL ECHOCARDIOGRAM CAN FEEDER: MAE LIVINGSTON MD, RPVI INDICATION: Aortic stenosis SEDATION: Conscious sedation COMPLICATION: None LEVEL OF SEDATION Moderate to sedation length of 20-minute PROCEDURE DESCRIPTION: After obtaining an informed consent, the patient was brought to transesophageal echocardiogram room. Pulse oximetry and heart monitors were attached to the patient. The patient throat was sprayed using lidocaine. The patient was turned into left lateral position. After that a bite guard was placed. After an appropriate conscious sedation was initiated, the transesophageal echocardiogram was advanced through a bite guard into the mid esophagus. A 2-D echocardiogram images, color Doppler images, continuous wave images, pulse-wave images, of various cardiac structure were performed. After that the transesophageal echocardiogram probe was advanced into the stomach and fixed to obtain transgastric view was. The probe was brought into the mid esophagus. Inter-atrial septum was interrogated using 2D images, color Doppler images, and then contrast study. After that transesophageal echocardiogram was withdrawn out and upon withdrawing the descending thoracic aorta all the way up to the arch was evaluated. CONCLUSION: 1. Trileaflet aortic valve with evidence of aortic sclerosis and severe aortic stenosis with a mean gradient of 41 mmHg and peak systolic velocity exceeding 4 m/s 2. Mildly thickened mitral valve leaflets with moderate mitral regurgitation 3. Moderate tricuspid regurgitation 4. Preserved LV systolic function 5. Trace circumferential pericardial effusion 6. Intact left atrial appendage and intact interatrial septum
[2024-10-19] MEDS: LIDOCAINE 1% INJ 10MG/ML (20 ML MDV) SQ ONE (08:17)
[2024-10-19] MEDS: VERAPAMIL SYRINGE (5 MG/10 ML) INTRAARTER ONE (08:19)
[2024-10-19] MEDS: HEPARIN SODIUM,PORCINE (1 ML) 2,500 UNIT in SODIUM CHLORIDE 0.9% 250 ML IRRIGATION ONE (08:35)
[2024-10-19] MEDS: HEPARIN SODIUM 1,000 UN/ML (10ML VL) IV ONE (08:35)
[2024-10-19] MEDS: HEPARIN SODIUM (1,000 UNIT/ML) 1,000 UNIT in SODIUM CHLORIDE 0.9% 1,000 ML IRRIGATION ONE (08:35)
[2024-10-19] MEDS ORDERED: RX INFO: IV CONTRAST WAS GIVEN 1 EACH MISC MISCELLANE PRN (08:47)
[2024-10-19] MEDS: IOPAMIDOL-370 100ML BTL INJ ONE (08:50)
--- NOTE | 2024-10-19 08:53 | P.PCN ---
Date of Procedure: 10/19/24 Operative Findings: CARDIAC CATHETERIZATION PERFORMING PHYSICIAN: Benigno Reid MD, RPVI PROCEDURE PERFORMED: 1. Selective right and left coronary angiogram 2. Left heart catheterization and right heart catheterization 3. Ultrasound-guided access of the right radial artery and right common femoral vein INDICATION: Aortic stenosis COMPLICATION: None APPROACH: Right radial artery LEVEL OF SEDATION: Moderate with a sedation length of 29 minutes PROCEDURE DESCRIPTION: After obtaining an informed consent, the patient was brought to cardiac laboratory chief. Local anesthesia was performed using lidocaine subcutaneously. The right radial artery was cannulated using Seldinger technique, under ultrasound guidance, the guidewire passed easily, following that we advanced a 5-[place] sheath dilator assembly, the wire and dilator were removed and sheath was flushed. Following that the right common femoral vein was cannulated using micropuncture technique under ultrasound guidance a micropuncture wire passed easily then at least 6 [place] sheath at the right common femoral vein. Right heart catheterization was performed using 6 [place] catheter Following that, 2 mg of verapamil along with 5000 unit heparin were given. Selective right and left coronary angiogram using a 5-[place] JR4 and JL 3.5 catheters. Following that we did left heart catheterization using 5-[place] JR4 catheter with a straight The procedure was completed there was no complication. SELECTIVE CORONARY ANGIOGRAM: The right coronary artery: Large-caliber vessel and the dominant vessel appears to be angiographically Left main: Is angiographically The left circumflex: Large-caliber vessel nondominant vessel with no evidence of high-grade stent The left anterior descending artery: Large-caliber vessel with no evidence of high-grade stenosis HEMODYNAMICS: The pulmonary capillary wedge pressure was 15 mmHg PA pressures were as follows systolic of 36 and diastolic of 10 mmHg and mean of 24 mmHg RV pressures were as follows systolic of 42 and end-diastolic of 10 mmHg The aortic valve mean gradient was 38 mmHg with aortic valve area of 1.06 cm and indexed area of 0.58 cm/m CONCLUSION: 1. Normal coronary angiogram 2. Mildly elevated biventricular filling pressures 3. Normal cardiac output 4. Severe aortic stenosis by gradient, area, and indexed area, as described above. POSTPROCEDURE MANAGEMENT: Consider the patient to be evaluated for TAVR
[2024-10-19] MEDS ORDERED: SODIUM CHLORIDE 0.9% 1,000 ML IV SCH (09:00)
[2024-10-19 12:23] VITALS: BP 139/60
[2024-10-19 13:12] VITALS: PULSE 70
== END 2024-10-19 13:18 | disposition home or self-care (01) ==
LOC: CATHCVL 05:33
PROVIDERS: ATTEND Internal Medicine Interventional Cardiology
DX: I25.10 Atherosclerotic heart disease of native coronary artery without angina pectoris (principal); I08.3 Combined rheumatic disorders of mitral, aortic and tricuspid valves; I70.0 Atherosclerosis of aorta; I31.39 Other pericardial effusion (noninflammatory); E78.5 Hyperlipidemia, unspecified; I10 Essential (primary) hypertension; Z72.0 Tobacco use; Z79.02 Long term (current) use of antithrombotics/antiplatelets; Z79.899 Other long term (current) drug therapy
CPT/HCPCS: 93312; 93320; 93325; 93460; 99152; 99153; C1769 ×3; C1894 ×2; C1751; C1760; J2250; J1644 ×2; J2003; Q9967; J3010

== ENCOUNTER → 2024-10-31 | Outpatient (CLI) | payer MEDICARE ==
[2024-10-31 09:57] LABS: Basophils # (A) 0.06 10*3/uL (0.00-0.10); Basophils % (A) 0.9 %; Eosinophils # (A) 0.09 10*3/uL (0.04-0.35); Eosinophils % (A) 1.3 %; HCT 25.5 % (37.2-46.3); HGB 8.1 g/dL (12.0-15.0); Lymphocytes # (A) 1.66 10*3/uL (0.90-5.00); Lymphocytes % (A) 24.9 %; MCH 31.4 pg (27.0-32.0); MCHC 31.8 g/dL (32.0-37.0); MCV 98.8 fL (80.0-97.0); Mean Platelet Volume 9.5 fL (9.5-12.2); Monocytes # (A) 0.84 10*3/uL (0.20-1.00); Monocytes % (A) 12.6 %; Neutrophils # (A) 4.01 10*3/uL (1.80-7.70); Platelet Count 417 10*3/uL (140-440); RBC 2.58 10*6/uL (4.10-5.20); RDW 15.2 % (11.5-14.5); WBC 6.68 10*3/uL (4.50-10.00)
[2024-10-31 10:12] LABS: INR 0.9 (<1.2); Partial Thromboplastin Time 22.8 sec (22.0-30.0); Prothrombin Time 10.6 sec (10.0-12.5)
[2024-10-31 10:23] LABS: ALT 22 U/L (4-34); AST 27 U/L (14-36); African American GFR (CKD) 77 (>60 ml/min/1.73 sqM); Albumin 3.6 g/dL (3.5-5.0); Albumin/Globulin Ratio 1.3; Alkaline Phosphatase 49 U/L (38-126); Anion Gap 6 mmol/L; Blood Urea Nitrogen 16 mg/dL (7-17); Calcium 9.2 mg/dL (8.4-10.2); Carbon Dioxide 27 mmol/L (22-30); Chloride 102 mmol/L (98-107); Globulin 2.7 g/dL; Glucose 90 mg/dL (74-99); Magnesium 2.2 mg/dL (1.6-2.3); Non-African American GFR(CKD) 66 (>60 ml/min/1.73 sqM); Potassium 3.9 mmol/L (3.5-5.1); Sodium 135 mmol/L (137-145); Total Bilirubin 0.5 mg/dL (0.2-1.3); Total Protein 6.3 g/dL (6.3-8.2)
[2024-10-31 10:32] LABS: NT-Pro-B-Type Natriuretic Pept 661 pg/mL
--- NOTE | 2024-10-31 12:06 | CT ---
EXAMINATION TYPE: CT TAVR Planning DATE OF EXAM: 10/31/2024 COMPARISON: CT abdomen 01/07/2024, CT abdomen 12/24/2023, CT chest 11/03/2023, CTA chest 08/12/2023 CLINICAL INDICATION: Female, 84 years old with history of I35.0 NONRHEUMATIC AORTIC VALVE INSUF; TAVR TECHNIQUE: CT scan of the Neck, chest, abdomen and pelvis is performed with IV contrast; Helical imaging obtaine d through the chest, abdomen and pelvis during arterial phase dynamic administration of radiographic contrast intravenously. MIP imaging performed on a [employer] work station and submitted for review. CONTRAST: 125mL mL of Isovue 370. CT DLP: 2070 mGycm, Automated exposure control for dose reduction was used. FINDINGS: See report from [employer] regarding preprocedural planning HEART AND PERICARDIUM: The heart is mildly enlarged. There is a small pericardial effusion present. M oderate coronary artery calcifications present. AV Calcification Severity: Mild to moderate ARTERIAL VASCULATURE: The aortic arch and thoracic aorta demonstrate a normal course and caliber. Four-vessel aortic arch. Moderate atherosclerotic calcification of the aorta and its branches. The pulmonary outflow tract scarlet ears within normal limits for size. The thoracic aorta is normal in course and caliber. There is no evidence of aortic dissection, aneurysm or acute aortic injury. Great arch vessels patent and normal in course and caliber. PULMONARY ARTERIAL VASCULATURE: Normal caliber., No evidence for central filling defect. NECK AND THYROID: Moderate atherosclerotic calcification of the bilateral carotid bifurcations withou t significant stenosis. Bilateral aphakia. Bilateral scleral calcifications. Retrosternal extension o f the isthmus of the thyroid gland. CHEST: LUNGS: No acute area of infiltrative or consolidative change. Mild centrilobular emphysematous change s are present. Right upper lobe calcified pleural plaque. Stable posterior right upper lobe 3.8 mm pu lmonary nodule. Stable right lower lobe 6.8 mm pulmonary nodule. No new or enlarging pulmonary nodule s. LARGE AIRWAYS: Central airways are patent. PLEURAL: No pleural effusion or thickening. No pneumothorax. MEDIASTINUM AND KAITLYNN: No mediastinal or hilar lymphadenopathy or soft tissue mass. SOFT TISSUES/LYMPH NODES: Loop recorder within the left anterior chest. MUSCULOSKELETAL: No acute osseous abnormalities. Benign bone island within the T11 vertebral body. ABDOMEN/PELVIS: Please note arterial phase of the imaging limits detailed evaluation of the solid abdominal organs. ABDOMEN LIVER: Calcified granuloma within the posterior right hepatic lobe. Enlarged liver measuring 19.9 cm in CC dimension. GALLBLADDER AND BILE DUCTS: Unremarkable. PANCREAS: Unremarkable. SPLEEN: Unremarkable. ADRENAL GLANDS: Unremarkable. KIDNEYS AND URETERS: No evidence of hydronephrosis. Contrast is demonstrated within both collecting s ystems which limits evaluation for renal calculi. The kidneys enhance symmetrically. PELVIS BLADDER: Unremarkable REPRODUCTIVE: The uterus is surgically absent. 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 A few scattered distal colonic diverticula without evidence for a cute diverticulitis. Few scattered regions of hyperdense material within the bowel. No focal bowel wa ll thickening or surrounding inflammatory changes. No evidence of bowel obstruction. PERITONEUM/RETROPERITONEUM: No evidence of pneumoperitoneum or free fluid. VASCULATURE: No evidence of abdominal aortic aneurysm. Moderate atherosclerotic calcification of the abdominal aorta and its branches. MUSCULOSKELETAL: No acute osseous abnormalities. Degenerative changes of the pubic symphysis. Levosco liotic curvature of the thoracolumbar spine. Multilevel degenerative disc disease. LYMPH NODES: No evidence for lymphadenopathy. SOFT TISSUE/ABDOMINAL WALL: Unremarkable Other Lines/Tubes/Devices/Hardware: None IMPRESSION: 1. Mild to moderate calcifications of the aortic valve. 2. No acute process. 3. Small pericardial effusion. 4. 4. See report from [employer] regarding preprocedural planning [facility], , 10/31/2024 12:04 PM
[2024-10-31 15:17] LABS: Hepatitis A Antibody IgM Nonreactive (Nonreactive); Hepatitis B Core IgM Nonreactive (Nonreactive); Hepatitis B Surface Antigen Nonreactive (Nonreactive); Hepatitis C IgG Antibody Nonreactive (Nonreactive)
[2024-10-31 19:19] LABS: Appearance,Urine Clear (Clear); Bilirubin,Urine Negative (Negative); Blood,Urine Negative (Negative); Color,Urine Yellow (Yellow); Ketones,Urine Negative (Negative); Nitrite,Urine Negative (Negative); PH, Urine 7.5; Specific Gravity,Urine 1.005 (1.001-1.030); Urobilinogen,Urine 0.2 E.U./DL
[2024-10-31 20:45] LABS: Chol/HDL Ratio 1.85 Ratio; LDL Cholesterol,Calculated 56.8 mg/dL (0.0-131.0); VLDL Calculation 14.36 mg/dL (5.00-40.00)
== END | disposition home or self-care (01) ==
LOC: LABWHC1 09:02
PROVIDERS: ATTEND Thoracic Surgery (Cardiothoracic Vascular Surgery)
DX: I35.0 Nonrheumatic aortic (valve) stenosis (principal)
CPT/HCPCS: 83880; 80061; 80053; 80074; 84443; 83735; 85025; 85610; 85730; 81003; 83036; 71275; 74174; 36415; Q9967

== ENCOUNTER → 2024-12-07 | Outpatient (CLI) | payer MEDICARE ==
[2024-12-07 19:27] LABS: Basophils # (A) 0.06 X 10*3/uL (0.00-0.10); Basophils % (A) 0.8 %; Eosinophils # (A) 0.08 X 10*3/uL (0.04-0.35); Eosinophils % (A) 1.1 %; HCT 28.9 % (37.2-46.3); Lymphocytes # (A) 1.09 X 10*3/uL (0.90-5.00); Lymphocytes % (A) 14.9 %; MCH 32.4 pg (27.0-32.0); MCHC 31.1 g/dL (32.0-37.0); Mean Platelet Volume 10.4 FL (9.5-12.2); Monocytes % (A) 10.9 %; NRBC Per 100 WBC 0 X 10*3/uL (0.00-0.01); Neutrophils # (A) 5.25 X 10*3/uL (1.80-7.70); Neutrophils % (A) 71.9 %; Platelet Count 294 X 10*3/uL (140-440); RBC 2.78 X 10*6/uL (4.10-5.20); RDW 17.7 % (11.5-14.5); WBC 7.31 X 10*3/uL (4.50-10.00)
[2024-12-07 19:32] LABS: BUN/Creat Ratio 17.89 Ratio (12.00-20.00); Blood Urea Nitrogen 16.1 mg/dL (9.0-27.0); Calcium 8.4 mg/dL (8.7-10.3); Carbon Dioxide 25.1 mmol/L (21.6-31.8); Chloride 104 mmol/L (96-109); Glucose 96 mg/dL (70-110); Potassium 3.6 mmol/L (3.5-5.5); Sodium 140 mmol/L (135-145)
== END | disposition home or self-care (01) ==
LOC: LABPAT 12:03
PROVIDERS: ATTEND Thoracic Surgery (Cardiothoracic Vascular Surgery)
DX: Z01.812 Encounter for preprocedural laboratory examination (principal); Z79.899 Other long term (current) drug therapy; I35.0 Nonrheumatic aortic (valve) stenosis
CPT/HCPCS: 80048; 85025; 85730; 86850; 86900; 86901

== ENCOUNTER 2024-12-08 05:47 | Inpatient (IN) | payer MEDICARE ==
[2024-12-08] MEDS ORDERED: ELECTROLYTE-A SOLUTION 1,000 ML with POTASSIUM CHLORIDE 100 MEQ, MAGNESIUM SULFATE 16 M... IV PRN (06:00)
[2024-12-08] MEDS ORDERED: NITROGLYCERIN-D5W PMX 25 MG/250 ML BTL IV PRN (06:00)
[2024-12-08] MEDS ORDERED: TRANEXAMIC ACID 2,000 MG in SODIUM CHLORIDE 0.9% 80 ML IV PRN (06:00)
[2024-12-08] MEDS ORDERED: SODIUM CHLORIDE 0.9% 500 ML 500 ML INTRAARTER PRN (06:00)
[2024-12-08] MEDS ORDERED: PROTAMINE SULFATE 250 MG in EMPTY BAG 1 BAG IV PRN (06:00)
[2024-12-08] MEDS ORDERED: INSULIN REGULAR 100 UNIT in SODIUM CHLORIDE 0.9% 100 ML IV PRN (06:00)
[2024-12-08] MEDS ORDERED: CLEVIDIPINE BUTYRATE 25 MG in EMPTY BAG 1 BAG IV PRN (06:00)
[2024-12-08] MEDS: IV FLUID CONTINUATION 1,000 ML IV ONE (06:06)
[2024-12-08 06:25] LABS: Glucose,Whole Blood 90 mg/dL (70-110)
[2024-12-08] MEDS: ATORVASTATIN 10 MG TAB PO ONE (06:36)
[2024-12-08] MEDS: CLOPIDOGREL 75 MG TAB PO ONE (06:36)
[2024-12-08] MEDS: ASPIRIN 325 MG TAB PO ONE (06:36)
[2024-12-08] MEDS: METOPROLOL TARTRATE 25 MG TAB PO ONE (06:38)
[2024-12-08 06:40] LABS: Basophils # (A) 0.04 10*3/uL (0.00-0.10); Basophils % (A) 0.6 %; Eosinophils # (A) 0.09 10*3/uL (0.04-0.35); Eosinophils % (A) 1.3 %; HCT 27.6 % (37.2-46.3); HGB 9.2 g/dL (12.0-15.0); Lymphocytes # (A) 1.08 10*3/uL (0.90-5.00); Lymphocytes % (A) 15.4 %; MCH 33.8 pg (27.0-32.0); MCHC 33.3 g/dL (32.0-37.0); MCV 101.5 fL (80.0-97.0); Mean Platelet Volume 9.9 fL (9.5-12.2); Monocytes # (A) 1.03 10*3/uL (0.20-1.00); Monocytes % (A) 14.7 %; Neutrophils # (A) 4.75 10*3/uL (1.80-7.70); Neutrophils % (A) 67.7 %; Platelet Count 281 10*3/uL (140-440); RBC 2.72 10*6/uL (4.10-5.20); RDW 17.4 % (11.5-14.5); WBC 7.01 10*3/uL (4.50-10.00)
[2024-12-08] MEDS ORDERED: GLYCOPYRROLATE 0.2 MG/ML 2 ML VIAL ONE (07:32)
[2024-12-08] MEDS ORDERED: ROCURONIUM 10 MG/ML (5 ML VIAL) IV ONE (07:32)
[2024-12-08] MEDS ORDERED: MIDAZOLAM 2 MG/2 ML VIAL ONE (07:32)
[2024-12-08] MEDS ORDERED: NEOSTIGMINE 1 MG/ML 10 ML VIAL ONE (07:32)
[2024-12-08] MEDS ORDERED: LIDOCAINE 1% INJ 10MG/ML (20 ML MDV) ONE (07:32)
[2024-12-08] MEDS ORDERED: PROTAMINE SULFATE 10 MG/ML 5 ML VIAL ONE (07:32)
[2024-12-08] MEDS ORDERED: HEPARIN SODIUM,PORCINE 5,000 UNIT/ML 1 ML VIAL ONE (07:32)
[2024-12-08] MEDS ORDERED: PROPOFOL 10 MG/ML 20 ML VIAL IV ONE (07:32)
[2024-12-08] MEDS ORDERED: PHENYLEPHRINE 10 MG/ML VIAL ONE (07:32)
[2024-12-08] MEDS ORDERED: SUCCINYLCHOLINE CHLORIDE 200 MG/10 ML VIAL IV ONE (07:32)
[2024-12-08] MEDS ORDERED: fentaNYL (PF) 50 MCG/ML 2 ML AMP ONE (07:32)
[2024-12-08] MEDS: IOPAMIDOL-300 30ML BTL INJ ONE (09:00)
--- NOTE | 2024-12-08 09:20 | P.OP ---
Date of Procedure: 12/08/24 Preoperative Diagnosis: Symptomatic tricuspid calcific aortic stenosis Postoperative Diagnosis: Same Procedure(s) Performed: Percutaneous transfemoral transcatheter aortic valve replacement with 29 mm [employer] evolute flex plus transcatheter aortic valve prosthesis Implants: 29 mm [employer] Evolut flex plus aortic valve prosthesis Anesthesia: KAYLEN Surgeon: Bo Ingram Motorcycle Tester #1: Benigno Reid Estimated Blood Loss (ml): 10 Pathology: none sent Condition: stable Disposition: PACU Indications for Procedure: 84-year-old female with severe symptomatic aortic stenosis was evaluated in the high risk valve clinic and felt to be most appropriate for transcatheter aortic valve replacement. Elective procedure was scheduled. Operative Findings: Gradient across the valve was 40. In final implant there was mild residual paravalvular leak. Completion angiography demonstrated no narrowing and excellent flow through the right common femoral artery. Description of Procedure: Patient was electively admitted and brought to the catheterization laboratory and placed supine on the table. General anesthesia was induced. EZRA probe was placed. Anterior torso and bilateral groins were sterilely prepped and draped. Bilateral femoral arterial and left femoral venous access was obtained under ultrasound guidance. On the right a 6 [place] sheath was placed. On the left a long 6 [place] sheath was placed into the femoral artery and advanced into the descending thoracic aorta and through this a pigtail was advanced into the noncoronary sinus of Valsalva. A long 8 [place] sheath was placed in the left femoral vein and through this a temporary venous pacemaker was advanced into the right ventricle and tested. 2 Perclose devices were placed in the right femoral artery and it was upsized to a 8 [place] sheath. This was then upsized further to a 14 [place] sheath over a stiff wire. Patient was systemically heparinized and ACT's maintained greater than 250. J-wire was advanced on the right and the valve was crossed. Pigtail catheter was placed in the apex of the left ventricle. Transvalvular gradients were measured. 29 mm Medtronic evolute flex plus valve was loaded on the back table and checked under fluoroscopy. Stiff wire was placed at the apex of the ventricle and the 14 [place] sheath was exchanged for the evolute valve delivery system. This was advanced through the vascular tree around the aortic arch and across the aortic valve. Valve was deployed under rapid ventricular pacing with deployment levels of 2 on the right and 3 on the left. Valve appeared somewhat under deployed and there was moderate aortic insufficiency. The valve delivery system was removed and the delivery system exchanged for a 14 [place] sheath. The valve was recrossed with a pigtail catheter. Post deployment aortic valve dilatation was performed with a 25 mm true balloon under rapid ventricular pacing. This resulted in improved expansion and markedly reduced aortic insufficiency. Heparin was reversed with protamine and the 14 [place] sheath was removed and the 2 Perclose devices deployed with good result and hemostasis. Completion angiography was performed with no evidence of leak and no evidence of narrowing of the femoral artery. Temporary venous pacer, pigtail and left arterial and femoral access were removed and controlled with direct pressure. Patient was transferred to recovery following extubation.
--- NOTE | 2024-12-08 09:24 | P.PCN ---
Date of Procedure: 12/08/24 Operative Findings: TRANSCATHETER AORITC VALVE REPLACEMENT OPERATIVE REPORT PROCEDURE PERFORMED: 1. Percutaneous Aortic Valve Implantation using a 29 mm Evolut FX 2. Transesophageal echocardiography (performed by anesthesia) 3. Ultrasound guided access and repair of bilateral femoral artery access site b y Perclose closure device as well as Angio-Seal 4. Placement of temporary pacemaker wire. 5. Aortic root angiography INDICATIONS: 1. 84 year-old with a history of severe symptomatic aortic valve stenosis. The patient was experiencing shortness of breath consistent with NYHA class II PERFORMING PHYSICIANS: 1. Benigno Reid MD Interventional Cardiology. 2. Bo Ingram MD, Cardiothoracic Surgeon. SEDATION: General anesthesia provided by anesthesia, see separate note APPROACH: Bilateral femoral artery via percutaneous approach COMPLICATION None PROCEDURE DESCRIPTION: The patient was discussed at valve clinic with multidisciplinary approach with cardiothoracic surgeon as well as rn pool and thought better treated with TAVR. Risks, benefits, and alternatives of the procedure had been explained to the patient who understood the risks and agreed to proceed. After consents were obtained, patient was brought to the transcatheter aortic valve implantation room in the cardiac record label intern and general anesthesia was provided by the anesthesiologist (see separate report). Once full body sterile prep was performed, the left common femoral vein was cannulated using micropuncture technique under ultrasound guidance a micropuncture wire passed easily then I placed a 6 Filipino 23 cm sheath at the left common femoral vein. Subsequently under fluoroscopy guidance a balloontipped temporary pacemaker was advanced to the right ventricle and tested and secured after that. Next the left femoral artery waw accessed using a modified Seldinger technique, ultrasound guidance and micropuncture technique. A 6 Filipino 55 cm Rabi sheath was placed in the left femoral artery. Next, a 6-Filipino pigtail catheter was advanced into the aorta and positioned in the aortic root, aortic root angiography was performed to determine optimal deployment angle. The right femoral artery was accessed using modified Seldinger technique, micropuncture technique and under direct ultrasound guidance. Femoral angiogram was done showing access in the common femoral artery and a 6Fr sheath was placed. Next preclose technique was performed using a 2 Perclose. Next a 0.035 Safari wire was placed in the Aorta via a pigtail catheter. Subsequently the 14 Filipino sheath was advanced over the safari wire under fluoroscopy guidance and the sheath was secured. Next a 6F- AL1 catheter was advanced over a wire to the aortic root. The valve was crossed using pigtail catheter. Then pressure measurements were obtained. The 0.035 Safari wire was then positioned in the apex. Next a 29 mm Evolut-FX was advanced. The valve was then positioned across the aortic valve and confirmed with aortic root angiography. [The valve was initially partially deployed however needed repositioning and therefore was recaptured.] The valve was then deployed in proper position using slow deployment and with rapid pacing in conjuncture with aortic root angiography and EZRA. The delivery system was withdrawn back into the arch and an aortic root injection in conjunction with EZRA demonstrated moderate perivalvular leak and at that point we decided to post dilate where we used 25 mm balloon. Subsequently a EZRA was performed and showed only mild perivalvular leak. At that point we decided to stop. . The preclose Perclose was then deployed in the right femoral artery and hemostasis was achieved with adding an 8 [place]ino Angio-Seal. An angiogram using a rim catheter from the left common femoral artery was performed and showed good hemostasis. The left femoral angiogram demonstrated an arteriotomy in the common femoral artery and this was repaired using a 6F angioseal device with complete hemostasis. The TVP was withdrawn. The patient was then transported to the floor in hemodynamically stable condition, requiring no pressor support.
--- NOTE | 2024-12-08 09:28 | P.ANPRN ---
Procedure Note - Anesthesia - EZRA Intraop Pre Bypass EZRA Intraop - Anesthesia Indication: Aortic stenosis Date of Procedure: 12/08/24 Pre-operative Diagnosis: Post-operative Diagnosis: Same Surgeon: Bo Ingram Left Ventricle: EF55 Ejection Fraction: Normal Regional Wall Motion Abnormalities: None Left Ventricle Hypertrophy: Yes R. Ventricle Function: Normal Aortic Valve: Peak 70 mmHg, Mean 43 mmHg Anatomy: Trileaflet Aortic Stenosis: Severe Aortic Regurgitation: None Mitral Stenosis: None Mitral Regurgitation: Mild Tricuspid Stenosis: None Tricuspid Regurgitation: None Pulmonic Stenosis: None Pulmonic Regurgitation: Trace R. Atrial Dilation: No R. Atrial PFO: No L. Atrial Dilation: No Aortic Dissection: No Aortic Calcification: Severe Plural Effusion: None (Moderate pericardial effusion) - EZRA Intraop Post Bypass EZRA Intraop Post Bypass Procedure Performed: TAVR Ejection Fraction: Normal Regional Wall Motion Abnormalities: None R. Ventricle Function: Normal Aortic Valve: Peak 8 mmHg, Mean 4 mmHg. Perivalvular leak improved to Mild after balloon dilation Mitral Valve: Unchanged Tricuspid: Unchanged Pulmonic: Unchanged Aortic Dissection: No (No change in pericardial effusion)
--- NOTE | 2024-12-08 09:44 | XR ---
EXAMINATION TYPE: XR chest 1V portable DATE OF EXAM: 12/08/2024 9:40 AM COMPARISON: 10/04/2024 CLINICAL INDICATION: Female, 84 years old with history of post TAVR, TECHNIQUE: XR chest 1V portable view(s) obtained. FINDINGS: The heart size is enlarged. The pulmonary vasculature is normal. The lungs are clear. Patient is post TAVR. IMPRESSION: 1. Cardiomegaly. 2. No acute pulmonary process. [facility], , 12/08/2024 9:41 AM
[2024-12-08 10:00] LABS: HCT 25.3 % (37.2-46.3); HGB 8.3 g/dL (12.0-15.0); MCH 33.2 pg (27.0-32.0); MCHC 32.8 g/dL (32.0-37.0); MCV 101.2 fL (80.0-97.0); Mean Platelet Volume 10.1 fL (9.5-12.2); Platelet Count 253 10*3/uL (140-440); RDW 17.3 % (11.5-14.5)
[2024-12-08] MEDS ORDERED: IPRATROPIUM-ALBUTEROL 3 ML NEB INHALATION PRN (11:31)
[2024-12-08] MEDS ORDERED: ACETAMINOPHEN TAB 500 MG TAB PO PRN (11:31)
[2024-12-08] MEDS ORDERED: Potassium Replacement Protocol 1 EACH MISC MISCELLANE PRN (11:31)
[2024-12-08] MEDS ORDERED: ONDANSETRON 4 MG/2 ML VIAL IVP PRN (11:31)
[2024-12-08] MEDS ORDERED: NITROGLYCERIN SL TABS 0.4 MG TAB SUBLINGUAL PRN (11:31)
[2024-12-08] MEDS ORDERED: Magnesium Replacement Protocol 1 EACH MISC MISCELLANE PRN (11:31)
[2024-12-08] MEDS ORDERED: CALCIUM GLUCONATE IN NACL 2 GM in SALINE 1 100ML.BAG IVPB PRN (11:31)
[2024-12-08] MEDS: LACTATED RINGERS 1,000 ML IV SCH ×2 (12:28→13:01)
[2024-12-08] MEDS: ceFAZolin 2 GM in DEXTROSE 5% IN WATER 50 ML IVPB ONE (13:01)
[2024-12-08 13:42] LABS: African American GFR (CKD) 84 (>60 ml/min/1.73 sqM); Anion Gap 6 mmol/L; Blood Urea Nitrogen 18 mg/dL (7-17); Calcium 7.8 mg/dL (8.4-10.2); Carbon Dioxide 23 mmol/L (22-30); Chloride 109 mmol/L (98-107); Glucose 88 mg/dL (74-99); Non-African American GFR(CKD) 73 (>60 ml/min/1.73 sqM); Potassium 3.3 mmol/L (3.5-5.1); Sodium 138 mmol/L (137-145)
[2024-12-08] MEDS: ceFAZolin 2 GM in DEXTROSE 5% IN WATER 50 ML IVPB SCH (15:31)
[2024-12-08] MEDS: BENZOCAINE/MENTHOL LOZENG 1 EACH LOZENGE MUCOUS MEM PRN (16:13)
[2024-12-08] MEDS: SENNOSIDES-DOCUSATE SODIUM 1 EACH TAB PO SCH (20:13)
[2024-12-08] MEDS: ATORVASTATIN 80 MG TAB PO SCH (20:13)
[2024-12-08] MEDS: HEPARIN SODIUM,PORCINE 5,000 UNIT/ML 1 ML VIAL SQ SCH (23:10)
[2024-12-09 04:08] VITALS: RESP 16
--- NOTE | 2024-12-09 07:29 | XR ---
EXAMINATION TYPE: XR chest 1V portable DATE OF EXAM: 12/09/2024 5:52 AM COMPARISON: Chest radiographs from 12/08/2024. CLINICAL INDICATION: Female, 84 years old with history of Post Operative Cardiac Surgery; [facility] TECHNIQUE: XR chest 1V portable Frontal view of the chest. FINDINGS: Lungs/Pleura: There is no evidence of pleural effusion, focal consolidation, or pneumothorax. Pulmonary vascularity: Unremarkable. Heart/mediastinum: Cardiomediastinal silhouette is enlarged. A loop recorder projects over the left t horax over the heart. Musculoskeletal: No acute osseous pathology. IMPRESSION: No acute cardiopulmonary disease/process. [facility], , 12/09/2024 7:26 AM
[2024-12-09] MEDS: METOPROLOL TARTRATE 12.5 MG TAB PO SCH (07:33)
[2024-12-09] MEDS: LOSARTAN 50 MG TAB PO SCH (07:33)
[2024-12-09] MEDS: FLUoxetine HCL 20 MG CAP PO SCH (07:33)
[2024-12-09] MEDS: FUROSEMIDE 40 MG TAB PO SCH (07:34)
[2024-12-09] MEDS: FOLIC ACID 1 MG TAB PO SCH (07:34)
[2024-12-09] MEDS: MULTIVITAMINS, THERA 1 EACH TAB PO SCH (07:34)
[2024-12-09] MEDS: FERROUS SULFATE 325 MG TAB PO SCH (07:34)
[2024-12-09] MEDS: CLOPIDOGREL 75 MG TAB PO SCH (07:34)
[2024-12-09] MEDS: PANTOPRAZOLE 40 MG TABLET PO SCH (07:34)
[2024-12-09] MEDS: amLODIPine 10 MG TAB PO SCH (07:35)
[2024-12-09] MEDS: POTASSIUM CHLORIDE ER 20 MEQ TAB.ER PO SCH (07:37)
[2024-12-09] MEDS ORDERED: bisacodyL 10 MG SUPP RECTAL PRN (09:00)
[2024-12-09] MEDS ORDERED: MAGNESIUM HYDROXIDE 2,400 MG/30 ML CUP PO PRN (09:00)
[2024-12-09 09:25] LABS: Basophils # (A) 0.03 10*3/uL (0.00-0.10); Basophils % (A) 0.3 %; Eosinophils # (A) 0.03 10*3/uL (0.04-0.35); Eosinophils % (A) 0.3 %; HCT 25.3 % (37.2-46.3); HGB 8.1 g/dL (12.0-15.0); Lymphocytes # (A) 0.93 10*3/uL (0.90-5.00); Lymphocytes % (A) 8.8 %; MCH 33.5 pg (27.0-32.0); MCV 104.5 fL (80.0-97.0); Mean Platelet Volume 10.7 fL (9.5-12.2); Monocytes # (A) 1.36 10*3/uL (0.20-1.00); Monocytes % (A) 12.8 %; Neutrophils % (A) 77.4 %; Platelet Count 248 10*3/uL (140-440); RBC 2.42 10*6/uL (4.10-5.20); RDW 17.3 % (11.5-14.5); WBC 10.59 10*3/uL (4.50-10.00)
[2024-12-09 09:44] LABS: ALT 17 U/L (4-34); AST 26 U/L (14-36); African American GFR (CKD) 76 (>60 ml/min/1.73 sqM); Albumin 2.9 g/dL (3.5-5.0); Alkaline Phosphatase 45 U/L (38-126); Anion Gap 10 mmol/L; Blood Urea Nitrogen 14 mg/dL (7-17); Calcium 7.8 mg/dL (8.4-10.2); Carbon Dioxide 18 mmol/L (22-30); Chloride 107 mmol/L (98-107); Glucose 173 mg/dL (74-99); Magnesium 1.8 mg/dL (1.6-2.3); Non-African American GFR(CKD) 66 (>60 ml/min/1.73 sqM); Potassium 3.2 mmol/L (3.5-5.1); Sodium 135 mmol/L (137-145); Total Bilirubin 0.2 mg/dL (0.2-1.3); Total Protein 5.4 g/dL (6.3-8.2)
--- NOTE | 2024-12-09 11:06 | CA ---
Transthoracic Echo Report Name: Ramila Cowart Age: 84 Gender: F : 1940 Exam Date: 12/09/2024 09:42 Exam Location: [facility] Ht (in): 63 Wt (lb): 174 Ordering Physician: Kaitlynn Gomez Attending/Referring Phys: [id number], Patricia Outpatient Physical Therapist Carmina Dyer, LALO Procedure CPT: Indications: post TAVR Cardiac Hx: 1Day Post TAVR, Moderate Effusion Technical Quality: Good Contrast 1: Total Dose (mL): Contrast 2: Total Dose (mL): MEASUREMENTS (Male / Female) Normal Values 2D ECHO LV Diastolic Diameter PLAX 4.8 cm 4.2 - 5.9 / 3.9 - 5.3 cm LV Systolic Diameter PLAX 2.8 cm IVS Diastolic Thickness 1.1 cm 0.6 - 1.0 / 0.6 - 0.9 cm LVPW Diastolic Thickness 1.4 cm 0.6 - 1.0 / 0.6 - 0.9 cm LV Relative Wall Thickness 0.5 RV Internal Dim ED PLAX 1.6 cm LVOT Diameter 2.0 cm LA Systolic Diameter LX 4.5 cm 3.0 - 4.0 / 2.7 - 3.8 cm LV Diastolic Volume MOD BP 57.6 cm??? 67 - 155 / 56 - 104 cm??? LV Systolic Volume MOD BP 26.2 cm??? 22 - 58 / 19 - 49 cm??? LV Ejection Fraction MOD BP 54.6 % >= 55 % LV Cardiac Index MOD BP 1405.4 cm???/min???m??? LV Diastolic Volume MOD 4C 57.3 cm??? LV Systolic Volume MOD 4C 15.0 cm??? LV Ejection Fraction MOD 4C 73.8 % LV Cardiac Index MOD 4C 1891.9 cm???/min???m??? LV Diastolic Length 4C 7.8 cm LV Systolic Length 4C 3.8 cm LV Diastolic Volume MOD 2C 57.4 cm??? LV Systolic Volume MOD 2C 19.9 cm??? LV Ejection Fraction MOD 2C 65.4 % LV Cardiac Index MOD 2C 1679.6 cm???/min???m??? LV Diastolic Length 2C 7.6 cm LV Systolic Length 2C 6.2 cm M-MODE Aortic Root Diameter MM 2.3 cm LA Systolic Diameter MM 4.1 cm LA Ao Ratio MM 1.8 DOPPLER AV Peak Velocity 193.3 cm/s AV Peak Gradient 14.9 mmHg AV Mean Velocity 144.3 cm/s AV Mean Gradient 9.2 mmHg AV Velocity Time Integral 45.3 cm LVOT Peak Velocity 136.8 cm/s LVOT Peak Gradient 7.5 mmHg LVOT Velocity Time Integral 37.2 cm LVOT Stroke Volume 119.1 cm??? LVOT Stroke Volume Index 65.4 ml/m??? LVOT Cardiac Index 5326.8 cm???/min???m??? AV Area Cont Eq vti 2.6 cm??? AV Area Cont Eq pk 2.3 cm??? Mitral E Point Velocity 120.1 cm/s Mitral A Point Velocity 137.1 cm/s Mitral E to A Ratio 0.9 MV Deceleration Time 263.8 ms MV E' Velocity 4.7 cm/s Mitral E to MV E' Ratio 25.3 TR Peak Velocity 260.9 cm/s TR Peak Gradient 27.2 mmHg FINDINGS Left Ventricle Left ventricular ejection fraction is estimated at 55-60 %. Mildly increased septal wall thickness. Moderately increased posterior wall thickness. Normal left ventricular systolic function with no obvious regional wall motion abnormalities. Right Ventricle Normal right ventricular size and function. Mild pulmonary hypertension. Right Atrium Moderate right atrial dilatation. Left Atrium Moderately increased left atrial diameter. Mitral Valve Structurally normal mitral valve. [id number] mitral regurgitation. No mitral stenosis. Aortic Valve Normally functioning bioprosthetic aortic valve without stenosis with a peak velocity of 1.93 m/s, peak gradient 15mmHg, mean gradient 9mmHg, and estimated aortic valve area of 2.3cm???. Trace paravalvular aortic regurgitation. No central aortic regurgitation. Tricuspid Valve Structurally normal tricuspid valve. [id number] tricuspid regurgitation. No tricuspid stenosis. Pulmonic Valve Structurally normal pulmonic valve. Trace pulmonic regurgitation. No pulmonic stenosis. Pericardium Moderate pericardial effusion. Respiratory variation of tricuspid flow. No pleural effusion. Aorta Normal size aortic root and proximal ascending aorta. CONCLUSIONS Normal LV function Normally functioning bioprosthetic valve in aortic position Moderate pericardial effusion Previewed by: Dr. Brijesh Huston MD (Electronically Signed) Final Date: 09 December 2024 11:05
[2024-12-09 12:13] VITALS: TEMP 97.4
[2024-12-09 12:21] VITALS: BP 115/54; PULSE 68
[2024-12-09] MEDS: POTASSIUM BICARBONATE/CIT AC 20 MEQ TABLET.EFF PO ONE (12:27)
--- NOTE | 2024-12-09 12:28 | P.DS ---
Providers Date of admission: 12/08/24 05:47 Expected date of discharge: 12/09/24 Attending physician: Benigno Reid Consults: 12/07/24 10:37 Consult to Anesthesia Routine Consulting Provider: Anesthesia,Services Consult Reason/Comments: Cardiac Surgery Pre-Op 12/08/24 08:40 Consult Physician Routine Consulting Provider: Bo Ingram Consult Reason/Comments: post TAVR Do you want consulting provider notified?: Already Contacted Primary care physician: Sunny Sun Hospital Course: MEDICAL HISTORY: Calcified aortic valve with severe symptomatic aortic valve stenosis, NYHA class II History of hypertension Hyperlipidemia Paroxysmal atrial fibrillation not currently on anticoagulation Obstructive sleep apnea with home CPAP use Rheumatoid arthritis Previous tobacco dependence PROCEDURE: Percutaneous aortic valve implantation using a 29 mm Evolute FX under EZRA and fluoroscopy guidance Transesophageal echocardiography performed by anesthesia Ultrasound-guided access and repair of bilateral femoral artery access site by Perclose closure device as well as Angio-Seal Placement of temporary pacemaker wire Aortic root angiography HISTORY OF PRESENT ILLNESS: This is a 84-year-old female who follows on an outpatient basis with Dr. Sun for primary care and Dr. Arias for cardiology. She has a known history of severe aortic stenosis and has been symptomatic with increased exertional dyspnea as well as chest pain with activity. She had been referred to structural heart clinic for evaluation for transcatheter aortic valve replacement after heart catheterization and transesophageal echocardiogram were completed. Echocardiography demonstrated normal systolic function with EF 55-60%, max velocity greater than 4 seconds, with a peak/mean gradient 76/51 mmHg. Heart catheterization showed normal coronaries. After workup was completed STS risk score was calculated along with incremental risk and the patient was felt to be high risk for surgical aortic valve replacement, therefore transcatheter aortic valve replacement was recommended. The usual course of TAVR was discussed in detail the patient, risks and benefits were reviewed, shared decision making between cardiology, surgery, and the patient/family took place, and the patient consented to proceed with the procedure. HOSPITAL COURSE: The patient was brought to the hospital on 12/08/24, was taken to the extended stay area, prepared in the usual fashion, and subsequently taken to the cardiac catheterization laboratory where Dr. Reid and Dr. Ingram completed TAVR procedure under general anesthesia with fluoroscopy and EZRA. The valve was deployed under rapid ventricular pacing and proceeded without event. At the end of the procedure there was no significant gradient, hemodynamics were felt to be acceptable, and there was no evidence of significant perivalvular leak. Upon completion of the procedure the patient was extubated and was transferred to the recovery room with subsequent admission to the cardiac stepdown unit where she was recovered and monitored hemodynamically. Her oxygen was titrated down, she was tolerating oral diet, her pain was controlled, follow-up TTE demonstrated normal left ventricular systolic function, mean gradient 9 mmHg, trace paravalvular leak, moderate pericardial effusion which looks to be chronic as it has been present since at least 09/2024, and she was ready to be discharged to home on postoperative day #1. She received written and verbal instruction regarding her medications, activity restrictions, signs and symptoms requiring physician notification, and follow-up appointments. Patient Condition at Discharge: Stable Plan - Discharge Summary Discharge Rx Participant: No New Discharge Prescriptions: New Benzocaine/Menthol Lozeng [Cepacol lozenge] 1 each MUCOUS MEM Q4HR PRN lozenge PRN Reason: Sore Throat Sennosides-Docusate Sodium [Senokot-S] 2 each PO HS PRN tab PRN Reason: Constipation Acetaminophen Tab [Tylenol] 1,000 mg PO Q6HR PRN tab PRN Reason: Fever And/ Or Mild Pain (1-3) Continue Atorvastatin [Lipitor] 80 mg PO HS #30 tab Folic Acid 1 mg PO DAILY Pantoprazole Sodium [Protonix] 40 mg PO DAILY Ferrous Sulfate [Iron (65 MG Elemental)] 65 mg PO DAILY Calcium(Unknown Dose) 1 tab PO DAILY Vitamin D3(Unknown Dose) 1 tab PO DAILY FLUoxetine HCL [PROzac] 60 mg PO DAILY Furosemide [Lasix] 40 mg PO DAILY Multivitamins, Thera [Multivitamin (formulary)] 1 tab PO DAILY Nitroglycerin Sl Tabs [Nitrostat] 0.4 mg SUBLINGUAL Q5M PRN #20 tab PRN Reason: Chest Pain Upadacitinib [Rinvoq] 15 mg PO DAILY amLODIPine [Norvasc] 10 mg PO DAILY Clopidogrel [Plavix] 75 mg PO DAILY Irbesartan 300 mg PO DAILY Potassium Chloride ER [K-Dur 20] 20 meq PO DAILY #90 tab Magnesium(Unknown Dose) 1 tab PO DAILY Discharge Medication List Atorvastatin [Lipitor] 80 mg PO HS #30 tab 08/11/17 [Rx] Folic Acid 1 mg PO DAILY 12/15/19 [History] Pantoprazole Sodium [Protonix] 40 mg PO DAILY 06/02/20 [History] amLODIPine [Norvasc] 10 mg PO DAILY 02/21/21 [History] Clopidogrel [Plavix] 75 mg PO DAILY 09/02/23 [History] Ferrous Sulfate [Iron (65 MG Elemental)] 65 mg PO DAILY 09/02/23 [History] Irbesartan 300 mg PO DAILY 12/16/23 [History] Potassium Chloride ER [K-Dur 20] 20 meq PO DAILY #90 tab 12/21/23 [Rx] Calcium(Unknown Dose) 1 tab PO DAILY 10/04/24 [History] FLUoxetine HCL [PROzac] 60 mg PO DAILY 10/04/24 [History] Furosemide [Lasix] 40 mg PO DAILY 10/04/24 [History] Magnesium(Unknown Dose) 1 tab PO DAILY 10/04/24 [History] Multivitamins, Thera [Multivitamin (formulary)] 1 tab PO DAILY 10/04/24 [History] Vitamin D3(Unknown Dose) 1 tab PO DAILY 10/04/24 [History] Nitroglycerin Sl Tabs [Nitrostat] 0.4 mg SUBLINGUAL Q5M PRN #20 tab 10/06/24 [Rx] Upadacitinib [Rinvoq] 15 mg PO DAILY 10/17/24 [History] Acetaminophen Tab [Tylenol] 1,000 mg PO Q6HR PRN tab 12/09/24 [Rx] Benzocaine/Menthol Lozeng [Cepacol lozenge] 1 each MUCOUS MEM Q4HR PRN lozenge 12/09/24 [Rx] Sennosides-Docusate Sodium [Senokot-S] 2 each PO HS PRN tab 12/09/24 [Rx] Follow up Appointment(s)/Referral(s): Mack Arias MD [STAFF PHYSICIAN] - 12/15/24 1:30 pm (Your appointment with Dr. Arias on December 15, 2024 is for a groin check at the [facility]. You also have a 30-day post TAVR echocardiogram and appointment with Dr. Arias 02/08/25@9 am, and a 1 year post TAVR echocardiogram and appointment with Dr. Arias 11/28/25@10:30 am) Dino,Sunny, DO [Primary Care Provider] - As Needed (Please call to make a post hospital follow up appoinmnet when offices open Wednesday.) Ambulatory/Diagnostic Orders: Basic Metabolic Panel [LAB.AMB] Location: None Selected Basic Metabolic Panel [LAB.AMB] Location: None Selected Complete Blood Count w/diff [LAB.AMB] Location: None Selected Complete Blood Count w/diff [LAB.AMB] Location: None Selected Patient Instructions/Handouts: Transcatheter Aortic Valve Replacement (DC) Activity/Diet/Wound Care/Special Instructions: DISCHARGE INSTRUCTIONS: 1. No driving for 1 week, or until physician gives their ok. 2. No lifting, pushing, or pulling more than 5-10 pounds for 1 week. 3. Hold both groins when you cough or sneeze for the next 2 weeks. Bruising is common, but report increased swelling, pain or fever >101F 4. Shower daily. No pool, hot tub, or bathtub for 1 week 5. No powders, lotions, ointments on incisions. 6. No straining, including for bowel movements. Use stool softner if necessary 7. Stairs are not an issue. Go slowly, using handrail and take 1 step at a time. Ambulate several times daily 8. Continue pain control per as needed orders. 9. Take only the medications listed on your discharge form 10. Eat low salt (limited to 2 grams or 2000 milligrams) daily, avoid adding salt, avoid canned/processed foods 11. Take your weight daily in the morning and record, bring with you to your follow up appointments 12. Keep all follow up appointments. You will need a valve clinic appointment at 30 days and 1 year post procedure for follow up 13. You have been referred to and are expected to begin Cardiac Rehab in approximately 4 weeks. 14. You will need antibiotics prior to any dental work, including cleanings, and any surgeries to prevent Endocarditis (bacterial infection in your heart) For any questions or concerns please call your valve coordinators: Kaitlynn or Mirza @ Discharge Disposition: HOME SELF-CARE
[2024-12-09 12:58] VITALS: BMI 31.0
== END 2024-12-09 13:14 | disposition home or self-care (01) | DRG 267 ==
LOC: 2ORMAIN 05:47 → 3SCARD 11:53
PROVIDERS: ADMIT Internal Medicine Interventional Cardiology; ATTEND Internal Medicine Interventional Cardiology
PROC: B24BZZ4 Ultrasonography of Heart with Aorta, Transesophageal (ICD-10-PCS; 2024-12-08)
PROC: B3101ZZ Fluoroscopy of Thoracic Aorta using Low Osmolar Contrast (ICD-10-PCS; 2024-12-08)
PROC: 02RF3JZ Replacement of Aortic Valve with Synthetic Substitute, Percutaneous Approach (ICD-10-PCS; principal; 2024-12-08 08:00)
DX: I35.0 Nonrheumatic aortic (valve) stenosis (principal); Z00.6 Encounter for examination for normal comparison and control in clinical research program; I31.39 Other pericardial effusion (noninflammatory); M06.9 Rheumatoid arthritis, unspecified; I10 Essential (primary) hypertension; I48.0 Paroxysmal atrial fibrillation; E78.5 Hyperlipidemia, unspecified; G47.33 Obstructive sleep apnea (adult) (pediatric); Z87.891 Personal history of nicotine dependence
CPT/HCPCS: 33361; 71045; 80048; 80053; 83735; 85025; 85027; 93306; 93312; 93320; 93325

== ENCOUNTER → 2025-01-01 | Outpatient (CLI) | payer MEDICARE ==
[2025-01-01 15:20] LABS: Anion Gap 9.30 mmol/L (4.00-12.00); BUN/Creat Ratio 23.20 Ratio (12.00-20.00); Blood Urea Nitrogen 23.2 mg/dL (9.0-27.0); Calcium 9.4 mg/dL (8.7-10.3); Carbon Dioxide 24.7 mmol/L (21.6-31.8); Chloride 101 mmol/L (96-109); Glucose 97 mg/dL (70-110); Magnesium 2.2 mg/dL (1.5-2.4); Potassium 4.7 mmol/L (3.5-5.5); Sodium 135 mmol/L (135-145)
== END | disposition home or self-care (01) ==
LOC: LABWHC1 12:11
PROVIDERS: ATTEND Nurse Practitioner Adult Health
DX: I10 Essential (primary) hypertension (principal)
CPT/HCPCS: 36415; 80048; 83735

== ENCOUNTER → 2025-01-11 | Outpatient (CLI) | payer MEDICARE ==
[2025-01-11 15:17] LABS: Basophils # (A) 0.02 X 10*3/uL (0.00-0.10); Basophils % (A) 0.2 %; Eosinophils # (A) 0.06 X 10*3/uL (0.04-0.35); Eosinophils % (A) 0.7 %; HCT 33.0 % (37.2-46.3); HGB 10.6 g/dL (12.0-15.0); Immature Grans, Automated 0.40 %; Lymphocytes # (A) 2.28 X 10*3/uL (0.90-5.00); Lymphocytes % (A) 25.2 %; MCH 30.8 pg (27.0-32.0); MCHC 32.1 g/dL (32.0-37.0); MCV 95.9 FL (80.0-97.0); Monocytes # (A) 1.09 X 10*3/uL (0.20-1.00); Monocytes % (A) 12.0 %; NRBC Per 100 WBC 0 X 10*3/uL (0.00-0.01); Neutrophils # (A) 5.57 X 10*3/uL (1.80-7.70); Neutrophils % (A) 61.5 %; Platelet Count 446 X 10*3/uL (140-440); RBC 3.44 X 10*6/uL (4.10-5.20); RDW 14.2 % (11.5-14.5); WBC 9.06 X 10*3/uL (4.50-10.00)
[2025-01-11 15:55] LABS: Anion Gap 11.10 mmol/L (4.00-12.00); BUN/Creat Ratio 28.70 Ratio (12.00-20.00); Blood Urea Nitrogen 28.7 mg/dL (9.0-27.0); Calcium 9.3 mg/dL (8.7-10.3); Carbon Dioxide 23.9 mmol/L (21.6-31.8); Chloride 95 mmol/L (96-109); Glucose 103 mg/dL (70-110); Potassium 4.0 mmol/L (3.5-5.5); Sodium 130 mmol/L (135-145)
== END | disposition home or self-care (01) ==
LOC: LABWHC1 11:25
PROVIDERS: ATTEND Nurse Practitioner Acute Care
DX: I35.0 Nonrheumatic aortic (valve) stenosis (principal)
CPT/HCPCS: 36415; 80048; 85025

== ENCOUNTER → 2025-01-17 | Outpatient (CLI) | payer MEDICARE ==
--- NOTE | 2025-01-18 12:50 | BD ---
EXAMINATION TYPE: Axial Bone Density DATE OF EXAM: 01/17/2025 CLINICAL HISTORY: 84 years old Female. ICD-10 CODE: M81.0 AGE-RELATED OSTEOPOROSIS W/O CURRENT PATHO LO , Additional History: Height: 62 in Weight: 165 lbs FRAX RISK QUESTIONS: Family History (Parent hip fracture): yes mother History of Fracture in Adulthood: lt wrist fx age 80 Secondary Osteoporosis: 3. Menopause before 45: total hysterectomy age 41 Rheumatoid Arthritis: yes HISTORY OF: History of Wrist Fracture: lt wrist age 81 EXAM MEASUREMENTS: Bone mineral densitometry was performed using the [employer]. Bone mineral density as measured about the Lumbar spine is: ----- L1-L4(G/cm2): 1.398 T Score Values are as follows: ----- L1: 1.0 ----- L2: 1.1 ----- L3: 1.6 ----- L4: 3.3 ----- L1-L4: 1.8 Z Score Values are as follows: ----- L1: 2.6 ----- L2: 2.6 ----- L3: 3.1 ----- L4: 4.9 ----- L1-L4: 3.4 Bone mineral density has: Increased 6.6% since study of: 05/15/2022 Bone mineral density about the R hip (g/cm2): 0.984 Bone mineral density about the L hip (g/cm2): 0.903 T Score values are as follows: -----R Neck: -0.6 -----L Neck: -0.9 -----R Total: -0.2 -----L Total: -0.8 Z Score values are as follows: -----R Neck: 1.5 -----L Neck: 1.1 -----R Total: 1.8 -----L Total: 1.1 Bone mineral density has: Increased 0.5% since study of: 05/15/2022 FRAX%s: The graph provided illustrates a 24.5% chance for a major osteoporotic fx and a 13.8% chance for the hips probability for fx in 10 years time. IMPRESSION: Normal (Values between +1 and -1 indicate normal bone mass). Consider repeating this study in 5 year s or sooner if there is some new clinical indication. NOTE: T-SCORE=SD OF THE YOUNG ADULT MEAN. [facility], , 01/18/2025 12:47 PM
== END | disposition home or self-care (01) ==
LOC: RADBDWWP 10:40
PROVIDERS: ATTEND Family Medicine
DX: M81.0 Age-related osteoporosis without current pathological fracture (principal)
CPT/HCPCS: 77080